=== PATIENT | male | born 1945 | race Caucasian/White ===

== ENCOUNTER 2017-07-15 08:09 | Day surgery (SDC) | payer OTHER ==
[~2017-07-15] VITALS: Ht 175.3 cm; Wt 60.9 kg
[2017-07-15] VITALS (9 sets, daily range): BP systolic 101–125; BP diastolic 55–66; PULSE 65–72; RESP 16–18; TEMP 97.8; O2SAT 90–94
[~2017-07-15 08:09] MED LIST: CEPH-460 PO; IBUP-232 PO; LORA1TAB12 PO
[2017-07-15] MEDS ORDERED: GELATIN 12 MM/7 MM FOAM ONE ×2 (08:10→09:33)
[2017-07-15] MEDS ORDERED: BUSP5TAB PO (08:25)
[2017-07-15] MEDS ORDERED: PRESCAP6 PO (08:25)
[2017-07-15] MEDS ORDERED: MEGE20TA PO (08:25)
[2017-07-15] MEDS ORDERED: MULT1TAB41 (08:25)
[2017-07-15] MEDS ORDERED: MIRT45TA PO (08:25)
[2017-07-15] MEDS ORDERED: fentaNYL CITRATE 250 MCG/5 ML AMP ONE (08:49)
[2017-07-15] MEDS ORDERED: MIDAZOLAM HCL 5 MG/5 ML VIAL ONE (08:49)
[2017-07-15] MEDS ORDERED: SODIUM CHLOR 0.9% 1000 ML IV SCH (09:00)
[2017-07-15] MEDS ORDERED: THROMBIN (TOPICAL) 5,000 UNIT VIAL ONE (09:33)
--- NOTE | 2017-07-15 11:42 | RADRPT ---
EXAM DATE/TIME: 07/15/2017 09:16 [facility] COMPARISON: No previous studies available for comparison. INDICATIONS : Liver mass. SEDATION TIME: 45 minutes BIOPSY SITE: Right flank. MEDICATION(S): 1.) 2.5 mg midazolam (Versed) IV 2.) 125 mcg fentanyl (Sublimaze) IV DEVICE(S): 1.) 18 gauge Rizvi blunt needle 2.) 20 gauge Temno core biopsy needle MEDICAL HISTORY : Carcinoma, prostate. Chronic obstructive pulmonary disease. SURGICAL HISTORY : Prostatectomy. Cholecystectomy. ENCOUNTER: Initial ACUITY: 1 day PAIN SCORE: 0/10 LOCATION: Right flank A total of three core specimen(s) were obtained and sent to the laboratory for pathologic evaluation. PROCEDURE: 1. CT guided liver biopsy. Prior to the procedure informed consent was obtained. Any appropriate prior imaging studies were rev iewed. Using automated exposure control and adjustment of the mA and/or kV according to patient size, radiat ion dose was kept as low as reasonably achievable to obtain optimal diagnostic quality images. DICOM format image data is available electronically for review and comparison. The site was prepped in a sterile fashion. Full sterile technique was used, including cap, mask, jesus manuel rile gloves and gown and a large sterile sheet. Hand hygiene and 2% chlorhexidine and/or betadine/al cohol prep was utilized per protocol for cutaneous antisepsis. The skin and subcutaneous tissues wer e infiltrated with local anesthetic solution. Under CT guidance the PET positive region in the right lobe the liver was localized. This is differe nt than the "suspicious area" seen on the CT scan from [facility]. 3 core biopsies were obtai carly of the PET positive region right lobe of the liver. Tract was embolized with Gelfoam. Follow-up CT scan reveals no hemorrhage. The patient tolerated the procedure well and there were no complications. The patient was returned to the Radiology Outpatient Unit in stable condition. CONCLUSION: Uncomplicated CT guided biopsy of PET positive region right lobe of the liver.. Vimal Mcdonald MD FACR on July 15, 2017 at 11:40 Board Certified Radiologist. This report was verified electronically.
== END 2017-07-15 14:15 | disposition home or self-care (01) ==
LOC: HRAD 08:09 → HRIP 08:12 → HRAD 14:15
PROVIDERS: ATTEND Internal Medicine
DX: R16.0 Hepatomegaly, not elsewhere classified (principal); K83.1 Obstruction of bile duct; Z85.46 Personal history of malignant neoplasm of prostate; J44.9 Chronic obstructive pulmonary disease, unspecified
CPT/HCPCS: 47000; 77012; 88307; 88333; J2250; J3010; J7030

== ENCOUNTER 2017-07-20 13:14 | Inpatient (IN) | payer OTHER, MEDICARE ==
[~2017-07-20] VITALS: Ht 175.3 cm; Wt 61.6 kg
[2017-07-20] VITALS (9 sets, daily range): BP systolic 92–149; BP diastolic 24–67; PULSE 46–133; RESP 17–24; TEMP 99.4–102.7; O2SAT 94–100
[~2017-07-20 13:14] MED LIST changes: +BUSP5TAB PO; -CEPH-460 PO; -IBUP-232 PO; -LORA1TAB12 PO; +MEGE20TA PO; +MIRT45TA PO; +MULT1TAB41; +PRESCAP6 PO
[2017-07-20] MEDS ORDERED: IOHEXOL 350 MG/ML 10 ML VIAL (for RAD DIAG) IVCONTRAST ONE (13:15)
--- NOTE | 2017-07-20 14:04 | RADRPT ---
EXAM DATE/TIME: 07/20/2017 13:45 [facility] COMPARISON: No previous studies available for comparison. INDICATIONS : Patient states fever for 2 days. MEDICAL HISTORY : Carcinoma, prostatic. Chronic obstructive pulmonary disease. SURGICAL HISTORY : Prostatectomy. Cholecystectomy. ENCOUNTER: Initial ACUITY: 2 days PAIN SCORE: 0/10 LOCATION: Bilateral chest FINDINGS: PA and lateral views of the chest demonstrate the lungs to be symmetrically aerated without evidence of mass, infiltrate or effusion. Bullous emphysematous changes. The cardiomediastinal contours are u nremarkable. Osseous structures are intact. CONCLUSION: Bullous emphysematous changes. No infiltrates. Andre Jones Jr., MD on July 20, 2017 at 14:02 Board Certified Radiologist. This report was verified electronically.
[2017-07-20 14:48] LABS: AUTOMATED NEUTROPHIL # 18.1 TH/MM3 (1.8-7.7); BASOPHIL % 0.1 % (0.0-2.0); HEMATOCRIT 38.6 % (39.0-51.0); HEMOGLOBIN 13.8 GM/DL (13.0-17.0); LYMPH % 2.7 % (9.0-44.0); LYMPHOCYTE # 0.5 TH/MM3 (1.0-4.8); MEAN CELL VOLUME 86.4 FL (80.0-100.0); MEAN CORPUSCULAR HEMOGLOBIN 30.8 PG (27.0-34.0); MEAN CORPUSCULAR HGB CONC 35.6 % (32.0-36.0); MEAN PLATELET VOLUME 8.2 FL (7.0-11.0); MONO % 4.8 % (0.0-8.0); MONOCYTE # 0.9 TH/MM3 (0-0.9); NEUT % 92.4 % (16.0-70.0); PLATELET COUNT 231 TH/MM3 (150-450); RED BLOOD COUNT 4.47 MIL/MM3 (4.50-5.90); RED CELL DISTRIBUTION WIDTH 13.6 % (11.6-17.2); WHITE BLOOD COUNT 19.6 TH/MM3 (4.0-11.0)
[2017-07-20 14:56] LABS: INTERNATIONAL NORMALIZED RATIO 1.2 RATIO; PROTHROMBIN TIME - PATIENT 11.7 SEC (9.8-11.6)
--- NOTE | 2017-07-20 14:58 | PD ---
HPI Chief Complaint: Fever Time Seen by Provider: 14:03 Travel History International Travel<30 days: No Contact w/Intl Traveler<30days: No Traveled to known affect area: No History of Present Illness HPI This is a 72-year-old male with a history of newly diagnosed pancreatic cancer with metastases to liver, presents here with complaints of fever and abdominal pain. The patient had a liver biopsy performed here at [facility] on Thursday. Son states at home he over the last 2436 hrs. was having chills. He also noted that he had a fever. There has been no reported URI symptoms. There is no been urinary symptoms. The patient denies any vomiting or diarrhea. He did take a 15 mg morphine tablet today prior to coming. There are no other complaints at the time of my examination. PFSH Past Medical History Anxiety: Yes Cancer: Yes (PROSTATE - PT STATES "FROM [facility]" pancreatic) Cardiovascular Problems: No High Cholesterol: Yes Diabetes: No Endocrine: No Gastrointestinal Disorders: No Genitourinary: No Hepatitis: No Hiatal Hernia: No Hypertension: No Immune Disorder: No Medical other: No Musculoskeletal: No Neurologic: No Psychiatric: No Reproductive: No Respiratory: Yes (COPD) Thyroid Disease: No Past Surgical History Abdominal Surgery: Yes (recent biopsy) AICD: No Cardiac Surgery: No Ear Surgery: No Endocrine Surgery: No Eye Surgery: No Genitourinary Surgery: Yes (PROSTATECTOMY) Gynecologic Surgery: No Joint Replacement: No Neurologic Surgery: Yes Oral Surgery: No Pacemaker: No Thoracic Surgery: No Other Surgery: Yes Social History Alcohol Use: No Tobacco Use: No Substance Use: No Allergies-Medications (Allergen,Severity, Reaction): Coded Allergies: No Known Allergies (Verified Allergy, Unknown, 07/15/17) Reported Meds & Prescriptions Reported Meds & Active Scripts Active Reported Preservision-Lutein (Multiple Vitamins W/ Minerals) 1 Cap 1 Cap PO DAILY Sentry Senior (Multiple Vitamins W/ Minerals) 500 Mcg-300 Mcg-250 Mcg Tab DAILY Mirtazapine 45 Mg Tab 45 Mg PO HS Megestrol (Megestrol Acetate) 20 Mg Tab 20 Mg PO BID Buspirone (Buspirone HCl) 5 Mg Tab 5 Mg PO BID Review of Systems Except as stated in HPI: all other systems reviewed are Neg General / Constitutional: Positive: Fever, Chills HENT: Positive: Lightheadedness, No: Headaches, Neck Pain Cardiovascular: No: Chest Pain or Discomfort, Palpitations, Irregular Rhythm Respiratory: No: Cough, Shortness of Breath Gastrointestinal: Positive: Nausea, Abdominal Pain, No: Vomiting Genitourinary: No: Dysuria, Decreased Urinary Output Musculoskeletal: No: Weakness, Pain Skin: No Rash, No Lesions Neurologic: Positive: Weakness, No: Dizziness Physical Exam Narrative GENERAL: Well-developed well-nourished male in mild discomfort. SKIN: Focused skin assessment warm/dry. HEAD: Atraumatic. Normocephalic. EYES: No scleral icterus. No injection or drainage. ENT: No nasal bleeding or discharge. Mucous membranes pink and moist. NECK: Trachea midline. Supple. CARDIOVASCULAR: Regular rate and rhythm. No murmur appreciated. RESPIRATORY: No accessory muscle use. Clear to auscultation. Breath sounds equal bilaterally. GASTROINTESTINAL: Abdomen soft, nondistended. There is tenderness to palpation in his epigastrium. Voluntary guarding with no rebound. MUSCULOSKELETAL: No obvious deformities. No clubbing. No cyanosis. No edema. NEUROLOGICAL: Awake and alert. No obvious cranial nerve deficits. Motor grossly within normal limits. Normal speech. Data Data Last Documented VS Vital Signs Date Time Temp Pulse Resp B/P (MAP) Pulse Ox O2 Delivery O2 Flow Rate FiO2 07/20/17 16:04 102 17 92/53 (66) 96 Room Air 07/20/17 13:30 101.7 Orders Orders Sepsis Workup Initiated (07/20/17 ) Electrocardiogram (07/20/17 13:33) Complete Blood Count With Diff (07/20/17 13:33) Comprehensive Metabolic Panel (07/20/17 13:33) Prothrombin Time / Inr (Pt) (07/20/17 13:33) Act Partial Throm Time (Ptt) (07/20/17 13:33) Lactic Acid Sepsis Protocol (07/20/17 13:33) Lipase (07/20/17 13:33) Urinalysis - C+S If Indicated (07/20/17 13:33) Influenzae A/B Antigen (07/20/17 13:33) Blood Culture (07/20/17 13:33) Chest, Pa & Lat (07/20/17 13:33) Ct Abd/Pel W Iv Contrast(Rout) (07/20/17 14:26) Iohexol 350 Inj (Omnipaque 350 Inj) (07/20/17 13:15) Sodium Chlor 0.9% 1000 Ml Inj (Ns 1000 M (07/20/17 16:00) Diet Regular Basic (07/20/17 Dinner) Admit Order (Ed Use Only) (07/20/17 17:50) Labs Laboratory Tests Test 07/20/17 14:42 07/20/17 15:58 White Blood Count 19.6 TH/MM3 Red Blood Count 4.47 MIL/MM3 Hemoglobin 13.8 GM/DL Hematocrit 38.6 % Mean Corpuscular Volume 86.4 FL Mean Corpuscular Hemoglobin 30.8 PG Mean Corpuscular Hemoglobin Concent 35.6 % Red Cell Distribution Width 13.6 % Platelet Count 231 TH/MM3 Mean Platelet Volume 8.2 FL Neutrophils (%) (Auto) 92.4 % Lymphocytes (%) (Auto) 2.7 % Monocytes (%) (Auto) 4.8 % Eosinophils (%) (Auto) 0.0 % Basophils (%) (Auto) 0.1 % Neutrophils # (Auto) 18.1 TH/MM3 Lymphocytes # (Auto) 0.5 TH/MM3 Monocytes # (Auto) 0.9 TH/MM3 Eosinophils # (Auto) 0.0 TH/MM3 Basophils # (Auto) 0.0 TH/MM3 CBC Comment DIFF FINAL Differential Comment Prothrombin Time 11.7 SEC Prothromb Time International Ratio 1.2 RATIO Activated Partial Thromboplast Time 29.2 SEC Blood Urea Nitrogen 15 MG/DL Creatinine 1.10 MG/DL Random Glucose 108 MG/DL Total Protein 7.4 GM/DL Albumin 2.7 GM/DL Calcium Level 8.9 MG/DL Alkaline Phosphatase 218 U/L Aspartate Amino Transf (AST/SGOT) 104 U/L Alanine Aminotransferase (ALT/SGPT) 106 U/L Total Bilirubin 1.2 MG/DL Sodium Level 129 MEQ/L Potassium Level 4.4 MEQ/L Chloride Level 99 MEQ/L Carbon Dioxide Level 19.8 MEQ/L Anion Gap 10 MEQ/L Estimat Glomerular Filtration Rate 65 ML/MIN Lactic Acid Level 2.9 mmol/L Lipase 86 U/L Urine Color YELLOW Urine Turbidity HAZY Urine pH 7.5 Urine Specific [place] 1.037 Urine Protein 30 mg/dL Urine Glucose (UA) NEG mg/dL Urine Ketones NEG mg/dL Urine Occult Blood NEG Urine Nitrite NEG Urine Bilirubin NEG Urine Urobilinogen LESS THAN 2.0 MG/DL Urine Leukocyte Esterase NEG Urine RBC LESS THAN 1 /hpf Urine WBC 2 /hpf Urine Squamous Epithelial Cells 1 /hpf Urine Hyaline Casts 1 /lpf Microscopic Urinalysis Comment CATH-CULT NOT IND MDM Medical Decision Making Medical Screen Exam Complete: Yes Emergency Medical Condition: Yes Differential Diagnosis Pneumonia versus UTI versus intra-abdominal abscess versus influenza Narrative Course 72-year-old male with a history of pancreatic cancer with metastasis to his liver, presents here with fever and abdominal pain. Patient's white count is 19 ,000. The patient had a biopsy of his liver on Thursday. CT scan of his abdomen pelvis shows probable infectious findings of his right lobe of his liver. Given his biopsy and his fever and elevated white blood cell count, the patient will be treated for intra-abdominal infection. He has been started on Zosyn, 4.5 g IV 1 dose. Case was [facility]. Ru[facility] He is agreeable to the admission. Diagnosis Primary Impression: Fever Additional Impressions: Leukocytosis Liver biopsy site infection History of metastatic pancreatic cancer Admitting Information Admitting Physician Requests: Admit Cm Rondon MD Jul 20, 2017 14:58
[2017-07-20 15:03] LABS: ALBUMIN 2.7 GM/DL (3.4-5.0); ALT (GPT) 106 U/L (12-78); AST (GOT) 104 U/L (15-37); BICARBONATE 19.8 MEQ/L (21.0-32.0); BLOOD UREA NITROGEN 15 MG/DL (7-18); CALCIUM 8.9 MG/DL (8.5-10.1); CHLORIDE 99 MEQ/L (98-107); GLOMERULAR FILTRATION RATE 65 ML/MIN (>89); GLUCOSE,RANDOM 108 MG/DL (74-106); SODIUM (NA) 129 MEQ/L (136-145)
[2017-07-20 15:05] LABS: ALKALINE PHOSPHATASE 218 U/L (45-117); TOTAL BILIRUBIN ADULT 1.2 MG/DL (0.2-1.0); TOTAL PROTEIN 7.4 GM/DL (6.4-8.2)
[2017-07-20 15:06] LABS: LACTIC ACID SEPSIS PROTOCOL 2.9 mmol/L (0.4-2.0)
[2017-07-20] MEDS ORDERED: SODIUM CHLOR 0.9% 1000 ML INJ 1,000 ML IV ONE (16:00)
--- NOTE | 2017-07-20 16:13 | RADRPT ---
EXAM DATE/TIME: 07/20/2017 15:30 This report includes an Addendum and supersedes previous reports for this exam. [facility] COMPARISON: CT NEEDLE BIOPSY LIVER, July 15, 2017, 9:16. INDICATIONS : Evaluate for abscess, patient has fever. IV CONTRAST: 97 cc Omnipaque 350 (iohexol) IV ORAL CONTRAST: No oral contrast ingested. RADIATION DOSE: 6.57 CTDIvol (mGy) MEDICAL HISTORY : Chronic obstructive pulmonary disease. Carcinoma, pancreas. SURGICAL HISTORY : Prostatectomy. Cholecystectomy. ENCOUNTER: Initial ACUITY: 1 day PAIN SCALE: 0/10 LOCATION: abdomen TECHNIQUE: Volumetric scanning of the abdomen and pelvis was performed. Using automated exposure control and ad justment of the mA and/or kV according to patient size, radiation dose was kept as low as reasonably achievable to obtain optimal diagnostic quality images. DICOM format image data is available electro nically for review and comparison. FINDINGS: LOWER LUNGS: Right basilar atelectasis. Left lung base is clear. Coronary artery atherosclerotic calcifications no wilner. LIVER: There is a metallic common bile duct stent. This is patent. Pneumobilia observed particularly within the left lobe of the liver. No dilatation. There is a low density mass involving the left lobe of the liver within segment 3. This measures 6.8 x 4.9 x 3.9 cm. This is new from the biopsy images perform ed July 15, 2017. Hounsfield units are 40. A vague area of decreased density seen involving the r ight tip of the liver. This area was not previously imaged. SPLEEN: Normal size without lesion. PANCREAS: There is a pancreatic head mass that measures approximately 3 cm in diameter. Pancreatic ductal dilat ation observed reaching a maximum diameter of 8 mm. KIDNEYS: Normal in size and shape. There is no mass, stone or hydronephrosis. ADRENAL GLANDS: Within normal limits. VASCULAR: 3.6 x 3.7 cm fusiform infrarenal abdominal aortic aneurysm. This extends into the right common artery which reaches a maximum diameter of 18 mm. BOWEL/MESENTERY: The stomach, small bowel, and colon demonstrate no acute abnormality. There is no free intraperitone al air or fluid. ABDOMINAL WALL: Within normal limits. RETROPERITONEUM: There is no lymphadenopathy. BLADDER: No wall thickening or mass. REPRODUCTIVE: Prostate gland is surgically absent.. INGUINAL: There is no lymphadenopathy or hernia. MUSCULOSKELETAL: Within normal limits for patient age. CONCLUSION: 1. Interval appearance of a 6.8 cm low-density lesion involving the left lobe of the liver. Scattered vague areas of decreased density within the right lobe. This is concerning for an infectious process that is yet to liquefy. 2. Approximate 3 cm pancreatic head mass with obstruction of the pancreatic duct. Stent within the co mmon bile duct is patent. 3. Pneumobilia. 4. Right basilar atelectasis. Andre Jones Jr., MD on July 20, 2017 at 16:04 Board Certified Radiologist. This report was verified electronically. ADDENDUM: Prior scan from [facility] dated 07-01-2017 is now available for direct comparison. The low density lesion in segment 3 of the left hepatic lobe was not present previously. There is stable pneumobilia likely associated with the metallic biliary stent. 2.8 cm mass lesion at the junction of head and neck of the pancreas is difficult to identify on the previous scan, likely d ue to a different phase of contrast enhancement but the degree of pancreatic ductal dilatation is sta ble. Lupillo Rivero MD on July 23, 2017 at 16:28 Board Certified Radiologist. This report was verified electronically.
[2017-07-20 17:07] LABS: BILIRUBIN, URINE NEG (NEG); BLOOD, URINE NEG (NEG); GLUCOSE,URINE NEG (NEG); HYALINE CAST, URINE 1 /lpf (RARE); KETONE, URINE NEG (NEG); NITRITE,URINE NEG (NEG); PH, URINE 7.5 (5.0-8.5); SQUAMOUS EPITHELIAL CELL URINE 1 /hpf (0-5); URINE COLOR YELLOW (YELLW/STRAW); URINE LEUKOCYTE ESTERASE NEG (NEG)
[2017-07-20] MEDS ORDERED: MAGNESIUM HYDROXIDE SUSP 30 ML CUP PO PRN (18:30)
[2017-07-20] MEDS ORDERED: SENNOSIDES 8.6 MG TAB PO PRN (18:30)
[2017-07-20] MEDS ORDERED: BISACODYL 10 MG SUPP RECTAL PRN (18:30)
[2017-07-20] MEDS ORDERED: LACTULOSE SYRUP 20 GM/30 ML CUP PO PRN (18:30)
[2017-07-20] MEDS ORDERED: ONDANSETRON HCL 4 MG/2 ML VIAL IVP PRN (18:30)
[2017-07-20] MEDS ORDERED: PIPERACIL-TAZO 4.5 GM PREMIX 100 ML IV ONE (18:30)
[2017-07-20] MEDS ORDERED: NALOXONE HCL 0.4 MG/ML AMP IV PUSH PRN (18:30)
[2017-07-20] MEDS: SODIUM CHLOR 0.9% 1000 ML INJ 1,000 ML IV SCH (20:28)
[2017-07-20] MEDS ORDERED: RESP: ALBUTEROL 2.5 MG/IPRATROPIUM 0.5 MG NEB (PRN) NEB (20:45)
[2017-07-20] MEDS: SODIUM CHLORIDE 0.9% FLUSH 10 ML FLUSH IV FLUSH SCH (21:00)
[2017-07-20] MEDS: ACETAMINOPHEN 325 MG TAB PO PRN (21:36)
[2017-07-20] MEDS ORDERED: HEPARIN SODIUM - SQ 10,000 UNITS/ML VIAL SQ SCH (22:00)
--- NOTE | 2017-07-20 22:14 | HHI.HP ---
HPI Service [facility] Primary Care Physician Del Gomez MD Admission Diagnosis fever, suspected abscess from liver biopsy, metastatic pancreatic ca Diagnoses: Travel History International Travel<30 Days: No Contact w/Intl Traveler <30 Da: No Traveled to Known Affected Are: No History of Present Illness 72-year-old male with a past medical history significant for prostate cancer and anxiety with newly diagnosed pancreatic mass with corresponding liver mass concerning for metastatic disease presents to the emergency department for evaluation of abdominal pain/fever. Patient is status post liver biopsy done on Thursday. The patient reports that his abdominal pain began yesterday morning and it is severe in nature in the epigastric region of his abdomen. He reports a fever to 101.7 earlier today. He also reports subjective fever/chills. Denies chest pain or shortness of breath. Endorses nausea. Denies emesis. No cough. No lateralizing signs/symptoms. Review of Systems Except as stated in HPI: all other systems reviewed are Neg Past Family Social History Past Medical History COPD History of prostate cancer Anxiety Newly diagnosed pancreatic mass with liver lesion concerning for metastatic disease Past Surgical History TURP 2000 Reported Medications Reported Meds & Active Scripts Active Reported Preservision-Lutein (Multiple Vitamins W/ Minerals) 1 Cap 1 Cap PO DAILY Sentry Senior (Multiple Vitamins W/ Minerals) 500 Mcg-300 Mcg-250 Mcg Tab DAILY Mirtazapine 45 Mg Tab 45 Mg PO HS Megestrol (Megestrol Acetate) 20 Mg Tab 20 Mg PO BID Buspirone (Buspirone HCl) 5 Mg Tab 5 Mg PO BID Allergies: Coded Allergies: No Known Allergies (Verified Allergy, Unknown, 07/15/17) Family History Negative for CAD/DM Social History Quit tobacco 3 years ago. Denies alcohol. Intermittent marijuana use. Denies other illicit drugs. Physical Exam Vital Signs Vital Signs Date Time Temp Pulse Resp B/P (MAP) Pulse Ox O2 Delivery O2 Flow Rate FiO2 07/20/17 21:21 102.7 104 20 111/54 (73) 95 07/20/17 20:29 112 18 149/67 (94) 99 Nasal Cannula 3.00 07/20/17 19:23 99.4 07/20/17 18:15 100 17 104/56 (72) 100 Room Air 07/20/17 16:04 102 17 92/53 (66) 96 Room Air 07/20/17 14:39 115 92 Room Air 07/20/17 13:30 101.7 133 24 105/42 (63) 94 Physical Exam GENERAL: Cachectic, male lying in bed SKIN: No rashes, ecchymoses or lesions. Cool and dry. HEAD: Atraumatic. Normocephalic. No temporal or scalp tenderness. EYES: Pupils equal round and reactive. Extraocular motions intact. No scleral icterus. No injection or drainage. ENT: Nose without bleeding, purulent drainage or septal hematoma. Throat without erythema, tonsillar hypertrophy or exudate. Uvula midline. Airway patent. NECK: Trachea midline. No JVD or lymphadenopathy. Supple, nontender, no meningeal signs. CARDIOVASCULAR: Regular rate and rhythm without murmurs, gallops, or rubs. RESPIRATORY: Clear to auscultation. Breath sounds equal bilaterally. No wheezes , rales, or rhonchi. GASTROINTESTINAL: Abdomen soft, tender to palpation in the epigastric, nondistended. MUSCULOSKELETAL: Extremities without clubbing, cyanosis, or edema. No joint tenderness, effusion, or edema noted. No calf tenderness. NEUROLOGICAL: Awake and alert. Cranial nerves II through XII intact. Motor and sensory grossly within normal limits. Normal speech. Laboratory Laboratory Tests Test 07/20/17 14:42 07/20/17 15:58 White Blood Count 19.6 Red Blood Count 4.47 Hemoglobin 13.8 Hematocrit 38.6 Mean Corpuscular Volume 86.4 Mean Corpuscular Hemoglobin 30.8 Mean Corpuscular Hemoglobin Concent 35.6 Red Cell Distribution Width 13.6 Platelet Count 231 Mean Platelet Volume 8.2 Neutrophils (%) (Auto) 92.4 Lymphocytes (%) (Auto) 2.7 Monocytes (%) (Auto) 4.8 Eosinophils (%) (Auto) 0.0 Basophils (%) (Auto) 0.1 Neutrophils # (Auto) 18.1 Lymphocytes # (Auto) 0.5 Monocytes # (Auto) 0.9 Eosinophils # (Auto) 0.0 Basophils # (Auto) 0.0 CBC Comment DIFF FINAL Differential Comment Prothrombin Time 11.7 Prothromb Time International Ratio 1.2 Activated Partial Thromboplast Time 29.2 Blood Urea Nitrogen 15 Creatinine 1.10 Random Glucose 108 Total Protein 7.4 Albumin 2.7 Calcium Level 8.9 Alkaline Phosphatase 218 Aspartate Amino Transf (AST/SGOT) 104 Alanine Aminotransferase (ALT/SGPT) 106 Total Bilirubin 1.2 Sodium Level 129 Potassium Level 4.4 Chloride Level 99 Carbon Dioxide Level 19.8 Anion Gap 10 Estimat Glomerular Filtration Rate 65 Lactic Acid Level 2.9 Lipase 86 Urine Color YELLOW Urine Turbidity HAZY Urine pH 7.5 Urine Specific [place] 1.037 Urine Protein 30 Urine Glucose (UA) NEG Urine Ketones NEG Urine Occult Blood NEG Urine Nitrite NEG Urine Bilirubin NEG Urine Urobilinogen LESS THAN 2.0 Urine Leukocyte Esterase NEG Urine RBC LESS THAN 1 Urine WBC 2 Urine Squamous Epithelial Cells 1 Urine Hyaline Casts 1 Microscopic Urinalysis Comment CATH-CULT NOT IND Date/Time Source Procedure Growth Status 07/20/17 14:30 Blood Peripheral Aerobic Blood Culture Pending Received 07/20/17 14:30 Blood Peripheral Anaerobic Blood Culture Pending Received 07/20/17 14:42 Nasal Washing Influenza Types A,B Antigen (ION) - Final NEGATIVE FOR FLU A AND B ANTIGEN.... Complete Result Diagram: 07/20/17 1442 07/20/17 1442 Caprini VTE Risk Assessment Caprini VTE Risk Assessment: Mod/High Risk (score >= 2) Caprini Risk Assessment Model Point Value = 1 Point Value = 2 Point Value = 3 Point Value = 5 Age 41-60 Minor surgery BMI > 25 kg/m2 Swollen legs Varicose veins or History of unexplained or recurrent spontaneous Oral contraceptives or hormone replacement Sepsis (< 1 month) Serious lung disease, including pneumonia (< 1 month) Abnormal pulmonary function Acute myocardial infarction Congestive heart failure (< 1 month) History of inflammatory bowel disease Medical patient at bed rest Age 61-74 Arthroscopic surgery Major open surgery (> 45 min) Laparoscopic surgery (> 45 min) Malignancy Confined to bed (> 72 hours) Immobilizing plaster cast Central venous access Age >= 75 History of VTE Family history of VTE Factor V Leiden Prothrombin [id number] Lupus anticoagulant Anticardiolipin antibodies Elevated serum homocysteine Heparin-induced thrombocytopenia Other congenital or acquired thrombophilia Stroke (< 1 month) Elective arthroplasty Hip, pelvis, or leg fracture Acute spinal cord injury (< 1 month) Prophylaxis Regimen Total Risk Factor Score Risk Level Prophylaxis Regimen 0-1 Low Early ambulation 2 Moderate Order ONE of the following: *Sequential Compression Device (SCD) *Heparin 5000 units SQ BID 3-4 Higher Order ONE of the following medications: *Heparin 5000 units SQ TID *Enoxaparin/Lovenox 40 mg SQ daily (WT < 150 kg, CrCl > 30 mL/min) *Enoxaparin/Lovenox 30 mg SQ daily (WT < 150 kg, CrCl > 10-29 mL/min) *Enoxaparin/Lovenox 30 mg SQ BID (WT < 150 kg, CrCl > 30 mL/min) AND/OR *Sequential Compression Device (SCD) 5 or more Highest Order ONE of the following medications: *Heparin 5000 units SQ TID (Preferred with Epidurals) *Enoxaparin/Lovenox 40 mg SQ daily (WT < 150 kg, CrCl > 30 mL/min) *Enoxaparin/Lovenox 30 mg SQ daily (WT < 150 kg, CrCl > 10-29 mL/min) *Enoxaparin/Lovenox 30 mg SQ BID (WT < 150 kg, CrCl > 30 mL/min) AND *Sequential Compression Device (SCD) Assessment and Plan Assessment and Plan Assessment/plan: 1. Liver abscess/sepsis Lactic acid elevated at 2.9, leukocytosis, fever, tachycardia Patient is status post liver biopsy done on Thursday CT of the abdomen/pelvis concerning for interval appearance of a 6.8 cm low density lesion involving the left lobe of the liver concerning for infectious process Zosyn Blood cultures pending Interventional radiology consulted, appreciate recommendations 2. Pancreatic mass with concern for metastatic liver disease Patient's oncologist, Dr. Gomez consulted, appreciate recommendations 3. COPD Duo nebs 4. Anxiety Ativan when necessary FEN NS at 100 cc/hr NPO Electrolytes: Monitor and replete prn Holding pharmacologic anticoagulation for possible procedure Physician Certification 2 Midnight Certification Type: Admission for Inpatient Services Order for Inpatient Services The services are ordered in accordance with Medicare regulations or non- Medicare payer requirements, as applicable. In the case of services not specified as inpatient-only, they are appropriately provided as inpatient services in accordance with the 2-midnight benchmark. Estimated LOS (days): 2 2 days is the estimated time the patient will need to remain in the hospital, assuming treatment plan goals are met and no additional complications. Post-Hospital Plan: Not yet determined Bertha Velásquez MD Jul 20, 2017 22:14
[2017-07-21] VITALS (26 sets, daily range): BP systolic 85–198; BP diastolic 43–125; PULSE 72–140; RESP 16–42; TEMP 97–99.3; O2SAT 86–100
[2017-07-21] MEDS ORDERED: SODIUM CHLOR 0.9% 1000 ML INJ 1,000 ML IV ONE ×2 (00:45→12:30)
[2017-07-21] MEDS: PIPERACIL-TAZO 4.5 GM PREMIX 100 ML IV SCH ×3 (02:42→17:30)
[2017-07-21] MEDS: SODIUM CHLOR 0.9% 1000 ML INJ 1,000 ML IV SCH ×2 (04:29→05:34)
[2017-07-21] MEDS: SODIUM CHLORIDE 0.9% FLUSH 10 ML FLUSH IV FLUSH SCH ×2 (07:24→20:57)
[2017-07-21 07:30] LABS: AUTOMATED NEUTROPHIL # 7.7 TH/MM3 (1.8-7.7); BASOPHIL % 0.3 % (0.0-2.0); EOSINOPHIL % 0.1 % (0.0-4.0); HEMOGLOBIN 11.1 GM/DL (13.0-17.0); LYMPH % 5.3 % (9.0-44.0); LYMPHOCYTE # 0.5 TH/MM3 (1.0-4.8); MEAN CELL VOLUME 87.6 FL (80.0-100.0); MEAN CORPUSCULAR HEMOGLOBIN 30.3 PG (27.0-34.0); MEAN CORPUSCULAR HGB CONC 34.6 % (32.0-36.0); MEAN PLATELET VOLUME 7.8 FL (7.0-11.0); MONO % 5.2 % (0.0-8.0); MONOCYTE # 0.5 TH/MM3 (0-0.9); NEUT % 89.1 % (16.0-70.0); PLATELET COUNT 143 TH/MM3 (150-450); RED BLOOD COUNT 3.65 MIL/MM3 (4.50-5.90); RED CELL DISTRIBUTION WIDTH 13.7 % (11.6-17.2); WHITE BLOOD COUNT 8.7 TH/MM3 (4.0-11.0)
[2017-07-21] MEDS ORDERED: LIDOCAINE HCL 1% 20 ML VIAL ONE ×2 (08:03→15:05)
[2017-07-21] MEDS ORDERED: MIDAZOLAM HCL 2 MG/2 ML VIAL ONE ×2 (08:09→15:03)
[2017-07-21 08:13] LABS: ALBUMIN 1.9 GM/DL (3.4-5.0); ALKALINE PHOSPHATASE 149 U/L (45-117); ALT (GPT) 95 U/L (12-78); AST (GOT) 90 U/L (15-37); BICARBONATE 24.3 MEQ/L (21.0-32.0); BLOOD UREA NITROGEN 18 MG/DL (7-18); CHLORIDE 105 MEQ/L (98-107); CREATININE 0.97 MG/DL (0.60-1.30); GLOMERULAR FILTRATION RATE 76 ML/MIN (>89); GLUCOSE,RANDOM 108 MG/DL (74-106); SODIUM (NA) 137 MEQ/L (136-145); TOTAL BILIRUBIN ADULT 0.7 MG/DL (0.2-1.0); TOTAL PROTEIN 5.7 GM/DL (6.4-8.2)
[2017-07-21] MEDS ORDERED: methylPREDNISolone SOD SUCC 125 MG/2 ML VIAL IV PUSH ONE (08:45)
--- NOTE | 2017-07-21 08:59 | HHI.PR ---
Subjective Remarks I received a stat call from patient's nurse in regards to patient becoming tachycardic and in respiratory failure with hypoxia. She stated patient on a nonrebreather 15 L. I told nurse to call rapid response. I immediately saw patient who stated that he abruptly became short of breath and had severe chills. Patient's son at the bedside. Stat chest x-ray and ABG ordered. I called Dr. Doe in regards to patient and immediate transfer to the [facility]. Dr. Doe asked to give Solu-Medrol 80 mg once. Objective Vitals Vital Signs Date Time Temp Pulse Resp B/P (MAP) Pulse Ox O2 Delivery O2 Flow Rate FiO2 07/21/17 08:37 140 37 198/75 (116) 86 07/21/17 08:33 138 42 190/82 (118) 100 07/21/17 08:29 99.3 131 40 163/125 (138) 100 07/21/17 08:21 100 Non-Rebreather 10.00 07/21/17 08:19 122 18 169/62 (97) 99 07/21/17 08:08 98.3 111 18 140/74 (96) 90 07/21/17 06:48 79 90/53 (65) 07/21/17 06:14 76 89/46 (60) 07/21/17 06:00 72 07/21/17 05:25 Nasal Cannula 2.00 07/21/17 05:25 97.5 74 16 88/49 (62) 98 07/21/17 05:00 74 07/21/17 04:01 94 07/21/17 03:00 78 07/21/17 02:00 80 07/21/17 01:00 84 07/21/17 00:07 94 07/21/17 00:06 98.6 93 18 89/43 (58) 95 07/21/17 00:06 Nasal Cannula 2.00 07/20/17 23:00 108 07/20/17 22:00 106 07/20/17 21:21 102.7 104 20 111/54 (73) 95 07/20/17 21:21 104 07/20/17 20:29 112 18 149/67 (94) 99 Nasal Cannula 3.00 07/20/17 19:23 99.4 07/20/17 18:15 100 17 104/56 (72) 100 Room Air 07/20/17 16:04 102 17 92/53 (66) 96 Room Air 07/20/17 14:39 115 92 Room Air 07/20/17 13:30 101.7 133 24 105/42 (63) 94 I/O 07/20/17 07/20/17 07/20/17 07/21/17 07/21/17 07/21/17 07:00 15:00 23:00 07:00 15:00 23:00 Intake Total 1300 ml Output Total 150 ml 800 ml Balance 1150 ml -800 ml Intake Oral 200 ml IV Total 1100 ml Output Urine Total 150 ml 800 ml # Voids 1 # Bowel Movements 1 Result Diagram: 07/21/1771907/21/17 07 Objective Remarks GENERAL: Very thin male in respiratory failure with increased work of breathing. SKIN: Warm and dry. HEAD: Normocephalic. EYES: No scleral icterus. No injection or drainage. NECK: Supple, trachea midline. No JVD or lymphadenopathy. CARDIOVASCULAR: Tachycardia and 140s rate and rhythm without murmurs, gallops, or rubs. RESPIRATORY: Mild scattered expiratory wheezing. No rhonchi or crackles noted. No accessory muscle use. GASTROINTESTINAL: Abdomen soft,+ TTP in epigastric area., nondistended. MUSCULOSKELETAL: No cyanosis, or edema. BACK: Nontender without obvious deformity. No CVA tenderness. Medications and IVs Current Medications Iohexol (Omnipaque 350 Inj) 97 ml STK-MED ONCE IVCONTRAST Last administered on 07/20/17 15:37; Start 07/20/17 at 13:15; Stop 07/20/17 at 15:36; Status DC Sodium Chloride 1,000 ml @ 999 mls/hr BOLUS ONCE IV Last administered on at 16:10; Start 07/20/17 at 16:00; Stop 07/20/17 at 17:00; Status DC Piperacillin Sod/ Tazobactam Sod 100 ml @ 200 mls/hr ONCE ONCE IV Last administered on 07/20/17 18:30; Start 07/20/17 at 18:30; Stop 07/20/17 at 18:59; Status DC Sodium Chloride 1,000 ml @ 100 mls/hr Q10H IV Last administered on 07/21/17at 05 :34; Start 07/20/17 at 18:29 Sodium Chloride (NS Flush) 2 ml UNSCH PRN IV FLUSH FLUSH AFTER USING IV ACCESS ; Start 07/20/17 at 18:30 Sodium Chloride (NS Flush) 2 ml BID IV FLUSH ; Start 07/20/17 at 21:00 Acetaminophen (Tylenol) 650 mg Q4H PRN PO TEMP > 100.4 Last administered on 07/20at 21:36; Start 07/20/17 at 18:30 Ondansetron HCl (Zofran Inj) 4 mg Q6H PRN IVP NAUSEA OR VOMITING Last administered on 07/20/17at 20:28; Start 07/20/17 at 18:30 Heparin Sodium (Porcine) (Heparin Inj) 5,000 units Q8HR SQ Last administered on 07/20/17at 21:36; Start 07/20/17 at 22:00; Stop 07/20/17 at 22:13; Status DC Naloxone HCl (Narcan Inj) 0.4 mg UNSCH PRN IV PUSH SEE LABEL COMMENTS; Start at 18:30 Magnesium Hydroxide (Milk Of Magnesia Liq) 30 ml Q12H PRN PO Mild constipation ; Start 07/20/17 at 18:30 Sennosides (Senokot) 17.2 mg Q12H PRN PO Moderate constipation; Start 07/20/17 at 18:30 Bisacodyl (Dulcolax Supp) 10 mg DAILY PRN RECTAL SEVERE CONSITIPATION; Start at 18:30 Lactulose (Lactulose Liq) 30 ml DAILY PRN PO SEVERE CONSITIPATION; Start at 18:30 Piperacillin Sod/ Tazobactam Sod 100 ml @ 200 mls/hr Q8H IV Last administered on 07/21/17at 02:42; Start 07/21/17 at 02:00 Albuterol/ Ipratropium (Duoneb Neb) 1 ampule Q4HR NEB PRN NEB SOB/Wheezing; Start 07/20/17 at 20:45 Lorazepam (Ativan Inj) 1 mg Q4H PRN IV PUSH Anxiety; Start 07/20/17 at 20:45 Sodium Chloride 1,000 ml @ 999 mls/hr BOLUS ONCE IV Last administered on at 00:39; Start 07/21/17 at 00:45; Stop 07/21/17 at 01:45; Status DC Lidocaine HCl (Xylocaine 1% Inj) 20 ml STK-MED ONCE .ROUTE ; Start 07/21/17 at 08 :03; Stop 07/21/17 at 08:04; Status DC Fentanyl Citrate (fentaNYL INJ) 100 mcg STK-MED ONCE .ROUTE ; Start 07/21/17 at 08:09; Stop 07/21/17 at 08:10; Status DC Midazolam HCl (Versed Inj) 2 mg STK-MED ONCE .ROUTE ; Start 07/21/17 at 08:09; Stop 07/21/17 at 08:10; Status DC Methylprednisolone Sodium Succinate (SoluMEDROL INJ) 80 mg ONCE ONCE IV PUSH ; Start 07/21/17 at 08:45; Stop 07/21/17 at 08:46; Status DC A/P Assessment and Plan This is a 72-year-old male who initially presented with abdominal pain found to have a possible liver abscess who then developed respiratory failure and severe tachycardia Respiratory failure with hypoxia, acute onset -On physical exam patient had mild wheezing. Stat chest x-ray place. ABG showed pH 7.28 with a bicarb 19 and oxygen 100% on nonrebreather 15. -I reviewed code status with patient and his son and patient asked to be full code. His son also agreed. -We will give Solu-Medrol. Patient already had nebulizer. This may be a combination from sepsis and COPD. -Spoke to Dr. Doe intensive care physician for transfer care due to possible intubation. Sepsis, severe -Decompensating. Sepsis is worsening. -initial Lactic acid elevated at 2.9 but that worsened to 4.5, leukocytosis, fever, tachycardia. Tachycardia worsen to HR 140s. -will give stat NS bolus. patient on IVs already. -on zosyn so will add vancomycin. will have pharmacy dose it. -BCs pending. Liver mass -s/p liver biopsy done on Thursday -CT of the abdomen/pelvis concerning for interval appearance of a 6.8 cm low density lesion involving the left lobe of the liver concerning for infectious process -Interventional radiology consulted, appreciate recommendations Pancreatic mass with concern for metastatic liver disease -Patient's oncologist, Dr. Gomez consulted, appreciate recommendations COPD -patient does have some exp wheezing. -will give solumedrol. -already on Duo nebs Anxiety -Ativan when necessary DVT prophylaxis -SCDs. chemoprophylaxis held due to possible procedure. More than 40 minutes of critical care time spent in the management of patient. Discussed case with rapid response team, patient's nurse, and Dr. Doe social service assistant. Discharge Planning STAT transfer to [facility] and care transfer to [facility]. I spoke to Evaporator Operator Dr. Doe. Paris Navarro MD Jul 21, 2017 08:59
[2017-07-21] MEDS ORDERED: RESP: ALBUTEROL 2.5 MG/IPRATROPIUM 0.5 MG NEB (PRN) NEB (09:15)
[2017-07-21] MEDS ORDERED: Vancomycin Consult Pharmacy 1 EA OTHER SCH (09:15)
[2017-07-21] MEDS: BUDESONIDE-FORMOTEROL 160/4.5 MCG INHALER INH SCH ×2 (09:15→21:00)
[2017-07-21] MEDS: ACETAMINOPHEN 325 MG TAB PO PRN (09:40)
[2017-07-21] MEDS ORDERED: ETOMIDATE 40 MG/20 ML VIAL ONE (09:45)
[2017-07-21] MEDS ORDERED: PROPOFOL 500 MG/50 ML INJ 50 ML ONE (09:45)
--- NOTE | 2017-07-21 09:46 | RADRPT ---
EXAM DATE/TIME: 07/21/2017 09:09 [facility] COMPARISON: No previous studies available for comparison. INDICATIONS : Short of breath. Hypoxia. MEDICAL HISTORY : Chronic obstructive pulmonary disease. Carcinoma, pancreas. SURGICAL HISTORY : Prostatectomy. Cholecystectomy. ENCOUNTER: Initial ACUITY: 1 day PAIN SCORE: 0/10 LOCATION: Bilateral chest FINDINGS: 2 portable frontal views of the chest show the lungs to be well-expanded and clear. No effusions. Hea rt normal in size. Bony structures are unremarkable. CONCLUSION: No acute disease. Andre Jones Jr., MD on July 21, 2017 at 9:44 Board Certified Radiologist. This report was verified electronically.
[2017-07-21] MEDS ORDERED: ROCURONIUM INJ 50 MG/5 ML VIAL ONE ×2 (09:54)
[2017-07-21] MEDS: FAMOTIDINE 20 MG/2 ML VIAL IV PUSH SCH ×2 (10:00→21:50)
[2017-07-21] MEDS: VANCOMYCIN INJ 1,250 MG in SODIUM CHLOR 0.9% 250 ML INJ 250 ML IV SCH ×2 (10:03→22:00)
--- NOTE | 2017-07-21 10:14 | MB ---
cc: Bonilla Jimenez MD DATE OF CONSULT: REASON FOR CONSULTATION: Critical care management. Patient is 72-year-old male with past medical history of COPD, prostate cancer, anxiety disorder, newly diagnosed pancreatic mass with liver lesion concerning for metastatic disease. He presented to [facility] ED yesterday for evaluation of abdominal pain associated with fever. He underwent CT-guided biopsy of the liver mass on 07/15, and pathology showed acute large duct biliary obstruction, negative for neoplasms. In the ED, he had CT scan of the abdomen and pelvis, which showed a 6.8 cm low density lesion involving left lobe of the liver, concerning for an infectious process. In addition, 2-3 cm pancreatic head mass with obstruction of the pancreatic duct, and stent within the common bile duct is patent. He was admitted under hospitalist service and was placed on broad-spectrum antibiotics. Interventional radiology was consulted for CT-guided drainage of the liver abscess. Halicat was called as patient was found in respiratory distress. He had an ABG on nonrebreather mask, which showed a pH of 7.28, CO2 42, PaO2 100, bicarb 19 and saturation of 94%. Chest x-ray yesterday showed bullous emphysematous changes, otherwise no infiltrates. Patient is awake, alert, remains on nonrebreather mask. He is tachycardic with heart rate in 118 and tachypneic with respirations in the 30s. His current saturation is 100%. He quit smoking 3 years ago. Patient has T-max of 101.7. He denies any nausea or vomiting; however, he reports abdominal pain. PAST MEDICAL HISTORY: Significant for COPD, prostate cancer, anxiety, newly diagnosed pancreatic mass with liver lesion concerning for metastatic disease. PAST SURGICAL HISTORY: Previous TURP, previous CT-guided biopsy of the liver mass on 07/15. ALLERGIES: NO KNOWN DRUG ALLERGIES. REPORTED MEDICATIONS: Include BuSpar, multivitamins, vancomycin, Zosyn. FAMILY HISTORY: Negative for coronary artery disease. SOCIAL HISTORY: Quit smoking 3 years ago and quit drinking alcohol in 1999. REVIEW OF SYSTEMS: As per HPI. Otherwise review of systems unremarkable. PHYSICAL EXAMINATION: A 72-year-old male lying in bed in mild to moderate respiratory distress. VITAL SIGNS: Afebrile, pulse 118, blood pressure 113/58, saturation 100%. HEENT: Atraumatic, normocephalic. Pupils equal, round, reactive to light and accommodation. Extraocular muscles intact. Conjunctivae pink. Nonicteric sclerae. Oral mucosa within normal. NECK: Supple. No JVD, adenopathy or thyromegaly. Trachea in the midline. CARDIOVASCULAR: Tachycardic. Normal S1, S2. No murmurs, rubs or gallops noted. PULMONARY: Bilateral equal air entry with scattered wheezing. ABDOMEN: Soft, tender on palpation, distended, positive bowel sounds. EXTREMITIES: No cyanosis, clubbing, edema. NEUROLOGIC: No focal sensory deficit. LABORATORY DATA: Sodium 137, potassium 3.8, chloride 105, CO2 24, BUN 18, creatinine 0.97, glucose 108, lactic acid 1.6, calcium 8.0, AST 90, ALT 95, alk phos 149, albumin 1.9, lipase 86. WBC 8.7, hemoglobin 11.1, hematocrit 32, platelet count 143. ABG showed a pH of 7.28, CO2 of 42, PaO2 100, bicarb 19, saturation 94%. RADIOGRAPHIC STUDIES: CT abdomen and pelvis showed 6.8 cm low density lesion involving left lobe of the liver and 3 cm pancreatic head mass with obstruction of the pancreatic duct. IMPRESSION: 1. Acute hypoxemic respiratory failure. 2. Chronic obstructive pulmonary disease exacerbation. 3. A 3 cm pancreatic mass with obstruction of the pancreatic duct. 4. A 6.8 cm liver mass, status post CT-guided biopsy on 07/15, negative for neoplasm. 5. Elevated liver enzymes. 6. Lactic acidemia, resolved. 7. History of prostate cancer. 8. Anxiety disorder. RECOMMENDATIONS: 1. Monitor neuro status closely and avoid any sedatives. 2. Continue with oxygen and maintain sats above 92%. 3. Bronchodilators in the form of DuoNeb q.4 plus q.2 p.r.n. for shortness of breath. 4. Place on Symbicort 160/4.5 two plus q.12 hour and start IV steroids, Solu-Medrol 60 mg IV q.8. 5. Noninvasive positive pressure ventilation p.r.n. for respiratory distress. If there is any worsening in respiratory status, will proceed with intubation and mechanical ventilation. 6. Follow up on chest x-ray. 7. Monitor heart rate and blood pressure closely, and maintain MAP greater than [address] on Cardizem 60 mg q.6 for blood pressure control. 8. Monitor renal function, I's and O's, and electrolyte replacement per protocol. 9. Keep n.p.o. for now until respiratory status improves and place on Pepcid for GI prophylaxis. Monitor LFTs. 10. IR consulted for CT-guided drainage of the possible liver abscess. 11. Continue broad-spectrum antibiotics in the form of vancomycin and Zosyn. Monitor for signs of infection, which include fever and WBC. Blood cultures from yesterday showed no growth to date. In addition, nasal washing is negative for influenza. 12. Sliding scale insulin for glycemic control, as patient will be on IV steroids. 13. Monitor CBC. Oncology was consulted for the pancreatic mass. 14. GI prophylaxis, will place on Pepcid, and DVT prophylaxis with SCDs. Will hold off on chemical anticoagulation prophylaxis as the patient will likely undergo CT-guided drainage of the liver abscess. 15. Further recommendations will be based on hospital course. MD ADAM Fry/LAMINE , 09:33 AM , 10:13 AM MICHEL
[2017-07-21] MEDS ORDERED: DILTIAZEM HCL 25 MG/5 ML VIAL ONE ×2 (10:15→10:23)
--- NOTE | 2017-07-21 10:46 | PD.PROCEDR ---
Central Line Procedure REASON FOR PROCEDURE Central venous access PROCEDURE PERFORMED Central line placement: Right IJ CVP CONSENT Informed consent for procedure was obtained. The risks and benefits of the procedure were discussed to include but limited to bleeding, clot formation, infection, and even . ANESTHESIA Local injection of 1% Lidocaine DESCRIPTION OF THE PROCEDURE The patient was placed in supine, mild Trendelenburg position. The area was exposed and cleansed with ChloraPrep, times two. Large sterile drape was used to cover the patient, with the site exposed, under sterile conditions including cap, face mask, sterile gown, and sterile gloves. On single attempt, the introducer needle was inserted with negative pressure in syringe and venous flash was obtained. The guide wire was then advanced without any restriction and the needle was removed. The dilator was used without any complications. Using Seldinger technique the [ ] catheter was advanced over the guide wire to a depth of 20 centimeters. The guide wire was removed. All ports were aspirated with dark venous blood return and flushed easily with sterile saline. All ports were capped. Antibiotic disc was placed around central line at puncture site. The central line was secured to the skin with two interrupted 2.0 silk sutures. The area was bandaged with sterile see-through central line bandage. RADIOLOGICAL DATA Ultrasound guidance was used to locate right IJ vein. CXR ordered to verify line placement COMPLICATIONS: No apparent complications ESTIMATED BLOOD LOSS: Less than 1 cc. Bonilla Jimenez MD Jul 21, 2017 10:46
[2017-07-21 11:08] LABS: BASOPHIL % 0.2 % (0.0-2.0); EOSINOPHIL % 0.1 % (0.0-4.0); HEMATOCRIT 35.1 % (39.0-51.0); LYMPH % 19.2 % (9.0-44.0); LYMPHOCYTE # 1.7 TH/MM3 (1.0-4.8); MEAN CELL VOLUME 88.9 FL (80.0-100.0); MEAN CORPUSCULAR HEMOGLOBIN 30.4 PG (27.0-34.0); MEAN CORPUSCULAR HGB CONC 34.2 % (32.0-36.0); MEAN PLATELET VOLUME 8.3 FL (7.0-11.0); MONO % 3.2 % (0.0-8.0); MONOCYTE # 0.3 TH/MM3 (0-0.9); NEUT % 77.3 % (16.0-70.0); PLATELET COUNT 152 TH/MM3 (150-450); RED BLOOD COUNT 3.95 MIL/MM3 (4.50-5.90); RED CELL DISTRIBUTION WIDTH 13.8 % (11.6-17.2); WHITE BLOOD COUNT 9.1 TH/MM3 (4.0-11.0)
[2017-07-21] MEDS: RESP: ALBUTEROL 2.5 MG/IPRATROPIUM 0.5 MG NEB (SCH) NEB ×4 (11:09→23:36)
[2017-07-21 11:19] LABS: BICARBONATE 22.9 MEQ/L (21.0-32.0); CALCIUM 8.2 MG/DL (8.5-10.1); CREATININE 1.1 MG/DL (0.60-1.30)
--- NOTE | 2017-07-21 11:37 | RADRPT ---
EXAM DATE/TIME: 07/21/2017 10:53 [facility] COMPARISON: CHEST SINGLE AP, July 21, 2017, 9:09. INDICATIONS : Post intubation and central line placement MEDICAL HISTORY : Chronic obstructive pulmonary disease. carcinoma pancreas SURGICAL HISTORY : Cholecystectomy. prostatectomy ENCOUNTER: Subsequent ACUITY: 1 day PAIN SCORE: Non-responsive. LOCATION: Bilateral chest FINDINGS: ETT at the level the clavicles. Right IJ central line in the SVC. NGT in the stomach. Mild diffuse in terstitial prominence without new focal pleural or parenchymal opacities. Cardiomediastinal contours are within normal limits. Remainder of exam is unchanged. CONCLUSION: 1. ETT in good position. NGT in good position. Right IJ central line in the SVC. 2. No pneumothorax or acute abnormality. Amos Capone MD on July 21, 2017 at 11:34 Board Certified Radiologist. This report was verified electronically.
[2017-07-21] MEDS: DILTIAZEM HCL 60 MG TAB PO SCH ×2 (12:00→17:38)
[2017-07-21] MEDS: NOREPINEPHRINE-DEXTROSE DRIP 250 ML IV PRN ×2 (13:00→19:16)
[2017-07-21] MEDS: fentaNYL DRIP 250 ML IV PRN (13:30)
[2017-07-21] MEDS ORDERED: TERBUTALINE INJ 1 MG/ML AMP SQ PRN (13:45)
--- NOTE | 2017-07-21 14:06 | MB ---
cc: Roger Franco MD DATE OF CONSULT: 07/21/2017 REQUESTING PHYSICIAN: Dr. Jimenez REASON FOR CONSULTATION: Questionable liver abscess. HISTORY OF PRESENT ILLNESS: This is a 72-year-old white male who presented to the emergency department on 07/20 with fever. 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 He also was complaining of abdominal pains on presentation. He underwent liver biopsy 4 days ago and he also was noted to be having chills at home. The patient was admitted and he developed acute respiratory failure with shortness of breath and was intubated. He is currently intubated and on a ventilator. He is hypotensive with a systolic blood pressure of 74. The temperature celina to 104 degrees today. He underwent CT scanning of the abdomen and showed the appearance of a 6.8 cm low density lesion involving the left lobe of the liver. There is also a 3 cm pancreatic head mass with obstruction of the pancreatic duct. There is a stent within the common bile duct which is patent. The patient is sedated on the ventilator. He does have coughing spells. He is currently sweating at the forehead. His white blood cell count was 19.6 yesterday and it has improved to 9.1 today. Blood cultures were taken yesterday and all 4 bottles have gram negative rods. The patient is noted to have had bacteremia at [facility] a few weeks ago. The culture at that time was noted to have grown klebsiella. Biopsy of the liver taken on 07/15 showed histopathologic features consistent with acute large duct biliary obstruction negative for neoplasia. Interventional radiology has been consulted for CT guided drainage of the liver fluid collection. PAST MEDICAL HISTORY: 1. COPD. 2. Anxiety. 3. Prostate cancer. 4. Pancreatic mass newly diagnosed. 5. Liver lesion, metastasis versus abscess. 6. History of TURP. ALLERGIES: NO KNOWN DRUG ALLERGIES. MEDICATIONS: 1. Vancomycin. 2. Piperacillin/tazobactam. 3. Pepcid. 4. DuoNeb. SOCIAL HISTORY: Unable to obtain. Medical chart review reports no tobacco, no alcohol, and no illicit drugs. FAMILY HISTORY: Unable to obtain. REVIEW OF SYSTEMS: Unobtainable to obtain. PHYSICAL EXAM: GENERAL: This is a thin male who is somewhat cachectic-appearing. He is on a ventilator and is sedated and unresponsive. VITAL SIGNS: Include a temperature of 104 degrees, BP 74/45, heart rate 95, patient is on 40% FIO2 on the ventilator. HEENT: The head is atraumatic. Extraocular movements cannot be fully assessed. Oropharynx is intubated. NECK: No adenopathy or swelling. LUNGS: Clear breath sounds which are diminished at both bases. HEART: Normal S1 and S2. No murmurs, rubs or gallops audible. ABDOMEN: Bowel sounds present, soft, flat, no tenderness appreciated. RECTAL: Not performed. EXTREMITIES: No cyanosis, clubbing or edema. SKIN: No rash. NEURO: Unable to assess. PSYCH: Unable to assess. LABS: WBC 9.1, 77% neutrophils, hemoglobin 12.0, platelets 152, creatinine 1.01, BUN 21, estimated GFR of 65, AST 90, ALT 95, alkaline phosphatase 149, total bilirubin 0.8. IMPRESSION: 1. Gram negative septic shock. The patient is hypotensive, febrile with acute respiratory failure and also positive blood cultures with gram negative bacteria. 2. Acute respiratory failure. 3. Liver fluid collection which is very likely an abscess. 4. Pancreatic mass which is likely pancreatic carcinoma. 5. Elevated liver function tests. RECOMMENDATIONS: 1. Continue vancomycin. 2. Continue piperacillin/tazobactam. 3. Add Levaquin for additional coverage against the gram negative bacteria while awaiting identity and sensitivity. 4. Monitor the blood cultures. 5. Monitor clinical status. 6. Culture of fluid aspirated from the liver if procedure is performed. Thank you for this consultation. I will monitor the patient's progress along with you and will make further recommendations on followup if necessary. Roger Franco MD FFD/DL/ , 12:52 PM , 01:15 PM
--- NOTE | 2017-07-21 15:57 | PD.RAD ---
Post CT Procedure Prog Note Pre Procedure Diagnosis: (1) Liver abscess Post Procedure Diagnosis: (1) Liver abscess Procedure Date: Jul 21, 2017 Supervising Radiologist: Amos Capone Anesthesia: Conscious Sedation Plan of Activity Patient to Unit: Critical Care Patient Condition: Good See PACS Report for procedural detail/treatment Amos Capone MD Jul 21, 2017 15:57
[2017-07-21] MEDS: methylPREDNISolone SOD SUCC 125 MG/2 ML VIAL IV PUSH SCH (17:30)
[2017-07-21] MEDS: LEVOFLOXACIN 750 MG PREMIX INJ 150 ML IV SCH (17:37)
[2017-07-21] MEDS: SODIUM CHLORIDE 0.9% 10 ML VIAL IRRIGATION SCH (20:56)
[2017-07-21] MEDS: LORazepam 2 MG/ML VIAL IV PUSH PRN (21:50)
[2017-07-22] VITALS (13 sets, daily range): BP systolic 102–132; BP diastolic 62–75; PULSE 62–76; RESP 18–20; TEMP 98.2–98.6; O2SAT 100
[2017-07-22] MEDS: methylPREDNISolone SOD SUCC 125 MG/2 ML VIAL IV PUSH SCH ×2 (01:00→09:15)
[2017-07-22] MEDS: PIPERACIL-TAZO 4.5 GM PREMIX 100 ML IV SCH ×3 (01:33→18:33)
[2017-07-22] MEDS: RESP: ALBUTEROL 2.5 MG/IPRATROPIUM 0.5 MG NEB (SCH) NEB ×6 (03:22→23:54)
[2017-07-22] MEDS: fentaNYL DRIP 250 ML IV PRN ×2 (03:32→13:59)
[2017-07-22] MEDS: SODIUM CHLOR 0.9% 1000 ML INJ 1,000 ML IV SCH ×2 (03:49→17:09)
[2017-07-22 05:42] LABS: AUTOMATED NEUTROPHIL # 17.6 TH/MM3 (1.8-7.7); EOSINOPHIL % 0.2 % (0.0-4.0); HEMATOCRIT 33.4 % (39.0-51.0); HEMOGLOBIN 11.3 GM/DL (13.0-17.0); LYMPHOCYTE # 0.6 TH/MM3 (1.0-4.8); MEAN CELL VOLUME 88.6 FL (80.0-100.0); MEAN CORPUSCULAR HGB CONC 33.9 % (32.0-36.0); MEAN PLATELET VOLUME 8.8 FL (7.0-11.0); MONO % 3.5 % (0.0-8.0); MONOCYTE # 0.7 TH/MM3 (0-0.9); NEUT % 93.3 % (16.0-70.0); PLATELET COUNT 152 TH/MM3 (150-450); RED BLOOD COUNT 3.76 MIL/MM3 (4.50-5.90); WHITE BLOOD COUNT 18.9 TH/MM3 (4.0-11.0)
[2017-07-22] MEDS: DILTIAZEM HCL 60 MG TAB PO SCH ×2 (06:00)
[2017-07-22] MEDS: LORazepam 2 MG/ML VIAL IV PUSH PRN ×4 (06:01→23:15)
[2017-07-22 06:16] LABS: BICARBONATE 19.8 MEQ/L (21.0-32.0); CALCIUM 8.1 MG/DL (8.5-10.1); CREATININE 0.79 MG/DL (0.60-1.30)
[2017-07-22] MEDS: BUDESONIDE-FORMOTEROL 160/4.5 MCG INHALER INH SCH ×2 (09:00→21:00)
--- NOTE | 2017-07-22 09:06 | MB ---
cc: Del Gomez MD DATE OF CONSULT: 07/21/2017 REASON FOR CONSULTATION: The patient with a pancreatic mass, who presented with fever, suspected abscess from liver biopsy and unconfirmed pancreatic carcinoma. HISTORY OF PRESENT ILLNESS: This is a 72-year-old male who has a history of tobacco abuse, COPD and depression, who was recently seen in the Oncology Clinic for evaluation of a pancreatic mass. He had developed jaundice and presented to his primary care physician and was found to have elevated bilirubin. He was sent to [facility], where he underwent a CT scan of the abdomen and pelvis. He was found to have poorly defined hypodense mass at the pancreatic neck, which measured 3.4 x 3.1 cm. This was concerning for pancreatic neoplasm. The mass was continuous and indistinguishable from the posterior wall of the gastric antrum. He subsequently ERCP and an stent placement was unsuccessful because of the obstruction. Subsequently, IR placed an external bili drain. He then underwent a stent at the common bile duct. His jaundice improved. He subsequently was seen by Dr. Hill and underwent endoscopic ultrasound. The biopsy, however, was nondiagnostic and there were rare atypical cells, with marked inflammation and favoring reactive atypia. There was focal mucinous epithelium. Definitive diagnosis of malignancy was not made. He then underwent a CT of the abdomen and pelvis and there was a large lesion in the liver which was 8.6 cm, this was concerning for a metastatic focus. The patient was referred to IR for biopsy of this liver lesion. This biopsy was nondiagnostic for carcinoma and showed acute large ductal biliary obstruction. Over the past few days, he developed fever and was feeling unwell. He was sent to the [place] [facility]. In the Emergency Department, he underwent CT scan of the abdomen and pelvis, which showed a 6.8 cm low density lesion involving the left lobe of the liver. This was concerning for infectious process. There was also pancreatic head mass with obstruction of the pancreatic duct, but this stent within the common bile duct appeared patent. The patient was admitted and started on broad spectrum antibiotics. Interventional Radiology was consulted for CT guided drainage of the liver aspect. The patient subsequently developed respiratory distress. He was placed on nonrebreather mask. He continued to remain tachycardic and progressively became tachypneic. The patient was then intubated and transferred to the Intensive Care Unit. He is currently on intravenous antibiotics, including Levaquin, vancomycin and Zosyn. He is also on intravenous steroids. The patient's family was present during this exam. REVIEW OF SYSTEMS: Unable to obtain due to the patient's mental status. He is currently intubated and sedated. PAST MEDICAL HISTORY: COPD, prostate cancer, anxiety, pancreatic mass, liver lesion. PAST SURGICAL HISTORY: TURP, CT guided biopsy of the liver mass on 07/15/2017. MEDICATIONS: Were reviewed in the EMR, which include methylprednisolone, norepinephrine drip, Levaquin, diltiazem, vancomycin, famotidine, Zosyn, lorazepam as needed, Tylenol as needed, Zofran as needed. ALLERGIES: NO KNOWN DRUG ALLERGIES. FAMILY HISTORY: Unable to be obtained. SOCIAL HISTORY: Unable to be obtained, but he does have a history of COPD and tobacco abuse. PHYSICAL EXAMINATION: VITAL SIGNS: Blood pressure is 113/57, pulse in the 60s, temperature is 100, O2 saturations are 40% and the patient is currently intubated. GENERAL: Acutely ill patient who is currently intubated and has respiratory failure. He was arousable. HEENT: Pupils equal, round, reactive to light. No thrush. No lesions. NECK: Supple. No JVD. PULMONARY: Chest is clear bilaterally. CARDIOVASCULAR: S1, S2, regular rate and rhythm. ABDOMEN: Soft, nontender, nondistended. Bowel sounds are decreased. EXTREMITIES: Without any edema, erythema or cyanosis. SKIN: Without any petechiae, lesions or bruises. NEUROLOGIC: No focal deficits. The patient is unable to participate in neurologic exam. LABORATORY DATA: WBC 9.1, hemoglobin is 12, MCV is 88.9, platelet count is 152. Serum chemistry, sodium 137, potassium 4.5, CO2 22.9, BUN 21, creatinine 1.1, GFR 65, lactic acid 2.6, AST 90, ALT is 95, alkaline phosphatase is 149. Total protein 5.7. Coags, PT is 11.7, INR 1.2, PTT 29.2. IMAGIN. CT of the abdomen and pelvis was reviewed. There is interval appearance of a 6.8 cm low density lesion involving the left lobe of the liver and vague densities in the right lobe. These are concerning for infectious process. There is a 3 cm pancreatic head mass, with obstruction of the pancreatic duct. Stent within the common bile duct is patent. 2. No acute disease. ASSESSMENT AND PLAN: This is a 72-year-old male with a history of tobacco abuse and chronic obstructive pulmonary disease, who was recently found to have a pancreatic mass, who is now being admitted with a pancreatic abscess and he developed respiratory distress. 1. Pancreatic mass. He has undergone multiple biopsies and thus far these have been nondiagnostic. This mass is suspicious for pancreatic carcinoma. Recent liver biopsy also did not confirm metastatic disease. The patient is currently acutely ill. I had a long discussion with the family. I explained to them that since we do not have a diagnosis, I certainly cannot treat him. I will have to reassess him after he is clinically improved and respiratory failure has resolved. He is obviously very ill at this time. 2. Acute respiratory failure due to sepsis and he is hypotensive. 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 3. Transaminitis due to sepsis. 4. Acute renal failure. Thank you for allowing me to participate in the care of this patient. I will continue to follow this patient along. MD LONNIE Esteves/AKUA , 11:38 PM , 12:26 AM MICHEL
[2017-07-22] MEDS: SODIUM CHLORIDE 0.9% 10 ML VIAL IRRIGATION SCH ×2 (09:14→21:00)
[2017-07-22] MEDS: SODIUM CHLORIDE 0.9% FLUSH 10 ML FLUSH IV FLUSH SCH ×2 (09:14→21:00)
[2017-07-22] MEDS: FAMOTIDINE 20 MG/2 ML VIAL IV PUSH SCH ×2 (09:15→22:01)
[2017-07-22] MEDS: VANCOMYCIN INJ 1,250 MG in SODIUM CHLOR 0.9% 250 ML INJ 250 ML IV SCH ×2 (09:15→22:01)
--- NOTE | 2017-07-22 10:16 | HHI.CCPN ---
Subjective Remarks/Hospital Course Patient is 72-year-old male with past medical history of COPD, prostate cancer, anxiety disorder, newly diagnosed pancreatic mass with liver lesion concerning for metastatic disease. He presented to [facility] ED yesterday for evaluation of abdominal pain associated with fever. He underwent CT- guided biopsy of the liver mass on 07/15, and pathology showed acute large duct biliary obstruction, negative for neoplasms. In the ED, he had CT scan of the abdomen and pelvis, which showed a 6.8 cm low density lesion involving left lobe of the liver, concerning for an infectious process. In addition, 2- 3 cm pancreatic head mass with obstruction of the pancreatic duct, and stent within the common bile duct is patent. He was admitted under hospitalist service and was placed on broad-spectrum antibiotics. Interventional radiology was consulted for CT-guided drainage of the liver abscess. Halicat was called as patient was found in respiratory distress. He had an ABG on nonrebreather mask, which showed a pH of 7.28, CO2 42, PaO2 100, bicarb 19 and saturation of 94%. Chest x-ray yesterday showed bullous emphysematous changes, otherwise no infiltrates. Patient is awake, alert, remains on nonrebreather mask. He is tachycardic with heart rate in 118 and tachypneic with respirations in the 30s. His current saturation is 100%. He quit smoking 3 years ago. Patient has T-max of 101.7. He denies any nausea or vomiting; however, he reports abdominal pain. 07/22 Patient was intubated yesterday for resp failure sedated with Fentanyl infusion. Started on Levophed yesterday, s/p CT guided drainage of liver abscess and accordion drain placement yesterday. Objective Vital Signs Date Time Temp Pulse Resp B/P (MAP) Pulse Ox O2 Delivery O2 Flow Rate FiO2 07/22/17 07:43 100 40 07/22/17 07:00 Mechanical Ventilator 07/22/17 03:38 64 18 132/75 (94) 07/21/17 20:00 98.0 07/21/17 08:21 10.00 Result Diagram: 07/22/17 0520 07/22/17 0520 Other Results Laboratory Tests Test 07/21/17 10:30 07/21/17 10:50 07/22/17 05:20 White Blood Count 9.1 TH/MM3 18.9 TH/MM3 Red Blood Count 3.95 MIL/MM3 3.76 MIL/MM3 Hemoglobin 12.0 GM/DL 11.3 GM/DL Hematocrit 35.1 % 33.4 % Mean Corpuscular Volume 88.9 FL 88.6 FL Mean Corpuscular Hemoglobin 30.4 PG 30.0 PG Mean Corpuscular Hemoglobin Concent 34.2 % 33.9 % Red Cell Distribution Width 13.8 % 14.0 % Platelet Count 152 TH/MM3 152 TH/MM3 Mean Platelet Volume 8.3 FL 8.8 FL Neutrophils (%) (Auto) 77.3 % 93.3 % Lymphocytes (%) (Auto) 19.2 % 3.0 % Monocytes (%) (Auto) 3.2 % 3.5 % Eosinophils (%) (Auto) 0.1 % 0.2 % Basophils (%) (Auto) 0.2 % 0.0 % Neutrophils # (Auto) 7.0 TH/MM3 17.6 TH/MM3 Lymphocytes # (Auto) 1.7 TH/MM3 0.6 TH/MM3 Monocytes # (Auto) 0.3 TH/MM3 0.7 TH/MM3 Eosinophils # (Auto) 0.0 TH/MM3 0.0 TH/MM3 Basophils # (Auto) 0.0 TH/MM3 0.0 TH/MM3 CBC Comment DIFF FINAL DIFF FINAL Differential Comment Blood Urea Nitrogen 21 MG/DL 18 MG/DL Creatinine 1.10 MG/DL 0.79 MG/DL Random Glucose 131 MG/DL 185 MG/DL Calcium Level 8.2 MG/DL 8.1 MG/DL Sodium Level 137 MEQ/L 139 MEQ/L Potassium Level 4.5 MEQ/L 3.7 MEQ/L Chloride Level 106 MEQ/L 110 MEQ/L Carbon Dioxide Level 22.9 MEQ/L 19.8 MEQ/L Anion Gap 8 MEQ/L 9 MEQ/L Estimat Glomerular Filtration Rate 65 ML/MIN 96 ML/MIN Lactic Acid Level 2.6 mmol/L Blood Gas Puncture Site RT RADIAL Blood Gas Patient Temperature 98.6 Blood Gas HCO3 21 mmol/L Blood Gas Base Excess -5.7 mmol/L Blood Gas Oxygen Saturation 98 % Arterial Blood pH 7.20 Arterial Blood Partial Pressure CO2 56 mmHg Arterial Blood Partial Pressure O2 428 mmHg Arterial Blood Oxygen Content 19.0 Vol % Arterial Blood Carboxyhemoglobin 0.5 % Arterial Blood Methemoglobin 0.9 % Blood Gas Hemoglobin 13.0 G/DL Oxygen Delivery Device VENTILATOR Blood Gas Ventilator Setting 550/14/PEEP6 Blood Gas Inspired Oxygen 100 % Imaging Last Impressions Chest X-Ray 07/21/17 0000 Signed Impressions: Service Date/Time: Friday, July 21, 2017 10:53 - CONCLUSION: 1. ETT in good position. NGT in good position. Right IJ central line in the SVC. 2. No pneumothorax or acute abnormality. Amos Capone MD Abdomen/Pelvis CT 07/20/17 1426 Signed Impressions: Service Date/Time: Thursday, July 20, 2017 15:30 - CONCLUSION: 1. Interval appearance of a 6.8 cm low-density lesion involving the left lobe of the liver. Scattered vague areas of decreased density within the right lobe. This is concerning for an infectious process that is yet to liquefy. 2. Approximate 3 cm pancreatic head mass with obstruction of the pancreatic duct. Stent within the common bile duct is patent. 3. Pneumobilia. 4. Right basilar atelectasis. Andre Jones Jr., MD Objective Remarks GENERAL: Patient is 72 yo intubated and sedated SKIN: Warm and dry. HEAD: Normocephalic. EYES: No scleral icterus. No injection or drainage. NECK: Supple, trachea midline. No JVD or lymphadenopathy. CARDIOVASCULAR: Regular rate and rhythm without murmurs, gallops, or rubs. RESPIRATORY: Breath sounds equal bilaterally. No accessory muscle use. GASTROINTESTINAL: Abdomen soft, non-tender, nondistended. MUSCULOSKELETAL: No cyanosis, or edema. Neuro: Sedated A/P Assessment and Plan 1. VDRF 2. COPD exacerbation. 3. A 3 cm pancreatic mass with obstruction of the pancreatic duct. 4. A 6.8 cm liver mass, status post CT-guided biopsy on 07/15, negative for neoplasm. 5. Elevated liver enzymes. 6. Lactic acidemia, 7 Liver abscess s/p CT guided drainage 8 Kleb bacteremia 9 Leukocytosis 10. History of prostate cancer. 11. Anxiety disorder. Plan Neuro: On Fentanyl infusion for sedation. Daily sedation vacation. Monitor neuro status Pulm: Continue with vent support and maintain sats above 92%. Bronchodilators, ICU vent bundle, check ABG SBT daily as yuli when appropriate CV: Wean off Levophed keep MAP>65mmHg Change solumederol to HC 50mg IV Q6 : Monitor renal function, I's and O's, and electrolyte replacement per protocol. On NS@75ml/hr GI: on Pepcid for GI prophylaxis. Monitor LFTs. s/p CT-guided drainage of liver abscess monitor accordion drain output ID: Continue abx(vanco, Zosyn and Levaquin) Monitor for signs of infections( fever and WBC). BC 07/20: GNR, Kleb pneumonia, check BC x 2 sets, sputum cx nasal washing is negative for influenza on 07/20 . ID is following- Dr. Franco Endo: SSI for glycemic control Heme: Monitor CBC. Oncology is following- Dr. Gomez GI prophylaxis-on Pepcid, and DVT prophylaxis with SCDs. Lines: Right IJ CVP placed 07/21 CCT 30 mins Bonilla Jimenez MD Jul 22, 2017 10:16
[2017-07-22] MEDS: HYDROCORTISONE SOD SUCCINATE 100 MG VIAL IV PUSH SCH ×2 (12:08→18:00)
[2017-07-22] MEDS: NOREPINEPHRINE-DEXTROSE DRIP 250 ML IV PRN (12:24)
[2017-07-22] MEDS: LEVOFLOXACIN 750 MG PREMIX INJ 150 ML IV SCH (12:30)
--- NOTE | 2017-07-22 13:22 | PD.ONC.PN ---
Subjective Subjective Remarks Afebrile overnight. Patient intubated, sedated. On pressor support. Objective Data Date Time Temp Pulse Resp B/P (MAP) Pulse Ox O2 Delivery O2 Flow Rate FiO2 07/22/17 12:24 68 126/73 07/22/17 12:00 40 07/22/17 12:00 98.4 63 18 126/73 (90) 100 07/22/17 11:32 100 40 07/22/17 08:00 40 07/22/17 08:00 98.2 68 19 122/74 (90) 100 07/22/17 08:00 69 07/22/17 07:43 100 40 07/22/17 07:00 100 Mechanical Ventilator 07/22/17 06:26 40 07/22/17 03:38 64 18 132/75 (94) 100 07/22/17 03:33 40 07/22/17 03:22 100 40 07/22/17 01:41 100 Mechanical Ventilator 07/22/17 00:00 76 18 100 07/21/17 23:36 100 40 07/21/17 20:39 100 40 07/21/17 20:00 98.0 76 18 126/74 (91) 100 07/21/17 19:16 67 113/57 07/21/17 16:31 100 40 07/21/17 16:18 100 100 07/21/17 16:00 97.0 72 24 85/49 (61) 100 Result Diagram: 07/22/17 0520 07/22/17 0520 Laboratory Results Laboratory Tests Test 07/22/17 05:20 07/22/17 11:36 White Blood Count 18.9 TH/MM3 Red Blood Count 3.76 MIL/MM3 Hemoglobin 11.3 GM/DL Hematocrit 33.4 % Mean Corpuscular Volume 88.6 FL Mean Corpuscular Hemoglobin 30.0 PG Mean Corpuscular Hemoglobin Concent 33.9 % Red Cell Distribution Width 14.0 % Platelet Count 152 TH/MM3 Mean Platelet Volume 8.8 FL Neutrophils (%) (Auto) 93.3 % Lymphocytes (%) (Auto) 3.0 % Monocytes (%) (Auto) 3.5 % Eosinophils (%) (Auto) 0.2 % Basophils (%) (Auto) 0.0 % Neutrophils # (Auto) 17.6 TH/MM3 Lymphocytes # (Auto) 0.6 TH/MM3 Monocytes # (Auto) 0.7 TH/MM3 Eosinophils # (Auto) 0.0 TH/MM3 Basophils # (Auto) 0.0 TH/MM3 CBC Comment DIFF FINAL Differential Comment Blood Urea Nitrogen 18 MG/DL Creatinine 0.79 MG/DL Random Glucose 185 MG/DL Calcium Level 8.1 MG/DL Sodium Level 139 MEQ/L Potassium Level 3.7 MEQ/L Chloride Level 110 MEQ/L Carbon Dioxide Level 19.8 MEQ/L Anion Gap 9 MEQ/L Estimat Glomerular Filtration Rate 96 ML/MIN Blood Gas Puncture Site RT RADIAL Blood Gas Patient Temperature 98.6 Blood Gas HCO3 18 mmol/L Blood Gas Base Excess -7.7 mmol/L Blood Gas Oxygen Saturation 98 % Arterial Blood pH 7.30 Arterial Blood Partial Pressure CO2 37 mmHg Arterial Blood Partial Pressure O2 174 mmHg Arterial Blood Oxygen Content 20.8 Vol % Arterial Blood Carboxyhemoglobin 0.6 % Arterial Blood Methemoglobin 0.6 % Blood Gas Hemoglobin 14.9 G/DL Oxygen Delivery Device VENTILATOR Blood Gas Ventilator Setting AC18/550/PEEP5 Blood Gas Inspired Oxygen 40 % Culture Results Microbiology Date/Time Source Procedure Growth Status 07/20/17 14:30 Blood Peripheral Aerobic Blood Culture - Preliminary Gram Negative Steven Resulted 07/20/17 14:30 Anaerobic Blood Culture - Preliminary Gram Negative Steven Resulted 07/20/17 14:20 Blood Peripheral Aerobic Blood Culture - Preliminary Klebsiella Pneumoniae Resulted 07/20/17 14:20 Anaerobic Blood Culture - Preliminary Gram Negative Steven Resulted 07/20/17 14:42 Nasal Washing Influenza Types A,B Antigen (ION) - Final NEGATIVE FOR FLU A AND B ANTIGEN.... Complete 07/21/17 15:50 Abscess Abdomen Gram Stain - Final Resulted 07/21/17 15:50 Wound Culture - Preliminary Gram Negative Steven Resulted Administered Medications Medications (Trade) Dose Ordered Sig/Sreedhar Route PRN Reason Start Time Stop Time Status Last Admin Dose Admin Sodium Chloride 1,000 ml @ 75 mls/hr [id number] IV 07/20/17 18:29 07/22/17 03:49 Sodium Chloride (NS Flush) 2 ml BID IV FLUSH 07/20/17 21:00 07/22/17 09:14 Acetaminophen (Tylenol) 650 mg Q4H PRN PO TEMP > 100.4 07/20/17 18:30 07/21/17 09:40 Ondansetron HCl (Zofran Inj) 4 mg Q6H PRN IVP NAUSEA OR VOMITING 07/20/17 18:30 07/20/17 20:28 Piperacillin Sod/ Tazobactam Sod 100 ml @ 200 mls/hr Q8H IV 07/21/17 02:00 07/22/17 09:15 Lorazepam (Ativan Inj) 1 mg Q4H PRN IV PUSH Anxiety 07/20/17 20:45 07/22/17 10:00 Vancomycin HCl 1250 mg/Sodium Chloride 262.5 ml @ 262.5 mls/ hr Q12H IV 07/21/17 10:00 07/22/17 09:15 Albuterol/ Ipratropium (Duoneb Neb) 1 ampule Q4HR NEB NEB 07/21/17 12:00 07/22/17 12:17 Famotidine (Pepcid Inj) 20 mg Q12H IV PUSH 07/21/17 10:00 07/22/17 09:15 Fentanyl Citrate 250 ml @ 5 mls/hr TITRATE PRN IV SEDATION 07/21/17 10:45 07/22/17 03:32 Levofloxacin/ Dextrose 150 ml @ 100 mls/hr Q24H IV 07/21/17 13:00 07/22/17 12:30 Norepinephrine Bitartrate 250 ml @ 7.5 mls/hr TITRATE PRN IV Blood pressure management 07/21/17 13:45 07/22/17 12:24 Sodium Chloride (NS Inj) 10 ml BID IRRIGATION 07/21/17 21:00 07/22/17 09:14 Hydrocortisone Sodium Succinate (SoluCORTEF INJ) 50 mg Q6HR IV PUSH 07/22/17 12:00 07/22/17 12:08 Objective Remarks GENERAL: Intubated, sedated male, lying supine in bed. SKIN: Warm and dry. HEAD: Normocephalic. EYES: No injection or drainage. NECK: Supple, trachea midline. CARDIOVASCULAR: +S1/S2 RESPIRATORY: anterior dalton with occasional rhonchi. on mechanical ventilation. GASTROINTESTINAL: Abdomen soft, non-tender, nondistended. EXTREMITIES: No cyanosis NEUROLOGICAL: awake and alert. normal speech. moving all extremities. Assessment/Plan Problem List: (1) Pancreatic mass ICD Codes: K86.9 - Disease of pancreas, unspecified Plan: -- biopsy thus far has been nondiagnostic. --mass is suspicious for pancreatic carcinoma. --will have to reassess him after he is clinically improved and respiratory failure has resolved. (2) Sepsis ICD Codes: A41.9 - Sepsis, unspecified organism Plan: --BC + GNR, Klebsiella. --on multiple antibiotics + pressor support (3) Liver abscess ICD Codes: K75.0 - Abscess of liver Assessment 72y/o male with pancreatic mass, admitted with fever and suspected liver abscess , now critically ill in [facility], intubated on pressor support. history of tobacco abuse, COPD, prostate cancer HPI (brought forward for continuity of care): recently seen in the Oncology Clinic for evaluation of a pancreatic mass. had developed jaundice and presented to his primary care physician and was found to have elevated bilirubin. sent to [facility], underwent a CT abdomen-->+ hypodense mass at the pancreatic neck, 3.4 x 3.1 cm. concerning for pancreatic neoplasm. mass was continuous and indistinguishable from the posterior wall of the gastric antrum. subsequently had ERCP and an stent placement was unsuccessful because of the obstruction. Subsequently, IR placed an external bili drain. then underwent a stent at the common bile duct. jaundice improved. subsequently was seen by Dr. Sutton and underwent endoscopic ultrasound. biopsy was nondiagnostic. then underwent a CT abdomen +large lesion in liver, 8.6 cm, concerning for a metastatic focus. referred to IR for biopsy of this liver lesion. biopsy was nondiagnostic for carcinoma and showed acute large ductal biliary obstruction. he developed fever and was admitted CT abdomen in ED showed 6.8cm lesion left lobe of liver. patient was admitted and started on broad spectrum antibiotics. Interventional Radiology was consulted for CT guided drainage of the liver aspect. The patient subsequently developed respiratory distress. He was placed on nonrebreather mask. He continued to remain tachycardic and progressively became tachypneic. The patient was then intubated and transferred to the Intensive Care Unit. Plan 1. continue antibiotics. 2. continue supportive care. 3. will plan to discuss further biopsy/workup for pancreatic mass, once acute illness has resolved. Attending Statement The exam, history, and the medical decision-making described in the above note were completed with the assistance of the mid-level provider. I reviewed and agree with the findings presented. I attest that I had a [id number] encounter with the patient on the same day, and personally performed and documented my assessment and findings in the medical record. remains acutely ill and on ventilator discussed the situation with patient's daughter over the phone she wants to have imaging from April compared with most recent imaging of the abdomen and pelvis --will ask radiology for review Jania Jefferson Jul 22, 2017 13:21 Del Gomez MD Jul 22, 2017 23:07
--- NOTE | 2017-07-22 14:06 | HHI.IDPN ---
Note Infectious Disease Note Patient is on the ventilator. Sedated. On Levophed 8 mcg. Afebrile. Status post liver abscess drainage catheter placement. Blood cultures Klebsiella. Abscess fluid culture has gram-negative steven. Presented to the emergency department on 07/20 with fever. 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 PAST MEDICAL HISTORY: 1. COPD. 2. Anxiety. 3. Prostate cancer. 4. Pancreatic mass newly diagnosed. 5. Liver lesion, metastasis versus abscess. 6. History of TURP. ALLERGIES: NO KNOWN DRUG ALLERGIES. ANTIBIOTICS: 1. Vancomycin. 2. Piperacillin/tazobactam. 3. Levaquin. Current Medications Medications (Trade) Dose Ordered Sig/Sreedhar Route PRN Reason Start Time Stop Time Status Last Admin Dose Admin Sodium Chloride 1,000 ml @ 75 mls/hr [id number] IV 07/20/17 18:29 07/22/17 03:49 Sodium Chloride (NS Flush) 2 ml UNSCH PRN IV FLUSH FLUSH AFTER USING IV ACCESS 07/20/17 18:30 Sodium Chloride (NS Flush) 2 ml BID IV FLUSH 07/20/17 21:00 07/22/17 09:14 Acetaminophen (Tylenol) 650 mg Q4H PRN PO TEMP > 100.4 07/20/17 18:30 07/21/17 09:40 Ondansetron HCl (Zofran Inj) 4 mg Q6H PRN IVP NAUSEA OR VOMITING 07/20/17 18:30 07/20/17 20:28 Naloxone HCl (Narcan Inj) 0.4 mg UNSCH PRN IV PUSH SEE LABEL COMMENTS 07/20/17 18:30 Magnesium Hydroxide (Milk Of Magnesia Liq) 30 ml Q12H PRN PO Mild constipation 07/20/17 18:30 Sennosides (Senokot) 17.2 mg Q12H PRN PO Moderate constipation 07/20/17 18:30 Bisacodyl (Dulcolax Supp) 10 mg DAILY PRN RECTAL SEVERE CONSITIPATION 07/20/17 18:30 Lactulose (Lactulose Liq) 30 ml DAILY PRN PO SEVERE CONSITIPATION 07/20/17 18:30 Piperacillin Sod/ Tazobactam Sod 100 ml @ 200 mls/hr Q8H IV 07/21/17 02:00 07/22/17 09:15 Lorazepam (Ativan Inj) 1 mg Q4H PRN IV PUSH Anxiety 07/20/17 20:45 07/22/17 10:00 Vancomycin HCl 1250 mg/Sodium Chloride 262.5 ml @ 262.5 mls/ hr Q12H IV 07/21/17 10:00 07/22/17 09:15 Pharmacy Profile Note 0 ml @ 0 mls/hr UNSCH OTHER 07/21/17 09:15 Miscellaneous Information SPECIFIC LAB TO BE DRAWN:VANCOMYCIN TROUGH DATE TO... ONCE ONCE .XX 07/23/17 09:45 07/23/17 09:46 Albuterol/ Ipratropium (Duoneb Neb) 1 ampule Q4HR NEB NEB 07/21/17 12:00 07/22/17 12:17 Albuterol/ Ipratropium (Duoneb Neb) 1 ampule Q2HR NEB PRN NEB SHORTNESS OF BREATH 07/21/17 09:15 Budesonide/ Formoterol Fumarate (Symbicort 160-4.5 Mcg Inh) 2 puff Q12HR INH 07/21/17 09:15 Famotidine (Pepcid Inj) 20 mg Q12H IV PUSH 07/21/17 10:00 07/22/17 09:15 Fentanyl Citrate 250 ml @ 5 mls/hr TITRATE PRN IV SEDATION 07/21/17 10:45 07/22/17 03:32 Levofloxacin/ Dextrose 150 ml @ 100 mls/hr Q24H IV 07/21/17 13:00 07/22/17 12:30 Norepinephrine Bitartrate 250 ml @ 7.5 mls/hr TITRATE PRN IV Blood pressure management 07/21/17 13:45 07/22/17 12:24 Terbutaline Sulfate (Brethine Inj) 1 mg UNSCH PRN SQ For Extravasation 07/21/17 13:45 Sodium Chloride (NS Inj) 10 ml BID IRRIGATION 07/21/17 21:00 07/22/17 09:14 Hydrocortisone Sodium Succinate (SoluCORTEF INJ) 50 mg Q6HR IV PUSH 07/22/17 12:00 07/22/17 12:08 SOCIAL HISTORY: Unable to obtain. Medical chart review reports no tobacco, no alcohol, and no illicit drugs. OBJECTIVE: Vital Signs Date Time Temp Pulse Resp B/P (MAP) Pulse Ox O2 Delivery O2 Flow Rate FiO2 07/22/17 12:24 68 126/73 07/22/17 12:00 40 07/22/17 12:00 98.4 63 18 126/73 (90) 100 07/22/17 11:32 100 40 07/22/17 08:00 40 07/22/17 08:00 98.2 68 19 122/74 (90) 100 07/22/17 08:00 69 07/22/17 07:43 100 40 07/22/17 07:00 100 Mechanical Ventilator 07/22/17 06:26 40 07/22/17 03:38 64 18 132/75 (94) 100 07/22/17 03:33 40 07/22/17 03:22 100 40 07/22/17 01:41 100 Mechanical Ventilator 07/22/17 00:00 76 18 100 07/21/17 23:36 100 40 07/21/17 20:39 100 40 07/21/17 20:00 98.0 76 18 126/74 (91) 100 07/21/17 19:16 67 113/57 07/21/17 16:31 100 40 07/21/17 16:18 100 100 07/21/17 16:00 97.0 72 24 85/49 (61) 100 Laboratory Tests Test 07/20/17 14:42 07/21/17 07:20 07/21/17 10:30 07/22/17 05:20 White Blood Count 19.6 TH/MM3 8.7 TH/MM3 9.1 TH/MM3 18.9 TH/MM3 Red Blood Count 4.47 MIL/MM3 3.65 MIL/MM3 3.95 MIL/MM3 3.76 MIL/MM3 Hemoglobin 13.8 GM/DL 11.1 GM/DL 12.0 GM/DL 11.3 GM/DL Hematocrit 38.6 % 32.0 % 35.1 % 33.4 % Mean Corpuscular Volume 86.4 FL 87.6 FL 88.9 FL 88.6 FL Mean Corpuscular Hemoglobin 30.8 PG 30.3 PG 30.4 PG 30.0 PG Mean Corpuscular Hemoglobin Concent 35.6 % 34.6 % 34.2 % 33.9 % Red Cell Distribution Width 13.6 % 13.7 % 13.8 % 14.0 % Platelet Count 231 TH/MM3 143 TH/MM3 152 TH/MM3 152 TH/MM3 Mean Platelet Volume 8.2 FL 7.8 FL 8.3 FL 8.8 FL Neutrophils (%) (Auto) 92.4 % 89.1 % 77.3 % 93.3 % Lymphocytes (%) (Auto) 2.7 % 5.3 % 19.2 % 3.0 % Monocytes (%) (Auto) 4.8 % 5.2 % 3.2 % 3.5 % Eosinophils (%) (Auto) 0.0 % 0.1 % 0.1 % 0.2 % Basophils (%) (Auto) 0.1 % 0.3 % 0.2 % 0.0 % Neutrophils # (Auto) 18.1 TH/MM3 7.7 TH/MM3 7.0 TH/MM3 17.6 TH/MM3 Lymphocytes # (Auto) 0.5 TH/MM3 0.5 TH/MM3 1.7 TH/MM3 0.6 TH/MM3 Monocytes # (Auto) 0.9 TH/MM3 0.5 TH/MM3 0.3 TH/MM3 0.7 TH/MM3 Eosinophils # (Auto) 0.0 TH/MM3 0.0 TH/MM3 0.0 TH/MM3 0.0 TH/MM3 Basophils # (Auto) 0.0 TH/MM3 0.0 TH/MM3 0.0 TH/MM3 0.0 TH/MM3 CBC Comment DIFF FINAL DIFF FINAL DIFF FINAL DIFF FINAL Differential Comment Laboratory Tests Test 07/20/17 14:42 07/20/17 23:21 07/21/17 07:20 07/21/17 10:30 Blood Urea Nitrogen 15 MG/DL 18 MG/DL 21 MG/DL Creatinine 1.10 MG/DL 0.97 MG/DL 1.10 MG/DL Random Glucose 108 MG/DL 108 MG/DL 131 MG/DL Total Protein 7.4 GM/DL 5.7 GM/DL Albumin 2.7 GM/DL 1.9 GM/DL Calcium Level 8.9 MG/DL 8.0 MG/DL 8.2 MG/DL Alkaline Phosphatase 218 U/L 149 U/L Aspartate Amino Transf (AST/SGOT) 104 U/L 90 U/L Alanine Aminotransferase (ALT/SGPT) 106 U/L 95 U/L Total Bilirubin 1.2 MG/DL 0.7 MG/DL Sodium Level 129 MEQ/L 137 MEQ/L 137 MEQ/L Potassium Level 4.4 MEQ/L 3.8 MEQ/L 4.5 MEQ/L Chloride Level 99 MEQ/L 105 MEQ/L 106 MEQ/L Carbon Dioxide Level 19.8 MEQ/L 24.3 MEQ/L 22.9 MEQ/L Anion Gap 10 MEQ/L 8 MEQ/L 8 MEQ/L Estimat Glomerular Filtration Rate 65 ML/MIN 76 ML/MIN 65 ML/MIN Lactic Acid Level 2.9 mmol/L 4.3 mmol/L 1.6 mmol/L 2.6 mmol/L Lipase 86 U/L Test 07/22/17 05:20 Blood Urea Nitrogen 18 MG/DL Creatinine 0.79 MG/DL Random Glucose 185 MG/DL Calcium Level 8.1 MG/DL Sodium Level 139 MEQ/L Potassium Level 3.7 MEQ/L Chloride Level 110 MEQ/L Carbon Dioxide Level 19.8 MEQ/L Anion Gap 9 MEQ/L Estimat Glomerular Filtration Rate 96 ML/MIN Microbiology Date/Time Source Procedure Growth Status 07/20/17 14:30 Blood Peripheral Aerobic Blood Culture - Preliminary Gram Negative Steven Resulted 07/20/17 14:30 Anaerobic Blood Culture - Preliminary Gram Negative Steven Resulted 07/20/17 14:20 Blood Peripheral Aerobic Blood Culture - Preliminary Klebsiella Pneumoniae Resulted 07/20/17 14:20 Anaerobic Blood Culture - Preliminary Gram Negative Steven Resulted 07/20/17 14:42 Nasal Washing Influenza Types A,B Antigen (ION) - Final NEGATIVE FOR FLU A AND B ANTIGEN.... Complete 07/21/17 15:50 Abscess Abdomen Gram Stain - Final Resulted 07/21/17 15:50 Wound Culture - Preliminary Gram Negative Steven Resulted IMAGING: Chest X-Ray 07/21/17 0000 Signed Impressions: Service Date/Time: Friday, July 21, 2017 10:53 - CONCLUSION: 1. ETT in good position. NGT in good position. Right IJ central line in the SVC. 2. No pneumothorax or acute abnormality. Amos Capone MD Abdomen/Pelvis CT 07/20/17 1426 Signed Impressions: Service Date/Time: Thursday, July 20, 2017 15:30 - CONCLUSION: 1. Interval appearance of a 6.8 cm low-density lesion involving the left lobe of the liver. Scattered vague areas of decreased density within the right lobe. This is concerning for an infectious process that is yet to liquefy. 2. Approximate 3 cm pancreatic head mass with obstruction of the pancreatic duct. Stent within the common bile duct is patent. 3. Pneumobilia. 4. Right basilar atelectasis. Andre Jones Jr., MD PHYSICAL EXAM: GENERAL: On ventilator. Sedated and unresponsive. HEENT: The head is atraumatic. Extraocular movements cannot be fully assessed. Oropharynx is intubated. NECK: No adenopathy or swelling. LUNGS: Clear breath sounds which are diminished at both bases. HEART: Normal S1 and S2. No murmurs, rubs or gallops audible. ABDOMEN: Bowel sounds present, soft, flat, no tenderness appreciated. Abdominal catheter has red fluid. EXTREMITIES: No cyanosis, clubbing or edema. SKIN: No rash. NEURO: Unable to assess. PSYCH: Unable to assess. IMPRESSION: 1. Gram negative septic shock. The patient is hypotensive, febrile with acute respiratory failure and also positive blood cultures with gram negative bacteria. Preliminary Klebsiella. Temperature improved. White blood cell count elevated. 2. Liver abscess due to gram-negative bacteria. 3. Acute respiratory failure. 4. Pancreatic mass which is likely pancreatic carcinoma. 5. Elevated liver function tests. 6. Leukocytosis secondary to infection. White blood cell count is higher. RECOMMENDATIONS: 1. Stop vancomycin vancomycin. 2. Continue piperacillin/tazobactam. 3. Continue Levaquin for additional coverage against the gram negative bacteria while awaiting identity and sensitivity. 4. Monitor the blood cultures. 5. Monitor the gram-negative bacteria in the aspirate culture. 6. Monitor white blood cell count. Clinical status. 7. Monitor clinical status. Roger Franco MD Jul 22, 2017 14:06
[2017-07-22 14:16] LABS: ALBUMIN 2.1 GM/DL (3.4-5.0); DIRECT BILIRUBIN ADULT 0.3 MG/DL (0.0-0.2)
[2017-07-22 14:17] LABS: INDIRECT BILIRUBIN 0.3 MG/DL (0.0-0.8); TOTAL BILIRUBIN ADULT 0.6 MG/DL (0.2-1.0); TOTAL PROTEIN 6.1 GM/DL (6.4-8.2)
[2017-07-23] VITALS (18 sets, daily range): BP systolic 95–121; BP diastolic 52–68; PULSE 56–86; RESP 6–27; TEMP 98.6–99.1; O2SAT 96–100
[2017-07-23] MEDS: PIPERACIL-TAZO 4.5 GM PREMIX 100 ML IV SCH ×3 (01:11→17:58)
[2017-07-23] MEDS: RESP: ALBUTEROL 2.5 MG/IPRATROPIUM 0.5 MG NEB (SCH) NEB ×5 (02:51→19:44)
[2017-07-23] MEDS: LORazepam 2 MG/ML VIAL IV PUSH PRN ×2 (02:57→20:28)
[2017-07-23 04:53] LABS: AUTOMATED NEUTROPHIL # 7.4 TH/MM3 (1.8-7.7); BASOPHIL % 0.1 % (0.0-2.0); HEMATOCRIT 29.1 % (39.0-51.0); HEMOGLOBIN 10.1 GM/DL (13.0-17.0); LYMPH % 4.4 % (9.0-44.0); LYMPHOCYTE # 0.4 TH/MM3 (1.0-4.8); MEAN CELL VOLUME 88.2 FL (80.0-100.0); MEAN CORPUSCULAR HEMOGLOBIN 30.6 PG (27.0-34.0); MEAN CORPUSCULAR HGB CONC 34.6 % (32.0-36.0); MEAN PLATELET VOLUME 9.1 FL (7.0-11.0); MONO % 4.6 % (0.0-8.0); MONOCYTE # 0.4 TH/MM3 (0-0.9); NEUT % 90.9 % (16.0-70.0); PLATELET COUNT 110 TH/MM3 (150-450); RED BLOOD COUNT 3.29 MIL/MM3 (4.50-5.90); RED CELL DISTRIBUTION WIDTH 14.3 % (11.6-17.2); WHITE BLOOD COUNT 8.2 TH/MM3 (4.0-11.0)
[2017-07-23 05:15] LABS: ALBUMIN 1.7 GM/DL (3.4-5.0); ALT (GPT) 81 U/L (12-78); AST (GOT) 41 U/L (15-37); BICARBONATE 21.9 MEQ/L (21.0-32.0); BLOOD UREA NITROGEN 21 MG/DL (7-18); CALCIUM 8.4 MG/DL (8.5-10.1); CHLORIDE 112 MEQ/L (98-107); CREATININE 0.85 MG/DL (0.60-1.30); GLOMERULAR FILTRATION RATE 88 ML/MIN (>89); GLUCOSE,RANDOM 162 MG/DL (74-106); MAGNESIUM 2.1 MG/DL (1.5-2.5); SODIUM (NA) 142 MEQ/L (136-145)
[2017-07-23 05:17] LABS: ALKALINE PHOSPHATASE 111 U/L (45-117); PHOSPHORUS 2.2 MG/DL (2.5-4.9); TOTAL BILIRUBIN ADULT 0.4 MG/DL (0.2-1.0); TOTAL PROTEIN 5.4 GM/DL (6.4-8.2)
[2017-07-23] MEDS: HYDROCORTISONE SOD SUCCINATE 100 MG VIAL IV PUSH SCH ×4 (05:37→21:35)
[2017-07-23] MEDS ORDERED: POTASSIUM PHOSPHATE IV ONE ×2 (05:45)
[2017-07-23] MEDS ORDERED: NS IV ONE ×2 (05:45)
[2017-07-23] MEDS: SODIUM CHLOR 0.9% 1000 ML INJ 1,000 ML IV SCH (06:29)
[2017-07-23] MEDS: SODIUM CHLORIDE 0.9% 10 ML VIAL IRRIGATION SCH ×2 (07:41→21:00)
[2017-07-23] MEDS: SODIUM CHLORIDE 0.9% FLUSH 10 ML FLUSH IV FLUSH SCH ×2 (07:41→21:00)
[2017-07-23] MEDS: BUDESONIDE-FORMOTEROL 160/4.5 MCG INHALER INH SCH ×2 (07:41→21:00)
--- NOTE | 2017-07-23 08:08 | HHI.CCPN ---
Subjective Remarks/Hospital Course Patient is 72-year-old male with past medical history of COPD, prostate cancer, anxiety disorder, newly diagnosed pancreatic mass with liver lesion concerning for metastatic disease. He presented to [facility] ED yesterday for evaluation of abdominal pain associated with fever. He underwent CT- guided biopsy of the liver mass on 07/15, and pathology showed acute large duct biliary obstruction, negative for neoplasms. In the ED, he had CT scan of the abdomen and pelvis, which showed a 6.8 cm low density lesion involving left lobe of the liver, concerning for an infectious process. In addition, 2- 3 cm pancreatic head mass with obstruction of the pancreatic duct, and stent within the common bile duct is patent. He was admitted under hospitalist service and was placed on broad-spectrum antibiotics. Interventional radiology was consulted for CT-guided drainage of the liver abscess. Halicat was called as patient was found in respiratory distress. He had an ABG on nonrebreather mask, which showed a pH of 7.28, CO2 42, PaO2 100, bicarb 19 and saturation of 94%. Chest x-ray yesterday showed bullous emphysematous changes, otherwise no infiltrates. Patient is awake, alert, remains on nonrebreather mask. He is tachycardic with heart rate in 118 and tachypneic with respirations in the 30s. His current saturation is 100%. He quit smoking 3 years ago. Patient has T-max of 101.7. He denies any nausea or vomiting; however, he reports abdominal pain. 07/22 Patient was intubated yesterday for resp failure sedated with Fentanyl infusion. Started on Levophed yesterday, s/p CT guided drainage of liver abscess and accordion drain placement yesterday. 07/23 Patient remains sedated and intubated. Afebrile. Off Levophed. Objective Vital Signs Date Time Temp Pulse Resp B/P (MAP) Pulse Ox O2 Delivery O2 Flow Rate FiO2 07/23/17 07:46 100 40 07/23/17 07:00 Mechanical Ventilator 07/23/17 06:00 86 07/23/17 04:00 98.6 22 95/52 (66) 07/21/17 08:21 10.00 Intake and Output 07/23/17 07/23/17 07/24/17 08:00 16:00 00:00 Intake Total 1100 ml Output Total 535 ml Balance 565 ml Result Diagram: 07/23/17 0430 07/23/17 0430 Other Results Laboratory Tests Test 07/22/17 11:36 07/23/17 04:30 Blood Gas Puncture Site RT RADIAL Blood Gas Patient Temperature 98.6 Blood Gas HCO3 18 mmol/L Blood Gas Base Excess -7.7 mmol/L Blood Gas Oxygen Saturation 98 % Arterial Blood pH 7.30 Arterial Blood Partial Pressure CO2 37 mmHg Arterial Blood Partial Pressure O2 174 mmHg Arterial Blood Oxygen Content 20.8 Vol % Arterial Blood Carboxyhemoglobin 0.6 % Arterial Blood Methemoglobin 0.6 % Blood Gas Hemoglobin 14.9 G/DL Oxygen Delivery Device VENTILATOR Blood Gas Ventilator Setting AC18/550/PEEP5 Blood Gas Inspired Oxygen 40 % White Blood Count 8.2 TH/MM3 Red Blood Count 3.29 MIL/MM3 Hemoglobin 10.1 GM/DL Hematocrit 29.1 % Mean Corpuscular Volume 88.2 FL Mean Corpuscular Hemoglobin 30.6 PG Mean Corpuscular Hemoglobin Concent 34.6 % Red Cell Distribution Width 14.3 % Platelet Count 110 TH/MM3 Mean Platelet Volume 9.1 FL Neutrophils (%) (Auto) 90.9 % Lymphocytes (%) (Auto) 4.4 % Monocytes (%) (Auto) 4.6 % Eosinophils (%) (Auto) 0.0 % Basophils (%) (Auto) 0.1 % Neutrophils # (Auto) 7.4 TH/MM3 Lymphocytes # (Auto) 0.4 TH/MM3 Monocytes # (Auto) 0.4 TH/MM3 Eosinophils # (Auto) 0.0 TH/MM3 Basophils # (Auto) 0.0 TH/MM3 CBC Comment AUTO DIFF Differential Comment AUTO DIFF CONFIRMED Platelet Estimate LOW Platelet Morphology Comment NORMAL Red Cell Morphology Comment NORMAL Blood Urea Nitrogen 21 MG/DL Creatinine 0.85 MG/DL Random Glucose 162 MG/DL Total Protein 5.4 GM/DL Albumin 1.7 GM/DL Calcium Level 8.4 MG/DL Phosphorus Level 2.2 MG/DL Magnesium Level 2.1 MG/DL Alkaline Phosphatase 111 U/L Aspartate Amino Transf (AST/SGOT) 41 U/L Alanine Aminotransferase (ALT/SGPT) 81 U/L Total Bilirubin 0.4 MG/DL Sodium Level 142 MEQ/L Potassium Level 3.5 MEQ/L Chloride Level 112 MEQ/L Carbon Dioxide Level 21.9 MEQ/L Anion Gap 8 MEQ/L Estimat Glomerular Filtration Rate 88 ML/MIN Imaging Last Impressions Chest X-Ray 07/21/17 0000 Signed Impressions: Service Date/Time: Friday, July 21, 2017 10:53 - CONCLUSION: 1. ETT in good position. NGT in good position. Right IJ central line in the SVC. 2. No pneumothorax or acute abnormality. Amos Capone MD Abdomen/Pelvis CT 07/20/17 1426 Signed Impressions: Service Date/Time: Thursday, July 20, 2017 15:30 - CONCLUSION: 1. Interval appearance of a 6.8 cm low-density lesion involving the left lobe of the liver. Scattered vague areas of decreased density within the right lobe. This is concerning for an infectious process that is yet to liquefy. 2. Approximate 3 cm pancreatic head mass with obstruction of the pancreatic duct. Stent within the common bile duct is patent. 3. Pneumobilia. 4. Right basilar atelectasis. Andre Jones Jr., MD Objective Remarks GENERAL: Patient is 72 yo intubated and sedated SKIN: Warm and dry. HEAD: Normocephalic. EYES: No scleral icterus. No injection or drainage. NECK: Supple, trachea midline. No JVD or lymphadenopathy. CARDIOVASCULAR: Regular rate and rhythm without murmurs, gallops, or rubs. RESPIRATORY: Breath sounds equal bilaterally. No accessory muscle use. GASTROINTESTINAL: Abdomen soft, non-tender, nondistended. MUSCULOSKELETAL: No cyanosis, or edema. Neuro: Sedated A/P Assessment and Plan 1. VDRF 2. COPD exacerbation. 3. A 3 cm pancreatic mass with obstruction of the pancreatic duct. 4. A 6.8 cm liver mass, status post CT-guided biopsy on 07/15, negative for neoplasm. 5. Elevated liver enzymes. 6. Lactic acidemia, 7 Liver abscess s/p CT guided drainage 8 Kleb bacteremia 9 Leukocytosis 10. History of prostate cancer. 11. Anxiety disorder. Plan Neuro: On Fentanyl infusion for sedation. Daily sedation vacation. Monitor neuro status Pulm: Continue with vent support and maintain sats above 92%. Bronchodilators, ICU vent bundle, SBT daily as yuli when appropriate CV: Off Levophed keep MAP>65mmHg Tper steroids- decrease HC 50mg IV Q12 : Monitor renal function, I's and O's, and electrolyte replacement per protocol. d/c IVF and Diurese with Lasix 40mg x1 GI: on Pepcid for GI prophylaxis. Monitor LFTs. s/p CT-guided drainage of liver abscess monitor accordion drain output( 80 ml ) ID: Continue abx ( vanco, Zosyn and Levaquin) Monitor for signs of infections( fever and WBC). BC 07/20: GNR, Kleb pneumonia, Follow up on BC from 07/22 Wound/abscess cx: GNR nasal washing is negative for influenza on 07/20 . ID is following- Dr. Franco Endo: SSI for glycemic control Heme: Monitor CBC. Oncology is following- Dr. Gomez GI prophylaxis-on Pepcid, and DVT prophylaxis with SCDs. Lines: Right IJ CVP placed 07/21 CCT 30 mins Bonilla Jimenez MD Jul 23, 2017 08:08
[2017-07-23] MEDS ORDERED: FUROSEMIDE 40 MG/4 ML VIAL IV PUSH ONE (08:30)
[2017-07-23] MEDS ORDERED: PHARMACY ORDERED LAB ONE (09:45)
[2017-07-23] MEDS: FAMOTIDINE 20 MG/2 ML VIAL IV PUSH SCH ×2 (09:49→21:36)
[2017-07-23] MEDS: VANCOMYCIN INJ 1,250 MG in SODIUM CHLOR 0.9% 250 ML INJ 250 ML IV SCH (09:49)
--- NOTE | 2017-07-23 09:50 | RADRPT ---
EXAM DATE/TIME: 07/21/2017 15:14 [facility] COMPARISON: CHEST SINGLE AP, July 21, 2017, 10:53. INDICATIONS : History pancreatic CA with biliary stent placement and suspected new abscess in the left lobe of the liver. Patient is severely septic and has been to unstable for the majority of the day for transport. He is now stable on multiple pressors following intubation. CT guided drainage of this possible hepa tic abscess has been requested. SEDATION TIME: 45 minutes MEDICATION(S): 1.) 1.5 mg midazolam (Versed) IV DEVICE(S): 1.) 10 Fr Skater Total volume of 4 cc of cloudy, red fluid was removed. Fluid was sent for laboratory ordered studies. MEDICAL HISTORY : Chronic obstructive pulmonary disease. Carcinoma, pancreas. SURGICAL HISTORY : Prostatectomy. Cholecystectomy. ENCOUNTER: Initial ACUITY: 1 day PAIN SCORE: 0/10 LOCATION: Liver PROCEDURE: 1.) Conscious sedation with continuous EKG and oximetry monitoring. PROCEDURE : 1. CT guided drainage of abscess in the left lobe of the liver 2. Conscious sedation with continuous EKG and oximetry monitoring. The risks, benefits and alternatives to the procedure were explained and verbal and written consent w as obtained. Using automated exposure control and adjustment of the mA and/or kV according to patient size, radiation dose was kept as low as reasonably achievable to obtain optimal diagnostic quality i mages. The site was prepped in sterile fashion. Full sterile technique was used, including cap, ma sk, sterile gloves and gown and a large sterile sheet. Hand hygiene and 2% chlorhexidine and/or beta dine/alcohol prep was utilized per protocol for cutaneous antisepsis. The skin and subcutaneous tiss ues were infiltrated with local anesthetic solution. DICOM format image data is available electronic ally for review and comparison. Using CT guidance the prescribed site was localized. Drainage was performed using the prescribed cat heter The patient tolerated the procedure well and there were no complications. Conscious sedation was per formed with the prescribed dosages and duration as above in the presence of an independent trained ra diology nurse to assist in the monitoring of the patient. EKG and oximetry remained stable throughou t the procedure. The patient tolerated the procedure well and there were no complications. The patient was sent to pos t anesthesia recovery in stable condition. CONCLUSION: 1. Uncomplicated CT-guided placement of percutaneous drainage catheter in a collection in the left lo be of the liver. Approximately 10 cc of serosanguineous fluid containing debris was removed immediate ly following catheter placement and submitted for cultures and Gram stain. Amos Capone MD on July 23, 2017 at 9:45 Board Certified Radiologist. This report was verified electronically.
--- NOTE | 2017-07-23 11:41 | PD.ONC.PN ---
Subjective Subjective Remarks Afebrile overnight. Patient was extubated early this AM. He is awake, but groggy. Off sedation and pressor support. Objective Data Date Time Temp Pulse Resp B/P (MAP) Pulse Ox O2 Delivery O2 Flow Rate FiO2 07/23/17 09:55 96 Nasal Cannula 3.00 07/23/17 09:55 99 Nasal Cannula 3 07/23/17 09:00 96 40 07/23/17 08:00 72 07/23/17 08:00 98.6 80 6 95/58 (70) 100 07/23/17 08:00 40 07/23/17 07:46 100 40 07/23/17 07:45 40 07/23/17 07:00 100 Mechanical Ventilator 07/23/17 06:00 86 07/23/17 04:00 98.6 72 22 95/52 (66) 100 07/23/17 04:00 40 07/23/17 04:00 72 07/23/17 02:51 100 40 07/23/17 02:00 64 07/23/17 00:00 64 07/23/17 00:00 40 07/22/17 23:54 100 40 07/22/17 22:00 64 07/22/17 21:53 100 40 07/22/17 20:00 40 07/22/17 20:00 62 07/22/17 20:00 98.6 62 19 107/62 (77) 100 07/22/17 19:00 100 Mechanical Ventilator 07/22/17 16:00 98.6 62 20 102/62 (75) 100 07/22/17 16:00 40 07/22/17 14:11 100 40 07/22/17 12:24 68 126/73 07/22/17 12:00 40 07/22/17 12:00 98.4 63 18 126/73 (90) 100 07/23/17 07/23/17 07/23/17 07:00 15:00 23:00 Intake Total 1362 ml 950 ml Output Total 535 ml Balance 827 ml 950 ml Result Diagram: 07/23/1742907/23/17 043 Laboratory Results Laboratory Tests Test 07/23/17 04:30 07/23/17 08:40 07/23/17 09:17 07/23/17 09:38 White Blood Count 8.2 TH/MM3 Red Blood Count 3.29 MIL/MM3 Hemoglobin 10.1 GM/DL Hematocrit 29.1 % Mean Corpuscular Volume 88.2 FL Mean Corpuscular Hemoglobin 30.6 PG Mean Corpuscular Hemoglobin Concent 34.6 % Red Cell Distribution Width 14.3 % Platelet Count 110 TH/MM3 Mean Platelet Volume 9.1 FL Neutrophils (%) (Auto) 90.9 % Lymphocytes (%) (Auto) 4.4 % Monocytes (%) (Auto) 4.6 % Eosinophils (%) (Auto) 0.0 % Basophils (%) (Auto) 0.1 % Neutrophils # (Auto) 7.4 TH/MM3 Lymphocytes # (Auto) 0.4 TH/MM3 Monocytes # (Auto) 0.4 TH/MM3 Eosinophils # (Auto) 0.0 TH/MM3 Basophils # (Auto) 0.0 TH/MM3 CBC Comment AUTO DIFF Differential Comment AUTO DIFF CONFIRMED Platelet Estimate LOW Platelet Morphology Comment NORMAL Red Cell Morphology Comment NORMAL Blood Urea Nitrogen 21 MG/DL Creatinine 0.85 MG/DL Random Glucose 162 MG/DL Total Protein 5.4 GM/DL Albumin 1.7 GM/DL Calcium Level 8.4 MG/DL Phosphorus Level 2.2 MG/DL Magnesium Level 2.1 MG/DL Alkaline Phosphatase 111 U/L Aspartate Amino Transf (AST/SGOT) 41 U/L Alanine Aminotransferase (ALT/SGPT) 81 U/L Total Bilirubin 0.4 MG/DL Sodium Level 142 MEQ/L Potassium Level 3.5 MEQ/L Chloride Level 112 MEQ/L Carbon Dioxide Level 21.9 MEQ/L Anion Gap 8 MEQ/L Estimat Glomerular Filtration Rate 88 ML/MIN Lactic Acid Level 1.8 mmol/L Blood Gas Puncture Site LT RADIAL Blood Gas Patient Temperature 98.6 Blood Gas HCO3 21 mmol/L Blood Gas Base Excess -3.3 mmol/L Blood Gas Oxygen Saturation 98 % Arterial Blood pH 7.40 Arterial Blood Partial Pressure CO2 34 mmHg Arterial Blood Partial Pressure O2 149 mmHg Arterial Blood Oxygen Content 14.6 Vol % Arterial Blood Carboxyhemoglobin 0.9 % Arterial Blood Methemoglobin 0.7 % Blood Gas Hemoglobin 10.4 G/DL Oxygen Delivery Device VENTILATOR Blood Gas Ventilator Setting PEEP5/PS8 Blood Gas Inspired Oxygen 40 % Vancomycin Level Trough 20.2 MCG/ML Culture Results Microbiology Date/Time Source Procedure Growth Status 07/22/17 14:30 Blood Peripheral Aerobic Blood Culture - Preliminary NO GROWTH IN 1 DAY Resulted 07/22/17 14:30 Blood Peripheral Anaerobic Blood Culture - Preliminary NO GROWTH IN 1 DAY Resulted 07/22/17 14:25 Blood Peripheral Aerobic Blood Culture - Preliminary NO GROWTH IN 1 DAY Resulted 07/22/17 14:25 Blood Peripheral Anaerobic Blood Culture - Preliminary Resulted 07/20/17 14:30 Blood Peripheral Aerobic Blood Culture - Final Klebsiella Pneumoniae Complete 07/20/17 14:30 Anaerobic Blood Culture - Final Klebsiella Pneumoniae Complete 07/20/17 14:20 Blood Peripheral Aerobic Blood Culture - Final Klebsiella Pneumoniae Complete 07/20/17 14:20 Anaerobic Blood Culture - Final Klebsiella Pneumoniae Complete 07/20/17 14:42 Nasal Washing Influenza Types A,B Antigen (ION) - Final NEGATIVE FOR FLU A AND B ANTIGEN.... Complete 07/21/17 15:50 Abscess Abdomen Gram Stain - Final Complete 07/21/17 15:50 Wound Culture - Final Klebsiella Pneumoniae Complete Administered Medications Medications (Trade) Dose Ordered Sig/Sreedhar Route PRN Reason Start Time Stop Time Status Last Admin Dose Admin Sodium Chloride (NS Flush) 2 ml BID IV FLUSH 07/20/17 21:00 07/23/17 07:41 Acetaminophen (Tylenol) 650 mg Q4H PRN PO TEMP > 100.4 07/20/17 18:30 07/21/17 09:40 Ondansetron HCl (Zofran Inj) 4 mg Q6H PRN IVP NAUSEA OR VOMITING 07/20/17 18:30 07/20/17 20:28 Magnesium Hydroxide (Milk Of Magnesia Liq) 30 ml Q12H PRN PO Mild constipation 07/20/17 18:30 07/23/17 02:57 Lactulose (Lactulose Liq) 30 ml DAILY PRN PO SEVERE CONSITIPATION 07/20/17 18:30 07/23/17 02:57 Piperacillin Sod/ Tazobactam Sod 100 ml @ 200 mls/hr Q8H IV 07/21/17 02:00 07/23/17 09:49 Lorazepam (Ativan Inj) 1 mg Q4H PRN IV PUSH Anxiety 07/20/17 20:45 07/23/17 02:57 Albuterol/ Ipratropium (Duoneb Neb) 1 ampule Q4HR NEB NEB 07/21/17 12:00 07/23/17 11:32 Famotidine (Pepcid Inj) 20 mg Q12H IV PUSH 07/21/17 10:00 07/23/17 09:49 Levofloxacin/ Dextrose 150 ml @ 100 mls/hr Q24H IV 07/21/17 13:00 07/22/17 12:30 Sodium Chloride (NS Inj) 10 ml BID IRRIGATION 07/21/17 21:00 07/23/17 07:41 Potassium Phosphate 30 mmol/ Sodium Chloride 260 ml @ 42 mls/hr ONCE ONCE IV 07/23/17 05:45 07/23/17 11:56 07/23/17 06:53 Hydrocortisone Sodium Succinate (SoluCORTEF INJ) 50 mg Q12HR IV PUSH 07/23/17 09:00 07/23/17 08:48 Objective Remarks GENERAL: Elderly male, lying at 45 degrees supine in hospital bed, appears mildly lethargic. SKIN: Warm and dry. HEAD: Normocephalic. EYES: No injection or drainage. NECK: Supple, trachea midline. CARDIOVASCULAR: anterior dalton clear. on 3L O2 via NC RESPIRATORY: Breath sounds equal bilaterally. No accessory muscle use. GASTROINTESTINAL: Abdomen soft, non-tender, nondistended. EXTREMITIES: No cyanosis NEUROLOGICAL: awake, but lethargic. Assessment/Plan Problem List: (1) Pancreatic mass ICD Codes: K86.9 - Disease of pancreas, unspecified Plan: -- biopsy thus far has been nondiagnostic. --mass is suspicious for pancreatic carcinoma. --will have to reassess him after he is clinically improved and respiratory failure has resolved. (2) Sepsis ICD Codes: A41.9 - Sepsis, unspecified organism Plan: --BC + GNR, Klebsiella. --on multiple antibiotics (3) Liver abscess ICD Codes: K75.0 - Abscess of liver Assessment 72y/o male with pancreatic mass, admitted with fever and suspected liver abscess , now critically ill in [facility], intubated on pressor support. history of tobacco abuse, COPD, prostate cancer HPI (brought forward for continuity of care): recently seen in the Oncology Clinic for evaluation of a pancreatic mass. had developed jaundice and presented to his primary care physician and was found to have elevated bilirubin. sent to [facility], underwent a CT abdomen-->+ hypodense mass at the pancreatic neck, 3.4 x 3.1 cm. concerning for pancreatic neoplasm. mass was continuous and indistinguishable from the posterior wall of the gastric antrum. subsequently had ERCP and an stent placement was unsuccessful because of the obstruction. Subsequently, IR placed an external bili drain. then underwent a stent at the common bile duct. jaundice improved. subsequently was seen by Dr. Sutton and underwent endoscopic ultrasound. biopsy was nondiagnostic. then underwent a CT abdomen +large lesion in liver, 8.6 cm, concerning for a metastatic focus. referred to IR for biopsy of this liver lesion. biopsy was nondiagnostic for carcinoma and showed acute large ductal biliary obstruction. he developed fever and was admitted CT abdomen in ED showed 6.8cm lesion left lobe of liver. patient was admitted and started on broad spectrum antibiotics. Interventional Radiology was consulted for CT guided drainage of the liver aspect. The patient subsequently developed respiratory distress. He was placed on nonrebreather mask. He continued to remain tachycardic and progressively became tachypneic. The patient was then intubated and transferred to the Intensive Care Unit. He was subsequently extubated on . Plan 1. I Have obtained the CD from [facility] and will ask our radiologists to review the patient's 04/2017 scan with current abdominal CT 2. continue antibiotics, supportive care Jania Jefferson Jul 23, 2017 11:41
[2017-07-23] MEDS: LEVOFLOXACIN 750 MG PREMIX INJ 150 ML IV SCH (13:27)
--- NOTE | 2017-07-23 16:07 | HHI.IDPN ---
Note Infectious Disease Note Patient was extubated this morning. He is awake but appears somewhat lethargic. No longer on Levophed. Accordion drain in the hepatic collection is reportedly not working. Afebrile. Status post liver abscess drainage catheter placement. Blood cultures Klebsiella. Abscess fluid culture has Klebsiella. Presented to the emergency department on 07/20 with fever. 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 PAST MEDICAL HISTORY: 1. COPD. 2. Anxiety. 3. Prostate cancer. 4. Pancreatic mass newly diagnosed. 5. Liver lesion, metastasis versus abscess. 6. History of TURP. ALLERGIES: NO KNOWN DRUG ALLERGIES. ANTIBIOTICS: 1. Vancomycin. 2. Piperacillin/tazobactam. 3. Levaquin. Current Medications Medications (Trade) Dose Ordered Sig/Sreedhar Route PRN Reason Start Time Stop Time Status Last Admin Dose Admin Sodium Chloride (NS Flush) 2 ml UNSCH PRN IV FLUSH FLUSH AFTER USING IV ACCESS 07/20/17 18:30 Sodium Chloride (NS Flush) 2 ml BID IV FLUSH 07/20/17 21:00 07/23/17 07:41 Acetaminophen (Tylenol) 650 mg Q4H PRN PO TEMP > 100.4 07/20/17 18:30 07/21/17 09:40 Ondansetron HCl (Zofran Inj) 4 mg Q6H PRN IVP NAUSEA OR VOMITING 07/20/17 18:30 07/20/17 20:28 Naloxone HCl (Narcan Inj) 0.4 mg UNSCH PRN IV PUSH SEE LABEL COMMENTS 07/20/17 18:30 Magnesium Hydroxide (Milk Of Magnesia Liq) 30 ml Q12H PRN PO Mild constipation 07/20/17 18:30 07/23/17 02:57 Sennosides (Senokot) 17.2 mg Q12H PRN PO Moderate constipation 07/20/17 18:30 Bisacodyl (Dulcolax Supp) 10 mg DAILY PRN RECTAL SEVERE CONSITIPATION 07/20/17 18:30 Lactulose (Lactulose Liq) 30 ml DAILY PRN PO SEVERE CONSITIPATION 07/20/17 18:30 07/23/17 02:57 Piperacillin Sod/ Tazobactam Sod 100 ml @ 200 mls/hr Q8H IV 07/21/17 02:00 07/23/17 09:49 Lorazepam (Ativan Inj) 1 mg Q4H PRN IV PUSH Anxiety 07/20/17 20:45 07/23/17 02:57 Pharmacy Profile Note 0 ml @ 0 mls/hr UNSCH OTHER 07/21/17 09:15 Albuterol/ Ipratropium (Duoneb Neb) 1 ampule Q4HR NEB NEB 07/21/17 12:00 07/23/17 11:32 Albuterol/ Ipratropium (Duoneb Neb) 1 ampule Q2HR NEB PRN NEB SHORTNESS OF BREATH 07/21/17 09:15 Budesonide/ Formoterol Fumarate (Symbicort 160-4.5 Mcg Inh) 2 puff Q12HR INH 07/21/17 09:15 Famotidine (Pepcid Inj) 20 mg Q12H IV PUSH 07/21/17 10:00 07/23/17 09:49 Levofloxacin/ Dextrose 150 ml @ 100 mls/hr Q24H IV 07/21/17 13:00 07/23/17 13:27 Terbutaline Sulfate (Brethine Inj) 1 mg UNSCH PRN SQ For Extravasation 07/21/17 13:45 Sodium Chloride (NS Inj) 10 ml BID IRRIGATION 07/21/17 21:00 07/23/17 07:41 Hydrocortisone Sodium Succinate (SoluCORTEF INJ) 50 mg Q12HR IV PUSH 07/23/17 09:00 07/23/17 08:48 Vancomycin HCl 1000 mg/Sodium Chloride 250 ml @ 250 mls/hr Q12H IV 07/23/17 22:00 Miscellaneous Information SPECIFIC LAB TO BE DRAWN:VANCO TROUGH DATE TO... ONCE ONCE .XX 07/25/17 09:45 07/25/17 09:46 SOCIAL HISTORY: Unable to obtain. Medical chart review reports no tobacco, no alcohol, and no illicit drugs. OBJECTIVE: Vital Signs Date Time Temp Pulse Resp B/P (MAP) Pulse Ox O2 Delivery O2 Flow Rate FiO2 07/23/17 14:00 68 07/23/17 12:00 62 07/23/17 12:00 98.6 66 20 107/56 (73) 99 07/23/17 11:10 100 70 07/23/17 10:00 58 07/23/17 09:55 96 Nasal Cannula 3.00 07/23/17 09:55 99 Nasal Cannula 3 07/23/17 09:00 96 40 07/23/17 08:00 72 07/23/17 08:00 98.6 80 6 95/58 (70) 100 07/23/17 08:00 40 07/23/17 07:46 100 40 07/23/17 07:45 40 07/23/17 07:00 100 Mechanical Ventilator 07/23/17 06:00 86 07/23/17 04:00 98.6 72 22 95/52 (66) 100 07/23/17 04:00 40 07/23/17 04:00 72 07/23/17 02:51 100 40 07/23/17 02:00 64 07/23/17 00:00 64 07/23/17 00:00 40 07/22/17 23:54 100 40 07/22/17 22:00 64 07/22/17 21:53 100 40 07/22/17 20:00 40 07/22/17 20:00 62 07/22/17 20:00 98.6 62 19 107/62 (77) 100 07/22/17 19:00 100 Mechanical Ventilator Laboratory Tests Test 07/22/17 05:20 07/23/17 04:30 White Blood Count 18.9 TH/MM3 8.2 TH/MM3 Red Blood Count 3.76 MIL/MM3 3.29 MIL/MM3 Hemoglobin 11.3 GM/DL 10.1 GM/DL Hematocrit 33.4 % 29.1 % Mean Corpuscular Volume 88.6 FL 88.2 FL Mean Corpuscular Hemoglobin 30.0 PG 30.6 PG Mean Corpuscular Hemoglobin Concent 33.9 % 34.6 % Red Cell Distribution Width 14.0 % 14.3 % Platelet Count 152 TH/MM3 110 TH/MM3 Mean Platelet Volume 8.8 FL 9.1 FL Neutrophils (%) (Auto) 93.3 % 90.9 % Lymphocytes (%) (Auto) 3.0 % 4.4 % Monocytes (%) (Auto) 3.5 % 4.6 % Eosinophils (%) (Auto) 0.2 % 0.0 % Basophils (%) (Auto) 0.0 % 0.1 % Neutrophils # (Auto) 17.6 TH/MM3 7.4 TH/MM3 Lymphocytes # (Auto) 0.6 TH/MM3 0.4 TH/MM3 Monocytes # (Auto) 0.7 TH/MM3 0.4 TH/MM3 Eosinophils # (Auto) 0.0 TH/MM3 0.0 TH/MM3 Basophils # (Auto) 0.0 TH/MM3 0.0 TH/MM3 CBC Comment DIFF FINAL AUTO DIFF Differential Comment AUTO DIFF CONFIRMED Platelet Estimate LOW Platelet Morphology Comment NORMAL Red Cell Morphology Comment NORMAL Laboratory Tests Test 07/22/17 05:20 07/23/17 04:30 07/23/17 08:40 Blood Urea Nitrogen 18 MG/DL 21 MG/DL Creatinine 0.79 MG/DL 0.85 MG/DL Random Glucose 185 MG/DL 162 MG/DL Calcium Level 8.1 MG/DL 8.4 MG/DL Sodium Level 139 MEQ/L 142 MEQ/L Potassium Level 3.7 MEQ/L 3.5 MEQ/L Chloride Level 110 MEQ/L 112 MEQ/L Carbon Dioxide Level 19.8 MEQ/L 21.9 MEQ/L Anion Gap 9 MEQ/L 8 MEQ/L Estimat Glomerular Filtration Rate 96 ML/MIN 88 ML/MIN Total Bilirubin 0.6 MG/DL 0.4 MG/DL Direct Bilirubin 0.3 MG/DL Indirect Bilirubin 0.3 MG/DL Aspartate Amino Transf (AST/SGOT) 93 U/L 41 U/L Alanine Aminotransferase (ALT/SGPT) 119 U/L 81 U/L Alkaline Phosphatase 154 U/L 111 U/L Total Protein 6.1 GM/DL 5.4 GM/DL Albumin 2.1 GM/DL 1.7 GM/DL Phosphorus Level 2.2 MG/DL Magnesium Level 2.1 MG/DL Lactic Acid Level 1.8 mmol/L Microbiology Date/Time Source Procedure Growth Status 07/22/17 14:30 Blood Peripheral Aerobic Blood Culture - Preliminary NO GROWTH IN 1 DAY Resulted 07/22/17 14:30 Blood Peripheral Anaerobic Blood Culture - Preliminary NO GROWTH IN 1 DAY Resulted 07/22/17 14:25 Blood Peripheral Aerobic Blood Culture - Preliminary NO GROWTH IN 1 DAY Resulted 07/22/17 14:25 Blood Peripheral Anaerobic Blood Culture - Preliminary Resulted 07/21/17 15:50 Abscess Abdomen Gram Stain - Final Complete 07/21/17 15:50 Wound Culture - Final Klebsiella Pneumoniae Complete Microbiology Date/Time Source Procedure Growth Status 07/20/17 14:30 Blood Peripheral Aerobic Blood Culture - Preliminary Gram Negative Steven Resulted 07/20/17 14:30 Anaerobic Blood Culture - Preliminary Gram Negative Steven Resulted 07/20/17 14:20 Blood Peripheral Aerobic Blood Culture - Preliminary Klebsiella Pneumoniae Resulted 07/20/17 14:20 Anaerobic Blood Culture - Preliminary Gram Negative Steven Resulted 07/20/17 14:42 Nasal Washing Influenza Types A,B Antigen (ION) - Final NEGATIVE FOR FLU A AND B ANTIGEN.... Complete 07/21/17 15:50 Abscess Abdomen Gram Stain - Final Resulted 07/21/17 15:50 Wound Culture - Preliminary Gram Negative Steven Resulted IMAGING: Chest X-Ray 07/21/17 0000 Signed Impressions: Service Date/Time: Friday, July 21, 2017 10:53 - CONCLUSION: 1. ETT in good position. NGT in good position. Right IJ central line in the SVC. 2. No pneumothorax or acute abnormality. Amos Capone MD Abdomen/Pelvis CT 07/20/17 1426 Signed Impressions: Service Date/Time: Thursday, July 20, 2017 15:30 - CONCLUSION: 1. Interval appearance of a 6.8 cm low-density lesion involving the left lobe of the liver. Scattered vague areas of decreased density within the right lobe. This is concerning for an infectious process that is yet to liquefy. 2. Approximate 3 cm pancreatic head mass with obstruction of the pancreatic duct. Stent within the common bile duct is patent. 3. Pneumobilia. 4. Right basilar atelectasis. Andre Jones Jr., MD PHYSICAL EXAM: GENERAL: Patient is awake although somewhat lethargic. No acute distress. HEENT: The head is atraumatic. Extraocular movements cannot be fully assessed. Oral mucosa is dry. NECK: No adenopathy or swelling. LUNGS: Clear breath sounds. HEART: Normal S1 and S2. No murmurs, rubs or gallops audible. ABDOMEN: Bowel sounds present, soft, no tenderness appreciated. Abdominal catheter has red fluid. EXTREMITIES: No cyanosis, clubbing or edema. SKIN: No rash. NEURO: No gross focal finding. PSYCH: Cooperative. IMPRESSION: 1. Septic shock due to Klebsiella.. The patient is hypotensive, febrile with acute respiratory failure and also positive blood cultures. Clinically appears improved. 2. Liver abscess due to Klebsiella. 3. Acute respiratory failure. 4. Pancreatic mass which is likely pancreatic carcinoma. 5. Elevated liver function tests. Liver function test improved. 6. Leukocytosis secondary to infection. White blood cell count improved. Overall improvement. RECOMMENDATIONS: 1. Stop Levaquin. 2. Continue piperacillin/tazobactam. 3. Monitor clinical status. Roger Franco MD Jul 23, 2017 16:07
[2017-07-23] MEDS: VANCOMYCIN 1,000 MG/NS 250 ML IV SCH ×2 (21:36)
[2017-07-24] VITALS (14 sets, daily range): BP systolic 111–132; BP diastolic 57–64; PULSE 47–78; RESP 21–27; TEMP 97.6–98.6; O2SAT 93–100
[2017-07-24] MEDS: PIPERACIL-TAZO 4.5 GM PREMIX 100 ML IV SCH ×3 (01:46→17:38)
[2017-07-24] MEDS: RESP: ALBUTEROL 2.5 MG/IPRATROPIUM 0.5 MG NEB (SCH) NEB ×7 (04:00→23:53)
[2017-07-24 05:44] LABS: AUTOMATED NEUTROPHIL # 9.5 TH/MM3 (1.8-7.7); BASOPHIL % 0.2 % (0.0-2.0); HEMATOCRIT 30.1 % (39.0-51.0); HEMOGLOBIN 10.5 GM/DL (13.0-17.0); LYMPHOCYTE # 0.6 TH/MM3 (1.0-4.8); MEAN CELL VOLUME 86.4 FL (80.0-100.0); MEAN CORPUSCULAR HEMOGLOBIN 30.3 PG (27.0-34.0); MEAN PLATELET VOLUME 8.9 FL (7.0-11.0); MONO % 4.7 % (0.0-8.0); MONOCYTE # 0.5 TH/MM3 (0-0.9); NEUT % 89.1 % (16.0-70.0); PLATELET COUNT 104 TH/MM3 (150-450); RED BLOOD COUNT 3.48 MIL/MM3 (4.50-5.90); RED CELL DISTRIBUTION WIDTH 13.6 % (11.6-17.2); WHITE BLOOD COUNT 10.7 TH/MM3 (4.0-11.0)
[2017-07-24 06:24] LABS: ALBUMIN 1.9 GM/DL (3.4-5.0); ALKALINE PHOSPHATASE 110 U/L (45-117); ALT (GPT) 64 U/L (12-78); AST (GOT) 29 U/L (15-37); BICARBONATE 26.4 MEQ/L (21.0-32.0); BLOOD UREA NITROGEN 23 MG/DL (7-18); CALCIUM 8.1 MG/DL (8.5-10.1); CHLORIDE 108 MEQ/L (98-107); CREATININE 0.77 MG/DL (0.60-1.30); GLOMERULAR FILTRATION RATE 99 ML/MIN (>89); GLUCOSE,RANDOM 115 MG/DL (74-106); SODIUM (NA) 143 MEQ/L (136-145); TOTAL BILIRUBIN ADULT 0.5 MG/DL (0.2-1.0); TOTAL PROTEIN 5.3 GM/DL (6.4-8.2)
[2017-07-24] MEDS ORDERED: ICU - POTASSIUM CHLORIDE/AQUEOUS SOLN 40 MEQ/100 ML IVPB IV PRN (07:30)
[2017-07-24] MEDS ORDERED: ICU - MAGNESIUM SULFATE 4 GM/NS 100 ML IV PRN ×2 (07:30)
[2017-07-24] MEDS ORDERED: ICU - MAGNESIUM SULFATE 2 GM/NS 100 ML IV PRN ×2 (07:30)
[2017-07-24] MEDS ORDERED: ICU - CALL ORDERING PHYSICIAN PRN (07:30)
[2017-07-24] MEDS ORDERED: ICU - D/C ICU ELECTROLYTE ORDERS PRN (07:30)
[2017-07-24] MEDS ORDERED: ICU - SODIUM PHOSPHATE 30 MMOL/NS 250 ML IV PRN ×2 (07:30)
[2017-07-24] MEDS ORDERED: ICU - POTASSIUM PHOSPHATE MONOBASIC 500 MG TAB PO PRN (07:30)
[2017-07-24] MEDS ORDERED: ICU - MAGNESIUM OXIDE 400 MG TAB PO PRN (07:30)
[2017-07-24] MEDS ORDERED: ICU - POTASSIUM PHOSPHATE 30 MMOL/NS 250 ML IV PRN ×2 (07:30)
[2017-07-24] MEDS: ICU - POTASSIUM CHLORIDE/AQUEOUS SOLN 20 MEQ/100 ML IVPB IV PRN ×4 (07:52→23:17)
[2017-07-24] MEDS: HYDROCORTISONE SOD SUCCINATE 100 MG VIAL IV PUSH SCH ×2 (08:31→21:17)
[2017-07-24] MEDS: BUDESONIDE-FORMOTEROL 160/4.5 MCG INHALER INH SCH ×2 (08:31→21:19)
[2017-07-24] MEDS: SODIUM CHLORIDE 0.9% FLUSH 10 ML FLUSH IV FLUSH SCH ×2 (08:31→21:18)
[2017-07-24] MEDS: SODIUM CHLORIDE 0.9% 10 ML VIAL IRRIGATION SCH ×2 (08:32→21:00)
[2017-07-24] MEDS: VANCOMYCIN 1,000 MG/NS 250 ML IV SCH ×2 (10:11)
[2017-07-24] MEDS: FAMOTIDINE 20 MG/2 ML VIAL IV PUSH SCH ×2 (10:11→21:18)
--- NOTE | 2017-07-24 10:21 | HHI.CCPN ---
Subjective Remarks/Hospital Course Patient is 72-year-old male with past medical history of COPD, prostate cancer, anxiety disorder, newly diagnosed pancreatic mass with liver lesion concerning for metastatic disease. He presented to [facility] ED yesterday for evaluation of abdominal pain associated with fever. He underwent CT- guided biopsy of the liver mass on 07/15, and pathology showed acute large duct biliary obstruction, negative for neoplasms. In the ED, he had CT scan of the abdomen and pelvis, which showed a 6.8 cm low density lesion involving left lobe of the liver, concerning for an infectious process. In addition, 2- 3 cm pancreatic head mass with obstruction of the pancreatic duct, and stent within the common bile duct is patent. He was admitted under hospitalist service and was placed on broad-spectrum antibiotics. Interventional radiology was consulted for CT-guided drainage of the liver abscess. Halicat was called as patient was found in respiratory distress. He had an ABG on nonrebreather mask, which showed a pH of 7.28, CO2 42, PaO2 100, bicarb 19 and saturation of 94%. Chest x-ray yesterday showed bullous emphysematous changes, otherwise no infiltrates. Patient is awake, alert, remains on nonrebreather mask. He is tachycardic with heart rate in 118 and tachypneic with respirations in the 30s. His current saturation is 100%. He quit smoking 3 years ago. Patient has T-max of 101.7. He denies any nausea or vomiting; however, he reports abdominal pain. 07/22 Patient was intubated yesterday for resp failure sedated with Fentanyl infusion. Started on Levophed yesterday, s/p CT guided drainage of liver abscess and accordion drain placement yesterday. 07/23 Patient remains sedated and intubated. Afebrile. Off Levophed. 07/24 Patient was extubated yesterday on 2L oxygen. Afebrile. Objective Vital Signs Date Time Temp Pulse Resp B/P (MAP) Pulse Ox O2 Delivery O2 Flow Rate FiO2 07/24/17 08:50 93 Nasal Cannula 2.00 07/24/17 06:00 47 07/24/17 04:00 98.6 23 131/64 (86) 07/23/17 11:10 70 Intake and Output 07/24/17 07/24/17 07/25/17 08:00 16:00 00:00 Intake Total 340 ml Output Total 1000 ml Balance -660 ml Result Diagram: 07/24/17 0530 07/24/17 0545 Other Results Laboratory Tests Test 07/24/17 05:30 07/24/17 05:45 White Blood Count 10.7 TH/MM3 Red Blood Count 3.48 MIL/MM3 Hemoglobin 10.5 GM/DL Hematocrit 30.1 % Mean Corpuscular Volume 86.4 FL Mean Corpuscular Hemoglobin 30.3 PG Mean Corpuscular Hemoglobin Concent 35.0 % Red Cell Distribution Width 13.6 % Platelet Count 104 TH/MM3 Mean Platelet Volume 8.9 FL Neutrophils (%) (Auto) 89.1 % Lymphocytes (%) (Auto) 6.0 % Monocytes (%) (Auto) 4.7 % Eosinophils (%) (Auto) 0.0 % Basophils (%) (Auto) 0.2 % Neutrophils # (Auto) 9.5 TH/MM3 Lymphocytes # (Auto) 0.6 TH/MM3 Monocytes # (Auto) 0.5 TH/MM3 Eosinophils # (Auto) 0.0 TH/MM3 Basophils # (Auto) 0.0 TH/MM3 CBC Comment DIFF FINAL Differential Comment Blood Urea Nitrogen 23 MG/DL Creatinine 0.77 MG/DL Random Glucose 115 MG/DL Total Protein 5.3 GM/DL Albumin 1.9 GM/DL Calcium Level 8.1 MG/DL Alkaline Phosphatase 110 U/L Aspartate Amino Transf (AST/SGOT) 29 U/L Alanine Aminotransferase (ALT/SGPT) 64 U/L Total Bilirubin 0.5 MG/DL Sodium Level 143 MEQ/L Potassium Level 2.6 MEQ/L Chloride Level 108 MEQ/L Carbon Dioxide Level 26.4 MEQ/L Anion Gap 9 MEQ/L Estimat Glomerular Filtration Rate 99 ML/MIN Imaging Last Impressions Abscess Drainage CT 07/21/17 0806 Signed Impressions: Service Date/Time: Friday, July 21, 2017 15:14 - CONCLUSION: 1. Uncomplicated CT-guided placement of percutaneous drainage catheter in a collection in the left lobe of the liver. Approximately 10 cc of serosanguineous fluid containing debris was removed immediately following catheter placement and submitted for cultures and Gram stain. Amos Capone MD Chest X-Ray 07/21/17 0000 Signed Impressions: Service Date/Time: Friday, July 21, 2017 10:53 - CONCLUSION: 1. ETT in good position. NGT in good position. Right IJ central line in the SVC. 2. No pneumothorax or acute abnormality. Amos Capone MD Abdomen/Pelvis CT 07/20/17 1426 Signed Impressions: Service Date/Time: Thursday, July 20, 2017 15:30 - CONCLUSION: 1. Interval appearance of a 6.8 cm low-density lesion involving the left lobe of the liver. Scattered vague areas of decreased density within the right lobe. This is concerning for an infectious process that is yet to liquefy. 2. Approximate 3 cm pancreatic head mass with obstruction of the pancreatic duct. Stent within the common bile duct is patent. 3. Pneumobilia. 4. Right basilar atelectasis. Andre Jones Jr., MD ADDENDUM: Prior scan from [facility] dated 07-01-2017 is now available for direct comparison. The low density lesion in segment 3 of the left hepatic lobe was not present previously. There is stable pneumobilia likely associated with the metallic biliary stent. 2.8 cm mass lesion at the junction of head and neck of the pancreas is difficult to identify on the previous scan, likely due to a different phase of contrast enhancement but the degree of pancreatic ductal dilatation is stable. Lupillo Rivero MD Objective Remarks GENERAL: Patient is 72 yo lying in bed in NAD SKIN: Warm and dry. HEAD: Normocephalic. EYES: No scleral icterus. No injection or drainage. NECK: Supple, trachea midline. No JVD or lymphadenopathy. CARDIOVASCULAR: Regular rate and rhythm without murmurs, gallops, or rubs. RESPIRATORY: Breath sounds equal bilaterally. No accessory muscle use. GASTROINTESTINAL: Abdomen soft, non-tender, nondistended. MUSCULOSKELETAL: No cyanosis, or edema. Neuro:Awake and alert A/P Assessment and Plan 1. Resp Insuff- extubated 07/23 2. COPD exacerbation. 3. A 3 cm pancreatic mass with obstruction of the pancreatic duct. 4. A 6.8 cm liver mass, status post CT-guided biopsy on 07/15, negative for neoplasm. 5. Elevated liver enzymes. 6. Lactic acidemia, 7 Liver abscess s/p CT guided drainage 8 Kleb bacteremia 9 Leukocytosis 10. History of prostate cancer. 11. Anxiety disorder. Plan Neuro: Awake and alert. Monitor neuro status Pulm: Continue with oxygen and maintain sats above 92%. Bronchodilators, INIPPV PRN for resp distress CV: Monitor HR and BP keep MAP>65mmHg Taper steroids- on HC 50mg IV Q12 : Monitor renal function, I's and O's, and electrolyte replacement per protocol. Will need K replacement today GI: on Pepcid for GI prophylaxis. Monitor LFTs. s/p CT-guided drainage of liver abscess monitor accordion drain output Speech eval, diet per speech ID: Continue abx ( vanco, Zosyn) Monitor for signs of infections(fever and WBC) . BC 07/20: GNR, Kleb pneumonia, Follow up on BC from 07/22- NGTD Wound/abscess cx: Kleb pneumonia nasal washing is negative for influenza on 07/20 . ID is following- Dr. Franco Endo: SSI for glycemic control Heme: Monitor CBC. Oncology is following- Dr. Gomez GI prophylaxis-on Pepcid, and DVT prophylaxis with SCDs. Lines: Right IJ CVP placed 07/21 Level 2 Bonilla Jimenez MD Jul 24, 2017 10:21
[2017-07-24 12:31] LABS: PHOSPHORUS 1.3 MG/DL (2.5-4.9)
--- NOTE | 2017-07-24 12:49 | PD.ONC.PN ---
Subjective Subjective Remarks Afebrile overnight. Patient resting in bed in nad. No family members at bedside. states he feels fine today. remains extubated, tolerating nasal cannula. Objective Data Date Time Temp Pulse Resp B/P (MAP) Pulse Ox O2 Delivery O2 Flow Rate FiO2 07/24/17 08:50 93 Nasal Cannula 2.00 07/24/17 06:00 47 07/24/17 04:00 98.6 50 23 131/64 (86) 100 07/24/17 04:00 50 07/24/17 02:00 54 07/24/17 00:00 54 07/24/17 00:00 98.6 54 27 111/61 (78) 100 07/23/17 22:00 56 07/23/17 20:00 58 07/23/17 20:00 99.1 58 27 121/58 (79) 100 07/23/17 19:44 100 Nasal Cannula 2.00 07/23/17 19:00 97 Nasal Cannula 3.00 07/23/17 18:00 58 07/23/17 16:00 99.0 60 18 112/68 (83) 98 07/23/17 16:00 60 07/23/17 14:00 68 07/24/17 07/24/17 07/24/17 06:59 14:59 22:59 Intake Total 240 ml 100 ml Output Total 1000 ml Balance -760 ml 100 ml Result Diagram: 07/24/17 0530 07/24/17 0545 Laboratory Results Laboratory Tests Test 07/24/17 05:30 07/24/17 05:45 07/24/17 11:59 White Blood Count 10.7 TH/MM3 Red Blood Count 3.48 MIL/MM3 Hemoglobin 10.5 GM/DL Hematocrit 30.1 % Mean Corpuscular Volume 86.4 FL Mean Corpuscular Hemoglobin 30.3 PG Mean Corpuscular Hemoglobin Concent 35.0 % Red Cell Distribution Width 13.6 % Platelet Count 104 TH/MM3 Mean Platelet Volume 8.9 FL Neutrophils (%) (Auto) 89.1 % Lymphocytes (%) (Auto) 6.0 % Monocytes (%) (Auto) 4.7 % Eosinophils (%) (Auto) 0.0 % Basophils (%) (Auto) 0.2 % Neutrophils # (Auto) 9.5 TH/MM3 Lymphocytes # (Auto) 0.6 TH/MM3 Monocytes # (Auto) 0.5 TH/MM3 Eosinophils # (Auto) 0.0 TH/MM3 Basophils # (Auto) 0.0 TH/MM3 CBC Comment DIFF FINAL Differential Comment Blood Urea Nitrogen 23 MG/DL Creatinine 0.77 MG/DL Random Glucose 115 MG/DL Total Protein 5.3 GM/DL Albumin 1.9 GM/DL Calcium Level 8.1 MG/DL Alkaline Phosphatase 110 U/L Aspartate Amino Transf (AST/SGOT) 29 U/L Alanine Aminotransferase (ALT/SGPT) 64 U/L Total Bilirubin 0.5 MG/DL Sodium Level 143 MEQ/L Potassium Level 2.6 MEQ/L Chloride Level 108 MEQ/L Carbon Dioxide Level 26.4 MEQ/L Anion Gap 9 MEQ/L Estimat Glomerular Filtration Rate 99 ML/MIN Phosphorus Level 1.3 MG/DL Magnesium Level 2.0 MG/DL Culture Results Microbiology Date/Time Source Procedure Growth Status 07/22/17 14:30 Blood Peripheral Aerobic Blood Culture - Preliminary NO GROWTH IN 2 DAYS Resulted 07/22/17 14:30 Blood Peripheral Anaerobic Blood Culture - Preliminary NO GROWTH IN 2 DAYS Resulted 07/22/17 14:25 Blood Peripheral Aerobic Blood Culture - Preliminary NO GROWTH IN 2 DAYS Resulted 07/22/17 14:25 Blood Peripheral Anaerobic Blood Culture - Preliminary Resulted 07/21/17 15:50 Abscess Abdomen Gram Stain - Final Complete 07/21/17 15:50 Wound Culture - Final Klebsiella Pneumoniae Complete Administered Medications Medications (Trade) Dose Ordered Sig/Sreedhar Route PRN Reason Start Time Stop Time Status Last Admin Dose Admin Sodium Chloride (NS Flush) 2 ml BID IV FLUSH 07/20/17 21:00 07/24/17 08:31 Acetaminophen (Tylenol) 650 mg Q4H PRN PO TEMP > 100.4 07/20/17 18:30 07/21/17 09:40 Ondansetron HCl (Zofran Inj) 4 mg Q6H PRN IVP NAUSEA OR VOMITING 07/20/17 18:30 07/20/17 20:28 Magnesium Hydroxide (Milk Of Magnesia Liq) 30 ml Q12H PRN PO Mild constipation 07/20/17 18:30 07/23/17 02:57 Lactulose (Lactulose Liq) 30 ml DAILY PRN PO SEVERE CONSITIPATION 07/20/17 18:30 07/23/17 02:57 Piperacillin Sod/ Tazobactam Sod 100 ml @ 200 mls/hr Q8H IV 07/21/17 02:00 07/24/17 10:11 Lorazepam (Ativan Inj) 1 mg Q4H PRN IV PUSH Anxiety 07/20/17 20:45 07/23/17 20:28 Albuterol/ Ipratropium (Duoneb Neb) 1 ampule Q4HR NEB NEB 07/21/17 12:00 07/24/17 08:50 Budesonide/ Formoterol Fumarate (Symbicort 160-4.5 Mcg Inh) 2 puff Q12HR INH 07/21/17 09:15 07/24/17 08:31 Famotidine (Pepcid Inj) 20 mg Q12H IV PUSH 07/21/17 10:00 07/24/17 10:11 Levofloxacin/ Dextrose 150 ml @ 100 mls/hr Q24H IV 07/21/17 13:00 07/23/17 13:27 Sodium Chloride (NS Inj) 10 ml BID IRRIGATION 07/21/17 21:00 07/24/17 08:32 Hydrocortisone Sodium Succinate (SoluCORTEF INJ) 50 mg Q12HR IV PUSH 07/23/17 09:00 07/24/17 08:31 Vancomycin HCl 1000 mg/Sodium Chloride 250 ml @ 250 mls/hr Q12H IV 07/23/17 22:00 07/24/17 10:11 Potassium Chloride 100 ml @ 50 mls/hr UNSCH PRN IV ELECTROLYTE REPLACEMENT 07/24/17 07:30 07/24/17 10:09 Objective Remarks GENERAL: Elderly male, upright in bed in nad. on O2 via NC SKIN: Warm and dry. HEAD: Normocephalic. EYES: No injection or drainage. NECK: Supple, trachea midline. CARDIOVASCULAR: +S1/S2 RESPIRATORY: anterior dalton with scattered rhonchi. GASTROINTESTINAL: Abdomen soft, non-tender, nondistended. EXTREMITIES: No cyanosis NEUROLOGICAL: awake, alert. normal speech. Assessment/Plan Problem List: (1) Pancreatic mass ICD Codes: K86.9 - Disease of pancreas, unspecified Plan: -- biopsy thus far has been nondiagnostic. --mass is suspicious for pancreatic carcinoma. (2) Sepsis ICD Codes: A41.9 - Sepsis, unspecified organism Plan: --BC + GNR, Klebsiella. --on multiple antibiotics (3) Liver abscess ICD Codes: K75.0 - Abscess of liver Assessment 72y/o male with pancreatic mass, admitted with fever and suspected liver abscess , now critically ill in [facility], intubated on pressor support. history of tobacco abuse, COPD, prostate cancer HPI (brought forward for continuity of care): recently seen in the Oncology Clinic for evaluation of a pancreatic mass. had developed jaundice and presented to his primary care physician and was found to have elevated bilirubin. sent to [facility], underwent a CT abdomen-->+ hypodense mass at the pancreatic neck, 3.4 x 3.1 cm. concerning for pancreatic neoplasm. mass was continuous and indistinguishable from the posterior wall of the gastric antrum. subsequently had ERCP and an stent placement was unsuccessful because of the obstruction. Subsequently, IR placed an external bili drain. then underwent a stent at the common bile duct. jaundice improved. subsequently was seen by Dr. Sutton and underwent endoscopic ultrasound. biopsy was nondiagnostic. then underwent a CT abdomen +large lesion in liver, 8.6 cm, concerning for a metastatic focus. referred to IR for biopsy of this liver lesion. biopsy was nondiagnostic for carcinoma and showed acute large ductal biliary obstruction. he developed fever and was admitted CT abdomen in ED showed 6.8cm lesion left lobe of liver. patient was admitted and started on broad spectrum antibiotics. Interventional Radiology was consulted for CT guided drainage of the liver aspect. The patient subsequently developed respiratory distress. He was placed on nonrebreather mask. He continued to remain tachycardic and progressively became tachypneic. The patient was then intubated and transferred to the Intensive Care Unit. He was subsequently extubated on . Plan 1. continue antibiotics, supportive care. 2. monitor CBC, bilirubin. Attending Statement The exam, history, and the medical decision-making described in the above note were completed with the assistance of the mid-level provider. I reviewed and agree with the findings presented. I attest that I had a [id number] encounter with the patient on the same day, and personally performed and documented my assessment and findings in the medical record. having ICU delirium in restraints pancreatic mass biopsies non-diagnostic thus far discussed with patient's daughter over the phone will ask GI to see patient tomorrow (family requesting Dr. Aragon who did the EUS/biospy before) RN present during rounds Jania Jefferson Jul 24, 2017 12:49 Del Gomez MD Jul 24, 2017 21:14
[2017-07-24] MEDS: LEVOFLOXACIN 750 MG PREMIX INJ 150 ML IV SCH (13:03)
[2017-07-24] MEDS: LORazepam 2 MG/ML VIAL IV PUSH PRN ×2 (14:20→21:27)
--- NOTE | 2017-07-24 17:33 | HHI.IDPN ---
Note Infectious Disease Note Patient is confused. Pulled out his central line almost completely out. RN Remove the line because it was a most completely out He is currently in soft restraints. Upset about being in restraints and wants to restraints removed. Accordion drain in hepatic collection removed because it was not functioning. Afebrile. Discussed with RN. Discussed with patient's daughter Mounika. Blood cultures Klebsiella. Abscess fluid culture has Klebsiella. Presented to the emergency department on 07/20 with fever. 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 PAST MEDICAL HISTORY: 1. COPD. 2. Anxiety. 3. Prostate cancer. 4. Pancreatic mass newly diagnosed. 5. Liver lesion, metastasis versus abscess. 6. History of TURP. ALLERGIES: NO KNOWN DRUG ALLERGIES. ANTIBIOTICS: 1. Piperacillin/tazobactam. 2. Levaquin. 3. vancomycin. Current Medications Medications (Trade) Dose Ordered Sig/Sreedhar Route PRN Reason Start Time Stop Time Status Last Admin Dose Admin Sodium Chloride (NS Flush) 2 ml UNSCH PRN IV FLUSH FLUSH AFTER USING IV ACCESS 07/20/17 18:30 Sodium Chloride (NS Flush) 2 ml BID IV FLUSH 07/20/17 21:00 07/24/17 08:31 Acetaminophen (Tylenol) 650 mg Q4H PRN PO TEMP > 100.4 07/20/17 18:30 07/21/17 09:40 Ondansetron HCl (Zofran Inj) 4 mg Q6H PRN IVP NAUSEA OR VOMITING 07/20/17 18:30 07/20/17 20:28 Naloxone HCl (Narcan Inj) 0.4 mg UNSCH PRN IV PUSH SEE LABEL COMMENTS 07/20/17 18:30 Magnesium Hydroxide (Milk Of Magnesia Liq) 30 ml Q12H PRN PO Mild constipation 07/20/17 18:30 07/23/17 02:57 Sennosides (Senokot) 17.2 mg Q12H PRN PO Moderate constipation 07/20/17 18:30 Bisacodyl (Dulcolax Supp) 10 mg DAILY PRN RECTAL SEVERE CONSITIPATION 07/20/17 18:30 Lactulose (Lactulose Liq) 30 ml DAILY PRN PO SEVERE CONSITIPATION 07/20/17 18:30 07/23/17 02:57 Piperacillin Sod/ Tazobactam Sod 100 ml @ 200 mls/hr Q8H IV 07/21/17 02:00 07/24/17 10:11 Lorazepam (Ativan Inj) 1 mg Q4H PRN IV PUSH Anxiety 07/20/17 20:45 07/24/17 14:20 Pharmacy Profile Note 0 ml @ 0 mls/hr UNSCH OTHER 07/21/17 09:15 Albuterol/ Ipratropium (Duoneb Neb) 1 ampule Q4HR NEB NEB 07/21/17 12:00 07/24/17 13:36 Albuterol/ Ipratropium (Duoneb Neb) 1 ampule Q2HR NEB PRN NEB SHORTNESS OF BREATH 07/21/17 09:15 Budesonide/ Formoterol Fumarate (Symbicort 160-4.5 Mcg Inh) 2 puff Q12HR INH 07/21/17 09:15 07/24/17 08:31 Famotidine (Pepcid Inj) 20 mg Q12H IV PUSH 07/21/17 10:00 07/24/17 10:11 Levofloxacin/ Dextrose 150 ml @ 100 mls/hr Q24H IV 07/21/17 13:00 07/24/17 13:03 Terbutaline Sulfate (Brethine Inj) 1 mg UNSCH PRN SQ For Extravasation 07/21/17 13:45 Sodium Chloride (NS Inj) 10 ml BID IRRIGATION 07/21/17 21:00 07/24/17 08:32 Hydrocortisone Sodium Succinate (SoluCORTEF INJ) 50 mg Q12HR IV PUSH 07/23/17 09:00 07/24/17 08:31 Vancomycin HCl 1000 mg/Sodium Chloride 250 ml @ 250 mls/hr Q12H IV 07/23/17 22:00 07/24/17 10:11 Miscellaneous Information SPECIFIC LAB TO BE DRAWN:VANCO TROUGH DATE TO... ONCE ONCE .XX 07/25/17 09:45 07/25/17 09:46 Miscellaneous Information D/C ICU ELECTROLYTE ORDERS... UNSCH PRN .XX SEE DOSE INSTRUCTIONS 07/24/17 07:30 Miscellaneous Information ICU - CALL ORDERING PHYSIC... UNSCH PRN .XX SEE DOSE INSTRUCTIONS 07/24/17 07:30 Potassium Chloride 100 ml @ 25 mls/hr UNSCH PRN IV ELECTROLYTE REPLACEMENT 07/24/17 07:30 Potassium Bicarb/ Potassium Chloride (K-Lyte Cl Eff) 50 meq UNSCH PRN PO ELECTROLYTE REPLACEMENT 07/24/17 07:30 Potassium Chloride 100 ml @ 50 mls/hr UNSCH PRN IV ELECTROLYTE REPLACEMENT 07/24/17 07:30 07/24/17 17:21 Magnesium Sulfate 4 gm/Sodium Chloride 108 ml @ 54 mls/hr UNSCH PRN IV ELECTROLYTE REPLACEMENT 07/24/17 07:30 Magnesium Sulfate 2 gm/Sodium Chloride 104 ml @ 52 mls/hr UNSCH PRN IV ELECTROLYTE REPLACEMENT 07/24/17 07:30 Magnesium Oxide (Mag-Ox) 800 mg UNSCH PRN PO ELECTROLYTE REPLACEMENT 07/24/17 07:30 Sodium Phosphate 30 mmol/Sodium Chloride 260 ml @ 43.333 mls/ hr UNSCH PRN IV ELECTROLYTE REPLACEMENT 07/24/17 07:30 Potassium Phosphate (K-Phos) 2,000 mg UNSCH PRN PO ELECTROLYTE REPLACEMENT 07/24/17 07:30 Potassium Phosphate 30 mmol/ Sodium Chloride 260 ml @ 43.333 mls/ hr UNSCH PRN IV ELECTROLYTE REPLACEMENT 07/24/17 07:30 SOCIAL HISTORY: Unable to obtain. Medical chart review reports no tobacco, no alcohol, and no illicit drugs. OBJECTIVE: Vital Signs Date Time Temp Pulse Resp B/P (MAP) Pulse Ox O2 Delivery O2 Flow Rate FiO2 07/24/17 08:50 93 Nasal Cannula 2.00 07/24/17 06:00 47 07/24/17 04:00 98.6 50 23 131/64 (86) 100 07/24/17 04:00 50 07/24/17 02:00 54 07/24/17 00:00 54 07/24/17 00:00 98.6 54 27 111/61 (78) 100 07/23/17 22:00 56 07/23/17 20:00 58 07/23/17 20:00 99.1 58 27 121/58 (79) 100 07/23/17 19:44 100 Nasal Cannula 2.00 07/23/17 19:00 97 Nasal Cannula 3.00 07/23/17 18:00 58 Laboratory Tests Test 07/23/17 04:30 07/24/17 05:30 White Blood Count 8.2 TH/MM3 10.7 TH/MM3 Red Blood Count 3.29 MIL/MM3 3.48 MIL/MM3 Hemoglobin 10.1 GM/DL 10.5 GM/DL Hematocrit 29.1 % 30.1 % Mean Corpuscular Volume 88.2 FL 86.4 FL Mean Corpuscular Hemoglobin 30.6 PG 30.3 PG Mean Corpuscular Hemoglobin Concent 34.6 % 35.0 % Red Cell Distribution Width 14.3 % 13.6 % Platelet Count 110 TH/MM3 104 TH/MM3 Mean Platelet Volume 9.1 FL 8.9 FL Neutrophils (%) (Auto) 90.9 % 89.1 % Lymphocytes (%) (Auto) 4.4 % 6.0 % Monocytes (%) (Auto) 4.6 % 4.7 % Eosinophils (%) (Auto) 0.0 % 0.0 % Basophils (%) (Auto) 0.1 % 0.2 % Neutrophils # (Auto) 7.4 TH/MM3 9.5 TH/MM3 Lymphocytes # (Auto) 0.4 TH/MM3 0.6 TH/MM3 Monocytes # (Auto) 0.4 TH/MM3 0.5 TH/MM3 Eosinophils # (Auto) 0.0 TH/MM3 0.0 TH/MM3 Basophils # (Auto) 0.0 TH/MM3 0.0 TH/MM3 CBC Comment AUTO DIFF DIFF FINAL Differential Comment AUTO DIFF CONFIRMED Platelet Estimate LOW Platelet Morphology Comment NORMAL Red Cell Morphology Comment NORMAL Laboratory Tests Test 07/23/17 04:30 07/23/17 08:40 07/24/17 05:45 07/24/17 11:59 Blood Urea Nitrogen 21 MG/DL 23 MG/DL Creatinine 0.85 MG/DL 0.77 MG/DL Random Glucose 162 MG/DL 115 MG/DL Total Protein 5.4 GM/DL 5.3 GM/DL Albumin 1.7 GM/DL 1.9 GM/DL Calcium Level 8.4 MG/DL 8.1 MG/DL Phosphorus Level 2.2 MG/DL 1.3 MG/DL Magnesium Level 2.1 MG/DL 2.0 MG/DL Alkaline Phosphatase 111 U/L 110 U/L Aspartate Amino Transf (AST/SGOT) 41 U/L 29 U/L Alanine Aminotransferase (ALT/SGPT) 81 U/L 64 U/L Total Bilirubin 0.4 MG/DL 0.5 MG/DL Sodium Level 142 MEQ/L 143 MEQ/L Potassium Level 3.5 MEQ/L 2.6 MEQ/L Chloride Level 112 MEQ/L 108 MEQ/L Carbon Dioxide Level 21.9 MEQ/L 26.4 MEQ/L Anion Gap 8 MEQ/L 9 MEQ/L Estimat Glomerular Filtration Rate 88 ML/MIN 99 ML/MIN Lactic Acid Level 1.8 mmol/L Microbiology Date/Time Source Procedure Growth Status 07/22/17 14:30 Blood Peripheral Aerobic Blood Culture - Preliminary NO GROWTH IN 2 DAYS Resulted 07/22/17 14:30 Blood Peripheral Anaerobic Blood Culture - Preliminary NO GROWTH IN 2 DAYS Resulted 07/22/17 14:25 Blood Peripheral Aerobic Blood Culture - Preliminary NO GROWTH IN 2 DAYS Resulted 07/22/17 14:25 Blood Peripheral Anaerobic Blood Culture - Preliminary Resulted Microbiology Date/Time Source Procedure Growth Status 07/22/17 14:30 Blood Peripheral Aerobic Blood Culture - Preliminary NO GROWTH IN 1 DAY Resulted 07/22/17 14:30 Blood Peripheral Anaerobic Blood Culture - Preliminary NO GROWTH IN 1 DAY Resulted 07/22/17 14:25 Blood Peripheral Aerobic Blood Culture - Preliminary NO GROWTH IN 1 DAY Resulted 07/22/17 14:25 Blood Peripheral Anaerobic Blood Culture - Preliminary Resulted 07/21/17 15:50 Abscess Abdomen Gram Stain - Final Complete 07/21/17 15:50 Wound Culture - Final Klebsiella Pneumoniae Complete Microbiology Date/Time Source Procedure Growth Status 07/20/17 14:30 Blood Peripheral Aerobic Blood Culture - Preliminary Gram Negative Steven Resulted 07/20/17 14:30 Anaerobic Blood Culture - Preliminary Gram Negative Steven Resulted 07/20/17 14:20 Blood Peripheral Aerobic Blood Culture - Preliminary Klebsiella Pneumoniae Resulted 07/20/17 14:20 Anaerobic Blood Culture - Preliminary Gram Negative Steven Resulted 07/20/17 14:42 Nasal Washing Influenza Types A,B Antigen (ION) - Final NEGATIVE FOR FLU A AND B ANTIGEN.... Complete 07/21/17 15:50 Abscess Abdomen Gram Stain - Final Resulted 07/21/17 15:50 Wound Culture - Preliminary Gram Negative Steven Resulted IMAGING: Chest X-Ray 07/21/17 0000 Signed Impressions: Service Date/Time: Friday, July 21, 2017 10:53 - CONCLUSION: 1. ETT in good position. NGT in good position. Right IJ central line in the SVC. 2. No pneumothorax or acute abnormality. Amos Capone MD Abdomen/Pelvis CT 07/20/17 1426 Signed Impressions: Service Date/Time: Thursday, July 20, 2017 15:30 - CONCLUSION: 1. Interval appearance of a 6.8 cm low-density lesion involving the left lobe of the liver. Scattered vague areas of decreased density within the right lobe. This is concerning for an infectious process that is yet to liquefy. 2. Approximate 3 cm pancreatic head mass with obstruction of the pancreatic duct. Stent within the common bile duct is patent. 3. Pneumobilia. 4. Right basilar atelectasis. Andre Jones Jr., MD PHYSICAL EXAM: GENERAL: Patient is awake but confused. No acute distress. HEENT: The head is atraumatic. Extraocular movements cannot be fully assessed. Oral mucosa is dry. NECK: No adenopathy or swelling. LUNGS: Clear decreased breath sounds. HEART: Normal S1 and S2. No murmurs, rubs or gallops audible. ABDOMEN: Bowel sounds present, soft, no tenderness appreciated. EXTREMITIES: No cyanosis, clubbing or edema. SKIN: No rash. NEURO: No gross focal finding. PSYCH: Agitated. IMPRESSION: 1. Septic shock due to Klebsiella. The patient is hypotensive, febrile with acute respiratory failure and also positive blood cultures. Clinically appears improved. 2. Liver abscess due to Klebsiella. 3. Acute respiratory failure. Extubated. 4. Pancreatic mass. 5. Elevated liver function tests. Liver function test improved. 6. Leukocytosis secondary to infection. White blood cell count improved. Overall improvement. RECOMMENDATIONS: 1. Continue piperacillin/tazobactam. 2. Monitor clinical status. 3. Follow-up of the pancreatic abscess by radiology to determine if A new catheter needs to be inserted. Also monitor status of the pancreatic mass. I forgot to discontinue the Levaquin yesterday. It could also be affecting the mental status. Roger Franco MD Jul 24, 2017 17:33
[2017-07-24] MEDS: SODIUM CHLORIDE 0.9% FLUSH 10 ML FLUSH IV FLUSH PRN (21:27)
[2017-07-24 22:33] LABS: INTERNATIONAL NORMALIZED RATIO 1.3 RATIO; PROTHROMBIN TIME - PATIENT 12.7 SEC (9.8-11.6)
[2017-07-24] MEDS: POTASSIUM CHLORIDE 25 MEQ EFFERVESCENT TAB PO PRN (23:17)
[2017-07-25] VITALS (10 sets, daily range): BP systolic 104–130; BP diastolic 52–79; PULSE 56–77; RESP 17–28; TEMP 97.1–98.3; O2SAT 94–100
[2017-07-25] MEDS: LORazepam 2 MG/ML VIAL IV PUSH PRN (00:22)
[2017-07-25] MEDS: PIPERACIL-TAZO 4.5 GM PREMIX 100 ML IV SCH ×3 (00:22→17:42)
[2017-07-25] MEDS: RESP: ALBUTEROL 2.5 MG/IPRATROPIUM 0.5 MG NEB (SCH) NEB ×6 (03:25→23:20)
[2017-07-25 04:49] LABS: BASOPHIL % 0.2 % (0.0-2.0); EOSINOPHIL % 0.1 % (0.0-4.0); HEMATOCRIT 31.6 % (39.0-51.0); HEMOGLOBIN 11.1 GM/DL (13.0-17.0); LYMPH % 6.7 % (9.0-44.0); LYMPHOCYTE # 0.7 TH/MM3 (1.0-4.8); MEAN CELL VOLUME 86.1 FL (80.0-100.0); MEAN CORPUSCULAR HEMOGLOBIN 30.1 PG (27.0-34.0); MEAN PLATELET VOLUME 8.8 FL (7.0-11.0); MONO % 6.4 % (0.0-8.0); MONOCYTE # 0.7 TH/MM3 (0-0.9); NEUT % 86.6 % (16.0-70.0); PLATELET COUNT 120 TH/MM3 (150-450); RED BLOOD COUNT 3.67 MIL/MM3 (4.50-5.90); RED CELL DISTRIBUTION WIDTH 13.9 % (11.6-17.2); WHITE BLOOD COUNT 10.4 TH/MM3 (4.0-11.0)
[2017-07-25 05:09] LABS: BICARBONATE 26.3 MEQ/L (21.0-32.0); CALCIUM 7.9 MG/DL (8.5-10.1); CREATININE 0.72 MG/DL (0.60-1.30); MAGNESIUM 1.9 MG/DL (1.5-2.5); PHOSPHORUS 1.5 MG/DL (2.5-4.9)
--- NOTE | 2017-07-25 06:27 | HHI.CCPN ---
Subjective Remarks/Hospital Course Patient is 72-year-old male with past medical history of COPD, prostate cancer, anxiety disorder, newly diagnosed pancreatic mass with liver lesion concerning for metastatic disease. He presented to [facility] ED yesterday for evaluation of abdominal pain associated with fever. He underwent CT- guided biopsy of the liver mass on 07/15, and pathology showed acute large duct biliary obstruction, negative for neoplasms. In the ED, he had CT scan of the abdomen and pelvis, which showed a 6.8 cm low density lesion involving left lobe of the liver, concerning for an infectious process. In addition, 2- 3 cm pancreatic head mass with obstruction of the pancreatic duct, and stent within the common bile duct is patent. He was admitted under hospitalist service and was placed on broad-spectrum antibiotics. Interventional radiology was consulted for CT-guided drainage of the liver abscess. Halicat was called as patient was found in respiratory distress. He had an ABG on nonrebreather mask, which showed a pH of 7.28, CO2 42, PaO2 100, bicarb 19 and saturation of 94%. Chest x-ray yesterday showed bullous emphysematous changes, otherwise no infiltrates. Patient is awake, alert, remains on nonrebreather mask. He is tachycardic with heart rate in 118 and tachypneic with respirations in the 30s. His current saturation is 100%. He quit smoking 3 years ago. Patient has T-max of 101.7. He denies any nausea or vomiting; however, he reports abdominal pain. 07/22 Patient was intubated yesterday for resp failure sedated with Fentanyl infusion. Started on Levophed yesterday, s/p CT guided drainage of liver abscess and accordion drain placement yesterday. 07/23 Patient remains sedated and intubated. Afebrile. Off Levophed. 07/24 Patient was extubated yesterday on 2L oxygen. Afebrile. SUBJECTIVE: 07/25: Resting comfortably in bed in no acute distress. Agitated overnight currently in soft restraints. Pulled out according drain last night. Afebrile. Bradycardic. 2 bowel movements overnight. Objective Vital Signs Date Time Temp Pulse Resp B/P (MAP) Pulse Ox O2 Delivery O2 Flow Rate FiO2 07/25/17 02:00 64 07/25/17 00:00 98.0 24 124/64 (84) 97 3/9/18 20:21 21 07/24/17 20:15 Nasal Cannula 2.00 Result Diagram: 07/25/17 0432 07/25/17 0432 Other Results Microbiology Date/Time Source Procedure Growth Status 07/22/17 14:30 Blood Peripheral Aerobic Blood Culture - Preliminary NO GROWTH IN 2 DAYS Resulted 07/22/17 14:30 Blood Peripheral Anaerobic Blood Culture - Preliminary NO GROWTH IN 2 DAYS Resulted 07/20/17 14:42 Nasal Washing Influenza Types A,B Antigen (ION) - Final NEGATIVE FOR FLU A AND B ANTIGEN.... Complete 07/21/17 15:50 Abscess Abdomen Gram Stain - Final Complete 07/21/17 15:50 Wound Culture - Final Klebsiella Pneumoniae Complete Imaging Last Impressions Abscess Drainage CT 07/21/17 0806 Signed Impressions: Service Date/Time: Friday, July 21, 2017 15:14 - CONCLUSION: 1. Uncomplicated CT-guided placement of percutaneous drainage catheter in a collection in the left lobe of the liver. Approximately 10 cc of serosanguineous fluid containing debris was removed immediately following catheter placement and submitted for cultures and Gram stain. Amos Capone MD Chest X-Ray 07/21/17 0000 Signed Impressions: Service Date/Time: Friday, July 21, 2017 10:53 - CONCLUSION: 1. ETT in good position. NGT in good position. Right IJ central line in the SVC. 2. No pneumothorax or acute abnormality. Amos Caopne MD Abdomen/Pelvis CT 07/20/17 1426 Signed Impressions: Service Date/Time: Thursday, July 20, 2017 15:30 - CONCLUSION: 1. Interval appearance of a 6.8 cm low-density lesion involving the left lobe of the liver. Scattered vague areas of decreased density within the right lobe. This is concerning for an infectious process that is yet to liquefy. 2. Approximate 3 cm pancreatic head mass with obstruction of the pancreatic duct. Stent within the common bile duct is patent. 3. Pneumobilia. 4. Right basilar atelectasis. Andre Jones Jr., MD ADDENDUM: Prior scan from [facility] dated 07-01-2017 is now available for direct comparison. The low density lesion in segment 3 of the left hepatic lobe was not present previously. There is stable pneumobilia likely associated with the metallic biliary stent. 2.8 cm mass lesion at the junction of head and neck of the pancreas is difficult to identify on the previous scan, likely due to a different phase of contrast enhancement but the degree of pancreatic ductal dilatation is stable. Lupillo Rivero MD Objective Remarks GENERAL: Patient is 72 yo lying in bed in NAD SKIN: Warm and dry. HEAD: Normocephalic. EYES: No scleral icterus. No injection or drainage. NECK: Supple, trachea midline. No JVD or lymphadenopathy. CARDIOVASCULAR: Bradycardic, RR. S1, S2 no S4.. RESPIRATORY:Few crackles patient bases bilaterally. No wheezing. GASTROINTESTINAL: Abdomen soft, non-tender, nondistended. Site of accordion drain right upper quadrant clean dry and intact without hematoma. MUSCULOSKELETAL: No significant peripheral edema. Neuro:Awake and alert. Cranial nerves II through XII grossly intact. Urinary Catheter: No Assessment to: Continue Vascular Central Line Catheter: No Assessment to: Continue A/P Assessment and Plan Neuro/Psych: Anxiety disorder NOS Awake and alert. Acetaminophen 650 mg p.o. every 6 hours as needed fever Continue mirtazapine 45 mg at night Continue buspirone 5 mg p.o. twice daily CT brain today. Discontinue lorazepam from our Pulm: Tobaccoism COPD exacerbation Continue with oxygen and maintain sats above 92%. Incentive spirometry while awake Budesonide/formoterol 160/4.5 2 puffs twice daily Albuterol/ipratropium aerosols every 4 hours with albuterol aerosols every 2 hours as needed dyspnea Tobacco cessation encouraged with self-education cessation booklet provided Extubated 07/23 CV: Monitor HR and BP keep MAP>65mmHg Taper steroids- on HC 50mg IV Q12 Renal/FEN/: Monitor renal function, I's and O's, and electrolyte replacement per protocol. Will need Phos replacement today with 30 mmol K-Phos and 1 g magnesium sulfate GI: 3 cm pancreatic mass with obstruction of the pancreatic duct. 6.8 cm liver mass, status post CT-guided biopsy on 07/15, negative for neoplasm. Elevated transaminases Hypoalbuminemia Pantoprazole for GI prophylaxis. Monitor LFTs. s/p CT-guided drainage of liver abscess Speech eval, diet heart healthy diet CT abdomen/pelvis today. ID: Klebsiella bacteremia Continue abx (piperacillin/tazobactam) Monitor for signs of infections(fever and WBC). BC 07/20: GNR, Kleb pneumonia, Follow up on BC from 07/22- NGTD Wound/abscess 07/21 cx: Kleb pneumonia nasal washing is negative for influenza on 07/20 . ID is following- Dr. Franco Endo: SSI only if indicated for glycemic control Currently on hydrocortisone 50 mg every 12 hours. Wean Heme: Normocytic anemia Thrombocytopenia Elevated CA 19/9 History of prostate cancer Monitor CBC. Oncology is following- Dr. Gomez Pancreatic mass nondiagnostic GI prophylaxis-on pantoprazole, and DVT prophylaxis with SCDs. Lines: Right IJ CVP placed 07/21 Level 2 follow-up. Patient stable from critical care medicine standpoint. Assign care to hospitalist in a.m. 07/26. Okay to transfer from ICU Eloy Aguilar MD Jul 25, 2017 06:27
[2017-07-25] MEDS ORDERED: MAGNESIUM SULFATE 1 GM PREMIX 100 ML IV ONE (06:30)
[2017-07-25] MEDS ORDERED: RESP: ALBUTEROL 2.5 MG/3 ML NEB (PRN) NEB (06:45)
[2017-07-25] MEDS ORDERED: POTASSIUM PHOSPHATE INJ 30 MMOL in SODIUM CHLOR 0.9% 250 ML INJ 250 ML IV ONE (06:45)
--- NOTE | 2017-07-25 08:08 | HHI.PR ---
Subjective Remarks In bed he appears chronically ill./ Not eating well, has no appetite. Had some Ensure in the morning. Feels very weak. Was up in the chair yesterday. No cough. Denies cp, sob, n/v/d/c. Objective Vitals Vital Signs Date Time Temp Pulse Resp B/P (MAP) Pulse Ox O2 Delivery O2 Flow Rate FiO2 07/25/17 06:00 56 07/25/17 04:00 72 07/25/17 04:00 98.3 72 22 119/64 (82) 97 07/25/17 02:00 64 07/25/17 00:00 98.0 65 24 124/64 (84) 97 07/25/17 00:00 65 07/24/17 22:00 66 07/24/17 20:21 97 21 07/24/17 20:15 100 Nasal Cannula 2.00 07/24/17 20:10 90 Room Air 07/24/17 20:00 62 07/24/17 20:00 98.4 56 24 115/60 (78) 98 07/24/17 20:00 98 Room Air 07/24/17 18:00 72 07/24/17 16:00 98.4 78 27 111/57 (75) 99 07/24/17 16:00 78 07/24/17 14:00 62 07/24/17 12:00 58 07/24/17 12:00 98.1 74 21 130/60 (83) 95 07/24/17 10:00 68 07/24/17 08:50 93 Nasal Cannula 2.00 I/O 07/24/17 07/24/17 07/24/17 07/25/17 07/25/17 07/25/17 06:59 14:59 22:59 06:59 14:59 22:59 Intake Total 240 ml 800 ml 250 ml 250 ml Output Total 1000 ml 900 ml 2150 ml Balance -760 ml 800 ml -650 ml -1900 ml Intake Oral 240 ml 250 ml 250 ml IV Total 800 ml Output Urine Total 1000 ml 900 ml 2150 ml Drainage Total 0 ml # Bowel Movements 1 2 3 Result Diagram: 07/25/17 0432 07/25/17 0432 Imaging Last Impressions Abscess Drainage CT 07/21/17 0806 Signed Impressions: Service Date/Time: Friday, July 21, 2017 15:14 - CONCLUSION: 1. Uncomplicated CT-guided placement of percutaneous drainage catheter in a collection in the left lobe of the liver. Approximately 10 cc of serosanguineous fluid containing debris was removed immediately following catheter placement and submitted for cultures and Gram stain. Amos Capone MD Chest X-Ray 07/21/17 0000 Signed Impressions: Service Date/Time: Friday, July 21, 2017 10:53 - CONCLUSION: 1. ETT in good position. NGT in good position. Right IJ central line in the SVC. 2. No pneumothorax or acute abnormality. Amos Capone MD Abdomen/Pelvis CT 07/20/17 1426 Signed Impressions: Service Date/Time: Thursday, July 20, 2017 15:30 - CONCLUSION: 1. Interval appearance of a 6.8 cm low-density lesion involving the left lobe of the liver. Scattered vague areas of decreased density within the right lobe. This is concerning for an infectious process that is yet to liquefy. 2. Approximate 3 cm pancreatic head mass with obstruction of the pancreatic duct. Stent within the common bile duct is patent. 3. Pneumobilia. 4. Right basilar atelectasis. Andre Jones Jr., MD ADDENDUM: Prior scan from [facility] dated 07-01-2017 is now available for direct comparison. The low density lesion in segment 3 of the left hepatic lobe was not present previously. There is stable pneumobilia likely associated with the metallic biliary stent. 2.8 cm mass lesion at the junction of head and neck of the pancreas is difficult to identify on the previous scan, likely due to a different phase of contrast enhancement but the degree of pancreatic ductal dilatation is stable. Lupillo Rivero MD Objective Remarks GENERAL: Patient is 72 yo lying in bed in NAD SKIN: Warm and dry. HEAD: Normocephalic. EYES: No scleral icterus. No injection or drainage. NECK: Supple, trachea midline. No JVD or lymphadenopathy. CARDIOVASCULAR: Bradycardic, RR. S1, S2 no S4.. RESPIRATORY:Few crackles patient bases bilaterally. No wheezing. GASTROINTESTINAL: Abdomen soft, non-tender, nondistended. Site of accordion drain right upper quadrant clean dry and intact without hematoma. MUSCULOSKELETAL: No significant peripheral edema. Neuro:Awake and alert. Cranial nerves II through XII grossly intact. A/P Assessment and Plan Neuro/Psych: Anxiety disorder NOS Awake and alert. Acetaminophen 650 mg p.o. every 6 hours as needed fever Continue mirtazapine 45 mg at night Continue buspirone 5 mg p[address]o. twice daily CT brain today. Discontinue lorazepam from our Pulm: Tobaccoism COPD exacerbation Continue with oxygen and maintain sats above 92%. Incentive spirometry while awake Budesonide/formoterol 160/4.5 2 puffs twice daily Albuterol/ipratropium aerosols every 4 hours with albuterol aerosols every 2 hours as needed dyspnea Tobacco cessation encouraged with self-education cessation booklet provided Extubated 07/23 CV: Monitor HR and BP keep MAP>65mmHg Taper steroids- Renal/FEN/: Monitor renal function, I's and O's, and electrolyte replacement per protocol. Will need Phos replacement today with 30 mmol K-Phos and 1 g magnesium sulfate GI: 3 cm pancreatic mass with obstruction of the pancreatic duct. 6.8 cm liver mass, status post CT-guided biopsy on 07/15, negative for neoplasm. Elevated transaminases Hypoalbuminemia. Moderate to severe prot nayeli malnutrition 2/2 decrease PO intake low appetite. add ensure. MVT, megace Pantoprazole for GI prophylaxis. Monitor LFTs. s/p CT-guided drainage of liver abscess Speech eval, diet heart healthy diet CT abdomen/pelvis today. ID: Klebsiella bacteremia Continue abx (piperacillin/tazobactam) Monitor for signs of infections(fever and WBC). BC 07/20: GNR, Kleb pneumonia, Follow up on BC from 07/22- NGTD Wound/abscess 07/21 cx: Kleb pneumonia nasal washing is negative for influenza on 07/20 . ID is following- Dr. Franco Endo: SSI only if indicated for glycemic control Currently on hydrocortisone 50 mg every 12 hours. Wean Heme: Normocytic anemia Thrombocytopenia Elevated CA 19/9 History of prostate cancer Monitor CBC. Oncology is following- Dr. Gomez Pancreatic mass nondiagnostic GI prophylaxis-on pantoprazole, and DVT prophylaxis with SCDs. Lines: Right IJ CVP placed 07/21 Discussed with the patient, nurse, ST Consult palliative care for goals of care Georgina Silvestre MD Jul 25, 2017 08:08
[2017-07-25] MEDS: SODIUM CHLORIDE 0.9% 10 ML VIAL IRRIGATION SCH ×2 (09:00→21:00)
[2017-07-25] MEDS: MULTIVITAMIN-OPHTHALMIC 1 TAB PO SCH (09:00)
[2017-07-25] MEDS: MEGESTROL ACETATE 40 MG TAB PO SCH ×2 (09:00→22:11)
[2017-07-25] MEDS: HYDROCORTISONE SOD SUCCINATE 100 MG VIAL IV PUSH SCH ×2 (09:10→22:12)
[2017-07-25] MEDS: PANTOPRAZOLE SOD 40 MG DELAYED RELEASE TAB PO SCH (09:10)
[2017-07-25] MEDS: busPIRone HCL 5 MG TAB PO SCH ×2 (09:10→22:11)
[2017-07-25] MEDS: BUDESONIDE-FORMOTEROL 160/4.5 MCG INHALER INH SCH ×2 (09:11→22:20)
[2017-07-25] MEDS: SODIUM CHLORIDE 0.9% FLUSH 10 ML FLUSH IV FLUSH SCH ×2 (09:11→21:00)
[2017-07-25] MEDS ORDERED: PHARMACY ORDERED LAB ONE (09:45)
[2017-07-25] MEDS ORDERED: DIATRIZOATE MEGLUM/DIATRIZOATE SOD 9 ML CUP PO ONE (10:00)
[2017-07-25] MEDS: MULTIVITAMIN TAB PO SCH (11:30)
--- NOTE | 2017-07-25 11:35 | PD.ONC.PN ---
Subjective Subjective Remarks Afebrile Pt denies abdominal pain Pt's daughter at bedside states she does not want any interventions until at least Thursday after pt has had time to recover. Objective Data Date Time Temp Pulse Resp B/P (MAP) Pulse Ox O2 Delivery O2 Flow Rate FiO2 07/25/17 08:31 100 Nasal Cannula 2.00 07/25/17 08:00 97.1 64 26 130/79 (96) 100 07/25/17 07:00 100 Nasal Cannula 2.00 07/25/17 06:00 56 07/25/17 04:00 72 07/25/17 04:00 98.3 72 22 119/64 (82) 97 07/25/17 02:00 64 07/25/17 00:00 98.0 65 24 124/64 (84) 97 07/25/17 00:00 65 07/24/17 22:00 66 07/24/17 20:21 97 21 07/24/17 20:15 100 Nasal Cannula 2.00 07/24/17 20:10 90 Room Air 07/24/17 20:00 62 07/24/17 20:00 98.4 56 24 115/60 (78) 98 07/24/17 20:00 98 Room Air 07/24/17 18:00 72 07/24/17 16:00 98.4 78 27 111/57 (75) 99 07/24/17 16:00 78 07/24/17 14:00 62 07/24/17 12:00 58 07/24/17 12:00 98.1 74 21 130/60 (83) 95 07/25/17 07/25/17 07/25/17 07:00 15:00 23:00 Intake Total 250 ml Output Total 2150 ml Balance -1900 ml Result Diagram: 07/25/17 0432 07/25/17 0432 Laboratory Results Laboratory Tests Test 07/24/17 11:59 07/24/17 21:43 07/25/17 04:32 Phosphorus Level 1.3 MG/DL 1.5 MG/DL Magnesium Level 2.0 MG/DL 1.9 MG/DL Prothrombin Time 12.7 SEC Prothromb Time International Ratio 1.3 RATIO Activated Partial Thromboplast Time 23.4 SEC Fibrinogen 383 mg/dL Potassium Level 2.7 MEQ/L 3.5 MEQ/L CA 19-9 Antigen 209.6 U/ML White Blood Count 10.4 TH/MM3 Red Blood Count 3.67 MIL/MM3 Hemoglobin 11.1 GM/DL Hematocrit 31.6 % Mean Corpuscular Volume 86.1 FL Mean Corpuscular Hemoglobin 30.1 PG Mean Corpuscular Hemoglobin Concent 35.0 % Red Cell Distribution Width 13.9 % Platelet Count 120 TH/MM3 Mean Platelet Volume 8.8 FL Neutrophils (%) (Auto) 86.6 % Lymphocytes (%) (Auto) 6.7 % Monocytes (%) (Auto) 6.4 % Eosinophils (%) (Auto) 0.1 % Basophils (%) (Auto) 0.2 % Neutrophils # (Auto) 9.0 TH/MM3 Lymphocytes # (Auto) 0.7 TH/MM3 Monocytes # (Auto) 0.7 TH/MM3 Eosinophils # (Auto) 0.0 TH/MM3 Basophils # (Auto) 0.0 TH/MM3 CBC Comment DIFF FINAL Differential Comment Blood Urea Nitrogen 16 MG/DL Creatinine 0.72 MG/DL Random Glucose 108 MG/DL Calcium Level 7.9 MG/DL Sodium Level 142 MEQ/L Chloride Level 108 MEQ/L Carbon Dioxide Level 26.3 MEQ/L Anion Gap 8 MEQ/L Estimat Glomerular Filtration Rate 107 ML/MIN Culture Results Microbiology Date/Time Source Procedure Growth Status 07/22/17 14:30 Blood Peripheral Aerobic Blood Culture - Preliminary NO GROWTH IN 3 DAYS Resulted 07/22/17 14:30 Blood Peripheral Anaerobic Blood Culture - Preliminary NO GROWTH IN 3 DAYS Resulted 07/22/17 14:25 Blood Peripheral Aerobic Blood Culture - Preliminary NO GROWTH IN 3 DAYS Resulted 07/22/17 14:25 Blood Peripheral Anaerobic Blood Culture - Preliminary Resulted Administered Medications Medications (Trade) Dose Ordered Sig/Sreedhar Route PRN Reason Start Time Stop Time Status Last Admin Dose Admin Sodium Chloride (NS Flush) 2 ml UNSCH PRN IV FLUSH FLUSH AFTER USING IV ACCESS 07/20/17 18:30 07/24/17 21:27 Sodium Chloride (NS Flush) 2 ml BID IV FLUSH 07/20/17 21:00 07/25/17 09:11 Ondansetron HCl (Zofran Inj) 4 mg Q6H PRN IVP NAUSEA OR VOMITING 07/20/17 18:30 07/20/17 20:28 Magnesium Hydroxide (Milk Of Magnesia Liq) 30 ml Q12H PRN PO Mild constipation 07/20/17 18:30 07/23/17 02:57 Lactulose (Lactulose Liq) 30 ml DAILY PRN PO SEVERE CONSITIPATION 07/20/17 18:30 07/23/17 02:57 Piperacillin Sod/ Tazobactam Sod 100 ml @ 200 mls/hr Q8H IV 07/21/17 02:00 07/25/17 09:10 Budesonide/ Formoterol Fumarate (Symbicort 160-4.5 Mcg Inh) 2 puff Q12HR INH 07/21/17 09:15 07/25/17 09:11 Sodium Chloride (NS Inj) 10 ml BID IRRIGATION 07/21/17 21:00 07/24/17 08:32 Hydrocortisone Sodium Succinate (SoluCORTEF INJ) 50 mg Q12HR IV PUSH 07/23/17 09:00 07/25/17 09:10 Potassium Bicarb/ Potassium Chloride (K-Lyte Cl Eff) 50 meq UNSCH PRN PO ELECTROLYTE REPLACEMENT 07/24/17 07:30 07/24/17 23:17 Potassium Chloride 100 ml @ 50 mls/hr UNSCH PRN IV ELECTROLYTE REPLACEMENT 07/24/17 07:30 07/24/17 23:17 Potassium Phosphate 30 mmol/ Sodium Chloride 260 ml @ 43.333 mls/ hr UNSCH PRN IV ELECTROLYTE REPLACEMENT 07/24/17 07:30 07/25/17 06:50 Albuterol/ Ipratropium (Duoneb Neb) 1 ampule Q4HR NEB NEB 07/25/17 08:00 07/25/17 08:28 Pantoprazole Sodium (Protonix) 40 mg DAILY PO 07/25/17 09:00 07/25/17 09:10 Buspirone HCl (Buspar) 5 mg BID PO 07/25/17 09:00 07/25/17 09:10 Objective Remarks GENERAL: Weak appearing older male resting in bed in no obvious distress. SKIN: Warm and dry. HEAD: Normocephalic. EYES: No injection or drainage. NECK: Supple, trachea midline. CARDIOVASCULAR: Regular rate and rhythm without murmurs. RESPIRATORY: Clear anteriorly. Breathing unlabored. GASTROINTESTINAL: Abdomen soft, non-tender, nondistended. EXTREMITIES: No cyanosis, or edema. SCD's to BLE. MUSCULOSKELETAL: Adequate muscle tone. NEUROLOGICAL: No obvious focal deficit. Awake, alert, and oriented x3. Assessment/Plan Problem List: (1) Pancreatic mass ICD Codes: K86.9 - Disease of pancreas, unspecified Plan: -- biopsy thus far has been nondiagnostic. --mass is suspicious for pancreatic carcinoma. (2) Sepsis ICD Codes: A41.9 - Sepsis, unspecified organism Plan: --BC + GNR, Klebsiella. (3) Liver abscess ICD Codes: K75.0 - Abscess of liver Assessment 72y/o male with pancreatic mass, admitted with fever and suspected liver abscess , now critically ill in [facility], intubated on pressor support. history of tobacco abuse, COPD, prostate cancer HPI (brought forward for continuity of care): recently seen in the Oncology Clinic for evaluation of a pancreatic mass. had developed jaundice and presented to his primary care physician and was found to have elevated bilirubin. sent to [facility], underwent a CT abdomen-->+ hypodense mass at the pancreatic neck, 3.4 x 3.1 cm. concerning for pancreatic neoplasm. mass was continuous and indistinguishable from the posterior wall of the gastric antrum. subsequently had ERCP and an stent placement was unsuccessful because of the obstruction. Subsequently, IR placed an external bili drain. then underwent a stent at the common bile duct. jaundice improved. subsequently was seen by Dr. Sutton and underwent endoscopic ultrasound. biopsy was nondiagnostic. then underwent a CT abdomen +large lesion in liver, 8.6 cm, concerning for a metastatic focus. referred to IR for biopsy of this liver lesion. biopsy was nondiagnostic for carcinoma and showed acute large ductal biliary obstruction. he developed fever and was admitted CT abdomen in ED showed 6.8cm lesion left lobe of liver. patient was admitted and started on broad spectrum antibiotics. Interventional Radiology was consulted for CT guided drainage of the liver aspect. The patient subsequently developed respiratory distress. He was placed on nonrebreather mask. He continued to remain tachycardic and progressively became tachypneic. The patient was then intubated and transferred to the Intensive Care Unit. He was subsequently extubated on . Plan 1. Discussed with pt's daughter- she does not want any further interventions until at least Thursday. Hold off on GI consult for EUS for now. 2. Await results of CT Abdomen Pelvis to reevaluate pancreatic mass as well as CT Head for the confusion 3. Supportive care. Attending Statement The exam, history, and the medical decision-making described in the above note were completed with the assistance of the mid-level provider. I reviewed and agree with the findings presented. I attest that I had a [id number] encounter with the patient on the same day, and personally performed and documented my assessment and findings in the medical record. Pt is extubated. Slow to repond to questions. Pancreatic mass bx = Non DXtic. On antibiotics for sepsis. EUS and CT A/P next week. D/W Noemi Sellers Jul 25, 2017 11:35 Castillo Huitron MD Jul 26, 2017 00:27
--- NOTE | 2017-07-25 16:47 | HHI.IDPN ---
Note Infectious Disease Note ID COVERAGE Presented to the emergency department on 07/20 with fever. 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 Notes reviewed Temps ok percutaneous drain to fluid collection in liver came out Waiting for repeat CT A/P Cultures reviewed PAST HISTORY: 1. COPD. 2. Anxiety. 3. Prostate cancer. 4. Pancreatic mass newly diagnosed. 5. Liver lesion, metastasis versus abscess. 6. History of TURP. ALLERGIES: NO KNOWN DRUG ALLERGIES. Current Medications Medications (Trade) Dose Ordered Sig/Sreedhar Route Start Time Stop Time Status Last Admin (NS Flush) 2 ml UNSCH PRN IV FLUSH 07/20/17 18:30 07/24/17 21:27 (NS Flush) 2 ml BID IV FLUSH 07/20/17 21:00 07/25/17 09:11 (Zofran Inj) 4 mg Q6H PRN IVP 07/20/17 18:30 07/20/17 20:28 (Narcan Inj) 0.4 mg UNSCH PRN IV PUSH 07/20/17 18:30 (Milk Of Magnesia Liq) 30 ml Q12H PRN PO 07/20/17 18:30 07/23/17 02:57 (Senokot) 17.2 mg Q12H PRN PO 07/20/17 18:30 (Dulcolax Supp) 10 mg DAILY PRN RECTAL 07/20/17 18:30 (Lactulose Liq) 30 ml DAILY PRN PO 07/20/17 18:30 07/23/17 02:57 Piperacillin Sod/ Tazobactam Sod 100 ml @ 200 mls/hr Q8H IV 07/21/17 02:00 07/25/17 09:10 (Symbicort 160-4.5 Mcg Inh) 2 puff Q12HR INH 07/21/17 09:15 07/25/17 09:11 (NS Inj) 10 ml BID IRRIGATION 07/21/17 21:00 07/24/17 08:32 (SoluCORTEF INJ) 50 mg Q12HR IV PUSH 07/23/17 09:00 07/25/17 09:10 Miscellaneous Information D/C ICU ELECTROLYTE ORDERS... UNSCH PRN .XX 07/24/17 07:30 Miscellaneous Information ICU - CALL ORDERING PHYSIC... UNSCH PRN .XX 07/24/17 07:30 Potassium Chloride 100 ml @ 25 mls/hr UNSCH PRN IV 07/24/17 07:30 (K-Lyte Cl Eff) 50 meq UNSCH PRN PO 07/24/17 07:30 07/24/17 23:17 Potassium Chloride 100 ml @ 50 mls/hr UNSCH PRN IV 07/24/17 07:30 07/24/17 23:17 Magnesium Sulfate 4 gm/Sodium Chloride 108 ml @ 54 mls/hr UNSCH PRN IV 07/24/17 07:30 Magnesium Sulfate 2 gm/Sodium Chloride 104 ml @ 52 mls/hr UNSCH PRN IV 07/24/17 07:30 (Mag-Ox) 800 mg UNSCH PRN PO 07/24/17 07:30 Sodium Phosphate 30 mmol/Sodium Chloride 260 ml @ 43.333 mls/ hr UNSCH PRN IV 07/24/17 07:30 (K-Phos) 2,000 mg UNSCH PRN PO 07/24/17 07:30 Potassium Phosphate 30 mmol/ Sodium Chloride 260 ml @ 43.333 mls/ hr UNSCH PRN IV 07/24/17 07:30 07/25/17 06:50 (Duoneb Neb) 1 ampule Q4HR NEB NEB 07/25/17 08:00 07/25/17 16:18 (Albuterol Neb) 2.5 mg Q2HR NEB PRN NEB 07/25/17 06:45 (Protonix) 40 mg DAILY PO 07/25/17 09:00 07/25/17 09:10 (Buspar) 5 mg BID PO 07/25/17 09:00 07/25/17 09:10 (Megace) 20 mg BID PO 07/25/17 09:00 (Remeron) 45 mg HS PO 07/25/17 21:00 (Ocuvite) 1 tab DAILY PO 07/25/17 09:00 (Tylenol) 650 mg Q6H PRN PO 07/25/17 07:00 (Theragran) 1 tab DAILY PO 07/25/17 10:45 07/25/17 11:30 OBJECTIVE: Vital Signs Date Time Temp Pulse Resp B/P (MAP) Pulse Ox O2 Delivery O2 Flow Rate FiO2 07/25/17 16:00 97.6 59 26 125/64 (84) 94 07/25/17 14:56 98 Nasal Cannula 2.00 07/25/17 12:00 97.7 72 28 119/56 (77) 98 07/25/17 08:31 100 Nasal Cannula 2.00 07/25/17 08:00 97.1 64 26 130/79 (96) 100 07/25/17 07:00 100 Nasal Cannula 2.00 07/25/17 06:00 56 07/25/17 04:00 72 07/25/17 04:00 98.3 72 22 119/64 (82) 97 07/25/17 02:00 64 07/25/17 00:00 98.0 65 24 124/64 (84) 97 07/25/17 00:00 65 07/24/17 22:00 66 07/24/17 20:21 97 21 07/24/17 20:15 100 Nasal Cannula 2.00 07/24/17 20:10 90 Room Air 07/24/17 20:00 62 07/24/17 20:00 98.4 56 24 115/60 (78) 98 07/24/17 20:00 98 Room Air 07/24/17 18:00 72 Vital Signs Date Time Temp Pulse Resp B/P (MAP) Pulse Ox O2 Delivery O2 Flow Rate FiO2 07/24/17 08:50 93 Nasal Cannula 2.00 07/24/17 06:00 47 07/24/17 04:00 98.6 50 23 131/64 (86) 100 07/24/17 04:00 50 07/24/17 02:00 54 07/24/17 00:00 54 07/24/17 00:00 98.6 54 27 111/61 (78) 100 07/23/17 22:00 56 07/23/17 20:00 58 07/23/17 20:00 99.1 58 27 121/58 (79) 100 07/23/17 19:44 100 Nasal Cannula 2.00 07/23/17 19:00 97 Nasal Cannula 3.00 07/23/17 18:00 58 Laboratory Tests Test 07/24/17 05:30 07/25/17 04:32 White Blood Count 10.7 TH/MM3 10.4 TH/MM3 Red Blood Count 3.48 MIL/MM3 3.67 MIL/MM3 Hemoglobin 10.5 GM/DL 11.1 GM/DL Hematocrit 30.1 % 31.6 % Mean Corpuscular Volume 86.4 FL 86.1 FL Mean Corpuscular Hemoglobin 30.3 PG 30.1 PG Mean Corpuscular Hemoglobin Concent 35.0 % 35.0 % Red Cell Distribution Width 13.6 % 13.9 % Platelet Count 104 TH/MM3 120 TH/MM3 Mean Platelet Volume 8.9 FL 8.8 FL Neutrophils (%) (Auto) 89.1 % 86.6 % Lymphocytes (%) (Auto) 6.0 % 6.7 % Monocytes (%) (Auto) 4.7 % 6.4 % Eosinophils (%) (Auto) 0.0 % 0.1 % Basophils (%) (Auto) 0.2 % 0.2 % Neutrophils # (Auto) 9.5 TH/MM3 9.0 TH/MM3 Lymphocytes # (Auto) 0.6 TH/MM3 0.7 TH/MM3 Monocytes # (Auto) 0.5 TH/MM3 0.7 TH/MM3 Eosinophils # (Auto) 0.0 TH/MM3 0.0 TH/MM3 Basophils # (Auto) 0.0 TH/MM3 0.0 TH/MM3 CBC Comment DIFF FINAL DIFF FINAL Differential Comment Laboratory Tests Test 07/24/17 05:45 07/24/17 11:59 07/24/17 21:43 07/25/17 04:32 Blood Urea Nitrogen 23 MG/DL 16 MG/DL Creatinine 0.77 MG/DL 0.72 MG/DL Random Glucose 115 MG/DL 108 MG/DL Total Protein 5.3 GM/DL Albumin 1.9 GM/DL Calcium Level 8.1 MG/DL 7.9 MG/DL Alkaline Phosphatase 110 U/L Aspartate Amino Transf (AST/SGOT) 29 U/L Alanine Aminotransferase (ALT/SGPT) 64 U/L Total Bilirubin 0.5 MG/DL Sodium Level 143 MEQ/L 142 MEQ/L Potassium Level 2.6 MEQ/L 2.7 MEQ/L 3.5 MEQ/L Chloride Level 108 MEQ/L 108 MEQ/L Carbon Dioxide Level 26.4 MEQ/L 26.3 MEQ/L Anion Gap 9 MEQ/L 8 MEQ/L Estimat Glomerular Filtration Rate 99 ML/MIN 107 ML/MIN Phosphorus Level 1.3 MG/DL 1.5 MG/DL Magnesium Level 2.0 MG/DL 1.9 MG/DL CA 19-9 Antigen 209.6 U/ML Microbiology Date/Time Source Procedure Growth Status 07/22/17 14:30 Blood Peripheral Aerobic Blood Culture - Preliminary NO GROWTH IN 2 DAYS Resulted 07/22/17 14:30 Blood Peripheral Anaerobic Blood Culture - Preliminary NO GROWTH IN 2 DAYS Resulted 07/22/17 14:25 Blood Peripheral Aerobic Blood Culture - Preliminary NO GROWTH IN 2 DAYS Resulted 07/22/17 14:25 Blood Peripheral Anaerobic Blood Culture - Preliminary Resulted Microbiology Date/Time Source Procedure Growth Status 07/22/17 14:30 Blood Peripheral Aerobic Blood Culture - Preliminary NO GROWTH IN 1 DAY Resulted 07/22/17 14:30 Blood Peripheral Anaerobic Blood Culture - Preliminary NO GROWTH IN 1 DAY Resulted 07/22/17 14:25 Blood Peripheral Aerobic Blood Culture - Preliminary NO GROWTH IN 1 DAY Resulted 07/22/17 14:25 Blood Peripheral Anaerobic Blood Culture - Preliminary Resulted 07/21/17 15:50 Abscess Abdomen Gram Stain - Final Complete 07/21/17 15:50 Wound Culture - Final Klebsiella Pneumoniae Complete IMAGING: Chest X-Ray 07/21/17 0000 Signed Impressions: Service Date/Time: Friday, July 21, 2017 10:53 - CONCLUSION: 1. ETT in good position. NGT in good position. Right IJ central line in the SVC. 2. No pneumothorax or acute abnormality. Amos Capone MD Abdomen/Pelvis CT 07/20/17 1426 Signed Impressions: Service Date/Time: Thursday, July 20, 2017 15:30 - CONCLUSION: 1. Interval appearance of a 6.8 cm low-density lesion involving the left lobe of the liver. Scattered vague areas of decreased density within the right lobe. This is concerning for an infectious process that is yet to liquefy. 2. Approximate 3 cm pancreatic head mass with obstruction of the pancreatic duct. Stent within the common bile duct is patent. 3. Pneumobilia. 4. Right basilar atelectasis. Andre Jones Jr., MD PHYSICAL EXAM: GENERAL: Patient is awake and alert. No acute distress. HEENT: The head is atraumatic. Extraocular movements cannot be fully assessed. Oral mucosa is dry. NECK: No adenopathy or swelling. LUNGS: Clear decreased breath sounds. HEART: Normal S1 and S2. No murmurs, rubs or gallops audible. ABDOMEN: Bowel sounds present, soft, tender in epigastric area. EXTREMITIES: No cyanosis, clubbing or edema. SKIN: No rash. NEURO: No gross focal finding. PSYCH: Gets agitated easily IMPRESSION: 1. Septic shock due to Klebsiella. The patient is hypotensive, febrile with acute respiratory failure and also positive blood cultures. Clinically appears improved. 2. Liver abscess due to Klebsiella. 3. Acute respiratory failure. Extubated. 4. Pancreatic mass. 5. Elevated liver function tests. Liver function test improved. 6. Leukocytosis secondary to infection. White blood cell count improved. Overall improvement. RECOMMENDATIONS: Continue piperacillin/tazobactam. Await repeat CT A/P Monitor progress Explained plan to patient and his daughter Lena Sanchez MD Jul 25, 2017 16:47
[2017-07-25] MEDS: MIRTAZAPINE 15 MG TAB PO SCH (22:11)
[2017-07-26] VITALS (9 sets, daily range): BP systolic 93–160; BP diastolic 50–67; PULSE 62–81; RESP 16–22; TEMP 97.3–98.4; O2SAT 95–100
[2017-07-26] MEDS ORDERED: IOHEXOL 350 MG/ML 10 ML VIAL (for RAD DIAG) IVCONTRAST ONE (01:45)
[2017-07-26] MEDS: PIPERACIL-TAZO 4.5 GM PREMIX 100 ML IV SCH ×4 (01:56→21:50)
--- NOTE | 2017-07-26 03:09 | RADRPT ---
EXAM DATE/TIME: 07/26/2017 01:41 [place] COMPARISON: CT ASSISTED ABSCESS DRAIN, July 21, 2017, 15:14. CT NEEDLE BIOPSY LIVER, July 15, 2017, 9:16. INDICATIONS : Abdominal pain; possible liver abscess. IV CONTRAST: 97 cc Omnipaque 350 (iohexol) IV ORAL CONTRAST: Prescribed oral contrast ingested. RADIATION DOSE: 5.00 CTDIvol (mGy) MEDICAL HISTORY : Carcinoma, pancreas. SURGICAL HISTORY : Prostatectomy. ENCOUNTER: Subsequent ACUITY: 1 week PAIN SCALE: 7/10 LOCATION: abdomen TECHNIQUE: Volumetric scanning of the abdomen and pelvis was performed. Using automated exposure control and ad justment of the mA and/or kV according to patient size, radiation dose was kept as low as reasonably achievable to obtain optimal diagnostic quality images. DICOM format image data is available electro nically for review and comparison. FINDINGS: Heterogeneous but mostly low attenuation abnormality seen laterally of the left hepatic lobe measure slightly larger in the interim, currently 3.9 x 6.1 x 7.0 cm, previously 3.9 x 4.9 x 6.8 cm. This is essentially new since June. The heterogeneous and probable solid low density lesion inferiorly of the right hepatic lobe measures approximately 3.6 cm in size. There is an approximately 1.8 cm thick collection of fluid between the posterior dome of the liver and the right hemidiaphragm which is new . Biliary stent with intrahepatic biliary air again noted. Vague masslike area in the pancreatic head a gain seen and with upstream ductal dilatation as well as pancreatic body and tail atrophy. Spleen, adrenal glands and kidneys are without evidence of an acute abnormality. No obstruction or ac denise inflammatory changes are seen of the gastrointestinal tract. There is a 3.7 cm infrarenal abdomin al aortic aneurysm again noted. CONCLUSION: 1. Abnormal low density area laterally of the left hepatic lobe continues to evolve, slightly larger over the past several days and new since June, presumably a fluid collection and potentially an a bscess. A catheter was placed recently but it is no longer present. 2. A fluid collection is developing along the posterior liver dome and is of concern for a possible s ubdiaphragmatic abscess, roughly 2.6 x 5.0 x 1.8 cm. 3. Vague low density lesion inferiorly of the right hepatic lobe not significantly changed. 4. Small bilateral pleural effusions have developed. There is also increasing dependent consolidation of the right lung base. 5. Pancreatic head mass with biliary stent again noted. 6. 3.7 cm infrarenal abdominal aortic aneurysm unchanged. Scott Paredes MD on July 26, 2017 at 1:57 Board Certified Radiologist. This report was verified electronically.
[2017-07-26] MEDS: RESP: ALBUTEROL 2.5 MG/IPRATROPIUM 0.5 MG NEB (SCH) NEB ×6 (03:46→23:56)
[2017-07-26 05:12] LABS: BASOPHIL % 0.1 % (0.0-2.0); HEMATOCRIT 34.8 % (39.0-51.0); HEMOGLOBIN 12.1 GM/DL (13.0-17.0); LYMPH % 5.6 % (9.0-44.0); LYMPHOCYTE # 0.6 TH/MM3 (1.0-4.8); MEAN CELL VOLUME 85.2 FL (80.0-100.0); MEAN CORPUSCULAR HEMOGLOBIN 29.8 PG (27.0-34.0); MEAN CORPUSCULAR HGB CONC 34.9 % (32.0-36.0); MEAN PLATELET VOLUME 8.8 FL (7.0-11.0); MONO % 4.9 % (0.0-8.0); MONOCYTE # 0.5 TH/MM3 (0-0.9); NEUT % 89.4 % (16.0-70.0); PLATELET COUNT 174 TH/MM3 (150-450); RED BLOOD COUNT 4.08 MIL/MM3 (4.50-5.90); RED CELL DISTRIBUTION WIDTH 13.6 % (11.6-17.2); WHITE BLOOD COUNT 10.1 TH/MM3 (4.0-11.0)
[2017-07-26 05:37] LABS: INTERNATIONAL NORMALIZED RATIO 1.2 RATIO; PROTHROMBIN TIME - PATIENT 11.8 SEC (9.8-11.6)
[2017-07-26 05:40] LABS: ALBUMIN 2.2 GM/DL (3.4-5.0); BICARBONATE 28.4 MEQ/L (21.0-32.0); CALCIUM 7.9 MG/DL (8.5-10.1); CREATININE 0.65 MG/DL (0.60-1.30); DIRECT BILIRUBIN ADULT 0.3 MG/DL (0.0-0.2); INDIRECT BILIRUBIN 0.6 MG/DL (0.0-0.8); MAGNESIUM 2.3 MG/DL (1.5-2.5); PHOSPHORUS 3.8 MG/DL (2.5-4.9); TOTAL BILIRUBIN ADULT 0.9 MG/DL (0.2-1.0); TOTAL PROTEIN 5.6 GM/DL (6.4-8.2)
[2017-07-26] MEDS: SODIUM CHLORIDE 0.9% 10 ML VIAL IRRIGATION SCH ×2 (09:00→21:00)
[2017-07-26] MEDS: SODIUM CHLORIDE 0.9% FLUSH 10 ML FLUSH IV FLUSH SCH ×2 (10:04→21:50)
[2017-07-26] MEDS: BUDESONIDE-FORMOTEROL 160/4.5 MCG INHALER INH SCH ×2 (10:04→21:51)
[2017-07-26] MEDS: busPIRone HCL 5 MG TAB PO SCH ×2 (10:05→21:50)
[2017-07-26] MEDS: MULTIVITAMIN TAB PO SCH (10:05)
[2017-07-26] MEDS: PANTOPRAZOLE SOD 40 MG DELAYED RELEASE TAB PO SCH (10:05)
[2017-07-26] MEDS: HYDROCORTISONE SOD SUCCINATE 100 MG VIAL IV PUSH SCH ×2 (10:05→21:50)
[2017-07-26] MEDS: MEGESTROL ACETATE 40 MG TAB PO SCH ×2 (10:06→21:50)
[2017-07-26] MEDS: MULTIVITAMIN-OPHTHALMIC 1 TAB PO SCH (10:06)
--- NOTE | 2017-07-26 14:23 | HHI.PR ---
Subjective Remarks Patient laying in bed looks tired, son at the bedside I discussed with them and explain the situation, The plan is for a liver abscess drainage , and awaiting Dr. Vargas oncologist for further recommendation regarding pancreatic mass Objective Vitals Vital Signs Date Time Temp Pulse Resp B/P (MAP) Pulse Ox O2 Delivery O2 Flow Rate FiO2 07/26/17 12:00 97.4 75 20 103/57 (72) 98 07/26/17 09:08 98 21 07/26/17 08:00 98.4 62 20 155/67 (96) 98 07/26/17 07:00 69 07/26/17 04:00 97.6 75 17 160/67 (98) 97 07/26/17 00:00 97.3 68 16 141/65 (90) 97 07/25/17 20:00 97.4 77 17 104/52 (69) 100 07/25/17 19:39 96 Nasal Cannula 2.00 07/25/17 16:00 97.6 59 26 125/64 (84) 94 07/25/17 14:56 98 Nasal Cannula 2.00 I/O 07/25/17 07/25/17 07/25/17 07/26/17 07/26/17 07/26/17 07:00 15:00 23:00 07:00 15:00 23:00 Intake Total 250 ml 500 ml 240 ml 1369 ml 100 ml Output Total 2150 ml 1000 ml 950 ml 1200 ml Balance -1900 ml -500 ml -710 ml 169 ml 100 ml Intake Oral 250 ml 500 ml 240 ml 540 ml IV Total 829 ml 100 ml Output Urine Total 2150 ml 1000 ml 950 ml 1200 ml # Voids 2 # Bowel Movements 3 1 0 Result Diagram: 07/26/17 0453 07/26/17 0453 Objective Remarks GENERAL: This is a frail 72 years old male CARDIOVASCULAR: Regular rate and rhythm without murmurs, gallops, or rubs. RESPIRATORY: Fair air entry. No wheezes, rales, or rhonchi. GASTROINTESTINAL: Abdomen soft, non-tender, nondistended. Normal active bowel sounds MUSCULOSKELETAL: Extremities without clubbing, cyanosis, or edema. NEURO: Alert & Oriented x4 to person, place, time, situation. Moves all ext x4 A/P Assessment and Plan 07/26 :K potassium is at 3 will replace, awaiting oncology recommendation, monitor fever and WBC A/P: Anxiety disorder NOS Acetaminophen 650 mg p.o. every 6 hours as needed fever Continue mirtazapine 45 mg at night Continue buspirone 5 mg p.o. twice daily Tobaccoism COPD exacerbation Continue with oxygen and maintain sats above 92%. Incentive spirometry while awake Budesonide/formoterol 160/4.5 2 puffs twice daily Albuterol/ipratropium aerosols every 4 hours with albuterol aerosols every 2 hours as needed dyspnea Extubated 07/23 Pancreatic mass 3 cm with obstruction of the pancreatic duct. Liver mass/abscess 6.8 cm, status post CT-guided biopsy on 07/15, negative for neoplasm. Elevated transaminases Hypoalbuminemia. Moderate to severe prot nayeli malnutrition 2/2 decrease PO intake low appetite. add ensure. MVT, megace Pantoprazole for GI prophylaxis. Monitor LFTs. s/p CT-guided drainage of liver abscess Speech eval, diet heart healthy diet CT abdomen/pelvis today. Klebsiella bacteremia Continue abx (piperacillin/tazobactam) Monitor for signs of infections(fever and WBC). BC 07/20: GNR, Kleb pneumonia, Follow up on BC from 07/22- NGTD Wound/abscess 07/21 cx: Kleb pneumonia nasal washing is negative for influenza on 07/20 . ID is following- Dr. Franco Endo: SSI only if indicated for glycemic control Currently on hydrocortisone 50 mg every 12 hours. Wean Normocytic anemia Thrombocytopenia Elevated CA 19/9 History of prostate cancer Monitor CBC. Oncology is following- Dr. Gomez Pancreatic mass nondiagnostic GI prophylaxis-on pantoprazole, and DVT prophylaxis with SCDs. Lauryn Uribe MD Jul 26, 2017 14:23
--- NOTE | 2017-07-26 15:37 | PD.ONC.PN ---
Subjective Subjective Remarks Afebrile Patient much more lucid today Denies any pain Objective Data Date Time Temp Pulse Resp B/P (MAP) Pulse Ox O2 Delivery O2 Flow Rate FiO2 07/26/17 12:00 97.4 75 20 103/57 (72) 98 07/26/17 10:00 97 Room Air 07/26/17 09:08 98 21 07/26/17 08:00 98.4 62 20 155/67 (96) 98 07/26/17 07:00 69 07/26/17 04:00 97.6 75 17 160/67 (98) 97 07/26/17 00:00 97.3 68 16 141/65 (90) 97 07/25/17 20:00 97.4 77 17 104/52 (69) 100 07/25/17 19:39 96 Nasal Cannula 2.00 07/25/17 16:00 97.6 59 26 125/64 (84) 94 07/26/17 07/26/17 07/26/17 06:59 14:59 22:59 Intake Total 1369 ml 100 ml Output Total 1200 ml Balance 169 ml 100 ml Result Diagram: 07/26/17 0453 07/26/17 0453 Laboratory Results Laboratory Tests Test 07/26/17 04:53 White Blood Count 10.1 TH/MM3 Red Blood Count 4.08 MIL/MM3 Hemoglobin 12.1 GM/DL Hematocrit 34.8 % Mean Corpuscular Volume 85.2 FL Mean Corpuscular Hemoglobin 29.8 PG Mean Corpuscular Hemoglobin Concent 34.9 % Red Cell Distribution Width 13.6 % Platelet Count 174 TH/MM3 Mean Platelet Volume 8.8 FL Neutrophils (%) (Auto) 89.4 % Lymphocytes (%) (Auto) 5.6 % Monocytes (%) (Auto) 4.9 % Eosinophils (%) (Auto) 0.0 % Basophils (%) (Auto) 0.1 % Neutrophils # (Auto) 9.0 TH/MM3 Lymphocytes # (Auto) 0.6 TH/MM3 Monocytes # (Auto) 0.5 TH/MM3 Eosinophils # (Auto) 0.0 TH/MM3 Basophils # (Auto) 0.0 TH/MM3 CBC Comment DIFF FINAL Differential Comment Prothrombin Time 11.8 SEC Prothromb Time International Ratio 1.2 RATIO Activated Partial Thromboplast Time 22.2 SEC Fibrinogen 392 mg/dL Blood Urea Nitrogen 13 MG/DL Creatinine 0.65 MG/DL Random Glucose 157 MG/DL Total Protein 5.6 GM/DL Albumin 2.2 GM/DL Calcium Level 7.9 MG/DL Phosphorus Level 3.8 MG/DL Magnesium Level 2.3 MG/DL Alkaline Phosphatase 104 U/L Aspartate Amino Transf (AST/SGOT) 25 U/L Alanine Aminotransferase (ALT/SGPT) 57 U/L Total Bilirubin 0.9 MG/DL Direct Bilirubin 0.3 MG/DL Sodium Level 140 MEQ/L Potassium Level 3.0 MEQ/L Chloride Level 104 MEQ/L Carbon Dioxide Level 28.4 MEQ/L Anion Gap 8 MEQ/L Estimat Glomerular Filtration Rate 120 ML/MIN Indirect Bilirubin 0.6 MG/DL Ammonia 26 MCMOL/L Amylase Level 37 U/L Lipase 115 U/L Administered Medications Medications (Trade) Dose Ordered Sig/Sreedhar Route PRN Reason Start Time Stop Time Status Last Admin Dose Admin Sodium Chloride (NS Flush) 2 ml UNSCH PRN IV FLUSH FLUSH AFTER USING IV ACCESS 07/20/17 18:30 07/24/17 21:27 Sodium Chloride (NS Flush) 2 ml BID IV FLUSH 07/20/17 21:00 07/26/17 10:04 Ondansetron HCl (Zofran Inj) 4 mg Q6H PRN IVP NAUSEA OR VOMITING 07/20/17 18:30 07/20/17 20:28 Magnesium Hydroxide (Milk Of Magnesia Liq) 30 ml Q12H PRN PO Mild constipation 07/20/17 18:30 07/23/17 02:57 Lactulose (Lactulose Liq) 30 ml DAILY PRN PO SEVERE CONSITIPATION 07/20/17 18:30 07/23/17 02:57 Piperacillin Sod/ Tazobactam Sod 100 ml @ 200 mls/hr Q8H IV 07/21/17 02:00 07/26/17 10:06 Budesonide/ Formoterol Fumarate (Symbicort 160-4.5 Mcg Inh) 2 puff Q12HR INH 07/21/17 09:15 07/26/17 10:04 Sodium Chloride (NS Inj) 10 ml BID IRRIGATION 07/21/17 21:00 07/24/17 08:32 Hydrocortisone Sodium Succinate (SoluCORTEF INJ) 50 mg Q12HR IV PUSH 07/23/17 09:00 07/26/17 10:05 Potassium Bicarb/ Potassium Chloride (K-Lyte Cl Eff) 50 meq UNSCH PRN PO ELECTROLYTE REPLACEMENT 07/24/17 07:30 07/24/17 23:17 Potassium Chloride 100 ml @ 50 mls/hr UNSCH PRN IV ELECTROLYTE REPLACEMENT 07/24/17 07:30 07/24/17 23:17 Potassium Phosphate 30 mmol/ Sodium Chloride 260 ml @ 43.333 mls/ hr UNSCH PRN IV ELECTROLYTE REPLACEMENT 07/24/17 07:30 07/25/17 06:50 Albuterol/ Ipratropium (Duoneb Neb) 1 ampule Q4HR NEB NEB 07/25/17 08:00 07/26/17 15:15 Pantoprazole Sodium (Protonix) 40 mg DAILY PO 07/25/17 09:00 07/26/17 10:05 Buspirone HCl (Buspar) 5 mg BID PO 07/25/17 09:00 07/26/17 10:05 Megestrol Acetate (Megace) 20 mg BID PO 07/25/17 09:00 07/26/17 10:06 Mirtazapine (Remeron) 45 mg HS PO 07/25/17 21:00 07/25/17 22:11 Vit C/Vit E/Zinc/ Copper/Lutein (Ocuvite) 1 tab DAILY PO 07/25/17 09:00 07/26/17 10:06 Multivitamins (Theragran) 1 tab DAILY PO 07/25/17 10:45 07/26/17 10:05 Objective Remarks GENERAL: Weak appearing older male resting in bed in no obvious distress. SKIN: Warm and dry. HEAD: Normocephalic. EYES: No injection or drainage. NECK: Supple, trachea midline. CARDIOVASCULAR: Regular rate and rhythm without murmurs. RESPIRATORY: Clear anteriorly. Breathing unlabored. GASTROINTESTINAL: Abdomen soft, non-tender, nondistended. EXTREMITIES: No cyanosis, or edema. SCD's to BLE. MUSCULOSKELETAL: Adequate muscle tone. NEUROLOGICAL: Awake and alert. More lucid than yesterday. Assessment/Plan Problem List: (1) Pancreatic mass ICD Codes: K86.9 - Disease of pancreas, unspecified Plan: 07/26/17: Discussed with patient and his daughter tomorrow to see if they are willing to have the endoscopic ultrasound done for a possible pancreatic biopsy. Supportive care -- biopsy thus far has been nondiagnostic. --mass is suspicious for pancreatic carcinoma. (2) Sepsis ICD Codes: A41.9 - Sepsis, unspecified organism Plan: --Blood cultures from 07/22/17 show no growth 4 days --BC + GNR, Klebsiella. (3) Liver abscess ICD Codes: K75.0 - Abscess of liver Plan: -- Repeat CT abdomen pelvis on 07/26/17 shows a developing fluid collection along the posterior liver dome suspicious for possible sub- diaphragmatic abscess. Assessment 72y/o male with pancreatic mass, admitted with fever and suspected liver abscess , now critically ill in [facility], intubated on pressor support. history of tobacco abuse, COPD, prostate cancer HPI (brought forward for continuity of care): recently seen in the Oncology Clinic for evaluation of a pancreatic mass. had developed jaundice and presented to his primary care physician and was found to have elevated bilirubin. sent to [facility], underwent a CT abdomen-->+ hypodense mass at the pancreatic neck, 3.4 x 3.1 cm. concerning for pancreatic neoplasm. mass was continuous and indistinguishable from the posterior wall of the gastric antrum. subsequently had ERCP and an stent placement was unsuccessful because of the obstruction. Subsequently, IR placed an external bili drain. then underwent a stent at the common bile duct. jaundice improved. subsequently was seen by Dr. Sutton and underwent endoscopic ultrasound. biopsy was nondiagnostic. then underwent a CT abdomen +large lesion in liver, 8.6 cm, concerning for a metastatic focus. referred to IR for biopsy of this liver lesion. biopsy was nondiagnostic for carcinoma and showed acute large ductal biliary obstruction. he developed fever and was admitted CT abdomen in ED showed 6.8cm lesion left lobe of liver. patient was admitted and started on broad spectrum antibiotics. Interventional Radiology was consulted for CT guided drainage of the liver aspect. The patient subsequently developed respiratory distress. He was placed on nonrebreather mask. He continued to remain tachycardic and progressively became tachypneic. The patient was then intubated and transferred to the Intensive Care Unit. He was subsequently extubated on . Attending Statement The exam, history, and the medical decision-making described in the above note were completed with the assistance of the mid-level provider. I reviewed and agree with the findings presented. I attest that I had a [id number] encounter with the patient on the same day, and personally performed and documented my assessment and findings in the medical record. More awake and alert compare to yesterday. Daughter at bedside. CT A/P yesterday = subdiaphragmatic abscess. D/W pt and daughter. I recommend Consult IR to drain abscess and consider repeat EUS for pancreatic mass.They will d/w Dr Gomez tomorrow. continue antibiotics per ID. Noemi Muir Jul 26, 2017 15:36 Castillo Huitron MD Jul 26, 2017 23:08
--- NOTE | 2017-07-26 15:56 | HHI.IDPN ---
Note Infectious Disease Note ID COVERAGE Presented to the emergency department on 07/20 with fever. 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 Notes reviewed Temps ok Patient's mental status per daughter better Repeat CT showed same liver fluid collection, bigger; also with new subdiaphragmatic fluid Cultures reviewed PAST HISTORY: 1. COPD. 2. Anxiety. 3. Prostate cancer. 4. Pancreatic mass newly diagnosed. 5. Liver lesion, metastasis versus abscess. 6. History of TURP. ALLERGIES: NO KNOWN DRUG ALLERGIES. Current Medications Medications (Trade) Dose Ordered Sig/Sreedhar Route Start Time Stop Time Status Last Admin (NS Flush) 2 ml UNSCH PRN IV FLUSH 07/20/17 18:30 07/24/17 21:27 (NS Flush) 2 ml BID IV FLUSH 07/20/17 21:00 07/26/17 10:04 (Zofran Inj) 4 mg Q6H PRN IVP 07/20/17 18:30 07/20/17 20:28 (Narcan Inj) 0.4 mg UNSCH PRN IV PUSH 07/20/17 18:30 (Milk Of Magnesia Liq) 30 ml Q12H PRN PO 07/20/17 18:30 07/23/17 02:57 (Senokot) 17.2 mg Q12H PRN PO 07/20/17 18:30 (Dulcolax Supp) 10 mg DAILY PRN RECTAL 07/20/17 18:30 (Lactulose Liq) 30 ml DAILY PRN PO 07/20/17 18:30 07/23/17 02:57 Piperacillin Sod/ Tazobactam Sod 100 ml @ 200 mls/hr Q8H IV 07/21/17 02:00 07/26/17 10:06 (Symbicort 160-4.5 Mcg Inh) 2 puff Q12HR INH 07/21/17 09:15 07/26/17 10:04 (NS Inj) 10 ml BID IRRIGATION 07/21/17 21:00 07/24/17 08:32 (SoluCORTEF INJ) 50 mg Q12HR IV PUSH 07/23/17 09:00 07/26/17 10:05 Miscellaneous Information D/C ICU ELECTROLYTE ORDERS... UNSCH PRN .XX 07/24/17 07:30 Miscellaneous Information ICU - CALL ORDERING PHYSIC... UNSCH PRN .XX 07/24/17 07:30 Potassium Chloride 100 ml @ 25 mls/hr UNSCH PRN IV 07/24/17 07:30 (K-Lyte Cl Eff) 50 meq UNSCH PRN PO 07/24/17 07:30 07/24/17 23:17 Potassium Chloride 100 ml @ 50 mls/hr UNSCH PRN IV 07/24/17 07:30 07/24/17 23:17 Magnesium Sulfate 4 gm/Sodium Chloride 108 ml @ 54 mls/hr UNSCH PRN IV 07/24/17 07:30 Magnesium Sulfate 2 gm/Sodium Chloride 104 ml @ 52 mls/hr UNSCH PRN IV 07/24/17 07:30 (Mag-Ox) 800 mg UNSCH PRN PO 07/24/17 07:30 Sodium Phosphate 30 mmol/Sodium Chloride 260 ml @ 43.333 mls/ hr UNSCH PRN IV 07/24/17 07:30 (K-Phos) 2,000 mg UNSCH PRN PO 07/24/17 07:30 Potassium Phosphate 30 mmol/ Sodium Chloride 260 ml @ 43.333 mls/ hr UNSCH PRN IV 07/24/17 07:30 07/25/17 06:50 (Duoneb Neb) 1 ampule Q4HR NEB NEB 07/25/17 08:00 07/26/17 15:15 (Albuterol Neb) 2.5 mg Q2HR NEB PRN NEB 07/25/17 06:45 (Protonix) 40 mg DAILY PO 07/25/17 09:00 07/26/17 10:05 (Buspar) 5 mg BID PO 07/25/17 09:00 07/26/17 10:05 (Megace) 20 mg BID PO 07/25/17 09:00 07/26/17 10:06 (Remeron) 45 mg HS PO 07/25/17 21:00 07/25/17 22:11 (Ocuvite) 1 tab DAILY PO 07/25/17 09:00 07/26/17 10:06 (Tylenol) 650 mg Q6H PRN PO 07/25/17 07:00 (Theragran) 1 tab DAILY PO 07/25/17 10:45 07/26/17 10:05 OBJECTIVE: Vital Signs Date Time Temp Pulse Resp B/P (MAP) Pulse Ox O2 Delivery O2 Flow Rate FiO2 07/26/17 12:00 97.4 75 20 103/57 (72) 98 07/26/17 10:00 97 Room Air 07/26/17 09:08 98 21 07/26/17 08:00 98.4 62 20 155/67 (96) 98 07/26/17 07:00 69 07/26/17 04:00 97.6 75 17 160/67 (98) 97 07/26/17 00:00 97.3 68 16 141/65 (90) 97 07/25/17 20:00 97.4 77 17 104/52 (69) 100 07/25/17 19:39 96 Nasal Cannula 2.00 07/25/17 16:00 97.6 59 26 125/64 (84) 94 Vital Signs Date Time Temp Pulse Resp B/P (MAP) Pulse Ox O2 Delivery O2 Flow Rate FiO2 07/25/17 16:00 97.6 59 26 125/64 (84) 94 07/25/17 14:56 98 Nasal Cannula 2.00 07/25/17 12:00 97.7 72 28 119/56 (77) 98 07/25/17 08:31 100 Nasal Cannula 2.00 07/25/17 08:00 97.1 64 26 130/79 (96) 100 07/25/17 07:00 100 Nasal Cannula 2.00 07/25/17 06:00 56 07/25/17 04:00 72 07/25/17 04:00 98.3 72 22 119/64 (82) 97 07/25/17 02:00 64 07/25/17 00:00 98.0 65 24 124/64 (84) 97 07/25/17 00:00 65 07/24/17 22:00 66 07/24/17 20:21 97 21 07/24/17 20:15 100 Nasal Cannula 2.00 07/24/17 20:10 90 Room Air 07/24/17 20:00 62 07/24/17 20:00 98.4 56 24 115/60 (78) 98 07/24/17 20:00 98 Room Air 07/24/17 18:00 72 Laboratory Tests Test 07/25/17 04:32 07/26/17 04:53 White Blood Count 10.4 TH/MM3 10.1 TH/MM3 Red Blood Count 3.67 MIL/MM3 4.08 MIL/MM3 Hemoglobin 11.1 GM/DL 12.1 GM/DL Hematocrit 31.6 % 34.8 % Mean Corpuscular Volume 86.1 FL 85.2 FL Mean Corpuscular Hemoglobin 30.1 PG 29.8 PG Mean Corpuscular Hemoglobin Concent 35.0 % 34.9 % Red Cell Distribution Width 13.9 % 13.6 % Platelet Count 120 TH/MM3 174 TH/MM3 Mean Platelet Volume 8.8 FL 8.8 FL Neutrophils (%) (Auto) 86.6 % 89.4 % Lymphocytes (%) (Auto) 6.7 % 5.6 % Monocytes (%) (Auto) 6.4 % 4.9 % Eosinophils (%) (Auto) 0.1 % 0.0 % Basophils (%) (Auto) 0.2 % 0.1 % Neutrophils # (Auto) 9.0 TH/MM3 9.0 TH/MM3 Lymphocytes # (Auto) 0.7 TH/MM3 0.6 TH/MM3 Monocytes # (Auto) 0.7 TH/MM3 0.5 TH/MM3 Eosinophils # (Auto) 0.0 TH/MM3 0.0 TH/MM3 Basophils # (Auto) 0.0 TH/MM3 0.0 TH/MM3 CBC Comment DIFF FINAL DIFF FINAL Differential Comment Laboratory Tests Test 07/24/17 21:43 07/25/17 04:32 07/26/17 04:53 Potassium Level 2.7 MEQ/L 3.5 MEQ/L 3.0 MEQ/L CA 19-9 Antigen 209.6 U/ML Blood Urea Nitrogen 16 MG/DL 13 MG/DL Creatinine 0.72 MG/DL 0.65 MG/DL Random Glucose 108 MG/DL 157 MG/DL Calcium Level 7.9 MG/DL 7.9 MG/DL Phosphorus Level 1.5 MG/DL 3.8 MG/DL Magnesium Level 1.9 MG/DL 2.3 MG/DL Sodium Level 142 MEQ/L 140 MEQ/L Chloride Level 108 MEQ/L 104 MEQ/L Carbon Dioxide Level 26.3 MEQ/L 28.4 MEQ/L Anion Gap 8 MEQ/L 8 MEQ/L Estimat Glomerular Filtration Rate 107 ML/MIN 120 ML/MIN Total Protein 5.6 GM/DL Albumin 2.2 GM/DL Alkaline Phosphatase 104 U/L Aspartate Amino Transf (AST/SGOT) 25 U/L Alanine Aminotransferase (ALT/SGPT) 57 U/L Total Bilirubin 0.9 MG/DL Direct Bilirubin 0.3 MG/DL Indirect Bilirubin 0.6 MG/DL Ammonia 26 MCMOL/L Amylase Level 37 U/L Lipase 115 U/L IMAGING: Abdomen/Pelvis CT 07/25/17 0000 Signed Impressions: Service Date/Time: Wednesday, July 26, 2017 01:41 - CONCLUSION: 1. Abnormal low density area laterally of the left hepatic lobe continues to evolve, slightly larger over the past several days and new since June, presumably a fluid collection and potentially an abscess. A catheter was placed recently but it is no longer present. 2. A fluid collection is developing along the posterior liver dome and is of concern for a possible subdiaphragmatic abscess, roughly 2.6 x 5.0 x 1.8 cm. 3. Vague low density lesion inferiorly of the right hepatic lobe not significantly changed. 4. Small bilateral pleural effusions have developed. There is also increasing dependent consolidation of the right lung base. 5. Pancreatic head mass with biliary stent again noted. 6. 3.7 cm infrarenal abdominal aortic aneurysm unchanged. Scott Paredes MD Chest X-Ray 07/21/17 0000 Signed Impressions: Service Date/Time: Friday, July 21, 2017 10:53 - CONCLUSION: 1. ETT in good position. NGT in good position. Right IJ central line in the SVC. 2. No pneumothorax or acute abnormality. Amos Capone MD Abdomen/Pelvis CT 07/20/17 1426 Signed Impressions: Service Date/Time: Thursday, July 20, 2017 15:30 - CONCLUSION: 1. Interval appearance of a 6.8 cm low-density lesion involving the left lobe of the liver. Scattered vague areas of decreased density within the right lobe. This is concerning for an infectious process that is yet to liquefy. 2. Approximate 3 cm pancreatic head mass with obstruction of the pancreatic duct. Stent within the common bile duct is patent. 3. Pneumobilia. 4. Right basilar atelectasis. Andre Jones Jr., MD PHYSICAL EXAM: GENERAL: Patient is awake and alert. No acute distress. HEENT: The head is atraumatic. Extraocular movements cannot be fully assessed. Oral mucosa is dry. NECK: No adenopathy or swelling. LUNGS: Clear decreased breath sounds. HEART: Normal S1 and S2. No murmurs, rubs or gallops audible. ABDOMEN: Bowel sounds present, soft, tender in epigastric area. EXTREMITIES: No cyanosis, clubbing or edema. SKIN: No rash. NEURO: No gross focal finding. PSYCH: Gets agitated easily IMPRESSION: 1. Septic shock due to Klebsiella. The patient is hypotensive, febrile with acute respiratory failure and also positive blood cultures. Clinically appears improved. 2. Liver abscess due to Klebsiella. 3. Acute respiratory failure. Extubated. 4. Pancreatic mass. 5. Elevated liver function tests. Liver function test improved. 6. Leukocytosis secondary to infection. White blood cell count improved. Overall improvement. RECOMMENDATIONS: Continue piperacillin/tazobactam. Will need placement new drain ?Sample new fluid collection Monitor progress Explained plan to patient and his daughter at length and answered all their question Dr Franco back tomorrow to resume ID care eLna Sanchez MD Jul 26, 2017 15:56
[2017-07-26] MEDS: MIRTAZAPINE 15 MG TAB PO SCH (21:50)
[2017-07-27] VITALS (11 sets, daily range): BP systolic 105–114; BP diastolic 53–61; PULSE 60–72; RESP 14–24; TEMP 97.5–98.4; O2SAT 94–100
[2017-07-27] MEDS: RESP: ALBUTEROL 2.5 MG/IPRATROPIUM 0.5 MG NEB (SCH) NEB ×6 (03:45→20:13)
[2017-07-27] MEDS: PIPERACIL-TAZO 4.5 GM PREMIX 100 ML IV SCH ×4 (03:59→21:28)
[2017-07-27 05:59] LABS: AUTOMATED NEUTROPHIL # 9.6 TH/MM3 (1.8-7.7); BASOPHIL % 0.3 % (0.0-2.0); EOSINOPHIL % 0.1 % (0.0-4.0); HEMATOCRIT 34.8 % (39.0-51.0); LYMPH % 5.9 % (9.0-44.0); LYMPHOCYTE # 0.6 TH/MM3 (1.0-4.8); MEAN CELL VOLUME 86.4 FL (80.0-100.0); MEAN CORPUSCULAR HEMOGLOBIN 29.8 PG (27.0-34.0); MEAN CORPUSCULAR HGB CONC 34.5 % (32.0-36.0); MEAN PLATELET VOLUME 8.5 FL (7.0-11.0); MONO % 4.8 % (0.0-8.0); MONOCYTE # 0.5 TH/MM3 (0-0.9); NEUT % 88.9 % (16.0-70.0); PLATELET COUNT 184 TH/MM3 (150-450); RED BLOOD COUNT 4.03 MIL/MM3 (4.50-5.90); RED CELL DISTRIBUTION WIDTH 13.9 % (11.6-17.2); WHITE BLOOD COUNT 10.8 TH/MM3 (4.0-11.0)
[2017-07-27 06:09] LABS: BICARBONATE 26.5 MEQ/L (21.0-32.0); CALCIUM 8.1 MG/DL (8.5-10.1); CREATININE 0.82 MG/DL (0.60-1.30)
[2017-07-27] MEDS: SODIUM CHLORIDE 0.9% 10 ML VIAL IRRIGATION SCH ×2 (09:00→21:00)
[2017-07-27] MEDS: busPIRone HCL 5 MG TAB PO SCH ×2 (09:10→21:26)
[2017-07-27] MEDS: MULTIVITAMIN-OPHTHALMIC 1 TAB PO SCH (09:10)
[2017-07-27] MEDS: MULTIVITAMIN TAB PO SCH (09:11)
[2017-07-27] MEDS: PANTOPRAZOLE SOD 40 MG DELAYED RELEASE TAB PO SCH (09:11)
[2017-07-27] MEDS: MEGESTROL ACETATE 40 MG TAB PO SCH ×2 (09:11→21:25)
[2017-07-27] MEDS: HYDROCORTISONE SOD SUCCINATE 100 MG VIAL IV PUSH SCH ×2 (09:11→21:26)
[2017-07-27] MEDS: BUDESONIDE-FORMOTEROL 160/4.5 MCG INHALER INH SCH ×2 (09:12→21:27)
[2017-07-27] MEDS: SODIUM CHLORIDE 0.9% FLUSH 10 ML FLUSH IV FLUSH SCH ×2 (09:12→21:26)
--- NOTE | 2017-07-27 13:30 | HHI.IDPN ---
Note Infectious Disease Note Patient sitting up in a chair eating. He has no complaints. He is pleasant. His mental status has improved. He is awake and alert. His and son is at bedside. Discussed with RN. Notes bloating of his abdomen. Had a small bowel movement today. No diarrhea. Blood cultures Klebsiella. Abscess fluid culture has Klebsiella. Presented to the emergency department on 07/20 with fever. 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 PAST MEDICAL HISTORY: 1. COPD. 2. Anxiety. 3. Prostate cancer. 4. Pancreatic mass newly diagnosed. 5. Liver lesion, metastasis versus abscess. 6. History of TURP. ALLERGIES: NO KNOWN DRUG ALLERGIES. ANTIBIOTICS: 1. Piperacillin/tazobactam. Current Medications Medications (Trade) Dose Ordered Sig/Sreedhar Route PRN Reason Start Time Stop Time Status Last Admin Dose Admin Sodium Chloride (NS Flush) 2 ml UNSCH PRN IV FLUSH FLUSH AFTER USING IV ACCESS 07/20/17 18:30 07/24/17 21:27 Sodium Chloride (NS Flush) 2 ml BID IV FLUSH 07/20/17 21:00 07/27/17 09:12 Ondansetron HCl (Zofran Inj) 4 mg Q6H PRN IVP NAUSEA OR VOMITING 07/20/17 18:30 07/20/17 20:28 Naloxone HCl (Narcan Inj) 0.4 mg UNSCH PRN IV PUSH SEE LABEL COMMENTS 07/20/17 18:30 Magnesium Hydroxide (Milk Of Magnesia Liq) 30 ml Q12H PRN PO Mild constipation 07/20/17 18:30 07/23/17 02:57 Sennosides (Senokot) 17.2 mg Q12H PRN PO Moderate constipation 07/20/17 18:30 Bisacodyl (Dulcolax Supp) 10 mg DAILY PRN RECTAL SEVERE CONSITIPATION 07/20/17 18:30 Lactulose (Lactulose Liq) 30 ml DAILY PRN PO SEVERE CONSITIPATION 07/20/17 18:30 07/23/17 02:57 Budesonide/ Formoterol Fumarate (Symbicort 160-4.5 Mcg Inh) 2 puff Q12HR INH 07/21/17 09:15 07/27/17 09:12 Sodium Chloride (NS Inj) 10 ml BID IRRIGATION 07/21/17 21:00 07/26/17 21:00 Hydrocortisone Sodium Succinate (SoluCORTEF INJ) 50 mg Q12HR IV PUSH 07/23/17 09:00 07/27/17 09:11 Miscellaneous Information D/C ICU ELECTROLYTE ORDERS... UNSCH PRN .XX SEE DOSE INSTRUCTIONS 07/24/17 07:30 Miscellaneous Information ICU - CALL ORDERING PHYSIC... UNSCH PRN .XX SEE DOSE INSTRUCTIONS 07/24/17 07:30 Potassium Chloride 100 ml @ 25 mls/hr UNSCH PRN IV ELECTROLYTE REPLACEMENT 07/24/17 07:30 Potassium Bicarb/ Potassium Chloride (K-Lyte Cl Eff) 50 meq UNSCH PRN PO ELECTROLYTE REPLACEMENT 07/24/17 07:30 07/24/17 23:17 Potassium Chloride 100 ml @ 50 mls/hr UNSCH PRN IV ELECTROLYTE REPLACEMENT 07/24/17 07:30 07/24/17 23:17 Magnesium Sulfate 4 gm/Sodium Chloride 108 ml @ 54 mls/hr UNSCH PRN IV ELECTROLYTE REPLACEMENT 07/24/17 07:30 Magnesium Sulfate 2 gm/Sodium Chloride 104 ml @ 52 mls/hr UNSCH PRN IV ELECTROLYTE REPLACEMENT 07/24/17 07:30 Magnesium Oxide (Mag-Ox) 800 mg UNSCH PRN PO ELECTROLYTE REPLACEMENT 07/24/17 07:30 Sodium Phosphate 30 mmol/Sodium Chloride 260 ml @ 43.333 mls/ hr UNSCH PRN IV ELECTROLYTE REPLACEMENT 07/24/17 07:30 Potassium Phosphate (K-Phos) 2,000 mg UNSCH PRN PO ELECTROLYTE REPLACEMENT 07/24/17 07:30 Potassium Phosphate 30 mmol/ Sodium Chloride 260 ml @ 43.333 mls/ hr UNSCH PRN IV ELECTROLYTE REPLACEMENT 07/24/17 07:30 07/25/17 06:50 Albuterol/ Ipratropium (Duoneb Neb) 1 ampule Q4HR NEB NEB 07/25/17 08:00 07/26/17 21:04 Albuterol Sulfate (Albuterol Neb) 2.5 mg Q2HR NEB PRN NEB dyspnea 07/25/17 06:45 Pantoprazole Sodium (Protonix) 40 mg DAILY PO 07/25/17 09:00 07/27/17 09:11 Buspirone HCl (Buspar) 5 mg BID PO 07/25/17 09:00 07/27/17 09:10 Megestrol Acetate (Megace) 20 mg BID PO 07/25/17 09:00 07/27/17 09:11 Mirtazapine (Remeron) 45 mg HS PO 07/25/17 21:00 07/26/17 21:50 Vit C/Vit E/Zinc/ Copper/Lutein (Ocuvite) 1 tab DAILY PO 07/25/17 09:00 07/27/17 09:10 Acetaminophen (Tylenol) 650 mg Q6H PRN PO TEMP > 100.4 07/25/17 07:00 Multivitamins (Theragran) 1 tab DAILY PO 07/25/17 10:45 07/27/17 09:11 Piperacillin Sod/ Tazobactam Sod 100 ml @ 200 mls/hr Q6H IV 07/26/17 16:00 07/27/17 10:37 SOCIAL HISTORY: Unable to obtain. Medical chart review reports no tobacco, no alcohol, and no illicit drugs. OBJECTIVE: Vital Signs Date Time Temp Pulse Resp B/P (MAP) Pulse Ox O2 Delivery O2 Flow Rate FiO2 07/27/17 12:00 98.0 65 24 108/57 (74) 96 07/27/17 09:30 100 21 07/27/17 09:15 100 Room Air 07/27/17 08:00 98.3 71 14 105/55 (72) 95 07/27/17 07:44 60 07/27/17 04:00 98.4 71 18 113/58 (76) 97 07/27/17 00:00 98.0 72 20 114/61 (78) 94 07/26/17 21:06 98 07/26/17 20:00 Room Air 07/26/17 20:00 97.5 72 19 107/52 (70) 100 07/26/17 20:00 81 07/26/17 16:00 97.4 77 22 93/50 (64) 95 Laboratory Tests Test 07/26/17 04:53 07/27/17 04:58 White Blood Count 10.1 TH/MM3 10.8 TH/MM3 Red Blood Count 4.08 MIL/MM3 4.03 MIL/MM3 Hemoglobin 12.1 GM/DL 12.0 GM/DL Hematocrit 34.8 % 34.8 % Mean Corpuscular Volume 85.2 FL 86.4 FL Mean Corpuscular Hemoglobin 29.8 PG 29.8 PG Mean Corpuscular Hemoglobin Concent 34.9 % 34.5 % Red Cell Distribution Width 13.6 % 13.9 % Platelet Count 174 TH/MM3 184 TH/MM3 Mean Platelet Volume 8.8 FL 8.5 FL Neutrophils (%) (Auto) 89.4 % 88.9 % Lymphocytes (%) (Auto) 5.6 % 5.9 % Monocytes (%) (Auto) 4.9 % 4.8 % Eosinophils (%) (Auto) 0.0 % 0.1 % Basophils (%) (Auto) 0.1 % 0.3 % Neutrophils # (Auto) 9.0 TH/MM3 9.6 TH/MM3 Lymphocytes # (Auto) 0.6 TH/MM3 0.6 TH/MM3 Monocytes # (Auto) 0.5 TH/MM3 0.5 TH/MM3 Eosinophils # (Auto) 0.0 TH/MM3 0.0 TH/MM3 Basophils # (Auto) 0.0 TH/MM3 0.0 TH/MM3 CBC Comment DIFF FINAL DIFF FINAL Differential Comment Laboratory Tests Test 07/26/17 04:53 07/27/17 05:03 Blood Urea Nitrogen 13 MG/DL 18 MG/DL Creatinine 0.65 MG/DL 0.82 MG/DL Random Glucose 157 MG/DL 165 MG/DL Total Protein 5.6 GM/DL Albumin 2.2 GM/DL Calcium Level 7.9 MG/DL 8.1 MG/DL Phosphorus Level 3.8 MG/DL Magnesium Level 2.3 MG/DL Alkaline Phosphatase 104 U/L Aspartate Amino Transf (AST/SGOT) 25 U/L Alanine Aminotransferase (ALT/SGPT) 57 U/L Total Bilirubin 0.9 MG/DL Direct Bilirubin 0.3 MG/DL Sodium Level 140 MEQ/L 140 MEQ/L Potassium Level 3.0 MEQ/L 3.1 MEQ/L Chloride Level 104 MEQ/L 105 MEQ/L Carbon Dioxide Level 28.4 MEQ/L 26.5 MEQ/L Anion Gap 8 MEQ/L 9 MEQ/L Estimat Glomerular Filtration Rate 120 ML/MIN 92 ML/MIN Indirect Bilirubin 0.6 MG/DL Ammonia 26 MCMOL/L Amylase Level 37 U/L Lipase 115 U/L Microbiology Date/Time Source Procedure Growth Status 07/22/17 14:30 Blood Peripheral Aerobic Blood Culture - Preliminary NO GROWTH IN 1 DAY Resulted 07/22/17 14:30 Blood Peripheral Anaerobic Blood Culture - Preliminary NO GROWTH IN 1 DAY Resulted 07/22/17 14:25 Blood Peripheral Aerobic Blood Culture - Preliminary NO GROWTH IN 1 DAY Resulted 07/22/17 14:25 Blood Peripheral Anaerobic Blood Culture - Preliminary Resulted 07/21/17 15:50 Abscess Abdomen Gram Stain - Final Complete 07/21/17 15:50 Wound Culture - Final Klebsiella Pneumoniae Complete IMAGING: Chest X-Ray 07/21/17 0000 Signed Impressions: Service Date/Time: Friday, July 21, 2017 10:53 - CONCLUSION: 1. ETT in good position. NGT in good position. Right IJ central line in the SVC. 2. No pneumothorax or acute abnormality. Amos Capone MD Abdomen/Pelvis CT 07/20/17 1426 Signed Impressions: Service Date/Time: Thursday, July 20, 2017 15:30 - CONCLUSION: 1. Interval appearance of a 6.8 cm low-density lesion involving the left lobe of the liver. Scattered vague areas of decreased density within the right lobe. This is concerning for an infectious process that is yet to liquefy. 2. Approximate 3 cm pancreatic head mass with obstruction of the pancreatic duct. Stent within the common bile duct is patent. 3. Pneumobilia. 4. Right basilar atelectasis. Andre Jones Jr., MD PHYSICAL EXAM: GENERAL: Alert and awake. No acute distress. HEENT: The head is atraumatic. Extraocular movements cannot be fully assessed. Pupils reactive to light. No icterus. Oral mucosa is moist. NECK: No adenopathy or swelling. LUNGS: Clear decreased breath sounds. HEART: Normal S1 and S2. No murmurs, rubs or gallops audible. ABDOMEN: Bowel sounds present, soft, nontender. EXTREMITIES: No cyanosis, clubbing or edema. SKIN: No rash. NEURO: No gross focal finding. PSYCH: Calm and cooperative. IMPRESSION: 1. Septic shock due to Klebsiella. The patient was hypotensive, febrile with acute respiratory failure and also positive blood cultures. 2. Liver abscess due to Klebsiella. Drainage catheter was inserted into the abscess cavity. This accidentally was almost pulled out by patient and therefore had to be removed. 3. Acute respiratory failure. Extubated. 4. Pancreatic mass. 5. Elevated liver function tests. Liver function test improved. 6. Leukocytosis secondary to infection. White blood cell count improved. RECOMMENDATIONS: 1. Continue piperacillin/tazobactam. 2. Monitor clinical status. 3. Reevaluate hepatic fluid collection. 4. Monitor the temperature. I have spoken to radiology and will order a CT scan of the abdomen and pelvis To determine placement of new drainage catheter if it is felt necessary. Roger Franco MD Jul 27, 2017 13:30
--- NOTE | 2017-07-27 14:31 | PD.ONC.PN ---
Subjective Subjective Remarks Afebrile overnight. Patient resting in room with son and daughter in law at bedside. Anxious about abscess in abdomen and receiving another drain. Son at bedside with multiple questions, daughter on speaker phone with multiple questions. Objective Data Date Time Temp Pulse Resp B/P (MAP) Pulse Ox O2 Delivery O2 Flow Rate FiO2 07/27/17 12:00 98.0 65 24 108/57 (74) 96 07/27/17 09:30 100 21 07/27/17 09:15 100 Room Air 07/27/17 08:00 98.3 71 14 105/55 (72) 95 07/27/17 07:44 60 07/27/17 04:00 98.4 71 18 113/58 (76) 97 07/27/17 00:00 98.0 72 20 114/61 (78) 94 07/26/17 21:06 98 07/26/17 20:00 Room Air 07/26/17 20:00 97.5 72 19 107/52 (70) 100 07/26/17 20:00 81 07/26/17 16:00 97.4 77 22 93/50 (64) 95 07/27/17 07/27/17 07/27/17 07:00 15:00 23:00 Intake Total 960 ml 100 ml Output Total 1000 ml Balance -40 ml 100 ml Result Diagram: 07/27/17 0458 07/27/17 0503 Laboratory Results Laboratory Tests Test 07/27/17 04:58 07/27/17 05:03 White Blood Count 10.8 TH/MM3 Red Blood Count 4.03 MIL/MM3 Hemoglobin 12.0 GM/DL Hematocrit 34.8 % Mean Corpuscular Volume 86.4 FL Mean Corpuscular Hemoglobin 29.8 PG Mean Corpuscular Hemoglobin Concent 34.5 % Red Cell Distribution Width 13.9 % Platelet Count 184 TH/MM3 Mean Platelet Volume 8.5 FL Neutrophils (%) (Auto) 88.9 % Lymphocytes (%) (Auto) 5.9 % Monocytes (%) (Auto) 4.8 % Eosinophils (%) (Auto) 0.1 % Basophils (%) (Auto) 0.3 % Neutrophils # (Auto) 9.6 TH/MM3 Lymphocytes # (Auto) 0.6 TH/MM3 Monocytes # (Auto) 0.5 TH/MM3 Eosinophils # (Auto) 0.0 TH/MM3 Basophils # (Auto) 0.0 TH/MM3 CBC Comment DIFF FINAL Differential Comment Blood Urea Nitrogen 18 MG/DL Creatinine 0.82 MG/DL Random Glucose 165 MG/DL Calcium Level 8.1 MG/DL Sodium Level 140 MEQ/L Potassium Level 3.1 MEQ/L Chloride Level 105 MEQ/L Carbon Dioxide Level 26.5 MEQ/L Anion Gap 9 MEQ/L Estimat Glomerular Filtration Rate 92 ML/MIN Administered Medications Medications (Trade) Dose Ordered Sig/Sreedhar Route PRN Reason Start Time Stop Time Status Last Admin Dose Admin Sodium Chloride (NS Flush) 2 ml UNSCH PRN IV FLUSH FLUSH AFTER USING IV ACCESS 07/20/17 18:30 07/24/17 21:27 Sodium Chloride (NS Flush) 2 ml BID IV FLUSH 07/20/17 21:00 07/27/17 09:12 Ondansetron HCl (Zofran Inj) 4 mg Q6H PRN IVP NAUSEA OR VOMITING 07/20/17 18:30 07/20/17 20:28 Magnesium Hydroxide (Milk Of Magnesia Liq) 30 ml Q12H PRN PO Mild constipation 07/20/17 18:30 07/23/17 02:57 Lactulose (Lactulose Liq) 30 ml DAILY PRN PO SEVERE CONSITIPATION 07/20/17 18:30 07/23/17 02:57 Budesonide/ Formoterol Fumarate (Symbicort 160-4.5 Mcg Inh) 2 puff Q12HR INH 07/21/17 09:15 07/27/17 09:12 Sodium Chloride (NS Inj) 10 ml BID IRRIGATION 07/21/17 21:00 07/26/17 21:00 Hydrocortisone Sodium Succinate (SoluCORTEF INJ) 50 mg Q12HR IV PUSH 07/23/17 09:00 07/27/17 09:11 Potassium Bicarb/ Potassium Chloride (K-Lyte Cl Eff) 50 meq UNSCH PRN PO ELECTROLYTE REPLACEMENT 07/24/17 07:30 07/24/17 23:17 Potassium Chloride 100 ml @ 50 mls/hr UNSCH PRN IV ELECTROLYTE REPLACEMENT 07/24/17 07:30 07/24/17 23:17 Potassium Phosphate 30 mmol/ Sodium Chloride 260 ml @ 43.333 mls/ hr UNSCH PRN IV ELECTROLYTE REPLACEMENT 07/24/17 07:30 07/25/17 06:50 Albuterol/ Ipratropium (Duoneb Neb) 1 ampule Q4HR NEB NEB 07/25/17 08:00 07/26/17 21:04 Pantoprazole Sodium (Protonix) 40 mg DAILY PO 07/25/17 09:00 07/27/17 09:11 Buspirone HCl (Buspar) 5 mg BID PO 07/25/17 09:00 07/27/17 09:10 Megestrol Acetate (Megace) 20 mg BID PO 07/25/17 09:00 07/27/17 09:11 Mirtazapine (Remeron) 45 mg HS PO 07/25/17 21:00 07/26/17 21:50 Vit C/Vit E/Zinc/ Copper/Lutein (Ocuvite) 1 tab DAILY PO 07/25/17 09:00 07/27/17 09:10 Multivitamins (Theragran) 1 tab DAILY PO 07/25/17 10:45 07/27/17 09:11 Piperacillin Sod/ Tazobactam Sod 100 ml @ 200 mls/hr Q6H IV 07/26/17 16:00 07/27/17 10:37 Objective Remarks GENERAL: Elderly male, upright in bed in nad. SKIN: Warm and dry. HEAD: Normocephalic. EYES: No injection or drainage. NECK: Supple, trachea midline. CARDIOVASCULAR: +S1/S2 RESPIRATORY: diminished at bases, anterior dalton clear. GASTROINTESTINAL: Abdomen soft, non-tender, nondistended. EXTREMITIES: No cyanosis NEUROLOGICAL: awake, alert. normal speech. moving extremities. Assessment/Plan Problem List: (1) Pancreatic mass ICD Codes: K86.9 - Disease of pancreas, unspecified Plan: 07/27/17: discussed again waiting for infection to improve before repeat EUS. discussed also option of watchful waiting with serial CT scans. -- biopsy thus far has been nondiagnostic. --mass is suspicious for pancreatic carcinoma. (2) Sepsis ICD Codes: A41.9 - Sepsis, unspecified organism Plan: --on Zosyn --Blood cultures from 07/22/17 show no growth 4 days --BC + GNR, Klebsiella. (3) Liver abscess ICD Codes: K75.0 - Abscess of liver Plan: --may need repeat drain placement in IR -- Repeat CT abdomen pelvis on 07/26/17 shows a developing fluid collection along the posterior liver dome suspicious for possible sub-diaphragmatic abscess. Assessment 72y/o male with pancreatic mass, admitted with fever and suspected liver abscess , now critically ill in [facility], intubated on pressor support. history of tobacco abuse, COPD, prostate cancer HPI (brought forward for continuity of care): recently seen in the Oncology Clinic for evaluation of a pancreatic mass. had developed jaundice and presented to his primary care physician and was found to have elevated bilirubin. sent to [facility], underwent a CT abdomen-->+ hypodense mass at the pancreatic neck, 3.4 x 3.1 cm. concerning for pancreatic neoplasm. mass was continuous and indistinguishable from the posterior wall of the gastric antrum. subsequently had ERCP and an stent placement was unsuccessful because of the obstruction. Subsequently, IR placed an external bili drain. then underwent a stent at the common bile duct. jaundice improved. subsequently was seen by Dr. Sutton and underwent endoscopic ultrasound. biopsy was nondiagnostic. then underwent a CT abdomen +large lesion in liver, 8.6 cm, concerning for a metastatic focus. referred to IR for biopsy of this liver lesion. biopsy was nondiagnostic for carcinoma and showed acute large ductal biliary obstruction. he developed fever and was admitted CT abdomen in ED showed 6.8cm lesion left lobe of liver. patient was admitted and started on broad spectrum antibiotics. Interventional Radiology was consulted for CT guided drainage of the liver aspect. The patient subsequently developed respiratory distress. He was placed on nonrebreather mask. He continued to remain tachycardic and progressively became tachypneic. The patient was then intubated and transferred to the Intensive Care Unit. He was subsequently extubated on . Plan 1. continue antibiotics 2. await repeat drain placement in IR 3. continue supportive care. Attending Statement The exam, history, and the medical decision-making described in the above note were completed with the assistance of the mid-level provider. I reviewed and agree with the findings presented. I attest that I had a [id number] encounter with the patient on the same day, and personally performed and documented my assessment and findings in the medical record. Klebsiella infection and sepsis on antibiotics ID following subdiaphragmatic abscess per CT scans consideration of drain placement family present during rounds answered questions regarding abscess and pancreatic mass underlying infection has to resolve before attempting any biopsy pancreatic mass is highly suspicious of malignancy consider consulting GI for EUS once infection resolves Jania Jefferson Jul 27, 2017 14:31 Del Gomez MD Jul 27, 2017 22:14
--- NOTE | 2017-07-27 14:57 | HHI.PR ---
Subjective Remarks Patient laying in bed Son and [id number] at the bedside with multiple questions Patient concerned about another drainage of his liver abscess Also he is concerned about future planning Objective Vitals Vital Signs Date Time Temp Pulse Resp B/P (MAP) Pulse Ox O2 Delivery O2 Flow Rate FiO2 07/27/17 12:00 98.0 65 24 108/57 (74) 96 07/27/17 09:30 100 21 07/27/17 09:15 100 Room Air 07/27/17 08:00 98.3 71 14 105/55 (72) 95 07/27/17 07:44 60 07/27/17 04:00 98.4 71 18 113/58 (76) 97 07/27/17 00:00 98.0 72 20 114/61 (78) 94 07/26/17 21:06 98 07/26/17 20:00 Room Air 07/26/17 20:00 97.5 72 19 107/52 (70) 100 07/26/17 20:00 81 07/26/17 16:00 97.4 77 22 93/50 (64) 95 I/O 07/26/17 07/26/17 07/26/17 07/27/17 07/27/17 07/27/17 07:00 15:00 23:00 07:00 15:00 23:00 Intake Total 1369 ml 100 ml 1360 ml 960 ml 100 ml Output Total 1200 ml 650 ml 1000 ml Balance 169 ml 100 ml 710 ml -40 ml 100 ml Intake Oral 540 ml 1260 ml 860 ml IV Total 829 ml 100 ml 100 ml 100 ml 100 ml Output Urine Total 1200 ml 650 ml 1000 ml # Bowel Movements 0 2 0 Result Diagram: 07/27/17 0458 07/27/17 0503 Objective Remarks GENERAL: This is a frail 72 years old male CARDIOVASCULAR: Regular rate and rhythm without murmurs, gallops, or rubs. RESPIRATORY: Fair air entry. No wheezes, rales, or rhonchi. GASTROINTESTINAL: Abdomen soft, non-tender, nondistended. Normal active bowel sounds MUSCULOSKELETAL: Extremities without clubbing, cyanosis, or edema. NEURO: Alert & Oriented x4 to person, place, time, situation. Moves all ext x4 A/P Assessment and Plan 07/26 :K potassium is at 3 will replace, awaiting oncology recommendation, monitor fever and WBC 07/27: Discussed with the patient and his son, ID following for possible need of drainer for the liver abscess inserted by IR, discussed with oncology and GI A/P: Anxiety disorder NOS Acetaminophen 650 mg p.o. every 6 hours as needed fever Continue mirtazapine 45 mg at night Continue buspirone 5 mg p.o. twice daily Tobaccoism COPD exacerbation Continue with oxygen and maintain sats above 92%. Incentive spirometry while awake Budesonide/formoterol 160/4.5 2 puffs twice daily Albuterol/ipratropium aerosols every 4 hours with albuterol aerosols every 2 hours as needed dyspnea Extubated 07/23 Pancreatic mass 3 cm with obstruction of the pancreatic duct. Liver mass/abscess 6.8 cm, status post CT-guided biopsy on 07/15, negative for neoplasm. Elevated transaminases Hypoalbuminemia. Moderate to severe prot nayeli malnutrition 2/2 decrease PO intake low appetite. add ensure. MVT, megace Pantoprazole for GI prophylaxis. Monitor LFTs. s/p CT-guided drainage of liver abscess Speech eval, diet heart healthy diet CT abdomen/pelvis today. Klebsiella bacteremia Continue abx (piperacillin/tazobactam) Monitor for signs of infections(fever and WBC). BC 07/20: GNR, Kleb pneumonia, Follow up on BC from 07/22- NGTD Wound/abscess 07/21 cx: Kleb pneumonia nasal washing is negative for influenza on 07/20 . ID is following- Dr. Franco Endo: SSI only if indicated for glycemic control Currently on hydrocortisone 50 mg every 12 hours. Wean Normocytic anemia Thrombocytopenia Elevated CA 19/9 History of prostate cancer Monitor CBC. Oncology is following- Dr. Gomez Pancreatic mass nondiagnostic GI prophylaxis-on pantoprazole, and DVT prophylaxis with SCDs. Lauryn Uribe MD Jul 27, 2017 14:57
[2017-07-27] MEDS: MIRTAZAPINE 15 MG TAB PO SCH (21:25)
[2017-07-28] VITALS (9 sets, daily range): BP systolic 99–124; BP diastolic 52–60; PULSE 53–76; RESP 12–24; TEMP 97.5–99.6; O2SAT 96–100
[2017-07-28] MEDS: PIPERACIL-TAZO 4.5 GM PREMIX 100 ML IV SCH ×4 (02:57→20:55)
[2017-07-28] MEDS: RESP: ALBUTEROL 2.5 MG/IPRATROPIUM 0.5 MG NEB (SCH) NEB ×7 (04:00→23:25)
[2017-07-28] MEDS: MULTIVITAMIN-OPHTHALMIC 1 TAB PO SCH (08:37)
[2017-07-28] MEDS: MEGESTROL ACETATE 40 MG TAB PO SCH ×2 (08:37→20:52)
[2017-07-28] MEDS: MULTIVITAMIN TAB PO SCH (08:37)
[2017-07-28] MEDS: busPIRone HCL 5 MG TAB PO SCH ×2 (08:37→20:57)
[2017-07-28] MEDS: PANTOPRAZOLE SOD 40 MG DELAYED RELEASE TAB PO SCH (08:37)
[2017-07-28] MEDS: HYDROCORTISONE SOD SUCCINATE 100 MG VIAL IV PUSH SCH ×2 (08:37→20:49)
[2017-07-28] MEDS: SODIUM CHLORIDE 0.9% FLUSH 10 ML FLUSH IV FLUSH SCH ×2 (08:37→20:54)
[2017-07-28] MEDS: SODIUM CHLORIDE 0.9% 10 ML VIAL IRRIGATION SCH ×2 (08:37→20:52)
[2017-07-28] MEDS: BUDESONIDE-FORMOTEROL 160/4.5 MCG INHALER INH SCH ×2 (08:38→20:53)
--- NOTE | 2017-07-28 12:39 | HHI.PR ---
Subjective Remarks Patient sitting on the chair, son at the bedside Awake alert feeling tired Denied pain or fever or chills Plan for liver abscess drainage today by IR Objective Vitals Vital Signs Date Time Temp Pulse Resp B/P (MAP) Pulse Ox O2 Delivery O2 Flow Rate FiO2 07/28/17 12:00 97.5 56 20 99/52 (68) 99 07/28/17 08:00 98.6 62 24 120/60 (80) 96 07/28/17 08:00 96 Room Air 07/28/17 07:06 63 07/28/17 03:39 Room Air 07/28/17 03:39 99.6 66 12 118/56 (76) 99 07/28/17 00:03 Room Air 07/28/17 00:03 98.8 68 14 112/54 (73) 96 07/27/17 20:36 Room Air 07/27/17 20:26 97.5 66 15 106/53 (70) 97 07/27/17 20:14 98 21 07/27/17 20:00 71 07/27/17 16:00 97.5 62 22 110/57 (74) 96 07/27/17 15:38 66 I/O 07/27/17 07/27/17 07/27/17 07/28/17 07/28/17 07/28/17 07:00 15:00 23:00 07:00 15:00 23:00 Intake Total 960 ml 100 ml 1200 ml Output Total 1000 ml 1250 ml Balance -40 ml 100 ml -50 ml Intake Oral 860 ml 1200 ml IV Total 100 ml 100 ml Output Urine Total 1000 ml 1250 ml # Voids 1 # Bowel Movements 0 2 1 Result Diagram: 07/27/17 0458 07/27/17 0503 Objective Remarks GENERAL: This is a frail 72 years old male CARDIOVASCULAR: Regular rate and rhythm without murmurs, gallops, or rubs. RESPIRATORY: Fair air entry. No wheezes, rales, or rhonchi. GASTROINTESTINAL: Abdomen soft, non-tender, nondistended. Normal active bowel sounds MUSCULOSKELETAL: Extremities without clubbing, cyanosis, or edema. NEURO: Alert & Oriented x4 to person, place, time, situation. Moves all ext x4 A/P Assessment and Plan 07/26 :K potassium is at 3 will replace, awaiting oncology recommendation, monitor fever and WBC 07/27: Discussed with the patient and his son, ID following for possible need of drainer for the liver abscess inserted by IR, discussed with oncology and GI 07/28: Discussion with the patient and his son, order for liver abscess drainage by IR has been placed, monitor CBC BMP in a.m., monitor temperature A/P: Anxiety disorder NOS Acetaminophen 650 mg p.o. every 6 hours as needed fever Continue mirtazapine 45 mg at night Continue buspirone 5 mg p.o. twice daily Tobaccoism COPD exacerbation Continue with oxygen and maintain sats above 92%. Incentive spirometry while awake Budesonide/formoterol 160/4.5 2 puffs twice daily Albuterol/ipratropium aerosols every 4 hours with albuterol aerosols every 2 hours as needed dyspnea Extubated 07/23 Pancreatic mass 3 cm with obstruction of the pancreatic duct. Liver mass/abscess 6.8 cm, status post CT-guided biopsy on 07/15, negative for neoplasm. Elevated transaminases Hypoalbuminemia. Moderate to severe prot nayeli malnutrition 2/2 decrease PO intake low appetite. add ensure. MVT, megace Pantoprazole for GI prophylaxis. Monitor LFTs. s/p CT-guided drainage of liver abscess Speech eval, diet heart healthy diet CT abdomen/pelvis today. Klebsiella bacteremia Continue abx (piperacillin/tazobactam) Monitor for signs of infections(fever and WBC). BC 07/20: GNR, Kleb pneumonia, Follow up on BC from 07/22- NGTD Wound/abscess 07/21 cx: Kleb pneumonia nasal washing is negative for influenza on 07/20 . ID is following- Dr. Franco Endo: SSI only if indicated for glycemic control Currently on hydrocortisone 50 mg every 12 hours. Wean Normocytic anemia Thrombocytopenia Elevated CA 19/9 History of prostate cancer Monitor CBC. Oncology is following- Dr. Gomez Pancreatic mass nondiagnostic GI prophylaxis-on pantoprazole, and DVT prophylaxis with SCDs. Lauryn Uribe MD Jul 28, 2017 12:39
--- NOTE | 2017-07-28 12:43 | HHI.IDPN ---
Note Infectious Disease Note Patient in no distress. Has no complaints. Awake and alert. No fever. Discussed with RN. Denies abdominal pain. No diarrhea. Presented to the emergency department on 07/20 with fever. 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 PAST MEDICAL HISTORY: 1. COPD. 2. Anxiety. 3. Prostate cancer. 4. Pancreatic mass newly diagnosed. 5. Liver lesion, metastasis versus abscess. 6. History of TURP. ALLERGIES: NO KNOWN DRUG ALLERGIES. ANTIBIOTICS: 1. Piperacillin/tazobactam. Current Medications Medications (Trade) Dose Ordered Sig/Sreedhar Route PRN Reason Start Time Stop Time Status Last Admin Dose Admin Sodium Chloride (NS Flush) 2 ml UNSCH PRN IV FLUSH FLUSH AFTER USING IV ACCESS 07/20/17 18:30 07/24/17 21:27 Sodium Chloride (NS Flush) 2 ml BID IV FLUSH 07/20/17 21:00 07/28/17 08:37 Ondansetron HCl (Zofran Inj) 4 mg Q6H PRN IVP NAUSEA OR VOMITING 07/20/17 18:30 07/20/17 20:28 Naloxone HCl (Narcan Inj) 0.4 mg UNSCH PRN IV PUSH SEE LABEL COMMENTS 07/20/17 18:30 Magnesium Hydroxide (Milk Of Magnesia Liq) 30 ml Q12H PRN PO Mild constipation 07/20/17 18:30 07/23/17 02:57 Sennosides (Senokot) 17.2 mg Q12H PRN PO Moderate constipation 07/20/17 18:30 Bisacodyl (Dulcolax Supp) 10 mg DAILY PRN RECTAL SEVERE CONSITIPATION 07/20/17 18:30 Lactulose (Lactulose Liq) 30 ml DAILY PRN PO SEVERE CONSITIPATION 07/20/17 18:30 07/23/17 02:57 Budesonide/ Formoterol Fumarate (Symbicort 160-4.5 Mcg Inh) 2 puff Q12HR INH 07/21/17 09:15 07/28/17 08:38 Sodium Chloride (NS Inj) 10 ml BID IRRIGATION 07/21/17 21:00 07/26/17 21:00 Hydrocortisone Sodium Succinate (SoluCORTEF INJ) 50 mg Q12HR IV PUSH 07/23/17 09:00 07/28/17 08:37 Miscellaneous Information D/C ICU ELECTROLYTE ORDERS... UNSCH PRN .XX SEE DOSE INSTRUCTIONS 07/24/17 07:30 Miscellaneous Information ICU - CALL ORDERING PHYSIC... UNSCH PRN .XX SEE DOSE INSTRUCTIONS 07/24/17 07:30 Potassium Chloride 100 ml @ 25 mls/hr UNSCH PRN IV ELECTROLYTE REPLACEMENT 07/24/17 07:30 Potassium Bicarb/ Potassium Chloride (K-Lyte Cl Eff) 50 meq UNSCH PRN PO ELECTROLYTE REPLACEMENT 07/24/17 07:30 07/24/17 23:17 Potassium Chloride 100 ml @ 50 mls/hr UNSCH PRN IV ELECTROLYTE REPLACEMENT 07/24/17 07:30 07/24/17 23:17 Magnesium Sulfate 4 gm/Sodium Chloride 108 ml @ 54 mls/hr UNSCH PRN IV ELECTROLYTE REPLACEMENT 07/24/17 07:30 Magnesium Sulfate 2 gm/Sodium Chloride 104 ml @ 52 mls/hr UNSCH PRN IV ELECTROLYTE REPLACEMENT 07/24/17 07:30 Magnesium Oxide (Mag-Ox) 800 mg UNSCH PRN PO ELECTROLYTE REPLACEMENT 07/24/17 07:30 Sodium Phosphate 30 mmol/Sodium Chloride 260 ml @ 43.333 mls/ hr UNSCH PRN IV ELECTROLYTE REPLACEMENT 07/24/17 07:30 Potassium Phosphate (K-Phos) 2,000 mg UNSCH PRN PO ELECTROLYTE REPLACEMENT 07/24/17 07:30 Potassium Phosphate 30 mmol/ Sodium Chloride 260 ml @ 43.333 mls/ hr UNSCH PRN IV ELECTROLYTE REPLACEMENT 07/24/17 07:30 07/25/17 06:50 Albuterol/ Ipratropium (Duoneb Neb) 1 ampule Q4HR NEB NEB 07/25/17 08:00 07/27/17 20:13 Albuterol Sulfate (Albuterol Neb) 2.5 mg Q2HR NEB PRN NEB dyspnea 07/25/17 06:45 Pantoprazole Sodium (Protonix) 40 mg DAILY PO 07/25/17 09:00 07/28/17 08:37 Buspirone HCl (Buspar) 5 mg BID PO 07/25/17 09:00 07/28/17 08:37 Megestrol Acetate (Megace) 20 mg BID PO 07/25/17 09:00 07/28/17 08:37 Mirtazapine (Remeron) 45 mg HS PO 07/25/17 21:00 07/27/17 21:25 Vit C/Vit E/Zinc/ Copper/Lutein (Ocuvite) 1 tab DAILY PO 07/25/17 09:00 07/28/17 08:37 Acetaminophen (Tylenol) 650 mg Q6H PRN PO TEMP > 100.4 07/25/17 07:00 Multivitamins (Theragran) 1 tab DAILY PO 07/25/17 10:45 07/28/17 08:37 Piperacillin Sod/ Tazobactam Sod 100 ml @ 200 mls/hr Q6H IV 07/26/17 16:00 07/28/17 09:53 SOCIAL HISTORY: Unable to obtain. Medical chart review reports no tobacco, no alcohol, and no illicit drugs. OBJECTIVE: Vital Signs Date Time Temp Pulse Resp B/P (MAP) Pulse Ox O2 Delivery O2 Flow Rate FiO2 07/28/17 12:00 97.5 56 20 99/52 (68) 99 07/28/17 08:00 98.6 62 24 120/60 (80) 96 07/28/17 08:00 96 Room Air 07/28/17 07:06 63 07/28/17 03:39 Room Air 07/28/17 03:39 99.6 66 12 118/56 (76) 99 07/28/17 00:03 Room Air 07/28/17 00:03 98.8 68 14 112/54 (73) 96 07/27/17 20:36 Room Air 07/27/17 20:26 97.5 66 15 106/53 (70) 97 07/27/17 20:14 98 21 07/27/17 20:00 71 07/27/17 16:00 97.5 62 22 110/57 (74) 96 07/27/17 15:38 66 Laboratory Tests Test 07/27/17 04:58 White Blood Count 10.8 TH/MM3 Red Blood Count 4.03 MIL/MM3 Hemoglobin 12.0 GM/DL Hematocrit 34.8 % Mean Corpuscular Volume 86.4 FL Mean Corpuscular Hemoglobin 29.8 PG Mean Corpuscular Hemoglobin Concent 34.5 % Red Cell Distribution Width 13.9 % Platelet Count 184 TH/MM3 Mean Platelet Volume 8.5 FL Neutrophils (%) (Auto) 88.9 % Lymphocytes (%) (Auto) 5.9 % Monocytes (%) (Auto) 4.8 % Eosinophils (%) (Auto) 0.1 % Basophils (%) (Auto) 0.3 % Neutrophils # (Auto) 9.6 TH/MM3 Lymphocytes # (Auto) 0.6 TH/MM3 Monocytes # (Auto) 0.5 TH/MM3 Eosinophils # (Auto) 0.0 TH/MM3 Basophils # (Auto) 0.0 TH/MM3 CBC Comment DIFF FINAL Differential Comment Laboratory Tests Test 07/27/17 05:03 Blood Urea Nitrogen 18 MG/DL Creatinine 0.82 MG/DL Random Glucose 165 MG/DL Calcium Level 8.1 MG/DL Sodium Level 140 MEQ/L Potassium Level 3.1 MEQ/L Chloride Level 105 MEQ/L Carbon Dioxide Level 26.5 MEQ/L Anion Gap 9 MEQ/L Estimat Glomerular Filtration Rate 92 ML/MIN IMAGING: Chest X-Ray 07/21/17 0000 Signed Impressions: Service Date/Time: Friday, July 21, 2017 10:53 - CONCLUSION: 1. ETT in good position. NGT in good position. Right IJ central line in the SVC. 2. No pneumothorax or acute abnormality. Amos Capone MD Abdomen/Pelvis CT 07/20/17 1426 Signed Impressions: Service Date/Time: Thursday, July 20, 2017 15:30 - CONCLUSION: 1. Interval appearance of a 6.8 cm low-density lesion involving the left lobe of the liver. Scattered vague areas of decreased density within the right lobe. This is concerning for an infectious process that is yet to liquefy. 2. Approximate 3 cm pancreatic head mass with obstruction of the pancreatic duct. Stent within the common bile duct is patent. 3. Pneumobilia. 4. Right basilar atelectasis. Andre Jones Jr., MD PHYSICAL EXAM: GENERAL: Alert and awake. No acute distress. HEENT: The head is atraumatic. Extraocular movements cannot be fully assessed. Pupils reactive to light. No icterus. Oral mucosa is moist. NECK: No adenopathy or swelling. LUNGS: Clear breath sounds. HEART: Normal S1 and S2. No murmurs, rubs or gallops audible. ABDOMEN: Bowel sounds present, soft, nontender. EXTREMITIES: No cyanosis, clubbing or edema. SKIN: No rash. NEURO: No gross focal finding. PSYCH: Calm and cooperative. IMPRESSION: 1. Septic shock due to Klebsiella. Resolved. The patient was hypotensive, febrile with acute respiratory failure and also positive blood cultures. 2. Liver abscess due to Klebsiella. May still have residual fluid. Patient to be evaluated by radiology and possibly have a new catheter inserted. Previous drainage catheter was inserted into the abscess cavity. This accidentally was almost pulled out by patient and therefore had to be removed. 3. Acute respiratory failure. Extubated. 4. Pancreatic mass. 5. Elevated liver function tests. Liver function test improved. 6. Leukocytosis secondary to infection. White blood cell count improved. RECOMMENDATIONS: 1. Continue piperacillin/tazobactam. 2. Monitor clinical status. 3. Reevaluate hepatic fluid collection. Radiology to assess today. 4. Monitor the temperature. Roger Franco MD Jul 28, 2017 12:43
[2017-07-28 16:28] LABS: BICARBONATE 25.7 MEQ/L (21.0-32.0); CALCIUM 7.9 MG/DL (8.5-10.1); CREATININE 0.69 MG/DL (0.60-1.30); MAGNESIUM 2.1 MG/DL (1.5-2.5); PHOSPHORUS 1.9 MG/DL (2.5-4.9)
[2017-07-28] MEDS ORDERED: POTASSIUM CHLORIDE 20 MEQ CONTROLLED RELEASE TAB PO ONE ×2 (18:15→22:00)
[2017-07-28] MEDS: MIRTAZAPINE 15 MG TAB PO SCH (20:51)
[2017-07-29] VITALS (12 sets, daily range): BP systolic 109–153; BP diastolic 56–72; PULSE 58–76; RESP 16–20; TEMP 97.5–98.2; O2SAT 91–98
[2017-07-29] MEDS: RESP: ALBUTEROL 2.5 MG/IPRATROPIUM 0.5 MG NEB (SCH) NEB (03:29)
[2017-07-29] MEDS: PIPERACIL-TAZO 4.5 GM PREMIX 100 ML IV SCH ×4 (04:55→21:12)
[2017-07-29] MEDS: SODIUM CHLORIDE 0.9% FLUSH 10 ML FLUSH IV FLUSH PRN (04:56)
[2017-07-29] MEDS: MEGESTROL ACETATE 40 MG TAB PO SCH ×2 (08:34→21:07)
[2017-07-29] MEDS: HYDROCORTISONE SOD SUCCINATE 100 MG VIAL IV PUSH SCH ×2 (08:34→21:05)
[2017-07-29] MEDS: SODIUM CHLORIDE 0.9% 10 ML VIAL IRRIGATION SCH ×3 (09:00→22:00)
[2017-07-29] MEDS: BUDESONIDE-FORMOTEROL 160/4.5 MCG INHALER INH SCH ×2 (09:00→21:17)
--- NOTE | 2017-07-29 11:55 | HHI.PR ---
Subjective Remarks Sitting on the chair comfortably Still awaiting l CT-guided liver abscess drainage No fever overnight Objective Vitals Vital Signs Date Time Temp Pulse Resp B/P (MAP) Pulse Ox O2 Delivery O2 Flow Rate FiO2 07/29/17 08:05 97 21 07/29/17 08:00 98.1 62 20 153/67 (95) 97 07/29/17 04:00 98.0 65 17 122/60 (80) 96 07/29/17 00:01 98.2 68 18 129/56 (80) 95 07/28/17 23:00 76 07/28/17 20:17 96 21 07/28/17 20:00 98.9 65 19 105/55 (72) 96 07/28/17 20:00 71 07/28/17 19:00 96 Room Air 07/28/17 16:00 98.1 53 20 124/59 (80) 100 07/28/17 16:00 100 Room Air 07/28/17 12:00 97.5 56 20 99/52 (68) 99 I/O 07/28/17 07/28/17 07/28/17 07/29/17 07/29/17 07/29/17 06:59 14:59 22:59 06:59 14:59 22:59 Intake Total 340 ml 260 ml Output Total 1850 ml 550 ml Balance -1510 ml -290 ml Intake Oral 240 ml 260 ml IV Total 100 ml Output Urine Total 1850 ml 550 ml # Voids 1 # Bowel Movements 1 1 1 Result Diagram: 07/27/17 0458 07/28/17 1527 Objective Remarks GENERAL: This is a frail 72 years old male CARDIOVASCULAR: Regular rate and rhythm without murmurs, gallops, or rubs. RESPIRATORY: Fair air entry. No wheezes, rales, or rhonchi. GASTROINTESTINAL: Abdomen soft, non-tender, nondistended. Normal active bowel sounds MUSCULOSKELETAL: Extremities without clubbing, cyanosis, or edema. NEURO: Alert & Oriented x4 to person, place, time, situation. Moves all ext x4 A/P Assessment and Plan 07/26 :K potassium is at 3 will replace, awaiting oncology recommendation, monitor fever and WBC 07/27: Discussed with the patient and his son, ID following for possible need of drainer for the liver abscess inserted by IR, discussed with oncology and GI 07/28: Discussion with the patient and his son, order for liver abscess drainage by IR has been placed, monitor CBC BMP in a.m., monitor temperature 07/29: Awaiting CT-guided liver abscess drainage, monitor CBC and temperature, ID and oncology following for further recommendation A/P: Tobaccoism COPD exacerbation Continue with oxygen and maintain sats above 92%. Incentive spirometry while awake Budesonide/formoterol 160/4.5 2 puffs twice daily Albuterol/ipratropium aerosols every 4 hours with albuterol aerosols every 2 hours as needed dyspnea Extubated 07/23 Pancreatic mass 3 cm with obstruction of the pancreatic duct. Liver mass/abscess 6.8 cm, status post CT-guided biopsy on 07/15, negative for neoplasm. Elevated transaminases Hypoalbuminemia. Moderate to severe prot nayeli malnutrition 2/2 decrease PO intake low appetite. add ensure. MVT, megace Pantoprazole for GI prophylaxis. Monitor LFTs. s/p CT-guided drainage of liver abscess Speech eval, diet heart healthy diet CT abdomen/pelvis done Klebsiella bacteremia Continue abx (piperacillin/tazobactam) Monitor for signs of infections(fever and WBC). BC 07/20: GNR, Kleb pneumonia, Follow up on BC from 07/22- NGTD Wound/abscess 07/21 cx: Kleb pneumonia nasal washing is negative for influenza on 07/20 . ID is following- Dr. Franco Endo: SSI only if indicated for glycemic control Currently on hydrocortisone 50 mg every 12 hours. Wean Normocytic anemia Thrombocytopenia Elevated CA 19/9 History of prostate cancer Monitor CBC. Oncology is following- Dr. Gomez Pancreatic mass nondiagnostic GI prophylaxis-on pantoprazole, and DVT prophylaxis with SCDs. Lauryn Uribe MD Jul 29, 2017 11:55
[2017-07-29] MEDS ORDERED: MIDAZOLAM HCL 2 MG/2 ML VIAL ONE (13:57)
[2017-07-29] MEDS: MULTIVITAMIN-OPHTHALMIC 1 TAB PO SCH (17:34)
[2017-07-29] MEDS: MULTIVITAMIN TAB PO SCH (17:34)
[2017-07-29] MEDS: busPIRone HCL 5 MG TAB PO SCH ×2 (17:35→21:00)
[2017-07-29] MEDS: PANTOPRAZOLE SOD 40 MG DELAYED RELEASE TAB PO SCH (17:35)
[2017-07-29] MEDS: SODIUM CHLORIDE 0.9% FLUSH 10 ML FLUSH IV FLUSH SCH ×2 (17:36→21:12)
[2017-07-29] MEDS: MIRTAZAPINE 15 MG TAB PO SCH (21:08)
[2017-07-29] MEDS: ACETAMINOPHEN 325 MG TAB PO PRN (21:11)
[2017-07-30] VITALS (10 sets, daily range): BP systolic 108–123; BP diastolic 53–62; PULSE 67–81; RESP 18–22; TEMP 98.1–98.9; O2SAT 95–100
[2017-07-30] MEDS: PIPERACIL-TAZO 4.5 GM PREMIX 100 ML IV SCH ×4 (04:00→21:55)
[2017-07-30] MEDS: SODIUM CHLORIDE 0.9% 10 ML VIAL IRRIGATION SCH ×5 (05:13→21:50)
--- NOTE | 2017-07-30 08:54 | RADRPT ---
EXAM DATE/TIME: 07/29/2017 13:59 [facility] COMPARISON: CT ASSISTED ABSCESS DRAIN, July 21, 2017, 15:14. INDICATIONS : Liver abscess SEDATION TIME: 30 minutes MEDICATION(S): 1.) 2 mg midazolam (Versed) IV 2.) 100 mcg fentanyl (Sublimaze) IV DEVICE(S): 1.) 10 Fr Francis FLUID: Total volume of 5 cc of bloody pus was removed. MEDICAL HISTORY : Carcinoma, pancreas. Chronic obstructive pulmonary disease. SURGICAL HISTORY : None. ENCOUNTER: Initial ACUITY: 1 day PAIN SCORE: 0/10 LOCATION: upper quadrant PROCEDURE: PROCEDURE : 1. CT guided drainage of the left lobe of the liver abscess collection. 2. Conscious sedation with continuous EKG and oximetry monitoring. The risks, benefits and alternatives to the procedure were explained and verbal and written consent w as obtained. Using automated exposure control and adjustment of the mA and/or kV according to patient size, radiation dose was kept as low as reasonably achievable to obtain optimal diagnostic quality i mages. The site was prepped in sterile fashion. Full sterile technique was used, including cap, ma sk, sterile gloves and gown and a large sterile sheet. Hand hygiene and 2% chlorhexidine and/or beta dine/alcohol prep was utilized per protocol for cutaneous antisepsis. The skin and subcutaneous tiss ues were infiltrated with local anesthetic solution. DICOM format image data is available electronic ally for review and comparison. Using CT guidance the prescribed site was localized. Drainage was performed using the prescribed cat heter The patient tolerated the procedure well and there were no complications. Conscious sedation was per formed with the prescribed dosages and duration as above in the presence of an independent trained ra diology nurse to assist in the monitoring of the patient. EKG and oximetry remained stable throughou t the procedure. The patient tolerated the procedure well and there were no complications. The patient was sent to pos t anesthesia recovery in stable condition. CONCLUSION: Uncomplicated CT guided drainage with placement of 10 Latvian locking pigtail drain. Sunil Miller MD on July 30, 2017 at 8:49 Board Certified Radiologist. This report was verified electronically.
[2017-07-30] MEDS: SODIUM CHLORIDE 0.9% FLUSH 10 ML FLUSH IV FLUSH SCH ×2 (09:00→21:49)
[2017-07-30] MEDS: ACETAMINOPHEN 325 MG TAB PO PRN (10:16)
[2017-07-30] MEDS: MULTIVITAMIN-OPHTHALMIC 1 TAB PO SCH (10:18)
[2017-07-30] MEDS: MULTIVITAMIN TAB PO SCH (10:18)
[2017-07-30] MEDS: busPIRone HCL 5 MG TAB PO SCH ×2 (10:18→21:47)
[2017-07-30] MEDS: MEGESTROL ACETATE 40 MG TAB PO SCH ×2 (10:18→21:47)
[2017-07-30] MEDS: HYDROCORTISONE SOD SUCCINATE 100 MG VIAL IV PUSH SCH ×2 (10:19→21:48)
[2017-07-30] MEDS: PANTOPRAZOLE SOD 40 MG DELAYED RELEASE TAB PO SCH (10:20)
[2017-07-30] MEDS: BUDESONIDE-FORMOTEROL 160/4.5 MCG INHALER INH SCH ×2 (10:21→21:00)
--- NOTE | 2017-07-30 13:08 | PD.ONC.PN ---
Subjective Subjective Remarks Afebrile overnight. Patient resting in room in nad. complaining of pain at site of biliary drain. otherwise without complaint. family members at bedside with multiple questions. Objective Data Date Time Temp Pulse Resp B/P (MAP) Pulse Ox O2 Delivery O2 Flow Rate FiO2 07/30/17 11:31 98.7 67 20 108/53 (71) 97 07/30/17 10:00 69 07/30/17 08:28 98.7 69 20 123/62 (82) 97 07/30/17 04:00 98.8 69 18 111/59 (76) 95 07/30/17 00:00 98.9 79 20 116/55 (75) 97 07/29/17 23:00 73 07/29/17 20:45 97.5 76 20 109/57 (74) 98 07/29/17 19:35 97 21 07/29/17 19:00 97 Room Air 07/29/17 18:23 96 Room Air 07/29/17 16:47 97.7 63 20 119/62 (81) 97 07/29/17 16:00 67 16 126/72 (90) 97 07/29/17 15:30 67 16 132/70 (90) 94 07/29/17 15:15 97.6 65 16 139/70 (93) 91 07/30/17 07/30/17 07/30/17 07:00 15:00 23:00 Intake Total 160 ml 100 ml Output Total 1100 ml Balance -940 ml 100 ml Result Diagram: 07/27/17 0458 07/28/17 1527 Culture Results Microbiology Date/Time Source Procedure Growth Status 07/29/17 14:35 Abscess Other Gram Stain - Final Resulted 07/29/17 14:35 Abscess Other Wound Culture Pending Resulted Administered Medications Medications (Trade) Dose Ordered Sig/Sreedhar Route PRN Reason Start Time Stop Time Status Last Admin Dose Admin Sodium Chloride (NS Flush) 2 ml UNSCH PRN IV FLUSH FLUSH AFTER USING IV ACCESS 07/20/17 18:30 07/29/17 04:56 Sodium Chloride (NS Flush) 2 ml BID IV FLUSH 07/20/17 21:00 07/29/17 21:12 Ondansetron HCl (Zofran Inj) 4 mg Q6H PRN IVP NAUSEA OR VOMITING 07/20/17 18:30 07/20/17 20:28 Magnesium Hydroxide (Milk Of Magnesia Liq) 30 ml Q12H PRN PO Mild constipation 07/20/17 18:30 07/23/17 02:57 Lactulose (Lactulose Liq) 30 ml DAILY PRN PO SEVERE CONSITIPATION 07/20/17 18:30 07/23/17 02:57 Budesonide/ Formoterol Fumarate (Symbicort 160-4.5 Mcg Inh) 2 puff Q12HR INH 07/21/17 09:15 07/30/17 10:21 Sodium Chloride (NS Inj) 10 ml BID IRRIGATION 07/21/17 21:00 07/30/17 09:00 Hydrocortisone Sodium Succinate (SoluCORTEF INJ) 50 mg Q12HR IV PUSH 07/23/17 09:00 07/30/17 10:19 Potassium Bicarb/ Potassium Chloride (K-Lyte Cl Eff) 50 meq UNSCH PRN PO ELECTROLYTE REPLACEMENT 07/24/17 07:30 07/24/17 23:17 Potassium Chloride 100 ml @ 50 mls/hr UNSCH PRN IV ELECTROLYTE REPLACEMENT 07/24/17 07:30 07/24/17 23:17 Potassium Phosphate 30 mmol/ Sodium Chloride 260 ml @ 43.333 mls/ hr UNSCH PRN IV ELECTROLYTE REPLACEMENT 07/24/17 07:30 07/25/17 06:50 Pantoprazole Sodium (Protonix) 40 mg DAILY PO 07/25/17 09:00 07/30/17 10:20 Buspirone HCl (Buspar) 5 mg BID PO 07/25/17 09:00 07/30/17 10:18 Megestrol Acetate (Megace) 20 mg BID PO 07/25/17 09:00 07/30/17 10:18 Mirtazapine (Remeron) 45 mg HS PO 07/25/17 21:00 07/29/17 21:08 Vit C/Vit E/Zinc/ Copper/Lutein (Ocuvite) 1 tab DAILY PO 07/25/17 09:00 07/30/17 10:18 Acetaminophen (Tylenol) 650 mg Q6H PRN PO TEMP > 100.4 07/25/17 07:00 07/30/17 10:16 Multivitamins (Theragran) 1 tab DAILY PO 07/25/17 10:45 07/30/17 10:18 Piperacillin Sod/ Tazobactam Sod 100 ml @ 200 mls/hr Q6H IV 07/26/17 16:00 07/30/17 10:20 Sodium Chloride (NS Inj) 10 ml Q8HR IRRIGATION 07/29/17 22:00 07/30/17 05:13 Objective Remarks GENERAL: Elderly male, sitting up in chair next to bed in [facility]. SKIN: Warm and dry. HEAD: Normocephalic. EYES: No injection or drainage. NECK: Supple, trachea midline. CARDIOVASCULAR: +S1/S2 RESPIRATORY: anterior dalton clear. GASTROINTESTINAL: Abdomen soft, non-tender, nondistended. accordion drain in place, RUQ, draining red SS fluid. EXTREMITIES: No cyanosis NEUROLOGICAL: awake, alert. moving extremities. normal speech. Assessment/Plan Problem List: (1) Pancreatic mass ICD Codes: K86.9 - Disease of pancreas, unspecified Plan: --will need repeat biopsy via EUS -- biopsy thus far has been nondiagnostic. --mass is suspicious for pancreatic carcinoma. (2) Sepsis ICD Codes: A41.9 - Sepsis, unspecified organism Plan: --on Zosyn --Blood cultures from 07/22/17 show no growth --BC, 3 + GNR, Klebsiella. (3) Liver abscess ICD Codes: K75.0 - Abscess of liver Plan: --s/p drain placement in IR on 07/29. -- Repeat CT abdomen pelvis on 07/26/17 shows a developing fluid collection along the posterior liver dome suspicious for possible sub-diaphragmatic abscess. Assessment 72y/o male with pancreatic mass, admitted with fever and suspected liver abscess , now critically ill in [facility], intubated on pressor support. history of tobacco abuse, COPD, prostate cancer HPI (brought forward for continuity of care): recently seen in the Oncology Clinic for evaluation of a pancreatic mass. had developed jaundice and presented to his primary care physician and was found to have elevated bilirubin. sent to [facility], underwent a CT abdomen-->+ hypodense mass at the pancreatic neck, 3.4 x 3.1 cm. concerning for pancreatic neoplasm. mass was continuous and indistinguishable from the posterior wall of the gastric antrum. subsequently had ERCP and an stent placement was unsuccessful because of the obstruction. Subsequently, IR placed an external bili drain. then underwent a stent at the common bile duct. jaundice improved. subsequently was seen by Dr. Sutton and underwent endoscopic ultrasound. biopsy was nondiagnostic. then underwent a CT abdomen +large lesion in liver, 8.6 cm, concerning for a metastatic focus. referred to IR for biopsy of this liver lesion. biopsy was nondiagnostic for carcinoma and showed acute large ductal biliary obstruction. he developed fever and was admitted CT abdomen in ED showed 6.8cm lesion left lobe of liver. patient was admitted and started on broad spectrum antibiotics. Interventional Radiology was consulted for CT guided drainage of the liver aspect. The patient subsequently developed respiratory distress. He was placed on nonrebreather mask. He continued to remain tachycardic and progressively became tachypneic. The patient was then intubated and transferred to the Intensive Care Unit. He was subsequently extubated on . Plan 1. will consult Dr. Sutton with GI as the patient is known to him and will need EUS for repeat biopsy 2. continue antibiotics per ID 3. Medical oncology will follow peripherally from this point as we cannot make further recommendations without a biopsy/pathology. please call if needed. Jania Jefferson Jul 30, 2017 13:08
--- NOTE | 2017-07-30 14:57 | PD.CONS ---
HPI History of Present Illness This is a 72 year old male with hx prostate ca, pancreatic mass, liver mass who originally presented for abd pain, fever, nausea. He was found to have a liver abscess and is now s/p drainage of abscess and placement drain. His abd pain is improved somewhat and he is eating. GI has been consulted by oncology for pancreatic mass. he is know to Dr Sutton. He was evaluated by our service in May of this year at [facility] and had EUS that found pancreatic head mass, possible mucinous neoplasm. CT 07/26/17 shows liver abscess, low denisty lesion right liver lobe, pancreatic head mass with biliary stent. Currently his abd pain is somewhat improved and he is tolerating his diet. (Debbie Huynh) PFSH Past Medical History COPD History of prostate cancer Anxiety Newly diagnosed pancreatic mass with liver lesion concerning for metastatic disease Past Surgical History TURP 2000 (Debbie Huynh) Coded Allergies: No Known Allergies (Verified Allergy, Unknown, 07/15/17) Family History Negative for CAD/DM Social History Quit tobacco 3 years ago. Denies alcohol. Intermittent marijuana use. Denies other illicit drugs. (Debbie Hyunh) GI Exam Vitals I&O Vital Signs Date Time Temp Pulse Resp B/P (MAP) Pulse Ox O2 Delivery O2 Flow Rate FiO2 07/30/17 13:00 67 07/30/17 11:31 98.7 67 20 108/53 (71) 97 07/30/17 10:00 69 07/30/17 08:28 98.7 69 20 123/62 (82) 97 07/30/17 04:00 98.8 69 18 111/59 (76) 95 07/30/17 00:00 98.9 79 20 116/55 (75) 97 07/29/17 23:00 73 07/29/17 20:45 97.5 76 20 109/57 (74) 98 07/29/17 19:35 97 21 07/29/17 19:00 97 Room Air 07/29/17 18:23 96 Room Air 07/29/17 16:47 97.7 63 20 119/62 (81) 97 07/29/17 16:00 67 16 126/72 (90) 97 07/29/17 15:30 67 16 132/70 (90) 94 07/29/17 15:15 97.6 65 16 139/70 (93) 91 I/O 07/29/17 07/29/17 07/29/17 07/30/17 07/30/17 07/30/17 07:00 15:00 23:00 07:00 15:00 23:00 Intake Total 260 ml 160 ml 100 ml Output Total 550 ml 850 ml 1100 ml Balance -290 ml -850 ml -940 ml 100 ml Intake Oral 260 ml 160 ml IV Total 100 ml Output Urine Total 550 ml 850 ml 1050 ml Drainage Total 50 ml # Bowel Movements 1 3 1 Imaging Last Impressions Abscess Drainage CT 07/29/17 1236 Signed Impressions: Service Date/Time: Saturday, July 29, 2017 13:59 - CONCLUSION: Uncomplicated CT guided drainage with placement of 10 Kenyan locking pigtail drain. Sunil Miller MD Abdomen/Pelvis CT 07/25/17 0000 Signed Impressions: Service Date/Time: Wednesday, July 26, 2017 01:41 - CONCLUSION: 1. Abnormal low density area laterally of the left hepatic lobe continues to evolve, slightly larger over the past several days and new since June, presumably a fluid collection and potentially an abscess. A catheter was placed recently but it is no longer present. 2. A fluid collection is developing along the posterior liver dome and is of concern for a possible subdiaphragmatic abscess, roughly 2.6 x 5.0 x 1.8 cm. 3. Vague low density lesion inferiorly of the right hepatic lobe not significantly changed. 4. Small bilateral pleural effusions have developed. There is also increasing dependent consolidation of the right lung base. 5. Pancreatic head mass with biliary stent again noted. 6. 3.7 cm infrarenal abdominal aortic aneurysm unchanged. Scott Paredes MD Chest X-Ray 07/21/17 0000 Signed Impressions: Service Date/Time: Friday, July 21, 2017 10:53 - CONCLUSION: 1. ETT in good position. NGT in good position. Right IJ central line in the SVC. 2. No pneumothorax or acute abnormality. Amos Capone MD Laboratory Date/Time Source Procedure Growth Status 07/22/17 14:30 Blood Peripheral Aerobic Blood Culture - Final NO GROWTH IN 5 DAYS Complete 07/22/17 14:30 Blood Peripheral Anaerobic Blood Culture - Final NO GROWTH IN 5 DAYS Complete 07/20/17 14:42 Nasal Washing Influenza Types A,B Antigen (ION) - Final NEGATIVE FOR FLU A AND B ANTIGEN.... Complete 07/29/17 14:35 Abscess Other Gram Stain - Final Resulted 07/29/17 14:35 Abscess Other Wound Culture Pending Resulted Physical Examination HEENT: PERRL; normocephalic; atraumatic; no jaundice. CHEST: CTA CARDIAC: RRR ABDOMEN: Soft, mildly distended, mild RUQ TTP; no hepatosplenomegaly; bowel sounds are present in all four quadrants. RUQ drain with scant sanguineous drainage EXTREMITIES: No clubbing, cyanosis, or edema. SKIN: Normal; no rash; no jaundice. 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 (Debbie Huynh) Assessment and Plan Plan ASSESSMENT - pancreatic mass - EUS 05/2017 FNA path poss mucinous neoplasm. GI consulted for poss EUS. CA 19-[address] 07/20/17 suggestive infectious porcess liver, 3 cm pancreatic mass with obstruction pancreatic duct, CBD stent CT 07/26/17 showed evolving liver fluid collection, subdiaphragmati cabscess, pancreatic head mass with biliary stent - liver abscess -s/p drainage and drain placement by IR 07/29/17. WBC WNL. PLAN - EUS tentatively early next week, Dr Sutton will review records and decide - continue abx - supportive care - DEVONTE pt seen by myself and Dr Fregoso and this note is on his behalf (Debbie Huynh) Physician Comments As above, for possible EUS, will discuss it with Dr Julien. Thank you for the consult. (Nora Fregoso MD) Debbie Huynh Jul 30, 2017 14:57 Nora Fregoso MD Jul 30, 2017 15:54
--- NOTE | 2017-07-30 16:26 | HHI.IDPN ---
Note Infectious Disease Note Patient in no distress. Line states that he had some loose stools earlier. New drain was placed into the hepatic fluid collection. No fever. Denies chills. Awake and alert. Notes that he had some mild abdominal tenderness when examined earlier today. Presented to the emergency department on 07/20 with fever. 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 PAST MEDICAL HISTORY: 1. COPD. 2. Anxiety. 3. Prostate cancer. 4. Pancreatic mass newly diagnosed. 5. Liver lesion, metastasis versus abscess. 6. History of TURP. ALLERGIES: NO KNOWN DRUG ALLERGIES. ANTIBIOTICS: Piperacillin/tazobactam. Current Medications Medications (Trade) Dose Ordered Sig/Sreedhar Route PRN Reason Start Time Stop Time Status Last Admin Dose Admin Sodium Chloride (NS Flush) 2 ml UNSCH PRN IV FLUSH FLUSH AFTER USING IV ACCESS 07/20/17 18:30 07/29/17 04:56 Sodium Chloride (NS Flush) 2 ml BID IV FLUSH 07/20/17 21:00 07/29/17 21:12 Ondansetron HCl (Zofran Inj) 4 mg Q6H PRN IVP NAUSEA OR VOMITING 07/20/17 18:30 07/20/17 20:28 Naloxone HCl (Narcan Inj) 0.4 mg UNSCH PRN IV PUSH SEE LABEL COMMENTS 07/20/17 18:30 Magnesium Hydroxide (Milk Of Magnesia Liq) 30 ml Q12H PRN PO Mild constipation 07/20/17 18:30 07/23/17 02:57 Sennosides (Senokot) 17.2 mg Q12H PRN PO Moderate constipation 07/20/17 18:30 Bisacodyl (Dulcolax Supp) 10 mg DAILY PRN RECTAL SEVERE CONSITIPATION 07/20/17 18:30 Lactulose (Lactulose Liq) 30 ml DAILY PRN PO SEVERE CONSITIPATION 07/20/17 18:30 07/23/17 02:57 Budesonide/ Formoterol Fumarate (Symbicort 160-4.5 Mcg Inh) 2 puff Q12HR INH 07/21/17 09:15 07/30/17 10:21 Sodium Chloride (NS Inj) 10 ml BID IRRIGATION 07/21/17 21:00 07/30/17 09:00 Hydrocortisone Sodium Succinate (SoluCORTEF INJ) 50 mg Q12HR IV PUSH 07/23/17 09:00 07/30/17 10:19 Miscellaneous Information D/C ICU ELECTROLYTE ORDERS... UNSCH PRN .XX SEE DOSE INSTRUCTIONS 07/24/17 07:30 Miscellaneous Information ICU - CALL ORDERING PHYSIC... UNSCH PRN .XX SEE DOSE INSTRUCTIONS 07/24/17 07:30 Potassium Chloride 100 ml @ 25 mls/hr UNSCH PRN IV ELECTROLYTE REPLACEMENT 07/24/17 07:30 Potassium Bicarb/ Potassium Chloride (K-Lyte Cl Eff) 50 meq UNSCH PRN PO ELECTROLYTE REPLACEMENT 07/24/17 07:30 07/24/17 23:17 Potassium Chloride 100 ml @ 50 mls/hr UNSCH PRN IV ELECTROLYTE REPLACEMENT 07/24/17 07:30 07/24/17 23:17 Magnesium Sulfate 4 gm/Sodium Chloride 108 ml @ 54 mls/hr UNSCH PRN IV ELECTROLYTE REPLACEMENT 07/24/17 07:30 Magnesium Sulfate 2 gm/Sodium Chloride 104 ml @ 52 mls/hr UNSCH PRN IV ELECTROLYTE REPLACEMENT 07/24/17 07:30 Magnesium Oxide (Mag-Ox) 800 mg UNSCH PRN PO ELECTROLYTE REPLACEMENT 07/24/17 07:30 Sodium Phosphate 30 mmol/Sodium Chloride 260 ml @ 43.333 mls/ hr UNSCH PRN IV ELECTROLYTE REPLACEMENT 07/24/17 07:30 Potassium Phosphate (K-Phos) 2,000 mg UNSCH PRN PO ELECTROLYTE REPLACEMENT 07/24/17 07:30 Potassium Phosphate 30 mmol/ Sodium Chloride 260 ml @ 43.333 mls/ hr UNSCH PRN IV ELECTROLYTE REPLACEMENT 07/24/17 07:30 07/25/17 06:50 Albuterol Sulfate (Albuterol Neb) 2.5 mg Q2HR NEB PRN NEB dyspnea 07/25/17 06:45 Pantoprazole Sodium (Protonix) 40 mg DAILY PO 07/25/17 09:00 07/30/17 10:20 Buspirone HCl (Buspar) 5 mg BID PO 07/25/17 09:00 07/30/17 10:18 Megestrol Acetate (Megace) 20 mg BID PO 07/25/17 09:00 07/30/17 10:18 Mirtazapine (Remeron) 45 mg HS PO 07/25/17 21:00 07/29/17 21:08 Vit C/Vit E/Zinc/ Copper/Lutein (Ocuvite) 1 tab DAILY PO 07/25/17 09:00 07/30/17 10:18 Acetaminophen (Tylenol) 650 mg Q6H PRN PO TEMP > 100.4 07/25/17 07:00 07/30/17 10:16 Multivitamins (Theragran) 1 tab DAILY PO 07/25/17 10:45 07/30/17 10:18 Piperacillin Sod/ Tazobactam Sod 100 ml @ 200 mls/hr Q6H IV 07/26/17 16:00 07/30/17 15:45 Sodium Chloride (NS Inj) 10 ml Q8HR IRRIGATION 07/29/17 22:00 07/30/17 14:00 SOCIAL HISTORY: Unable to obtain. Medical chart review reports no tobacco, no alcohol, and no illicit drugs. OBJECTIVE: Vital Signs Date Time Temp Pulse Resp B/P (MAP) Pulse Ox O2 Delivery O2 Flow Rate FiO2 07/30/17 16:05 98.1 68 20 117/58 (77) 100 07/30/17 13:00 67 07/30/17 11:31 98.7 67 20 108/53 (71) 97 07/30/17 10:00 69 07/30/17 08:28 98.7 69 20 123/62 (82) 97 07/30/17 04:00 98.8 69 18 111/59 (76) 95 07/30/17 00:00 98.9 79 20 116/55 (75) 97 07/29/17 23:00 73 07/29/17 20:45 97.5 76 20 109/57 (74) 98 07/29/17 19:35 97 21 07/29/17 19:00 97 Room Air 07/29/17 18:23 96 Room Air 07/29/17 16:47 97.7 63 20 119/62 (81) 97 Microbiology Date/Time Source Procedure Growth Status 07/29/17 14:35 Abscess Other Gram Stain - Final Resulted 07/29/17 14:35 Wound Culture - Preliminary Gram Negative Steven Resulted IMAGING: Abscess Drainage CT 07/29/17 1236 Signed Impressions: Service Date/Time: Saturday, July 29, 2017 13:59 - CONCLUSION: Uncomplicated CT guided drainage with placement of 10 Greek locking pigtail drain. Sunil Miller MD Chest X-Ray 07/21/17 0000 Signed Impressions: Service Date/Time: Friday, July 21, 2017 10:53 - CONCLUSION: 1. ETT in good position. NGT in good position. Right IJ central line in the SVC. 2. No pneumothorax or acute abnormality. Amos Capone MD Abdomen/Pelvis CT 07/20/17 1426 Signed Impressions: Service Date/Time: Thursday, July 20, 2017 15:30 - CONCLUSION: 1. Interval appearance of a 6.8 cm low-density lesion involving the left lobe of the liver. Scattered vague areas of decreased density within the right lobe. This is concerning for an infectious process that is yet to liquefy. 2. Approximate 3 cm pancreatic head mass with obstruction of the pancreatic duct. Stent within the common bile duct is patent. 3. Pneumobilia. 4. Right basilar atelectasis. Andre Jones Jr., MD PHYSICAL EXAM: GENERAL: Alert and awake. No acute distress. HEENT: The head is atraumatic. Extraocular movements cannot be fully assessed. Pupils reactive to light. No icterus. Oral mucosa is moist. NECK: No adenopathy or swelling. LUNGS: Clear breath sounds. HEART: Normal S1 and S2. No murmurs, rubs or gallops audible. ABDOMEN: Bowel sounds present, soft, very mild tenderness at the left periumbilical area. Drainage catheter in place in the right abdomen. This has light red/rust colored drainage. EXTREMITIES: No cyanosis, clubbing or edema. SKIN: No rash. NEURO: No gross focal finding. PSYCH: Calm and cooperative. IMPRESSION: 1. Septic shock due to Klebsiella. Resolved. The patient was hypotensive, febrile with acute respiratory failure and also positive blood cultures. 2. Liver abscess due to Klebsiella. New drainage catheter placed 07/29. Repeat culture has gram-negative steven from drainage. 3. Acute respiratory failure. Extubated. 4. Pancreatic mass. 5. Elevated liver function tests. Liver function test improved. 6. Leukocytosis secondary to infection. Resolved. RECOMMENDATIONS: 1. Continue piperacillin/tazobactam. 2. Add Levaquin PO. 3. Lactinex. 4. Monitor clinical status. 5. Monitor drainage from the hepatic fluid catheter. 6. Monitor sensitivity of the new culture from 07/29. Patient previously was noted to have Klebsiella bacteremia in At [facility]. Request was made for the medical records from that admission. The patient's questions as well as his daughter's questions were answered. Roger Franco MD Jul 30, 2017 16:26
--- NOTE | 2017-07-30 16:47 | HHI.PR ---
Subjective Remarks Resting in bed, his brother at the bedside he had a liver abscess drainer inserted, doing well post Procedure He also me if he should have the pancreatic biopsy now I explained that this will help a diagnostic process Afebrile no event overnight Objective Vitals Vital Signs Date Time Temp Pulse Resp B/P (MAP) Pulse Ox O2 Delivery O2 Flow Rate FiO2 07/30/17 16:05 98.1 68 20 117/58 (77) 100 07/30/17 13:00 67 07/30/17 11:31 98.7 67 20 108/53 (71) 97 07/30/17 10:00 69 07/30/17 08:28 98.7 69 20 123/62 (82) 97 07/30/17 04:00 98.8 69 18 111/59 (76) 95 07/30/17 00:00 98.9 79 20 116/55 (75) 97 07/29/17 23:00 73 07/29/17 20:45 97.5 76 20 109/57 (74) 98 07/29/17 19:35 97 21 07/29/17 19:00 97 Room Air 07/29/17 18:23 96 Room Air 07/29/17 16:47 97.7 63 20 119/62 (81) 97 I/O 07/29/17 07/29/17 07/29/17 07/30/17 07/30/17 07/30/17 07:00 15:00 23:00 07:00 15:00 23:00 Intake Total 260 ml 160 ml 100 ml 720 ml Output Total 550 ml 850 ml 1100 ml 30 ml Balance -290 ml -850 ml -940 ml 70 ml 720 ml Intake Oral 260 ml 160 ml 720 ml IV Total 100 ml Output Urine Total 550 ml 850 ml 1050 ml Drainage Total 50 ml 30 ml # Voids 4 # Bowel Movements 1 3 1 1 Result Diagram: 07/27/17 0458 07/28/17 1527 Objective Remarks GENERAL: This is a frail 72 years old male CARDIOVASCULAR: Regular rate and rhythm without murmurs, gallops, or rubs. RESPIRATORY: Fair air entry. No wheezes, rales, or rhonchi. GASTROINTESTINAL: Abdomen soft, non-tender, nondistended. Normal active bowel sounds, liver abscess drain in place MUSCULOSKELETAL: Extremities without clubbing, cyanosis, or edema. NEURO: Alert & Oriented x4 to person, place, time, situation. Moves all ext x4 A/P Assessment and Plan 07/26 :K potassium is at 3 will replace, awaiting oncology recommendation, monitor fever and WBC 07/27: Discussed with the patient and his son, ID following for possible need of drainer for the liver abscess inserted by IR, discussed with oncology and GI 07/28: Discussion with the patient and his son, order for liver abscess drainage by IR has been placed, monitor CBC BMP in a.m., monitor temperature 07/29: Awaiting CT-guided liver abscess drainage, monitor CBC and temperature, ID and oncology following for further recommendation 07/30: Status post liver abscess drain are inserted, appreciate oncology help, GI consulted plan for EUS and pancreatic biopsy next week A/P: Tobaccoism COPD exacerbation Continue with oxygen and maintain sats above 92%. Incentive spirometry while awake Budesonide/formoterol 160/4.5 2 puffs twice daily Albuterol/ipratropium aerosols every 4 hours with albuterol aerosols every 2 hours as needed dyspnea Extubated 07/23 Pancreatic mass 3 cm with obstruction of the pancreatic duct. Liver mass/abscess 6.8 cm, status post CT-guided biopsy on 07/15, negative for neoplasm. Elevated transaminases Hypoalbuminemia. Moderate to severe prot nayeli malnutrition 2/2 decrease PO intake low appetite. add ensure. MVT, megace Pantoprazole for GI prophylaxis. Monitor LFTs. s/p CT-guided drainage of liver abscess Speech eval, diet heart healthy diet CT abdomen/pelvis done Klebsiella bacteremia Continue abx (piperacillin/tazobactam) Monitor for signs of infections(fever and WBC). BC 07/20: GNR, Kleb pneumonia, Follow up on BC from 07/22- NGTD Wound/abscess 07/21 cx: Kleb pneumonia nasal washing is negative for influenza on 07/20 . ID is following- Dr. Franco Endo: SSI only if indicated for glycemic control Currently on hydrocortisone 50 mg every 12 hours. Wean Normocytic anemia Thrombocytopenia Elevated CA 19/9 History of prostate cancer Monitor CBC. Oncology is following- Dr. Gomez Pancreatic mass nondiagnostic GI prophylaxis-on pantoprazole, and DVT prophylaxis with SCDs. Lauryn Uribe MD Jul 30, 2017 16:47
[2017-07-30] MEDS: LEVOFLOXACIN 750 MG TAB PO SCH (17:45)
[2017-07-30] MEDS: LACTOBACILLUS ACIDOPHILUS TAB PO SCH (21:47)
[2017-07-30] MEDS: MIRTAZAPINE 15 MG TAB PO SCH (21:47)
[2017-07-31] VITALS (9 sets, daily range): BP systolic 108–133; BP diastolic 54–66; PULSE 22–85; RESP 14–29; TEMP 98.4–99.7; O2SAT 95–100
[2017-07-31] MEDS: PIPERACIL-TAZO 4.5 GM PREMIX 100 ML IV SCH ×4 (03:20→21:31)
[2017-07-31] MEDS: SODIUM CHLORIDE 0.9% 10 ML VIAL IRRIGATION SCH ×5 (05:01→21:34)
[2017-07-31 05:27] LABS: AUTOMATED NEUTROPHIL # 13.3 TH/MM3 (1.8-7.7); BASOPHIL % 0.1 % (0.0-2.0); EOSINOPHIL % 0.2 % (0.0-4.0); HEMATOCRIT 30.9 % (39.0-51.0); HEMOGLOBIN 10.5 GM/DL (13.0-17.0); LYMPH % 6.1 % (9.0-44.0); LYMPHOCYTE # 0.9 TH/MM3 (1.0-4.8); MEAN CELL VOLUME 86.7 FL (80.0-100.0); MEAN CORPUSCULAR HEMOGLOBIN 29.4 PG (27.0-34.0); MEAN CORPUSCULAR HGB CONC 33.9 % (32.0-36.0); MEAN PLATELET VOLUME 7.9 FL (7.0-11.0); MONOCYTE # 0.7 TH/MM3 (0-0.9); NEUT % 88.6 % (16.0-70.0); PLATELET COUNT 247 TH/MM3 (150-450); RED BLOOD COUNT 3.56 MIL/MM3 (4.50-5.90); RED CELL DISTRIBUTION WIDTH 14.5 % (11.6-17.2)
[2017-07-31 05:58] LABS: BICARBONATE 23.6 MEQ/L (21.0-32.0); CALCIUM 7.6 MG/DL (8.5-10.1); CREATININE 0.77 MG/DL (0.60-1.30)
[2017-07-31] MEDS: ICU - POTASSIUM CHLORIDE/AQUEOUS SOLN 20 MEQ/100 ML IVPB IV PRN (06:21)
[2017-07-31] MEDS: HYDROCORTISONE SOD SUCCINATE 100 MG VIAL IV PUSH SCH ×2 (08:56→21:31)
[2017-07-31] MEDS: MULTIVITAMIN TAB PO SCH (08:59)
[2017-07-31] MEDS: MULTIVITAMIN-OPHTHALMIC 1 TAB PO SCH (08:59)
[2017-07-31] MEDS: LEVOFLOXACIN 750 MG TAB PO SCH (08:59)
[2017-07-31] MEDS: LACTOBACILLUS ACIDOPHILUS TAB PO SCH ×2 (09:00→21:31)
[2017-07-31] MEDS: MEGESTROL ACETATE 40 MG TAB PO SCH ×2 (09:00→21:34)
[2017-07-31] MEDS: busPIRone HCL 5 MG TAB PO SCH ×2 (09:00→21:31)
[2017-07-31] MEDS: PANTOPRAZOLE SOD 40 MG DELAYED RELEASE TAB PO SCH (09:00)
[2017-07-31] MEDS: BUDESONIDE-FORMOTEROL 160/4.5 MCG INHALER INH SCH ×2 (09:00→21:00)
[2017-07-31] MEDS: SODIUM CHLORIDE 0.9% FLUSH 10 ML FLUSH IV FLUSH SCH ×2 (09:01→21:29)
[2017-07-31] MEDS: POTASSIUM CHLORIDE 25 MEQ EFFERVESCENT TAB PO PRN (09:04)
--- NOTE | 2017-07-31 13:26 | HHI.PR ---
Subjective Remarks resting in bed no acute issues going for EUS WITH POSSIBLE BX next week Objective Vitals Vital Signs Date Time Temp Pulse Resp B/P (MAP) Pulse Ox O2 Delivery O2 Flow Rate FiO2 07/31/17 12:00 98.5 77 22 108/55 (72) 100 07/31/17 09:23 79 07/31/17 08:00 99.0 68 14 133/63 (86) 96 07/31/17 04:00 98.7 70 29 131/66 (87) 96 07/31/17 04:00 71 07/31/17 00:12 68 07/31/17 00:00 98.5 69 24 123/63 (83) 95 07/30/17 20:00 98.5 81 22 114/60 (78) 99 07/30/17 20:00 77 07/30/17 19:33 99 21 07/30/17 16:05 98.1 68 20 117/58 (77) 100 07/30/17 16:00 68 I/O 07/30/17 07/30/17 07/30/17 07/31/17 07/31/17 07/31/17 06:59 14:59 22:59 06:59 14:59 22:59 Intake Total 160 ml 100 ml 1360 ml 240 ml 35 ml Output Total 1050 ml 80 ml 880 ml Balance -890 ml 20 ml 1360 ml -640 ml 35 ml Intake Oral 160 ml 1360 ml 240 ml IV Total 100 ml 35 ml Output Urine Total 1050 ml 880 ml Drainage Total 80 ml # Voids 4 # Bowel Movements 1 1 Result Diagram: 07/31/17 0511 07/31/17 05 Objective Remarks GENERAL: This is a frail 72 years old male CARDIOVASCULAR: Regular rate and rhythm without murmurs, gallops, or rubs. RESPIRATORY: Fair air entry. No wheezes, rales, or rhonchi. GASTROINTESTINAL: Abdomen soft, non-tender, nondistended. Normal active bowel sounds, liver abscess drain in place MUSCULOSKELETAL: Extremities without clubbing, cyanosis, or edema. NEURO: Alert & Oriented x4 to person, place, time, situation. Moves all ext x4 A/P Assessment and Plan A/P: Pancreatic mass 3 cm with obstruction of the pancreatic duct. Liver mass/abscess 6.8 cm, status post CT-guided biopsy on 07/15, negative for neoplasm. Elevated transaminases Hypoalbuminemia. Moderate to severe prot nayeli malnutrition 2/2 decrease PO intake low appetite. add ensure. MVT, megace Pantoprazole for GI prophylaxis. Monitor LFTs. s/p CT-guided drainage of liver abscess Speech eval, diet heart healthy diet CT abdomen/pelvis done Status post liver abscess drain are inserted, appreciate oncology help, GI consulted plan for EUS and pancreatic biopsy next week Klebsiella bacteremia Continue abx (piperacillin/tazobactam) Monitor for signs of infections(fever and WBC). BC 07/20: GNR, Kleb pneumonia, Follow up on BC from 07/22- NGTD Wound/abscess 07/21 cx: Kleb pneumonia nasal washing is negative for influenza on 07/20 . ID is following- Dr. Franco Tobaccoism COPD exacerbation Continue with oxygen and maintain sats above 92%. Incentive spirometry while awake Budesonide/formoterol 160/4.5 2 puffs twice daily Albuterol/ipratropium aerosols every 4 hours with albuterol aerosols every 2 hours as needed dyspnea Extubated 07/23 Normocytic anemia Thrombocytopenia Elevated CA 19/9 History of prostate cancer Monitor CBC. Oncology is following- Dr. Gomez Pancreatic mass nondiagnostic GI prophylaxis-on pantoprazole, and DVT prophylaxis with SCDs. Lauryn Uribe MD Jul 31, 2017 13:26
--- NOTE | 2017-07-31 14:31 | HHI.GIFU ---
Subjective Remarks Pt OOB to chair. family at bedside. Pt c/o abd pain today. (Debbie Huynh) Objective Vitals I&O Vital Signs Date Time Temp Pulse Resp B/P (MAP) Pulse Ox O2 Delivery O2 Flow Rate FiO2 07/31/17 12:00 98.5 77 22 108/55 (72) 100 07/31/17 12:00 69 07/31/17 09:23 79 07/31/17 08:00 99.0 68 14 133/63 (86) 96 07/31/17 04:00 98.7 70 29 131/66 (87) 96 07/31/17 04:00 71 07/31/17 00:12 68 07/31/17 00:00 98.5 69 24 123/63 (83) 95 07/30/17 20:00 98.5 81 22 114/60 (78) 99 07/30/17 20:00 77 07/30/17 19:33 99 21 07/30/17 16:05 98.1 68 20 117/58 (77) 100 07/30/17 16:00 68 I/O 07/30/17 07/30/17 07/30/17 07/31/17 07/31/17 07/31/17 07:00 15:00 23:00 07:00 15:00 23:00 Intake Total 160 ml 100 ml 1360 ml 240 ml 35 ml Output Total 1100 ml 30 ml 880 ml Balance -940 ml 70 ml 1360 ml -640 ml 35 ml Intake Oral 160 ml 1360 ml 240 ml IV Total 100 ml 35 ml Output Urine Total 1050 ml 880 ml Drainage Total 50 ml 30 ml # Voids 4 # Bowel Movements 1 1 Laboratory Laboratory Tests Test 07/31/17 05:11 White Blood Count 15.0 Red Blood Count 3.56 Hemoglobin 10.5 Hematocrit 30.9 Mean Corpuscular Volume 86.7 Mean Corpuscular Hemoglobin 29.4 Mean Corpuscular Hemoglobin Concent 33.9 Red Cell Distribution Width 14.5 Platelet Count 247 Mean Platelet Volume 7.9 Neutrophils (%) (Auto) 88.6 Lymphocytes (%) (Auto) 6.1 Monocytes (%) (Auto) 5.0 Eosinophils (%) (Auto) 0.2 Basophils (%) (Auto) 0.1 Neutrophils # (Auto) 13.3 Lymphocytes # (Auto) 0.9 Monocytes # (Auto) 0.7 Eosinophils # (Auto) 0.0 Basophils # (Auto) 0.0 CBC Comment DIFF FINAL Differential Comment Blood Urea Nitrogen 13 Creatinine 0.77 Random Glucose 196 Calcium Level 7.6 Sodium Level 144 Potassium Level 3.2 Chloride Level 112 Carbon Dioxide Level 23.6 Anion Gap 8 Estimat Glomerular Filtration Rate 99 Date/Time Source Procedure Growth Status 07/22/17 14:30 Blood Peripheral Aerobic Blood Culture - Final NO GROWTH IN 5 DAYS Complete 07/22/17 14:30 Blood Peripheral Anaerobic Blood Culture - Final NO GROWTH IN 5 DAYS Complete 07/20/17 14:42 Nasal Washing Influenza Types A,B Antigen (ION) - Final NEGATIVE FOR FLU A AND B ANTIGEN.... Complete 07/29/17 14:35 Abscess Other Gram Stain - Final Complete 07/29/17 14:35 Wound Culture - Final [place] [employer] Complete Imaging Last Impressions Abscess Drainage CT 07/29/17 1236 Signed Impressions: Service Date/Time: Saturday, July 29, 2017 13:59 - CONCLUSION: Uncomplicated CT guided drainage with placement of 10 Kinyarwanda locking pigtail drain. Sunil Miller MD Abdomen/Pelvis CT 07/25/17 0000 Signed Impressions: Service Date/Time: Wednesday, July 26, 2017 01:41 - CONCLUSION: 1. Abnormal low density area laterally of the left hepatic lobe continues to evolve, slightly larger over the past several days and new since June, presumably a fluid collection and potentially an abscess. A catheter was placed recently but it is no longer present. 2. A fluid collection is developing along the posterior liver dome and is of concern for a possible subdiaphragmatic abscess, roughly 2.6 x 5.0 x 1.8 cm. 3. Vague low density lesion inferiorly of the right hepatic lobe not significantly changed. 4. Small bilateral pleural effusions have developed. There is also increasing dependent consolidation of the right lung base. 5. Pancreatic head mass with biliary stent again noted. 6. 3.7 cm infrarenal abdominal aortic aneurysm unchanged. Scott Paredes MD Chest X-Ray 07/21/17 0000 Signed Impressions: Service Date/Time: Friday, July 21, 2017 10:53 - CONCLUSION: 1. ETT in good position. NGT in good position. Right IJ central line in the SVC. 2. No pneumothorax or acute abnormality. Amos Capone MD Physical Exam HEENT: PERRL; normocephalic; atraumatic; no jaundice. CHEST: CTA CARDIAC: RRR ABDOMEN: Soft, mildly distended, diffuse TTP > LUQ; bowel sounds are present in all four quadrants. scant serosanguineous drainage in RUQ drain EXTREMITIES: No clubbing, cyanosis, or edema. SKIN: Normal; no rash; no jaundice. ARTIST AGENT: alert (Debbie Huynh) Assessment and Plan Plan ASSESSMENT - pancreatic mass - EUS 05/2017 FNA path poss mucinous neoplasm. GI consulted for poss EUS. CA 19-[address] 07/20/17 suggestive infectious porcess liver, 3 cm pancreatic mass with obstruction pancreatic duct, CBD stent CT 07/26/17 showed evolving liver fluid collection, subdiaphragmati cabscess, pancreatic head mass with biliary stent - liver abscess -s/p drainage and drain placement by IR 07/29/17. WBC WNL. 07/31/17 WBC up today. ID following. c/o abd pain. temp 99 PLAN - EUS tentatively early next week, Dr Sutton will review records and decide - continue abx per ID - supportive care - DEVONTE pt seen by myself and Dr Fregoso and this note is on his behalf (Debbie Huynh) Physician Comments Agree with above. EUS next week. (Nora Fregoso MD) Debbie Huynh Jul 31, 2017 14:31 Nora Fregoso MD Jul 31, 2017 14:55
[2017-07-31] MEDS: ACETAMINOPHEN 325 MG TAB PO PRN (14:56)
[2017-07-31] MEDS: MIRTAZAPINE 15 MG TAB PO SCH (21:31)
[2017-08-01] VITALS (7 sets, daily range): BP systolic 99–122; BP diastolic 57–59; PULSE 69–89; RESP 25–30; TEMP 97.7–98.8; O2SAT 98–99
[2017-08-01] MEDS: PIPERACIL-TAZO 4.5 GM PREMIX 100 ML IV SCH ×4 (03:59→20:52)
[2017-08-01] MEDS: ACETAMINOPHEN 325 MG TAB PO PRN (03:59)
[2017-08-01] MEDS: SODIUM CHLORIDE 0.9% 10 ML VIAL IRRIGATION SCH ×5 (06:00→20:54)
[2017-08-01] MEDS: BUDESONIDE-FORMOTEROL 160/4.5 MCG INHALER INH SCH ×2 (08:42→20:53)
[2017-08-01] MEDS: PANTOPRAZOLE SOD 40 MG DELAYED RELEASE TAB PO SCH (08:43)
[2017-08-01] MEDS: busPIRone HCL 5 MG TAB PO SCH ×2 (08:43→20:53)
[2017-08-01] MEDS: MULTIVITAMIN TAB PO SCH (08:43)
[2017-08-01] MEDS: MEGESTROL ACETATE 40 MG TAB PO SCH ×2 (08:43→20:53)
[2017-08-01] MEDS: SODIUM CHLORIDE 0.9% FLUSH 10 ML FLUSH IV FLUSH SCH ×2 (08:43→20:53)
[2017-08-01] MEDS: LACTOBACILLUS ACIDOPHILUS TAB PO SCH ×2 (08:43→20:53)
[2017-08-01] MEDS: LEVOFLOXACIN 750 MG TAB PO SCH (08:43)
[2017-08-01] MEDS: HYDROCORTISONE SOD SUCCINATE 100 MG VIAL IV PUSH SCH (08:43)
[2017-08-01] MEDS: MULTIVITAMIN-OPHTHALMIC 1 TAB PO SCH (08:43)
--- NOTE | 2017-08-01 12:27 | HHI.GIFU ---
Subjective Remarks Up in chair, visitors are present Awake and eyes any nausea or vomiting Left upper quadrant pain on light palpation Afebrile today, 99.7 on 07/31/17. (Malissa Aguilera) Objective Vitals I&O Vital Signs Date Time Temp Pulse Resp B/P (MAP) Pulse Ox O2 Delivery O2 Flow Rate FiO2 08/01/17 09:43 89 08/01/17 08:00 98.8 84 25 118/59 (78) 98 07/31/17 20:00 98.4 75 22 110/56 (74) 98 07/31/17 16:00 85 07/31/17 15:39 99.7 78 18 111/54 (73) 98 I/O 07/31/17 07/31/17 07/31/17 08/01/17 08/01/17 08/01/17 07:00 15:00 23:00 07:00 15:00 23:00 Intake Total 240 ml 35 ml 115 ml 240 ml Output Total 880 ml 35 ml 600 ml Balance -640 ml 35 ml 80 ml -360 ml Intake Oral 240 ml 240 ml IV Total 35 ml 115 ml Output Urine Total 880 ml 600 ml Drainage Total 35 ml # Voids 2 Laboratory Laboratory Tests Test 07/31/17 19:09 Potassium Level 4.1 Date/Time Source Procedure Growth Status 07/22/17 14:30 Blood Peripheral Aerobic Blood Culture - Final NO GROWTH IN 5 DAYS Complete 07/22/17 14:30 Blood Peripheral Anaerobic Blood Culture - Final NO GROWTH IN 5 DAYS Complete 07/20/17 14:42 Nasal Washing Influenza Types A,B Antigen (ION) - Final NEGATIVE FOR FLU A AND B ANTIGEN.... Complete 07/29/17 14:35 Abscess Other Gram Stain - Final Complete 07/29/17 14:35 Wound Culture - Final Pantoea Agglomerans Complete Imaging Last Impressions Abscess Drainage CT 07/29/17 1236 Signed Impressions: Service Date/Time: Saturday, July 29, 2017 13:59 - CONCLUSION: Uncomplicated CT guided drainage with placement of 10 Comoran locking pigtail drain. Sunil Miller MD Abdomen/Pelvis CT 07/25/17 0000 Signed Impressions: Service Date/Time: Wednesday, July 26, 2017 01:41 - CONCLUSION: 1. Abnormal low density area laterally of the left hepatic lobe continues to evolve, slightly larger over the past several days and new since June, presumably a fluid collection and potentially an abscess. A catheter was placed recently but it is no longer present. 2. A fluid collection is developing along the posterior liver dome and is of concern for a possible subdiaphragmatic abscess, roughly 2.6 x 5.0 x 1.8 cm. 3. Vague low density lesion inferiorly of the right hepatic lobe not significantly changed. 4. Small bilateral pleural effusions have developed. There is also increasing dependent consolidation of the right lung base. 5. Pancreatic head mass with biliary stent again noted. 6. 3.7 cm infrarenal abdominal aortic aneurysm unchanged. Scott Paredes MD Chest X-Ray 07/21/17 0000 Signed Impressions: Service Date/Time: Friday, July 21, 2017 10:53 - CONCLUSION: 1. ETT in good position. NGT in good position. Right IJ central line in the SVC. 2. No pneumothorax or acute abnormality. Amos Capone MD Physical Exam HEENT: PERRL; normocephalic; atraumatic; no jaundice. CHEST: CTA no audible rhonchi or wheezing CARDIAC: RRR ABDOMEN: Soft, mildly distended, diffuse TTP > LUQ; bowel sounds are present in all four quadrants. scant serosanguineous drainage in RUQ drain EXTREMITIES: No clubbing, cyanosis, or edema. SKIN: Normal; no rash; no jaundice. 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 GI consulted for poss EUS. CA 19-[address] 07/20/17 suggestive infectious porcess liver, 3 cm pancreatic mass with obstruction pancreatic duct, CBD stent CT 07/26/17 showed evolving liver fluid collection, subdiaphragmati cabscess, pancreatic head mass with biliary stent - liver abscess -s/p drainage and drain placement by IR 07/29/17. WBC WNL. 07/31/17 WBC up today. ID following. c/o abd pain. temp 99 08/01/17, afebrile today, or alert answering simple questions. Mid abdominal drainage system clean dry and intact. Left upper quadrant pain with light palpation continues. No nausea vomiting, PLAN - Diet regular as tolerated - EUS and biopsy tentatively early next week, Dr Sutton - Lactobacillus - PPI - Bowel regimen stool softeners and laxatives as needed -Zofran - continue abx per ID - supportive care pt seen by myself and Dr Fregoso and this note is on his behalf (Malissa Aguilera) Physician Comments For possible biopsy via EUS in few days. Stable otherwise and plan as above. (Nora Fregoso MD) Malissa Aguilera Aug 01, 2017 12:27 Nora Fregoso MD Aug 01, 2017 22:43
--- NOTE | 2017-08-01 15:41 | HHI.PR ---
Subjective Remarks F/U bacteremia and abscess. Doing ok some discomfort over cath drain site dw RN and ID Objective Vitals Vital Signs Date Time Temp Pulse Resp B/P (MAP) Pulse Ox O2 Delivery O2 Flow Rate FiO2 08/01/17 12:47 69 08/01/17 12:00 97.8 80 30 99/58 (72) 99 08/01/17 09:43 89 08/01/17 08:00 98.8 84 25 118/59 (78) 98 07/31/17 20:00 98.4 75 22 110/56 (74) 98 07/31/17 16:00 85 I/O 07/31/17 07/31/17 07/31/17 08/01/17 08/01/17 08/01/17 07:00 15:00 23:00 07:00 15:00 23:00 Intake Total 240 ml 35 ml 115 ml 240 ml 100 ml Output Total 880 ml 35 ml 600 ml 20 ml Balance -640 ml 35 ml 80 ml -360 ml 80 ml Intake Oral 240 ml 240 ml IV Total 35 ml 115 ml 100 ml Output Urine Total 880 ml 600 ml Drainage Total 35 ml 20 ml # Voids 2 Result Diagram: 07/31/17 0511 07/31/17 1909 Imaging Last Impressions Abscess Drainage CT 07/29/17 1236 Signed Impressions: Service Date/Time: Saturday, July 29, 2017 13:59 - CONCLUSION: Uncomplicated CT guided drainage with placement of 10 Azerbaijani locking pigtail drain. Sunil Miller MD Abdomen/Pelvis CT 07/25/17 0000 Signed Impressions: Service Date/Time: Wednesday, July 26, 2017 01:41 - CONCLUSION: 1. Abnormal low density area laterally of the left hepatic lobe continues to evolve, slightly larger over the past several days and new since June, presumably a fluid collection and potentially an abscess. A catheter was placed recently but it is no longer present. 2. A fluid collection is developing along the posterior liver dome and is of concern for a possible subdiaphragmatic abscess, roughly 2.6 x 5.0 x 1.8 cm. 3. Vague low density lesion inferiorly of the right hepatic lobe not significantly changed. 4. Small bilateral pleural effusions have developed. There is also increasing dependent consolidation of the right lung base. 5. Pancreatic head mass with biliary stent again noted. 6. 3.7 cm infrarenal abdominal aortic aneurysm unchanged. Scott Paredes MD Chest X-Ray 07/21/17 0000 Signed Impressions: Service Date/Time: Friday, July 21, 2017 10:53 - CONCLUSION: 1. ETT in good position. NGT in good position. Right IJ central line in the SVC. 2. No pneumothorax or acute abnormality. Amos Capone MD Objective Remarks GENERAL: This is a frail 72 years old male CARDIOVASCULAR: Regular rate and rhythm without murmurs, gallops, or rubs. RESPIRATORY: Fair air entry. No wheezes, rales, or rhonchi. GASTROINTESTINAL: Abdomen soft, non-tender, nondistended. Normal active bowel sounds, liver abscess drain in place MUSCULOSKELETAL: Extremities without clubbing, cyanosis, or edema. NEURO: Alert & Oriented x4 to person, place, time, situation. Moves all ext x4 Procedures C/L, abscess drainage A/P Problem List: (1) Liver abscess ICD Code: K75.0 - Abscess of liver (2) Pancreatic mass ICD Code: K86.9 - Disease of pancreas, unspecified Assessment and Plan Pancreatic mass 3 cm with obstruction of the pancreatic duct. Liver mass/abscess 6.8 cm, status post CT-guided biopsy on 07/15, negative for neoplasm. Elevated transaminases. Improved Hypoalbuminemia. Moderate to severe prot nayeli malnutrition 2/2 decrease PO intake low appetite. Ct ensure, MVI and megace Pantoprazole for GI prophylaxis. Monitor LFTs. s/p CT-guided drainage of liver abscess x 2. Last cx with Alfredito dw ID, significance not clear will repeat cx GI consulted plan for EUS and pancreatic biopsy next week Klebsiella bacteremia Continue abx (piperacillin/tazobactam) Monitor for signs of infections(fever and WBC). BC 07/20: GNR, Kleb pneumonia, Follow up on BC from 07/22- NGTD Wound/abscess 07/21 cx: Kleb pneumonia 07/29 Pantoea pansensitive rpt cx ordered nasal washing is negative for influenza on 07/20 . ID is following- Dr. Franco Tobaccoism COPD exacerbation. Resolved Continue with oxygen and maintain sats above 92%. Incentive spirometry while awake Budesonide/formoterol 160/4.5 2 puffs twice daily Albuterol/ipratropium aerosols every 4 hours with albuterol aerosols every 2 hours as needed dyspnea Extubated 07/23 Wean steroids switch to po Normocytic anemia Thrombocytopenia Elevated CA 19/9 History of prostate cancer Monitor CBC. Oncology is following- Dr. Gomez Pancreatic mass nondiagnostic GI prophylaxis-on pantoprazole, and DVT prophylaxis with SCDs. Discharge Planning [facility] PT when ready for dc Austin Little MD Aug 01, 2017 15:41
--- NOTE | 2017-08-01 16:18 | HHI.IDPN ---
Note Infectious Disease Note Patient in no distress. States that he feels okay. Stools are soft and not diarrheal. New drain was placed into the hepatic fluid collection on 07/29. New culture has Pantoea agglomerans. No fever. Denies chills. Awake and alert. Denies abdominal pain. Patient is due to undergo evaluation of the pancreatic mass with procedure in a couple of days. Presented to the emergency department on 07/20 with fever. 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 PAST MEDICAL HISTORY: 1. COPD. 2. Anxiety. 3. Prostate cancer. 4. Pancreatic mass newly diagnosed. 5. Liver lesion, metastasis versus abscess. 6. History of TURP. ALLERGIES: NO KNOWN DRUG ALLERGIES. ANTIBIOTICS: Piperacillin/tazobactam. Levaquin. Current Medications Medications (Trade) Dose Ordered Sig/Sreedhar Route PRN Reason Start Time Stop Time Status Last Admin Dose Admin Sodium Chloride (NS Flush) 2 ml UNSCH PRN IV FLUSH FLUSH AFTER USING IV ACCESS 07/20/17 18:30 07/29/17 04:56 Sodium Chloride (NS Flush) 2 ml BID IV FLUSH 07/20/17 21:00 08/01/17 08:43 Ondansetron HCl (Zofran Inj) 4 mg Q6H PRN IVP NAUSEA OR VOMITING 07/20/17 18:30 07/20/17 20:28 Naloxone HCl (Narcan Inj) 0.4 mg UNSCH PRN IV PUSH SEE LABEL COMMENTS 07/20/17 18:30 Magnesium Hydroxide (Milk Of Magnesia Liq) 30 ml Q12H PRN PO Mild constipation 07/20/17 18:30 07/23/17 02:57 Sennosides (Senokot) 17.2 mg Q12H PRN PO Moderate constipation 07/20/17 18:30 Bisacodyl (Dulcolax Supp) 10 mg DAILY PRN RECTAL SEVERE CONSITIPATION 07/20/17 18:30 Lactulose (Lactulose Liq) 30 ml DAILY PRN PO SEVERE CONSITIPATION 07/20/17 18:30 07/23/17 02:57 Budesonide/ Formoterol Fumarate (Symbicort 160-4.5 Mcg Inh) 2 puff Q12HR INH 07/21/17 09:15 08/01/17 08:42 Sodium Chloride (NS Inj) 10 ml BID IRRIGATION 07/21/17 21:00 08/01/17 09:13 Miscellaneous Information D/C ICU ELECTROLYTE ORDERS... UNSCH PRN .XX SEE DOSE INSTRUCTIONS 07/24/17 07:30 Miscellaneous Information ICU - CALL ORDERING PHYSIC... UNSCH PRN .XX SEE DOSE INSTRUCTIONS 07/24/17 07:30 Potassium Chloride 100 ml @ 25 mls/hr UNSCH PRN IV ELECTROLYTE REPLACEMENT 07/24/17 07:30 Potassium Bicarb/ Potassium Chloride (K-Lyte Cl Eff) 50 meq UNSCH PRN PO ELECTROLYTE REPLACEMENT 07/24/17 07:30 07/31/17 09:04 Potassium Chloride 100 ml @ 50 mls/hr UNSCH PRN IV ELECTROLYTE REPLACEMENT 07/24/17 07:30 07/31/17 06:21 Magnesium Sulfate 4 gm/Sodium Chloride 108 ml @ 54 mls/hr UNSCH PRN IV ELECTROLYTE REPLACEMENT 07/24/17 07:30 Magnesium Sulfate 2 gm/Sodium Chloride 104 ml @ 52 mls/hr UNSCH PRN IV ELECTROLYTE REPLACEMENT 07/24/17 07:30 Magnesium Oxide (Mag-Ox) 800 mg UNSCH PRN PO ELECTROLYTE REPLACEMENT 07/24/17 07:30 Sodium Phosphate 30 mmol/Sodium Chloride 260 ml @ 43.333 mls/ hr UNSCH PRN IV ELECTROLYTE REPLACEMENT 07/24/17 07:30 Potassium Phosphate (K-Phos) 2,000 mg UNSCH PRN PO ELECTROLYTE REPLACEMENT 07/24/17 07:30 Potassium Phosphate 30 mmol/ Sodium Chloride 260 ml @ 43.333 mls/ hr UNSCH PRN IV ELECTROLYTE REPLACEMENT 07/24/17 07:30 07/25/17 06:50 Albuterol Sulfate (Albuterol Neb) 2.5 mg Q2HR NEB PRN NEB dyspnea 07/25/17 06:45 Pantoprazole Sodium (Protonix) 40 mg DAILY PO 07/25/17 09:00 08/01/17 08:43 Buspirone HCl (Buspar) 5 mg BID PO 07/25/17 09:00 08/01/17 08:43 Megestrol Acetate (Megace) 20 mg BID PO 07/25/17 09:00 08/01/17 08:43 Mirtazapine (Remeron) 45 mg HS PO 07/25/17 21:00 07/31/17 21:31 Vit C/Vit E/Zinc/ Copper/Lutein (Ocuvite) 1 tab DAILY PO 07/25/17 09:00 08/01/17 08:43 Acetaminophen (Tylenol) 650 mg Q6H PRN PO TEMP > 100.4 07/25/17 07:00 08/01/17 03:59 Multivitamins (Theragran) 1 tab DAILY PO 07/25/17 10:45 08/01/17 08:43 Piperacillin Sod/ Tazobactam Sod 100 ml @ 200 mls/hr Q6H IV 07/26/17 16:00 08/01/17 16:09 Sodium Chloride (NS Inj) 10 ml Q8HR IRRIGATION 07/29/17 22:00 07/31/17 21:34 Levofloxacin (Levaquin) 750 mg DAILY PO 07/30/17 17:00 08/01/17 08:43 Lactobacillus Acidophilus (Lactinex) 1 tab Q12HR PO 07/30/17 21:00 08/01/17 08:43 Prednisone (Deltasone) 10 mg BID PO 08/01/17 21:00 SOCIAL HISTORY: Unable to obtain. Medical chart review reports no tobacco, no alcohol, and no illicit drugs. OBJECTIVE: Vital Signs Date Time Temp Pulse Resp B/P (MAP) Pulse Ox O2 Delivery O2 Flow Rate FiO2 08/01/17 12:47 69 08/01/17 12:00 97.8 80 30 99/58 (72) 99 08/01/17 09:43 89 08/01/17 08:00 98.8 84 25 118/59 (78) 98 07/31/17 20:00 98.4 75 22 110/56 (74) 98 Laboratory Tests Test 07/31/17 05:11 White Blood Count 15.0 TH/MM3 Red Blood Count 3.56 MIL/MM3 Hemoglobin 10.5 GM/DL Hematocrit 30.9 % Mean Corpuscular Volume 86.7 FL Mean Corpuscular Hemoglobin 29.4 PG Mean Corpuscular Hemoglobin Concent 33.9 % Red Cell Distribution Width 14.5 % Platelet Count 247 TH/MM3 Mean Platelet Volume 7.9 FL Neutrophils (%) (Auto) 88.6 % Lymphocytes (%) (Auto) 6.1 % Monocytes (%) (Auto) 5.0 % Eosinophils (%) (Auto) 0.2 % Basophils (%) (Auto) 0.1 % Neutrophils # (Auto) 13.3 TH/MM3 Lymphocytes # (Auto) 0.9 TH/MM3 Monocytes # (Auto) 0.7 TH/MM3 Eosinophils # (Auto) 0.0 TH/MM3 Basophils # (Auto) 0.0 TH/MM3 CBC Comment DIFF FINAL Differential Comment Laboratory Tests Test 07/31/17 05:11 07/31/17 19:09 Blood Urea Nitrogen 13 MG/DL Creatinine 0.77 MG/DL Random Glucose 196 MG/DL Calcium Level 7.6 MG/DL Sodium Level 144 MEQ/L Potassium Level 3.2 MEQ/L 4.1 MEQ/L Chloride Level 112 MEQ/L Carbon Dioxide Level 23.6 MEQ/L Anion Gap 8 MEQ/L Estimat Glomerular Filtration Rate 99 ML/MIN Microbiology Date/Time Source Procedure Growth Status 08/01/17 13:45 Wound Abdomen Gram Stain Pending Received 08/01/17 13:45 Wound Abdomen Wound Culture Pending Received IMAGING: Abscess Drainage CT 07/29/17 1236 Signed Impressions: Service Date/Time: Saturday, July 29, 2017 13:59 - CONCLUSION: Uncomplicated CT guided drainage with placement of 10 Romansh locking pigtail drain. Sunil Miller MD Chest X-Ray 07/21/17 0000 Signed Impressions: Service Date/Time: Friday, July 21, 2017 10:53 - CONCLUSION: 1. ETT in good position. NGT in good position. Right IJ central line in the SVC. 2. No pneumothorax or acute abnormality. Amos Capone MD Abdomen/Pelvis CT 07/20/17 1426 Signed Impressions: Service Date/Time: Thursday, July 20, 2017 15:30 - CONCLUSION: 1. Interval appearance of a 6.8 cm low-density lesion involving the left lobe of the liver. Scattered vague areas of decreased density within the right lobe. This is concerning for an infectious process that is yet to liquefy. 2. Approximate 3 cm pancreatic head mass with obstruction of the pancreatic duct. Stent within the common bile duct is patent. 3. Pneumobilia. 4. Right basilar atelectasis. Andre Jones Jr., MD PHYSICAL EXAM: GENERAL: Alert and awake. No acute distress. HEENT: The head is atraumatic. Extraocular movements cannot be fully assessed. Pupils reactive to light. No icterus. Oral mucosa is moist. NECK: No adenopathy or swelling. LUNGS: Clear. HEART: Normal S1 and S2. No murmurs, rubs or gallops audible. ABDOMEN: Bowel sounds present, soft, very mild tenderness at the left periumbilical area. Drainage catheter in place in the right abdomen. This has light red/rust colored drainage. The drainage has decreased. EXTREMITIES: No cyanosis, clubbing or edema. SKIN: No rash. NEURO: No gross focal finding. PSYCH: Calm and cooperative. IMPRESSION: 1. Septic shock due to Klebsiella. Resolved. The patient was hypotensive, febrile with acute respiratory failure and also positive blood cultures. 2. Liver abscess due to Klebsiella. New drainage catheter placed 07/29. Repeat culture has gram-negative ramirez from drainage. 3. Acute respiratory failure. Extubated. 4. Pancreatic mass. 5. Elevated liver function tests. Liver function test improved. 6. Leukocytosis secondary to infection. Resolved. Appears clinically stable. RECOMMENDATIONS: 1. Continue piperacillin/tazobactam. 2. Continue Levaquin PO. 3. Continue Lactinex. 4. Send another sample of fluid from the hepatic catheter for culture. Last culture had Pantoea agglomerans. I am not sure whether this is significant Since the prior culture was Klebsiella. However it is sensitive to the current antibiotics. 5. Monitor drainage from the hepatic fluid catheter. 6. Continue to monitor clinical status. Roger Franco MD Aug 01, 2017 16:18
[2017-08-01] MEDS: MIRTAZAPINE 15 MG TAB PO SCH (20:53)
[2017-08-01] MEDS: predniSONE 10 MG TAB PO SCH (20:53)
[2017-08-02] VITALS (7 sets, daily range): BP systolic 96–122; BP diastolic 51–63; PULSE 67–89; RESP 18–25; TEMP 97.6–98.6; O2SAT 97–98
[2017-08-02] MEDS: PIPERACIL-TAZO 4.5 GM PREMIX 100 ML IV SCH ×4 (05:40→21:44)
[2017-08-02] MEDS: SODIUM CHLORIDE 0.9% FLUSH 10 ML FLUSH IV FLUSH PRN (05:40)
[2017-08-02] MEDS: SODIUM CHLORIDE 0.9% 10 ML VIAL IRRIGATION SCH ×5 (05:40→21:44)
[2017-08-02] MEDS: MULTIVITAMIN-OPHTHALMIC 1 TAB PO SCH (08:32)
[2017-08-02] MEDS: MULTIVITAMIN TAB PO SCH (08:32)
[2017-08-02] MEDS: LACTOBACILLUS ACIDOPHILUS TAB PO SCH ×2 (08:32→21:41)
[2017-08-02] MEDS: PANTOPRAZOLE SOD 40 MG DELAYED RELEASE TAB PO SCH (08:33)
[2017-08-02] MEDS: predniSONE 10 MG TAB PO SCH ×2 (08:33→21:41)
[2017-08-02] MEDS: LEVOFLOXACIN 750 MG TAB PO SCH (08:33)
[2017-08-02] MEDS: SODIUM CHLORIDE 0.9% FLUSH 10 ML FLUSH IV FLUSH SCH ×2 (08:33→21:44)
[2017-08-02] MEDS: busPIRone HCL 5 MG TAB PO SCH ×2 (08:33→21:42)
[2017-08-02] MEDS: MEGESTROL ACETATE 40 MG TAB PO SCH ×2 (08:33→21:41)
[2017-08-02] MEDS: BUDESONIDE-FORMOTEROL 160/4.5 MCG INHALER INH SCH ×2 (08:34→21:44)
--- NOTE | 2017-08-02 12:44 | HHI.GIFU ---
Subjective Remarks Pt resting in bed, listening to Laura Sotomayor. Says he's feeling good today. Minimal pain, mainly around drain site. (Debbie Huynh) Objective Vitals I&O Vital Signs Date Time Temp Pulse Resp B/P (MAP) Pulse Ox O2 Delivery O2 Flow Rate FiO2 08/02/17 08:00 97.8 78 20 99/59 (72) 98 08/02/17 04:00 97.6 78 21 122/63 (82) 97 08/02/17 00:00 98.1 71 18 111/54 (73) 97 08/01/17 23:00 88 08/01/17 16:46 77 08/01/17 16:00 97.7 77 25 122/57 (78) 99 08/01/17 12:47 69 I/O 08/01/17 08/01/17 08/01/17 08/02/17 08/02/17 08/02/17 07:00 15:00 23:00 07:00 15:00 23:00 Intake Total 240 ml 100 ml 1200 ml Output Total 600 ml 20 ml Balance -360 ml 80 ml 1200 ml Intake Oral 240 ml 1200 ml IV Total 100 ml Output Urine Total 600 ml Drainage Total 20 ml # Voids 2 # Bowel Movements 2 Laboratory Date/Time Source Procedure Growth Status 07/22/17 14:30 Blood Peripheral Aerobic Blood Culture - Final NO GROWTH IN 5 DAYS Complete 07/22/17 14:30 Blood Peripheral Anaerobic Blood Culture - Final NO GROWTH IN 5 DAYS Complete 07/20/17 14:42 Nasal Washing Influenza Types A,B Antigen (ION) - Final NEGATIVE FOR FLU A AND B ANTIGEN.... Complete 08/01/17 13:45 Wound Abdomen Gram Stain - Final Resulted 08/01/17 13:45 Wound Abdomen Wound Culture - Preliminary NO GROWTH IN 24 HOURS. Resulted Imaging Last Impressions Abscess Drainage CT 07/29/17 1236 Signed Impressions: Service Date/Time: Saturday, July 29, 2017 13:59 - CONCLUSION: Uncomplicated CT guided drainage with placement of 10 Iranian locking pigtail drain. Sunil Miller MD Abdomen/Pelvis CT 07/25/17 0000 Signed Impressions: Service Date/Time: Wednesday, July 26, 2017 01:41 - CONCLUSION: 1. Abnormal low density area laterally of the left hepatic lobe continues to evolve, slightly larger over the past several days and new since June, presumably a fluid collection and potentially an abscess. A catheter was placed recently but it is no longer present. 2. A fluid collection is developing along the posterior liver dome and is of concern for a possible subdiaphragmatic abscess, roughly 2.6 x 5.0 x 1.8 cm. 3. Vague low density lesion inferiorly of the right hepatic lobe not significantly changed. 4. Small bilateral pleural effusions have developed. There is also increasing dependent consolidation of the right lung base. 5. Pancreatic head mass with biliary stent again noted. 6. 3.7 cm infrarenal abdominal aortic aneurysm unchanged. Scott Paredes MD Chest X-Ray 07/21/17 0000 Signed Impressions: Service Date/Time: Friday, July 21, 2017 10:53 - CONCLUSION: 1. ETT in good position. NGT in good position. Right IJ central line in the SVC. 2. No pneumothorax or acute abnormality. Amos Capone MD Physical Exam HEENT: PERRL; normocephalic; atraumatic; no jaundice. CHEST: CTA no audible rhonchi or wheezing CARDIAC: RRR ABDOMEN: Soft, mildly distended, TTP mid abd around drain; bowel sounds are present in all four quadrants. drain w/ scant serous drainage EXTREMITIES: No clubbing, cyanosis, or edema. SKIN: Normal; no rash; no jaundice. INFORMATICA DEVELOPER: awake and alert (Debbie Huynh FINISHER CARD TENDER) Assessment and Plan Plan ASSESSMENT - pancreatic mass - EUS 05/2017 FNA path poss mucinous neoplasm. GI consulted for poss EUS. CA 19-[address] 07/20/17 suggestive infectious porcess liver, 3 cm pancreatic mass with obstruction pancreatic duct, CBD stent CT 07/26/17 showed evolving liver fluid collection, subdiaphragmati cabscess, pancreatic head mass with biliary stent - liver abscess -s/p drainage and drain placement by IR 07/29/17. WBC WNL. 07/31/17 WBC up today. ID following. c/o abd pain. temp 99 08/01/17, afebrile today, or alert answering simple questions. Mid abdominal drainage system clean dry and intact. Left upper quadrant pain with light palpation continues. No nausea vomiting, 3/18/18 doing well today. some drain site pain. PLAN - Diet regular as tolerated - EUS and biopsy tentatively early next week, Dr Sutton to evaluate - PPI - continue abx per ID - supportive care pt seen by myself and Dr Fregoso and this note is on his behalf (Debbie Huynh) Physician Comments As above, will follow up with you (Nora Fregoso MD) Debbie Huynh Aug 02, 2017 12:44 Nora Fregoso MD Aug 02, 2017 13:20
--- NOTE | 2017-08-02 15:18 | HHI.PR ---
Subjective Remarks Follow-up pancreatic mass. Denies abdominal pain awaiting EGD with EUS by GI. Discussed with nursing Objective Vitals Vital Signs Date Time Temp Pulse Resp B/P (MAP) Pulse Ox O2 Delivery O2 Flow Rate FiO2 08/02/17 12:00 98.3 73 20 96/51 (66) 97 08/02/17 08:00 97.8 78 20 99/59 (72) 98 08/02/17 04:00 97.6 78 21 122/63 (82) 97 08/02/17 00:00 98.1 71 18 111/54 (73) 97 08/01/17 23:00 88 08/01/17 16:46 77 08/01/17 16:00 97.7 77 25 122/57 (78) 99 I/O 08/01/17 08/01/17 08/01/17 08/02/17 08/02/17 08/02/17 07:00 15:00 23:00 07:00 15:00 23:00 Intake Total 240 ml 100 ml 1200 ml Output Total 600 ml 20 ml Balance -360 ml 80 ml 1200 ml Intake Oral 240 ml 1200 ml IV Total 100 ml Output Urine Total 600 ml Drainage Total 20 ml # Voids 2 # Bowel Movements 2 Result Diagram: 07/31/17 0511 07/31/17 1909 Imaging Last Impressions Abscess Drainage CT 07/29/17 1236 Signed Impressions: Service Date/Time: Saturday, July 29, 2017 13:59 - CONCLUSION: Uncomplicated CT guided drainage with placement of 10 Qatari locking pigtail drain. Sunil Miller MD Abdomen/Pelvis CT 07/25/17 0000 Signed Impressions: Service Date/Time: Wednesday, July 26, 2017 01:41 - CONCLUSION: 1. Abnormal low density area laterally of the left hepatic lobe continues to evolve, slightly larger over the past several days and new since June, presumably a fluid collection and potentially an abscess. A catheter was placed recently but it is no longer present. 2. A fluid collection is developing along the posterior liver dome and is of concern for a possible subdiaphragmatic abscess, roughly 2.6 x 5.0 x 1.8 cm. 3. Vague low density lesion inferiorly of the right hepatic lobe not significantly changed. 4. Small bilateral pleural effusions have developed. There is also increasing dependent consolidation of the right lung base. 5. Pancreatic head mass with biliary stent again noted. 6. 3.7 cm infrarenal abdominal aortic aneurysm unchanged. Scott Paredes MD Chest X-Ray 07/21/17 0000 Signed Impressions: Service Date/Time: Friday, July 21, 2017 10:53 - CONCLUSION: 1. ETT in good position. NGT in good position. Right IJ central line in the SVC. 2. No pneumothorax or acute abnormality. Amos Capone MD Objective Remarks GENERAL: This is a frail 72 years old male CARDIOVASCULAR: Regular rate and rhythm without murmurs, gallops, or rubs. RESPIRATORY: Fair air entry. No wheezes, rales, or rhonchi. GASTROINTESTINAL: Abdomen soft, non-tender, nondistended. Normal active bowel sounds, liver abscess drain in place MUSCULOSKELETAL: Extremities without clubbing, cyanosis, or edema. NEURO: Alert & Oriented x4 to person, place, time, situation. Moves all ext x4 Procedures C/L, abscess drainage A/P Problem List: (1) Liver abscess ICD Code: K75.0 - Abscess of liver (2) Pancreatic mass ICD Code: K86.9 - Disease of pancreas, unspecified Assessment and Plan Pancreatic mass 3 cm with obstruction of the pancreatic duct. Liver mass/abscess 6.8 cm, status post CT-guided biopsy on 07/15, negative for neoplasm. Elevated transaminases. Improved Hypoalbuminemia. Moderate to severe prot nayeli malnutrition 2/2 decrease PO intake low appetite. Ct ensure, MVI and megace Pantoprazole for GI prophylaxis. Monitor LFTs. s/p CT-guided drainage of liver abscess x 2. Last cx with Alfredito dw ID, significance not clear will repeat cx GI consulted plan for EUS and pancreatic biopsy this week Klebsiella bacteremia Continue abx (piperacillin/tazobactam) Monitor for signs of infections(fever and WBC). BC 07/20: GNR, Kleb pneumonia, Follow up on BC from 07/22- NGTD Wound/abscess 07/21 cx: Kleb pneumonia 07/29 [facility] pansensitive rpt cx ordered nasal washing is negative for influenza on 07/20 . ID is following- Dr. Franco Tobaccoism COPD exacerbation. Resolved Continue with oxygen and maintain sats above 92%. Incentive spirometry while awake Budesonide/formoterol 160/4.5 2 puffs twice daily Albuterol/ipratropium aerosols every 4 hours with albuterol aerosols every 2 hours as needed dyspnea Extubated 07/23 Wean steroids switch to po Normocytic anemia Thrombocytopenia Elevated CA 19/9 History of prostate cancer Leukocytosis likely from steroid Monitor CBC. Oncology is following- Dr. Gomez Pancreatic mass nondiagnostic GI prophylaxis-on pantoprazole, and DVT prophylaxis with SCDs. Discharge Planning [facility] PT when ready for dc Anabel,Austin Mohamud MD Aug 02, 2017 15:18
[2017-08-02] MEDS: MIRTAZAPINE 15 MG TAB PO SCH (21:41)
[2017-08-03] VITALS (7 sets, daily range): BP systolic 99–113; BP diastolic 54–69; PULSE 68–86; RESP 20–31; TEMP 97.8–98.5; O2SAT 95–99
[2017-08-03] MEDS: PIPERACIL-TAZO 4.5 GM PREMIX 100 ML IV SCH ×4 (04:00→20:54)
[2017-08-03 05:55] LABS: HEMATOCRIT 33.7 % (39.0-51.0); HEMOGLOBIN 11.3 GM/DL (13.0-17.0); MEAN CELL VOLUME 87.9 FL (80.0-100.0); MEAN CORPUSCULAR HEMOGLOBIN 29.4 PG (27.0-34.0); MEAN CORPUSCULAR HGB CONC 33.5 % (32.0-36.0); MEAN PLATELET VOLUME 7.7 FL (7.0-11.0); PLATELET COUNT 305 TH/MM3 (150-450); RED BLOOD COUNT 3.84 MIL/MM3 (4.50-5.90); RED CELL DISTRIBUTION WIDTH 14.8 % (11.6-17.2); WHITE BLOOD COUNT 13.8 TH/MM3 (4.0-11.0)
[2017-08-03] MEDS: SODIUM CHLORIDE 0.9% 10 ML VIAL IRRIGATION SCH ×5 (06:00→20:55)
[2017-08-03 06:25] LABS: ALBUMIN 2.1 GM/DL (3.4-5.0); DIRECT BILIRUBIN ADULT 0.2 MG/DL (0.0-0.2)
[2017-08-03 06:26] LABS: INDIRECT BILIRUBIN 0.1 MG/DL (0.0-0.8); TOTAL BILIRUBIN ADULT 0.3 MG/DL (0.2-1.0)
--- NOTE | 2017-08-03 08:52 | HHI.GIFU ---
Subjective Remarks Pt resting in in bed reading. Denies abd pain. Says his liver drain is clogged b/c there is no drainage adn it won't flush. (Debbie Huynh) Objective Vitals I&O Vital Signs Date Time Temp Pulse Resp B/P (MAP) Pulse Ox O2 Delivery O2 Flow Rate FiO2 08/03/17 08:00 97.8 68 24 108/62 (77) 98 08/03/17 03:48 98.0 76 31 113/57 (75) 97 08/03/17 00:00 98.3 80 24 106/55 (72) 97 08/02/17 23:00 74 08/02/17 20:00 98.6 74 25 113/59 (77) 98 08/02/17 16:00 98.1 89 20 108/57 (74) 97 08/02/17 12:00 98.3 73 20 96/51 (66) 97 I/O 08/02/17 08/02/17 08/02/17 08/03/17 08/03/17 08/03/17 07:00 15:00 23:00 07:00 15:00 23:00 Intake Total 580 ml Balance 580 ml Intake Oral 480 ml IV Total 100 ml # Voids 3 # Bowel Movements 2 Laboratory Laboratory Tests Test 08/03/17 05:06 White Blood Count 13.8 Red Blood Count 3.84 Hemoglobin 11.3 Hematocrit 33.7 Mean Corpuscular Volume 87.9 Mean Corpuscular Hemoglobin 29.4 Mean Corpuscular Hemoglobin Concent 33.5 Red Cell Distribution Width 14.8 Platelet Count 305 Mean Platelet Volume 7.7 Total Bilirubin 0.3 Direct Bilirubin 0.2 Indirect Bilirubin 0.1 Aspartate Amino Transf (AST/SGOT) 36 Alanine Aminotransferase (ALT/SGPT) 70 Alkaline Phosphatase 92 Total Protein 6.0 Albumin 2.1 Date/Time Source Procedure Growth Status 07/22/17 14:30 Blood Peripheral Aerobic Blood Culture - Final NO GROWTH IN 5 DAYS Complete 07/22/17 14:30 Blood Peripheral Anaerobic Blood Culture - Final NO GROWTH IN 5 DAYS Complete 07/20/17 14:42 Nasal Washing Influenza Types A,B Antigen (ION) - Final NEGATIVE FOR FLU A AND B ANTIGEN.... Complete 08/01/17 13:45 Wound Abdomen Gram Stain - Final Resulted 08/01/17 13:45 Wound Abdomen Wound Culture - Preliminary NO GROWTH IN 24 HOURS. Resulted Imaging Last Impressions Abscess Drainage CT 07/29/17 1236 Signed Impressions: Service Date/Time: Saturday, July 29, 2017 13:59 - CONCLUSION: Uncomplicated CT guided drainage with placement of 10 Kuwaiti locking pigtail drain. Sunil Miller MD Abdomen/Pelvis CT 07/25/17 0000 Signed Impressions: Service Date/Time: Wednesday, July 26, 2017 01:41 - CONCLUSION: 1. Abnormal low density area laterally of the left hepatic lobe continues to evolve, slightly larger over the past several days and new since June, presumably a fluid collection and potentially an abscess. A catheter was placed recently but it is no longer present. 2. A fluid collection is developing along the posterior liver dome and is of concern for a possible subdiaphragmatic abscess, roughly 2.6 x 5.0 x 1.8 cm. 3. Vague low density lesion inferiorly of the right hepatic lobe not significantly changed. 4. Small bilateral pleural effusions have developed. There is also increasing dependent consolidation of the right lung base. 5. Pancreatic head mass with biliary stent again noted. 6. 3.7 cm infrarenal abdominal aortic aneurysm unchanged. Scott Paredes MD Chest X-Ray 07/21/17 0000 Signed Impressions: Service Date/Time: Friday, July 21, 2017 10:53 - CONCLUSION: 1. ETT in good position. NGT in good position. Right IJ central line in the SVC. 2. No pneumothorax or acute abnormality. Amos Capone MD Physical Exam HEENT: PERRL; normocephalic; atraumatic; no jaundice. CHEST: CTA no audible rhonchi or wheezing CARDIAC: RRR ABDOMEN: Soft, mildly distended, TTP mid abd around drain; bowel sounds are present in all four quadrants. drain w/ scant serous drainage EXTREMITIES: No clubbing, cyanosis, or edema. SKIN: Normal; no rash; no jaundice. [employer]: awake and alert (Debbie Huynh) Assessment and Plan Plan ASSESSMENT - pancreatic mass - EUS 05/2017 FNA path poss mucinous neoplasm. GI consulted for poss EUS. CA 19-[address] 07/20/17 suggestive infectious porcess liver, 3 cm pancreatic mass with obstruction pancreatic duct, CBD stent CT 07/26/17 showed evolving liver fluid collection, subdiaphragmati cabscess, pancreatic head mass with biliary stent - liver abscess -s/p drainage and drain placement by IR 07/29/17. WBC WNL. 07/31/17 WBC up today. ID following. c/o abd pain. temp 99 08/01/17, afebrile today, or alert answering simple questions. Mid abdominal drainage system clean dry and intact. Left upper quadrant pain with light palpation continues. No nausea vomiting, 08/02/17 doing well today. some drain site pain. 08/03/17 doing well today except he says his drain is clogged, wont drain or flush. LFTs WNL. WBC elevated but less than yesterday PLAN - Diet regular as tolerated - EUS and biopsy tomorrow [address] Sutton - obtain consent - NPO after midnight - PPI - continue abx per ID - supportive care pt seen by myself and Dr Hart and myself and this note is on her behalf (Debbie Huynh) Physician Comments seen, examined agree with above eus in am if abscess not decreased in size on eus or drainage reduced consider repeat ct abd/pelvis ir reevaluated drainage tube today, drainage still decreased (Lisa Hart MD) Dbebie Huynh Aug 03, 2017 08:52 Lisa Hart MD Aug 03, 2017 18:38
[2017-08-03] MEDS: MULTIVITAMIN-OPHTHALMIC 1 TAB PO SCH (10:12)
[2017-08-03] MEDS: PANTOPRAZOLE SOD 40 MG DELAYED RELEASE TAB PO SCH (10:12)
[2017-08-03] MEDS: MULTIVITAMIN TAB PO SCH (10:12)
[2017-08-03] MEDS: predniSONE 10 MG TAB PO SCH (10:12)
[2017-08-03] MEDS: LEVOFLOXACIN 750 MG TAB PO SCH (10:12)
[2017-08-03] MEDS: MEGESTROL ACETATE 40 MG TAB PO SCH ×2 (10:12→20:53)
[2017-08-03] MEDS: busPIRone HCL 5 MG TAB PO SCH ×2 (10:12→20:53)
[2017-08-03] MEDS: LACTOBACILLUS ACIDOPHILUS TAB PO SCH ×2 (10:12→20:53)
--- NOTE | 2017-08-03 10:12 | HHI.PR ---
Subjective Remarks Follow-up liver abscess. Patient with minimal drainage less than 20 cc awaiting IR evaluation of drainage catheter discussed with nursing Objective Vitals Vital Signs Date Time Temp Pulse Resp B/P (MAP) Pulse Ox O2 Delivery O2 Flow Rate FiO2 08/03/17 08:00 97.8 68 24 108/62 (77) 98 08/03/17 03:48 98.0 76 31 113/57 (75) 97 08/03/17 00:00 98.3 80 24 106/55 (72) 97 08/02/17 23:00 74 08/02/17 20:00 98.6 74 25 113/59 (77) 98 08/02/17 16:00 98.1 89 20 108/57 (74) 97 08/02/17 12:00 98.3 73 20 96/51 (66) 97 I/O 08/02/17 08/02/17 08/02/17 08/03/17 08/03/17 08/03/17 07:00 15:00 23:00 07:00 15:00 23:00 Intake Total 580 ml Balance 580 ml Intake Oral 480 ml IV Total 100 ml # Voids 3 # Bowel Movements 2 Result Diagram: 08/03/17 0506 07/31/17 1909 Imaging Last Impressions Abscess Drainage CT 07/29/17 1236 Signed Impressions: Service Date/Time: Saturday, July 29, 2017 13:59 - CONCLUSION: Uncomplicated CT guided drainage with placement of 10 Macedonian locking pigtail drain. Sunil Miller MD Abdomen/Pelvis CT 07/25/17 0000 Signed Impressions: Service Date/Time: Wednesday, July 26, 2017 01:41 - CONCLUSION: 1. Abnormal low density area laterally of the left hepatic lobe continues to evolve, slightly larger over the past several days and new since June, presumably a fluid collection and potentially an abscess. A catheter was placed recently but it is no longer present. 2. A fluid collection is developing along the posterior liver dome and is of concern for a possible subdiaphragmatic abscess, roughly 2.6 x 5.0 x 1.8 cm. 3. Vague low density lesion inferiorly of the right hepatic lobe not significantly changed. 4. Small bilateral pleural effusions have developed. There is also increasing dependent consolidation of the right lung base. 5. Pancreatic head mass with biliary stent again noted. 6. 3.7 cm infrarenal abdominal aortic aneurysm unchanged. Scott Paredes MD Chest X-Ray 07/21/17 0000 Signed Impressions: Service Date/Time: Friday, July 21, 2017 10:53 - CONCLUSION: 1. ETT in good position. NGT in good position. Right IJ central line in the SVC. 2. No pneumothorax or acute abnormality. Amos Capone MD Objective Remarks GENERAL: This is a frail 72 years old male CARDIOVASCULAR: Regular rate and rhythm without murmurs, gallops, or rubs. RESPIRATORY: Fair air entry. No wheezes, rales, or rhonchi. GASTROINTESTINAL: Abdomen soft, non-tender, nondistended. Normal active bowel sounds, liver abscess drain in place MUSCULOSKELETAL: Extremities without clubbing, cyanosis, or edema. NEURO: Alert & Oriented x4 to person, place, time, situation. Moves all ext x4 Procedures C/L, abscess drainage A/P Problem List: (1) Liver abscess ICD Code: K75.0 - Abscess of liver (2) Pancreatic mass ICD Code: K86.9 - Disease of pancreas, unspecified Assessment and Plan Pancreatic mass 3 cm with obstruction of the pancreatic duct. Liver mass/abscess 6.8 cm, status post CT-guided biopsy on 07/15, negative for neoplasm. Elevated transaminases. Improved Hypoalbuminemia. Moderate to severe prot nayeli malnutrition 2/2 decrease PO intake low appetite. Ct ensure, MVI and megace Pantoprazole for GI prophylaxis. Monitor LFTs. s/p CT-guided drainage of liver abscess x 2. Last cx with [facility] dw ID, significance not clear. Repeat culture negative today. IR to evaluate drainage catheter. Consider repeating CT scan to evaluate abscess GI consulted plan for EUS and pancreatic biopsy tomorrow Klebsiella bacteremia Continue abx (piperacillin/tazobactam) Monitor for signs of infections(fever and WBC). BC 07/20: GNR, Kleb pneumonia, Follow up on BC from 07/22- NGTD Wound/abscess 07/21 cx: Kleb pneumonia 07/29 [facility] pansensitive rpt cx ordered nasal washing is negative for influenza on 07/20 . ID is following- Dr. Franco Tobaccoism COPD exacerbation. Resolved Continue with oxygen and maintain sats above 92%. Incentive spirometry while awake Budesonide/formoterol 160/4.5 2 puffs twice daily Albuterol/ipratropium aerosols every 4 hours with albuterol aerosols every 2 hours as needed dyspnea Extubated 07/23 Continue to wean steroids decrease prednisone to 10 mg daily starting tomorrow for 2 more days then 5 mg daily for 2 more days and then discontinue Normocytic anemia Thrombocytopenia Elevated CA 19/9 History of prostate cancer Leukocytosis likely from steroid Monitor CBC. Oncology is following- Dr. Gomez Pancreatic mass nondiagnostic GI prophylaxis-on pantoprazole, and DVT prophylaxis with SCDs. Consider pharmacological prophylaxis after EUS Discharge Planning [facility] PT when ready for dc Austin Little MD Aug 03, 2017 10:11
[2017-08-03] MEDS: SODIUM CHLORIDE 0.9% FLUSH 10 ML FLUSH IV FLUSH SCH ×2 (10:13→20:54)
[2017-08-03] MEDS: BUDESONIDE-FORMOTEROL 160/4.5 MCG INHALER INH SCH ×2 (10:13→20:55)
[2017-08-03] MEDS: MIRTAZAPINE 15 MG TAB PO SCH (20:53)
[2017-08-04] VITALS (8 sets, daily range): BP systolic 98–121; BP diastolic 48–64; PULSE 73–89; RESP 18–23; TEMP 97.8–99.2; O2SAT 94–99
[2017-08-04] MEDS ORDERED: METOPROLOL TARTRATE 25 MG TAB PO PRN (02:30)
[2017-08-04] MEDS ORDERED: LACTATED RINGER'S 1000 ML IV PRN (02:30)
[2017-08-04] MEDS ORDERED: POVIDONE IODINE 5% (ANTISEPSIS KIT) 4 APPLICATIONS EACH NARE PRN (02:30)
[2017-08-04] MEDS ORDERED: CHLORHEXIDINE GLUCONATE 2 % 1 PACK (2 CLOTHS) TOPICAL PRN (02:30)
[2017-08-04] MEDS ORDERED: SODIUM CHLORID 0.9% 500 ML IV PRN (02:30)
[2017-08-04] MEDS ORDERED: INSULIN HUMAN REGULAR 1,000 UNITS/10 ML VIAL SQ PRN (02:30)
[2017-08-04] MEDS: PIPERACIL-TAZO 4.5 GM PREMIX 100 ML IV SCH ×4 (04:15→21:33)
[2017-08-04] MEDS: SODIUM CHLORIDE 0.9% 10 ML VIAL IRRIGATION SCH ×5 (04:44→21:30)
--- NOTE | 2017-08-04 10:29 | HHI.PR ---
Subjective Remarks Follow-up pancreatic mass. Awaiting EUS today. No new complaints. Minimal drainage from the liver. Discussed with nursing Objective Vitals Vital Signs Date Time Temp Pulse Resp B/P (MAP) Pulse Ox O2 Delivery O2 Flow Rate FiO2 08/04/17 08:00 98.7 73 18 121/64 (83) 99 08/04/17 04:00 99.2 76 23 115/57 (76) 98 08/04/17 00:40 99.2 76 23 115/57 (76) 98 08/04/17 00:00 98.0 80 22 117/48 (71) 99 08/03/17 20:00 98.5 81 20 109/54 (72) 97 08/03/17 19:35 21 08/03/17 16:00 97.9 81 20 113/69 (84) 99 08/03/17 12:00 98.2 85 20 99/58 (72) 95 08/03/17 12:00 86 I/O 08/03/17 08/03/17 08/03/17 08/04/17 08/04/17 08/04/17 07:00 15:00 23:00 07:00 15:00 23:00 Intake Total 100 ml 818 ml Output Total 10 ml Balance 100 ml 818 ml -10 ml Intake Oral 720 ml IV Total 100 ml 98 ml Drainage Total 10 ml # Voids 3 2 # Bowel Movements 1 1 Result Diagram: 08/03/17 0506 07/31/17 1909 Imaging Last Impressions Abscess Drainage CT 07/29/17 1236 Signed Impressions: Service Date/Time: Saturday, July 29, 2017 13:59 - CONCLUSION: Uncomplicated CT guided drainage with placement of 10 Spanish locking pigtail drain. Sunil Miller MD Abdomen/Pelvis CT 07/25/17 0000 Signed Impressions: Service Date/Time: Wednesday, July 26, 2017 01:41 - CONCLUSION: 1. Abnormal low density area laterally of the left hepatic lobe continues to evolve, slightly larger over the past several days and new since June, presumably a fluid collection and potentially an abscess. A catheter was placed recently but it is no longer present. 2. A fluid collection is developing along the posterior liver dome and is of concern for a possible subdiaphragmatic abscess, roughly 2.6 x 5.0 x 1.8 cm. 3. Vague low density lesion inferiorly of the right hepatic lobe not significantly changed. 4. Small bilateral pleural effusions have developed. There is also increasing dependent consolidation of the right lung base. 5. Pancreatic head mass with biliary stent again noted. 6. 3.7 cm infrarenal abdominal aortic aneurysm unchanged. Scott Paredes MD Chest X-Ray 07/21/17 0000 Signed Impressions: Service Date/Time: Friday, July 21, 2017 10:53 - CONCLUSION: 1. ETT in good position. NGT in good position. Right IJ central line in the SVC. 2. No pneumothorax or acute abnormality. Amos Capone MD Objective Remarks GENERAL: This is a frail 72 years old male CARDIOVASCULAR: Regular rate and rhythm without murmurs, gallops, or rubs. RESPIRATORY: Fair air entry. No wheezes, rales, or rhonchi. GASTROINTESTINAL: Abdomen soft, non-tender, nondistended. Normal active bowel sounds, liver abscess drain in place MUSCULOSKELETAL: Extremities without clubbing, cyanosis, or edema. NEURO: Alert & Oriented x4 to person, place, time, situation. Moves all ext x4 Procedures C/L, abscess drainage A/P Problem List: (1) Liver abscess ICD Code: K75.0 - Abscess of liver (2) Pancreatic mass ICD Code: K86.9 - Disease of pancreas, unspecified Assessment and Plan Pancreatic mass 3 cm with obstruction of the pancreatic duct. Liver mass/abscess 6.8 cm, status post CT-guided biopsy on 07/15, negative for neoplasm. Elevated transaminases. Improved Hypoalbuminemia. Moderate to severe prot nayeli malnutrition 2/2 decrease PO intake low appetite. Ct ensure, MVI and megace Pantoprazole for GI prophylaxis. Monitor LFTs. s/p CT-guided drainage of liver abscess x 2. Last cx with Alfredito dw ID, significance not clear. Repeat culture NGTD. IR to evaluate drainage catheter , no blockage. Consider repeating CT scan to evaluate abscess pending EUS GI for EUS and pancreatic mass biopsy today Klebsiella bacteremia Continue abx (piperacillin/tazobactam) Monitor for signs of infections(fever and WBC). BC 07/20: GNR, Kleb pneumonia, Follow up on BC from 07/22- NGTD Wound/abscess 07/21 cx: Kleb pneumonia 07/29 [facility] pansensitive rpt cx ordered nasal washing is negative for influenza on 07/20 . ID is following- Dr. Franco Tobaccoism COPD exacerbation. Resolved Continue with oxygen and maintain sats above 92%. Incentive spirometry while awake Budesonide/formoterol 160/4.5 2 puffs twice daily Albuterol/ipratropium aerosols every 4 hours with albuterol aerosols every 2 hours as needed dyspnea Extubated 07/23 Continue to wean steroids decrease prednisone to 10 mg daily starting today for 2 more days then 5 mg daily for 2 more days and then discontinue Normocytic anemia Thrombocytopenia Elevated CA 19/9 History of prostate cancer Leukocytosis likely from steroid Monitor CBC. Oncology is following- Dr. Gomez Pancreatic mass nondiagnostic GI prophylaxis-on pantoprazole, and DVT prophylaxis with SCDs. Consider pharmacological prophylaxis after EUS Discharge Planning [facility] PT when ready for dc Austin Little MD Aug 04, 2017 10:29
[2017-08-04] MEDS: BUDESONIDE-FORMOTEROL 160/4.5 MCG INHALER INH SCH ×2 (10:34→21:00)
[2017-08-04] MEDS: busPIRone HCL 5 MG TAB PO SCH ×2 (10:35→21:28)
[2017-08-04] MEDS: PANTOPRAZOLE SOD 40 MG DELAYED RELEASE TAB PO SCH (10:35)
[2017-08-04] MEDS: LEVOFLOXACIN 750 MG TAB PO SCH (10:35)
[2017-08-04] MEDS: MULTIVITAMIN-OPHTHALMIC 1 TAB PO SCH (10:35)
[2017-08-04] MEDS: MULTIVITAMIN TAB PO SCH (10:35)
[2017-08-04] MEDS: LACTOBACILLUS ACIDOPHILUS TAB PO SCH ×2 (10:36→21:28)
[2017-08-04] MEDS: MEGESTROL ACETATE 40 MG TAB PO SCH ×2 (10:36→21:28)
[2017-08-04] MEDS: SODIUM CHLORIDE 0.9% FLUSH 10 ML FLUSH IV FLUSH SCH ×2 (10:36→21:29)
[2017-08-04] MEDS ORDERED: PHENYLEPH/NS 1000 MCG/10 ML SYR IV ONE (12:00)
[2017-08-04] MEDS ORDERED: LIDOCAINE HCL 1% PF 5 ML SYRINGE OTHER ONE (12:00)
[2017-08-04] MEDS ORDERED: PROPOFOL 200 MG/20 ML AMP ONE (12:48)
--- NOTE | 2017-08-04 13:38 | PD.PROCEDR ---
GI Procedure PROCEDURE PERFORMED EUS with FNA INDICATION FOR PROCEDURE Pancreatic head mass PROCEDURE: The procedure, risks and benefits were discussed with Ms. Chaudhary and informed consent was obtained. Anesthesia sedated her with Diprivan. She was placed in the left lateral decubitus position. Endoscopic ultrasound: The Pentax videoscope was introduced through the oropharynx and advanced to the second portion of the duodenum. 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
--- NOTE | 2017-08-04 14:38 | EKG ---
Date Performed: 08/04/2017 Time Performed: 11:53:31 PTAGE: 72 years EKG: Sinus rhythm NORMAL ECG NO PREVIOUS TRACING DOCTOR: Apolinar Hedrick Interpretating Date/Time 08/04/2017 14:38:04
[2017-08-04] MEDS: MIRTAZAPINE 15 MG TAB PO SCH (21:29)
[2017-08-04] MEDS: ACETAMINOPHEN 325 MG TAB PO PRN (21:29)
[2017-08-04] MEDS ORDERED: IOHEXOL 350 MG/ML 10 ML VIAL (for RAD DIAG) IVCONTRAST ONE (22:27)
--- NOTE | 2017-08-04 23:11 | RADRPT ---
EXAM DATE/TIME: 08/04/2017 22:07 [facility] COMPARISON: CT ABDOMEN & PELVIS W CONTRAST, July 26, 2017, 1:41. INDICATIONS : F/U liver abscess. IV CONTRAST: 100 cc Omnipaque 350 (iohexol) IV ORAL CONTRAST: Prescribed oral contrast ingested. RADIATION DOSE: 12.18 CTDIvol (mGy) MEDICAL HISTORY : Carcinoma, pancreas. Carcinoma, prostate. Chronic obstructive pulmonary disease. SURGICAL HISTORY : Prostatectomy. ENCOUNTER: Subsequent ACUITY: 2 weeks PAIN SCALE: 4/10 LOCATION: abdomen TECHNIQUE: Volumetric scanning of the abdomen was performed. Using automated exposure control and adjustment of the mA and/or kV according to patient size, radiation dose was kept as low as reasonably achievable to obtain optimal diagnostic quality images. DICOM format image data is available electronically for review and comparison. FINDINGS: Compare July 26. Previous pleural effusions have decreased in size. Right basilar airspace disease h as improved. There is a catheter within a complex fluid collection in the medial segment left lobe liver. There do es appear to be a component of the presumed abscess that is medial to drainage catheter measuring abo ut 3.4 x 2.2 cm and may not be drained by the current catheter. There is extensive pneumobilia as seen previously. Biliary stent is present. Pancreatic duct is marke dly dilated to 1.4 cm. There is an ill-defined mass at the head of the pancreas. There is a 3.5 cm infrarenal abdominal aortic aneurysm. No free fluid. No bowel obstruction. No adeno navin. CONCLUSION: 1. Interval resolution of previous pleural effusions from July 26. 2. Placement of a drainage catheter into the right side of a multiloculated abscess in the left lobe of the liver. Loculated air and fluid to the left of the catheter measuring 3.4 x 2.2 cm may not be c urrently drained. 3. Extensive pneumobilia with biliary stent present. Ill-defined mass in the pancreatic head with mar ked pancreatic ductal dilatation. Reported history of pancreatic carcinoma. Miguel Stringer MD on August 04, 2017 at 23:01 Board Certified Radiologist. This report was verified electronically.
[2017-08-05] VITALS: BP 95/53; PULSE 80; RESP 19; TEMP 98.6; O2SAT 96
[2017-08-05 04:00] VITALS: BP 110/54; PULSE 81; RESP 18; TEMP 98.2; O2SAT 97
[2017-08-05] MEDS: PIPERACIL-TAZO 4.5 GM PREMIX 100 ML IV SCH ×4 (05:20→23:02)
[2017-08-05] MEDS: SODIUM CHLORIDE 0.9% 10 ML VIAL IRRIGATION SCH ×5 (05:22→22:00)
[2017-08-05 06:56] LABS: HEMATOCRIT 35.4 % (39.0-51.0); HEMOGLOBIN 11.9 GM/DL (13.0-17.0); MEAN CELL VOLUME 88.4 FL (80.0-100.0); MEAN CORPUSCULAR HEMOGLOBIN 29.7 PG (27.0-34.0); MEAN CORPUSCULAR HGB CONC 33.6 % (32.0-36.0); MEAN PLATELET VOLUME 7.5 FL (7.0-11.0); PLATELET COUNT 245 TH/MM3 (150-450); RED BLOOD COUNT 4.01 MIL/MM3 (4.50-5.90); RED CELL DISTRIBUTION WIDTH 14.8 % (11.6-17.2); WHITE BLOOD COUNT 16.6 TH/MM3 (4.0-11.0)
[2017-08-05 07:25] LABS: BICARBONATE 21.8 MEQ/L (21.0-32.0); CALCIUM 8.4 MG/DL (8.5-10.1); CREATININE 0.9 MG/DL (0.60-1.30); MAGNESIUM 2.1 MG/DL (1.5-2.5)
[2017-08-05 08:00] VITALS: BP 108/56; PULSE 92; RESP 18; TEMP 98.2; O2SAT 97
[2017-08-05] MEDS: LEVOFLOXACIN 750 MG TAB PO SCH (09:34)
[2017-08-05] MEDS: PANTOPRAZOLE SOD 40 MG DELAYED RELEASE TAB PO SCH (09:34)
[2017-08-05] MEDS: MEGESTROL ACETATE 40 MG TAB PO SCH ×2 (09:34→23:04)
[2017-08-05] MEDS: LACTOBACILLUS ACIDOPHILUS TAB PO SCH ×2 (09:34→23:03)
[2017-08-05] MEDS: MULTIVITAMIN TAB PO SCH (09:34)
[2017-08-05] MEDS: MULTIVITAMIN-OPHTHALMIC 1 TAB PO SCH (09:34)
[2017-08-05] MEDS: busPIRone HCL 5 MG TAB PO SCH ×2 (09:35→23:03)
[2017-08-05] MEDS: predniSONE 10 MG TAB PO SCH (09:35)
[2017-08-05] MEDS: SODIUM CHLORIDE 0.9% FLUSH 10 ML FLUSH IV FLUSH SCH ×2 (09:35→23:04)
[2017-08-05] MEDS: BUDESONIDE-FORMOTEROL 160/4.5 MCG INHALER INH SCH ×2 (09:36→21:00)
[2017-08-05 12:00] VITALS: BP 95/52; PULSE 99; RESP 20; TEMP 97.7; O2SAT 97
--- NOTE | 2017-08-05 12:38 | RADRPT ---
EXAM DATE/TIME: 08/05/2017 12:30 [facility] COMPARISON: CT ABDOMEN W CONTRAST, August 04, 2017, 22:07. CT ASSISTED ABSCESS DRAIN, July 21, 2017, 15:14. INDICATIONS : Evaluate for liver abscess drainage. The patient does not have a finding on the CT suitable for percutaneous drainage. The tiny collection in the lateral segment of the left lobe of the liver is comparable in size to an adjacent collection which already has an indwelling drainage catheter which is not draining any fluid. Scott Stevens MD on August 05, 2017 at 12:33 Board Certified Radiologist. This report was verified electronically.
--- NOTE | 2017-08-05 13:56 | HHI.PR ---
Subjective Remarks F/u liver abscess. Patient doing well tolerated EUS yesterday. Discussed with IR, the patient does not have a finding on the CT suitable for percutaneous drainage. The tiny collection in the lateral segment of the left lobe of the liver is comparable in size to an adjacent collection which already has an indwelling drainage catheter which is not draining any fluid. Dr. Stevens will remove present catheter. Discussed with infectious disease and GI, patient is cleared for discharge with outpatient follow-up for repeat CT and discussion of biopsy results from EUS Objective Vitals Vital Signs Date Time Temp Pulse Resp B/P (MAP) Pulse Ox O2 Delivery O2 Flow Rate FiO2 08/05/17 12:00 97.7 99 20 95/52 (66) 97 08/05/17 08:00 98.2 92 18 108/56 (73) 97 08/05/17 04:00 98.2 81 18 110/54 (72) 97 08/05/17 00:00 98.6 80 19 95/53 (67) 96 08/04/17 20:00 98.6 89 20 107/54 (71) 99 08/04/17 16:00 98.1 84 20 103/55 (71) 97 I/O 08/04/17 08/04/17 08/04/17 08/05/17 08/05/17 08/05/17 07:00 15:00 23:00 07:00 15:00 23:00 Intake Total 500 ml 340 ml 100 ml Output Total 10 ml 800 ml Balance -10 ml 500 ml -460 ml 100 ml Intake Oral 240 ml IV Total 100 ml 100 ml 100 ml Other 400 ml Output Urine Total 800 ml Drainage Total 10 ml 0 ml # Voids 2 2 1 # Bowel Movements 1 1 Result Diagram: 08/05/17 0549 08/05/17 0549 Imaging Last Impressions Abdomen CT 08/04/17 0000 Signed Impressions: Service Date/Time: Friday, August 04, 2017 22:07 - CONCLUSION: 1. Interval resolution of previous pleural effusions from July 26. 2. Placement of a drainage catheter into the right side of a multiloculated abscess in the left lobe of the liver. Loculated air and fluid to the left of the catheter measuring 3.4 x 2.2 cm may not be currently drained. 3. Extensive pneumobilia with biliary stent present. Ill-defined mass in the pancreatic head with marked pancreatic ductal dilatation. Reported history of pancreatic carcinoma. Miguel Stringer MD Abscess Drainage CT 07/29/17 1236 Signed Impressions: Service Date/Time: Saturday, July 29, 2017 13:59 - CONCLUSION: Uncomplicated CT guided drainage with placement of 10 Sami locking pigtail drain. Sunil Miller MD Abdomen/Pelvis CT 07/25/17 0000 Signed Impressions: Service Date/Time: Wednesday, July 26, 2017 01:41 - CONCLUSION: 1. Abnormal low density area laterally of the left hepatic lobe continues to evolve, slightly larger over the past several days and new since June, presumably a fluid collection and potentially an abscess. A catheter was placed recently but it is no longer present. 2. A fluid collection is developing along the posterior liver dome and is of concern for a possible subdiaphragmatic abscess, roughly 2.6 x 5.0 x 1.8 cm. 3. Vague low density lesion inferiorly of the right hepatic lobe not significantly changed. 4. Small bilateral pleural effusions have developed. There is also increasing dependent consolidation of the right lung base. 5. Pancreatic head mass with biliary stent again noted. 6. 3.7 cm infrarenal abdominal aortic aneurysm unchanged. Scott Paredes MD Chest X-Ray 07/21/17 0000 Signed Impressions: Service Date/Time: Friday, July 21, 2017 10:53 - CONCLUSION: 1. ETT in good position. NGT in good position. Right IJ central line in the SVC. 2. No pneumothorax or acute abnormality. Amos Capone MD Objective Remarks GENERAL: This is a frail 72 years old male CARDIOVASCULAR: Regular rate and rhythm without murmurs, gallops, or rubs. RESPIRATORY: Fair air entry. No wheezes, rales, or rhonchi. GASTROINTESTINAL: Abdomen soft, non-tender, nondistended. Normal active bowel sounds, liver abscess drain in place MUSCULOSKELETAL: Extremities without clubbing, cyanosis, or edema. NEURO: Alert & Oriented x4 to person, place, time, situation. Moves all ext x4 Procedures C/L, abscess drainage, EUS with FNA A/P Problem List: (1) Liver abscess ICD Code: K75.0 - Abscess of liver (2) Pancreatic mass ICD Code: K86.9 - Disease of pancreas, unspecified Assessment and Plan Pancreatic mass 3 cm with elevated CA-19-9 obstruction of the pancreatic duct. Status post EUS with FNA. Follow-up biopsy result Liver mass/abscess 6.8 cm, status post CT-guided biopsy on 07/15, negative for neoplasm s/p CT-guided drainage of liver abscess x 2. Last cx with [facility] dw ID, significance not clear. Repeat culture NGTD. Discussed with IR, the patient does not have a finding on the repeat CT 08/04/17 suitable for percutaneous drainage. The tiny collection in the lateral segment of the left lobe of the liver is comparable in size to an adjacent collection which already has an indwelling drainage catheter which is not draining any fluid. Dr. Stevens will remove present catheter. Discussed with infectious disease and GI, patient is cleared for discharge with outpatient follow-up for repeat abdominal CT and discussion of biopsy results from EUS Klebsiella bacteremia Continue abx (piperacillin/tazobactam and Levaquin) Monitor for signs of infections(fever and WBC). BC 07/20: GNR, Kleb pneumonia, Follow up on BC from 07/22- NGTD Wound/abscess 07/21 cx: Kleb pneumonia 07/29 [facility] pansensitive rpt cx negative today nasal washing is negative for influenza on 07/20 . ID is following- Dr. Franco. Tobaccoism COPD exacerbation. Resolved Continue with oxygen and maintain sats above 92%. Incentive spirometry while awake Budesonide/formoterol 160/4.5 2 puffs twice daily Albuterol/ipratropium aerosols every 4 hours with albuterol aerosols every 2 hours as needed dyspnea Extubated 07/23 Continue to wean steroids Normocytic anemia Thrombocytopenia History of prostate cancer Leukocytosis likely from steroid Monitor CBC. Oncology is following- Dr. Gomez Pancreatic mass nondiagnostic GI prophylaxis-on pantoprazole, and DVT prophylaxis with SCDs. Consider pharmacological prophylaxis after EUS Discharge Planning Patient cleared for discharge awaiting antibiotic recommendations from infectious disease Austin Little MD Aug 05, 2017 13:56
[2017-08-05] MEDS ORDERED: Budeson-Formot 160-4.5 Mcg Inh INH (14:05)
[2017-08-05] MEDS ORDERED: PRED10 PO (14:05)
[2017-08-05] MEDS ORDERED: LACT PO (14:05)
--- NOTE | 2017-08-05 14:05 | HHI.DCPOC ---
Discharge Care Plan Diagnosis: (1) Pancreatic mass (2) Liver abscess Your Health Problems Are: Difficulty with ADL Exercise Tolerance Goals to Promote Your Health * To prevent worsening of your condition and complications * To maintain your health at the optimal level Directions to Meet Your Goals Take your medications as prescribed Follow your dietary instruction Follow activity as directed Keep your appointments as scheduled Take your immunizations and boosters as scheduled If your symptoms worsen call your PCP, if no PCP go to Urgent Care Center or Emergency Room Smoking is Dangerous to Your Health. Avoid second hand smoke Call the 24-hour hour crisis hotline for domestic abuse at Austin Little MD Aug 05, 2017 14:05
[2017-08-05] MEDS ORDERED: MISCMIS81 (14:09)
--- NOTE | 2017-08-05 14:40 | HHI.DS ---
Discharge Summary Admission Date Jul 20, 2017 at 17:53 Discharge Date: Aug 06, 2017 Admitting Diagnosis fever, suspected abscess from liver biopsy, metastatic pancreatic ca (1) Liver abscess ICD Code: K75.0 - Abscess of liver Diagnosis: Principal (2) Pancreatic mass ICD Code: K86.9 - Disease of pancreas, unspecified Diagnosis: Principal Procedures C/L, abscess drainage, EUS with FNA Brief History - From Admission 72-year-old male with a past medical history significant for prostate cancer and anxiety with newly diagnosed pancreatic mass with corresponding liver mass concerning for metastatic disease presents to the emergency department for evaluation of abdominal pain/fever. Patient is status post liver biopsy done on Thursday. The patient reports that his abdominal pain began yesterday morning and it is severe in nature in the epigastric region of his abdomen. He reports a fever to 101.7 earlier today. He also reports subjective fever/chills. Denies chest pain or shortness of breath. Endorses nausea. Denies emesis. No cough. No lateralizing signs/symptoms. CBC/BMP: 08/05/17 0549 08/05/17 0549 Significant Findings Laboratory Tests Test 08/03/17 05:06 08/05/17 05:49 White Blood Count 13.8 TH/MM3 (4.0-11.0) 16.6 TH/MM3 (4.0-11.0) Red Blood Count 3.84 MIL/MM3 (4.50-5.90) 4.01 MIL/MM3 (4.50-5.90) Hemoglobin 11.3 GM/DL (13.0-17.0) 11.9 GM/DL (13.0-17.0) Hematocrit 33.7 % (39.0-51.0) 35.4 % (39.0-51.0) Total Protein 6.0 GM/DL (6.4-8.2) Albumin 2.1 GM/DL (3.4-5.0) Random Glucose 119 MG/DL (74-106) Calcium Level 8.4 MG/DL (8.5-10.1) Estimat Glomerular Filtration Rate 82 ML/MIN (>89) Imaging Last Impressions Abdomen CT 08/04/17 0000 Signed Impressions: Service Date/Time: Friday, August 04, 2017 22:07 - CONCLUSION: 1. Interval resolution of previous pleural effusions from July 26. 2. Placement of a drainage catheter into the right side of a multiloculated abscess in the left lobe of the liver. Loculated air and fluid to the left of the catheter measuring 3.4 x 2.2 cm may not be currently drained. 3. Extensive pneumobilia with biliary stent present. Ill-defined mass in the pancreatic head with marked pancreatic ductal dilatation. Reported history of pancreatic carcinoma. Miguel Stringer MD Abscess Drainage CT 07/29/17 1236 Signed Impressions: Service Date/Time: Saturday, July 29, 2017 13:59 - CONCLUSION: Uncomplicated CT guided drainage with placement of 10 [place] locking pigtail drain. uSnil Miller MD Abdomen/Pelvis CT 07/25/17 0000 Signed Impressions: Service Date/Time: Wednesday, July 26, 2017 01:41 - CONCLUSION: 1. Abnormal low density area laterally of the left hepatic lobe continues to evolve, slightly larger over the past several days and new since June, presumably a fluid collection and potentially an abscess. A catheter was placed recently but it is no longer present. 2. A fluid collection is developing along the posterior liver dome and is of concern for a possible subdiaphragmatic abscess, roughly 2.6 x 5.0 x 1.8 cm. 3. Vague low density lesion inferiorly of the right hepatic lobe not significantly changed. 4. Small bilateral pleural effusions have developed. There is also increasing dependent consolidation of the right lung base. 5. Pancreatic head mass with biliary stent again noted. 6. 3.7 cm infrarenal abdominal aortic aneurysm unchanged. Scott Paredes MD Chest X-Ray 07/21/17 0000 Signed Impressions: Service Date/Time: Friday, July 21, 2017 10:53 - CONCLUSION: 1. ETT in good position. NGT in good position. Right IJ central line in the SVC. 2. No pneumothorax or acute abnormality. Amos Capone MD PE at Discharge GENERAL: This is a frail 72 years old male CARDIOVASCULAR: Regular rate and rhythm without murmurs, gallops, or rubs. RESPIRATORY: Fair air entry. No wheezes, rales, or rhonchi. GASTROINTESTINAL: Abdomen soft, non-tender, nondistended. Normal active bowel sounds, liver abscess drain in place MUSCULOSKELETAL: Extremities without clubbing, cyanosis, or edema. NEURO: Alert & Oriented x4 to person, place, time, situation. Moves all ext x4 Hospital Course Pancreatic mass 3 cm with elevated CA-19-9 obstruction of the pancreatic duct. Status post EUS with FNA. Follow-up biopsy result Liver mass/abscess 6.8 cm, status post CT-guided biopsy on 07/15, negative for neoplasm s/p CT-guided drainage of liver abscess x 2. Last cx with [facility] dw ID, significance not clear. Repeat culture NGTD. Discussed with IR, the patient does not have a finding on the repeat CT 08/04/17 suitable for percutaneous drainage. The tiny collection in the lateral segment of the left lobe of the liver is comparable in size to an adjacent collection which already has an indwelling drainage catheter which is not draining any fluid and has been removed. Discussed with infectious disease and GI, patient is cleared for discharge with outpatient follow-up for repeat abdominal CT and discussion of biopsy results from EUS Klebsiella bacteremia Continue abx (piperacillin/tazobactam and Levaquin) Monitor for signs of infections(fever and WBC). BC 07/20: GNR, Kleb pneumonia, Follow up on BC from 07/22- NGTD Wound/abscess 07/21 cx: Kleb pneumonia 07/29 [facility] pansensitive rpt cx negative today nasal washing is negative for influenza on 07/20 . ID is following- Dr. Franco recommends IV rocephin til 08/31/17 via PICC. Tobaccoism COPD exacerbation. Resolved Continue with oxygen and maintain sats above 92%. Incentive spirometry while awake Budesonide/formoterol 160/4.5 2 puffs twice daily Albuterol/ipratropium aerosols every 4 hours with albuterol aerosols every 2 hours as needed dyspnea Extubated 07/23 Continue to wean steroids Normocytic anemia Thrombocytopenia History of prostate cancer Leukocytosis likely from steroid Monitor CBC. Oncology is following- Dr. Gomez Pancreatic mass nondiagnostic Hyperglycemia on steroids. A1c 6.2 GI prophylaxis-on pantoprazole, and DVT prophylaxis with SCDs. Pt Condition on Discharge: Stable Discharge Disposition: Discharge Home Discharge Time: > 30 minutes Discharge Instructions DIET: Follow Instructions for: As Tolerated, No Restrictions Speech Therapy-Diet Recommends: Regular Activities you can perform: Regular-No Restrictions Activities to Avoid: Driving Follow up Referrals: Gastroenterology - 1 Week PCP Follow-up - 2-3 Days New Medications: Oxygen (O2) (Oxygen (O2)) Device LITER KEYON.CANULA CONTINUOUS for Prevent Hypoxemia, #2 Oxygen Concentrator Portable Gaseous 2 L/min via Nasal Canula Continuous For 99 months Rollator Ultra-Light (Rollator Ultra-Light) 1 Mis Mis EA .XX DIRECTED, #1 Lactobacillus Acidophilus (Acidophilus/l-Sporogenes) 35 Million Cell-25 Million Cell Tab 1 TAB PO Q12HR for Bowel Management, #30 TAB Prednisone (Prednisone) 10 Mg Tab 10 MG PO DAILY for Control Inflammation, #2 TAB [Budeson-Formot 160-4.5 Mcg Inh] () 60 PUFF AERO 2 PUFF INH Q12HR for Breathing Treatment, #1 INHALER Continued Medications: Buspirone (Buspirone) 5 Mg Tab 5 MG PO BID for Anxiety, TAB 0 Refills Megestrol (Megestrol) 20 Mg Tab 20 MG PO BID, TAB 0 Refills Mirtazapine (Mirtazapine) 45 Mg Tab 45 MG PO HS for Depression Control, #30 TAB 0 Refills Multiple Vitamins W/ Minerals (Preservision-Lutein) 1 Cap 1 CAP PO DAILY for Nutritional Supplement, CAP 0 Refills Austin Little MD Aug 05, 2017 14:40
[2017-08-05 16:00] VITALS: BP 96/56; PULSE 92; RESP 20; TEMP 97.2; O2SAT 97
--- NOTE | 2017-08-05 16:02 | HHI.GIFU ---
Subjective Remarks Resting in the bed Denies any acute abdominal pain, no nausea no vomiting Still has mid abdominal drain in, but states previous doctor said it could be discontinued (Malissa Aguilera) Objective Vitals I&O Vital Signs Date Time Temp Pulse Resp B/P (MAP) Pulse Ox O2 Delivery O2 Flow Rate FiO2 08/05/17 12:00 97.7 99 20 95/52 (66) 97 08/05/17 08:00 98.2 92 18 108/56 (73) 97 08/05/17 04:00 98.2 81 18 110/54 (72) 97 08/05/17 00:00 98.6 80 19 95/53 (67) 96 08/04/17 20:00 98.6 89 20 107/54 (71) 99 08/04/17 16:00 98.1 84 20 103/55 (71) 97 I/O 08/04/17 08/04/17 08/04/17 08/05/17 08/05/17 08/05/17 07:00 15:00 23:00 07:00 15:00 23:00 Intake Total 500 ml 340 ml 100 ml Output Total 10 ml 800 ml Balance -10 ml 500 ml -460 ml 100 ml Intake Oral 240 ml IV Total 100 ml 100 ml 100 ml Other 400 ml Output Urine Total 800 ml Drainage Total 10 ml 0 ml # Voids 2 2 1 # Bowel Movements 1 1 Laboratory Laboratory Tests Test 08/05/17 05:49 White Blood Count 16.6 Red Blood Count 4.01 Hemoglobin 11.9 Hematocrit 35.4 Mean Corpuscular Volume 88.4 Mean Corpuscular Hemoglobin 29.7 Mean Corpuscular Hemoglobin Concent 33.6 Red Cell Distribution Width 14.8 Platelet Count 245 Mean Platelet Volume 7.5 Blood Urea Nitrogen 18 Creatinine 0.90 Random Glucose 119 Calcium Level 8.4 Magnesium Level 2.1 Sodium Level 137 Potassium Level 3.8 Chloride Level 104 Carbon Dioxide Level 21.8 Anion Gap 11 Estimat Glomerular Filtration Rate 82 Date/Time Source Procedure Growth Status 07/22/17 14:30 Blood Peripheral Aerobic Blood Culture - Final NO GROWTH IN 5 DAYS Complete 07/22/17 14:30 Blood Peripheral Anaerobic Blood Culture - Final NO GROWTH IN 5 DAYS Complete 07/20/17 14:42 Nasal Washing Influenza Types A,B Antigen (ION) - Final NEGATIVE FOR FLU A AND B ANTIGEN.... Complete 08/01/17 13:45 Wound Abdomen Gram Stain - Final Complete 08/01/17 13:45 Wound Abdomen Wound Culture - Final NO GROWTH IN 72 HRS.--AEROBICALLY OR ... Complete Imaging Last Impressions Abdomen CT 08/04/17 0000 Signed Impressions: Service Date/Time: Friday, August 04, 2017 22:07 - CONCLUSION: 1. Interval resolution of previous pleural effusions from July 26. 2. Placement of a drainage catheter into the right side of a multiloculated abscess in the left lobe of the liver. Loculated air and fluid to the left of the catheter measuring 3.4 x 2.2 cm may not be currently drained. 3. Extensive pneumobilia with biliary stent present. Ill-defined mass in the pancreatic head with marked pancreatic ductal dilatation. Reported history of pancreatic carcinoma. Miguel Stringer MD Abscess Drainage CT 07/29/17 1236 Signed Impressions: Service Date/Time: Saturday, July 29, 2017 13:59 - CONCLUSION: Uncomplicated CT guided drainage with placement of 10 Ur[place] locking pigtail drain. Sunil Miller MD Abdomen/Pelvis CT 07/25/17 0000 Signed Impressions: Service Date/Time: Wednesday, July 26, 2017 01:41 - CONCLUSION: 1. Abnormal low density area laterally of the left hepatic lobe continues to evolve, slightly larger over the past several days and new since June, presumably a fluid collection and potentially an abscess. A catheter was placed recently but it is no longer present. 2. A fluid collection is developing along the posterior liver dome and is of concern for a possible subdiaphragmatic abscess, roughly 2.6 x 5.0 x 1.8 cm. 3. Vague low density lesion inferiorly of the right hepatic lobe not significantly changed. 4. Small bilateral pleural effusions have developed. There is also increasing dependent consolidation of the right lung base. 5. Pancreatic head mass with biliary stent again noted. 6. 3.7 cm infrarenal abdominal aortic aneurysm unchanged. Scott Paredes MD Chest X-Ray 07/21/17 0000 Signed Impressions: Service Date/Time: Friday, July 21, 2017 10:53 - CONCLUSION: 1. ETT in good position. NGT in good position. Right IJ central line in the SVC. 2. No pneumothorax or acute abnormality. Amos Bozorgmanesh, MD Physical Exam HEENT normocephalic; atraumatic; no jaundice. Thin body build CHEST: CTA no audible rhonchi or wheezing CARDIAC: RRR ABDOMEN: Soft, abdomen round, Edgar during dressing clean dry and intact; bowel sounds are present in all four quadrants. EXTREMITIES: No clubbing, cyanosis, or edema. SKIN: Normal; no rash; no jaundice. Pale NEWS ANALYST: awake and alert (Malissa Aguilera) Assessment and Plan Plan ASSESSMENT - pancreatic mass - EUS 05/2017 FNA path poss mucinous neoplasm. GI consulted for poss EUS. CA 19-[address] 07/20/17 suggestive infectious porcess liver, 3 cm pancreatic mass with obstruction pancreatic duct, CBD stent CT 07/26/17 showed evolving liver fluid collection, subdiaphragmati cabscess, pancreatic head mass with biliary stent - liver abscess -s/p drainage and drain placement by IR 07/29/17. WBC WNL. 07/31/17 WBC up today. ID following. c/o abd pain. temp 99 08/01/17, afebrile today, or alert answering simple questions. Mid abdominal drainage system clean dry and intact. Left upper quadrant pain with light palpation continues. No nausea vomiting, 08/02/17 doing well today. some drain site pain. 08/03/17 doing well today except he says his drain is clogged, wont drain or flush. LFTs WNL. WBC elevated but less than yesterday 08/05/2017, patient states previous physician came by and stated drain can be removed. 08/04/[address] showed interval resolution of previous pleural effusions multi loculated abscess left lobe of the liver. Biliary stent present ill-defined mass on the pancreatic head and marked pancreatic ductal dilation reported history of pancreatic carcinoma. PLAN - Diet regular as tolerated - PPI -Cytology biopsies pending - continue abx per ID - supportive care No further interventions from GI at the moment. Biopsies pending. Please reconsult if needed pt seen by myself and Dr Hart and myself and this note is on her behalf (Malissa Aguilera) Physician Comments seen, examined agree with above ok to dc home on antibiotics repeat ct abdomen in 4 weeks (Lisa Hart MD) Malissa Aguilera Aug 05, 2017 16:01 Lisa Hart MD Aug 05, 2017 16:59
--- NOTE | 2017-08-05 16:36 | HHI.FF ---
Infusion Therapy Location of Infusion Therapy: Home [facility] IV Infusion Order Patient Information Patient Weight 61.6 kg Diagnosis: (1) Liver abscess Coded Allergies: No Known Allergies (Verified Allergy, Unknown, 07/15/17) Administer Medication Ceftriaxone 2 grams IV q 24 hours Stop Treatment: Aug 31, 2017 Additional Information Venous access: PICC Line Additional Instructions [x] Peripheral flush and dressing changes per protocol [x] Implanted port and central pipeline technician: * Implanted port: 10 ml Normal Saline followed by 5 ml Heparin 100 units/ml Heparin flush after each use and monthly to maintain. [] May leave port accessed during therapy. [] May leave peripheral site accessed for duration of therapy. [x] If patient has SOB or respiratory distress, check oxygen saturation. If less than 90% or clinical signs of respiratory distress, administer oxygen at 2 L/min. via nasal cannula and notify physician. [x] Anaphylaxis/Reaction orders: * Stop infusion. * Keep IV line open with saline flush. * Notify physician. * Monitor vital signs every 15 minutes until symptoms resolve. * Check Oxygen saturation; Oxygen at 2 L/min. via nasal cannula if less than 90% or clinical signs of respiratory distress. * Administer diphenhydramine (Benadryl) 25 mg IV STAT, (unless patient has received as pre-med). May repeat once, if necessary. * Solu-Cortef 250 mg IVP over 30-60 seconds, use 100 mg vials for each dissolution. * Epinephrine (1mg/1 ml) 0.3 mg subcutaneously or IVP now with any signs of respiratory distress. * Check with physician for new additional pre-med orders if patient is re- challenged or re-treated. [x] May remove PICC line when treatment complete, after confirming with Physician. [x] If the patient is admitted to the hospital, the ED, or transferred via [facility] , complete transfer form including medication reconciliation order sheet. Laboratory Tests Weekly Labs: BMP, LFT's (Hepatic function test) Additional Information Fax lab results to Dr. Franco [phone] Roger Franco MD Aug 05, 2017 16:36
--- NOTE | 2017-08-05 16:45 | HHI.IDPN ---
Note Infectious Disease Note Patient is without complaints. He denies fever or chills. Afebrile. Drainage catheter into the abdomen fluid collection has been discontinued. Culture of the liver fluid drainage repeated on 08/01 has no growth. His appetite is good. Normal bowel movements. PAST MEDICAL HISTORY: 1. COPD. 2. Anxiety. 3. Prostate cancer. 4. Pancreatic mass newly diagnosed. 5. Liver lesion, metastasis versus abscess. 6. History of TURP. ALLERGIES: NO KNOWN DRUG ALLERGIES. ANTIBIOTICS: Piperacillin/tazobactam. Levaquin. Current Medications Medications (Trade) Dose Ordered Sig/Sreedhar Route PRN Reason Start Time Stop Time Status Last Admin Dose Admin Sodium Chloride (NS Flush) 2 ml UNSCH PRN IV FLUSH FLUSH AFTER USING IV ACCESS 07/20/17 18:30 08/02/17 05:40 Sodium Chloride (NS Flush) 2 ml BID IV FLUSH 07/20/17 21:00 08/05/17 09:35 Ondansetron HCl (Zofran Inj) 4 mg Q6H PRN IVP NAUSEA OR VOMITING 07/20/17 18:30 07/20/17 20:28 Naloxone HCl (Narcan Inj) 0.4 mg UNSCH PRN IV PUSH SEE LABEL COMMENTS 07/20/17 18:30 Magnesium Hydroxide (Milk Of Magnesia Liq) 30 ml Q12H PRN PO Mild constipation 07/20/17 18:30 07/23/17 02:57 Sennosides (Senokot) 17.2 mg Q12H PRN PO Moderate constipation 07/20/17 18:30 Bisacodyl (Dulcolax Supp) 10 mg DAILY PRN RECTAL SEVERE CONSITIPATION 07/20/17 18:30 Lactulose (Lactulose Liq) 30 ml DAILY PRN PO SEVERE CONSITIPATION 07/20/17 18:30 07/23/17 02:57 Budesonide/ Formoterol Fumarate (Symbicort 160-4.5 Mcg Inh) 2 puff Q12HR INH 07/21/17 09:15 08/05/17 09:36 Sodium Chloride (NS Inj) 10 ml BID IRRIGATION 07/21/17 21:00 08/05/17 09:00 Albuterol Sulfate (Albuterol Neb) 2.5 mg Q2HR NEB PRN NEB dyspnea 07/25/17 06:45 Pantoprazole Sodium (Protonix) 40 mg DAILY PO 07/25/17 09:00 08/05/17 09:34 Buspirone HCl (Buspar) 5 mg BID PO 07/25/17 09:00 08/05/17 09:35 Megestrol Acetate (Megace) 20 mg BID PO 07/25/17 09:00 08/05/17 09:34 Mirtazapine (Remeron) 45 mg HS PO 07/25/17 21:00 08/04/17 21:29 Vit C/Vit E/Zinc/ Copper/Lutein (Ocuvite) 1 tab DAILY PO 07/25/17 09:00 08/05/17 09:34 Acetaminophen (Tylenol) 650 mg Q6H PRN PO TEMP > 100.4 07/25/17 07:00 08/04/17 21:29 Multivitamins (Theragran) 1 tab DAILY PO 07/25/17 10:45 08/05/17 09:34 Piperacillin Sod/ Tazobactam Sod 100 ml @ 200 mls/hr Q6H IV 07/26/17 16:00 08/05/17 09:38 Sodium Chloride (NS Inj) 10 ml Q8HR IRRIGATION 07/29/17 22:00 08/05/17 14:00 Levofloxacin (Levaquin) 750 mg DAILY PO 07/30/17 17:00 08/05/17 09:34 Lactobacillus Acidophilus (Lactinex) 1 tab Q12HR PO 07/30/17 21:00 08/05/17 09:34 Prednisone (Deltasone) 10 mg DAILY PO 08/05/17 09:00 08/05/17 09:35 Lactated Ringer's 1,000 ml @ 30 mls/hr Q24H PRN IV SEE LABEL COMMENTS 08/04/17 02:30 08/07/17 02:29 Sodium Chloride 500 ml @ 30 mls/hr [id number] PRN IV SEE LABEL COMMENTS 08/04/17 02:30 08/07/17 02:29 Metoprolol Tartrate (Lopressor) 25 mg STATEMENT SERVICES REPRESENTATIVE PRN PO SEE LABEL COMMENTS 08/04/17 02:30 08/07/17 02:29 Povidone Iodine (Betadine 5% Antisepsis Kit) 1 applic STATEMENT SERVICES REPRESENTATIVE PRN EACH NARE SEE LABEL COMMENTS 08/04/17 02:30 08/07/17 02:29 Chlorhexidine Gluconate (Chlorhexidine 2% Cloth) 3 pack STATEMENT SERVICES REPRESENTATIVE PRN TOPICAL SEE LABEL COMMENTS 08/04/17 02:30 08/07/17 02:29 Insulin Human Regular (NovoLIN R INJ) See Protocol Table ... STATEMENT SERVICES REPRESENTATIVE PRN SQ SEE PROTOCOL TABLE 08/04/17 02:30 08/07/17 02:29 SOCIAL HISTORY: Unable to obtain. Medical chart review reports no tobacco, no alcohol, and no illicit drugs. OBJECTIVE: Vital Signs Date Time Temp Pulse Resp B/P (MAP) Pulse Ox O2 Delivery O2 Flow Rate FiO2 08/05/17 12:00 97.7 99 20 95/52 (66) 97 08/05/17 08:00 98.2 92 18 108/56 (73) 97 08/05/17 04:00 98.2 81 18 110/54 (72) 97 08/05/17 00:00 98.6 80 19 95/53 (67) 96 08/04/17 20:00 98.6 89 20 107/54 (71) 99 Laboratory Tests Test 08/05/17 05:49 White Blood Count 16.6 TH/MM3 Red Blood Count 4.01 MIL/MM3 Hemoglobin 11.9 GM/DL Hematocrit 35.4 % Mean Corpuscular Volume 88.4 FL Mean Corpuscular Hemoglobin 29.7 PG Mean Corpuscular Hemoglobin Concent 33.6 % Red Cell Distribution Width 14.8 % Platelet Count 245 TH/MM3 Mean Platelet Volume 7.5 FL Laboratory Tests Test 08/05/17 05:49 Blood Urea Nitrogen 18 MG/DL Creatinine 0.90 MG/DL Random Glucose 119 MG/DL Calcium Level 8.4 MG/DL Magnesium Level 2.1 MG/DL Sodium Level 137 MEQ/L Potassium Level 3.8 MEQ/L Chloride Level 104 MEQ/L Carbon Dioxide Level 21.8 MEQ/L Anion Gap 11 MEQ/L Estimat Glomerular Filtration Rate 82 ML/MIN IMAGING: Abdomen CT 08/04/17 0000 Signed Impressions: Service Date/Time: Friday, August 04, 2017 22:07 - CONCLUSION: 1. Interval resolution of previous pleural effusions from July 26. 2. Placement of a drainage catheter into the right side of a multiloculated abscess in the left lobe of the liver. Loculated air and fluid to the left of the catheter measuring 3.4 x 2.2 cm may not be currently drained. 3. Extensive pneumobilia with biliary stent present. Ill-defined mass in the pancreatic head with marked pancreatic ductal dilatation. Reported history of pancreatic carcinoma. Miguel Stringer MD Abscess Drainage CT 07/29/17 1236 Signed Impressions: Service Date/Time: Saturday, July 29, 2017 13:59 - CONCLUSION: Uncomplicated CT guided drainage with placement of 10 Slovenian locking pigtail drain. Sunil Miller MD Chest X-Ray 07/21/17 0000 Signed Impressions: Service Date/Time: Friday, July 21, 2017 10:53 - CONCLUSION: 1. ETT in good position. NGT in good position. Right IJ central line in the SVC. 2. No pneumothorax or acute abnormality. Amos Capone MD Abdomen/Pelvis CT 07/20/17 1426 Signed Impressions: Service Date/Time: Thursday, July 20, 2017 15:30 - CONCLUSION: 1. Interval appearance of a 6.8 cm low-density lesion involving the left lobe of the liver. Scattered vague areas of decreased density within the right lobe. This is concerning for an infectious process that is yet to liquefy. 2. Approximate 3 cm pancreatic head mass with obstruction of the pancreatic duct. Stent within the common bile duct is patent. 3. Pneumobilia. 4. Right basilar atelectasis. Andre Jones Jr., MD PHYSICAL EXAM: GENERAL: Alert and awake. No acute distress. HEENT: The head is atraumatic. Extraocular movements cannot be fully assessed. Pupils reactive to light. No icterus. Oral mucosa is moist. NECK: No adenopathy or swelling. LUNGS: Clear breath sounds. HEART: Normal S1 and S2. No murmurs, rubs or gallops audible. ABDOMEN: Bowel sounds present, soft, nontender. EXTREMITIES: No cyanosis, clubbing or edema. SKIN: No rash. NEURO: No gross focal finding. PSYCH: Calm and cooperative. IMPRESSION: 1. Septic shock due to Klebsiella. Resolved. The patient was hypotensive, febrile with acute respiratory failure and also positive blood cultures. 2. Liver abscess due to Klebsiella. New drainage catheter placed 07/29. Repeat culture has gram-negative raimrez from drainage. 3. Acute respiratory failure. Extubated. 4. Pancreatic mass. 5. Elevated liver function tests. Liver function test improved. 6. Leukocytosis secondary to infection. Resolved. Appears clinically stable. RECOMMENDATIONS: 1. Stop piperacillin/tazobactam. 2. Stop Levaquin PO. 3. Continue Lactinex. 4. Discharge on intravenous ceftriaxone 2 g daily until August 31. Labs ordered. 5. PICC catheter ordered for IV antibiotics. 6. Case management to arrange antibiotics. Patient can be discharged when the PICC line is placed and IV antibiotics are arranged home. Roger Franco MD Aug 05, 2017 16:45
[2017-08-05] MEDS ORDERED: OXYGENDME NAS.CANULA (16:59)
[2017-08-05 18:19] LABS: HEMOGLOBIN A1C 6.2 % (4.3-6.0)
[2017-08-05] MEDS: MIRTAZAPINE 15 MG TAB PO SCH (23:06)
[2017-08-06] VITALS: BP 112/57; PULSE 84; RESP 18; TEMP 96.2; O2SAT 94
[2017-08-06 04:00] VITALS: BP 114/62; PULSE 84; RESP 18; TEMP 96.4; O2SAT 96
[2017-08-06] MEDS: PIPERACIL-TAZO 4.5 GM PREMIX 100 ML IV SCH ×3 (04:23→16:00)
[2017-08-06] MEDS: SODIUM CHLORIDE 0.9% 10 ML VIAL IRRIGATION SCH ×3 (06:00→14:00)
--- NOTE | 2017-08-06 07:12 | HHI.FF ---
Face to Face Verification Diagnosis: (1) Liver abscess (2) Pancreatic mass Home Health Nursing Order: Medical education Signs/symptoms of disease process Medication education-adverse effect Nursing assessment with vital signs IV medication administration I have seen patient Heber Pérez on 08/06/17. My clinical findings support the need for the requested home health care services because: Patient has SOB Deconditioned w/ increased weakness I certify that my clinical findings support that this patient is homebound because: Unsafe to leave home unassisted Austin Little MD Aug 06, 2017 07:12
[2017-08-06 07:56] LABS: BASOPHIL # 0.1 TH/MM3 (0-0.2); BASOPHIL % 0.4 % (0.0-2.0); EOSINOPHIL # 0.4 TH/MM3 (0-0.4); EOSINOPHIL % 3.1 % (0.0-4.0); HEMATOCRIT 33.1 % (39.0-51.0); HEMOGLOBIN 11.1 GM/DL (13.0-17.0); LYMPHOCYTE # 1.4 TH/MM3 (1.0-4.8); MEAN CELL VOLUME 88.1 FL (80.0-100.0); MEAN CORPUSCULAR HEMOGLOBIN 29.6 PG (27.0-34.0); MEAN CORPUSCULAR HGB CONC 33.6 % (32.0-36.0); MONO % 6.5 % (0.0-8.0); MONOCYTE # 0.9 TH/MM3 (0-0.9); PLATELET COUNT 253 TH/MM3 (150-450); RED BLOOD COUNT 3.76 MIL/MM3 (4.50-5.90); RED CELL DISTRIBUTION WIDTH 14.9 % (11.6-17.2); WHITE BLOOD COUNT 13.8 TH/MM3 (4.0-11.0)
--- NOTE | 2017-08-06 07:58 | HHI.PR ---
Subjective Remarks Follow-up liver abscess and pancreatic mass. He is doing okay. Discussed with nursing, patient stable for discharge pending arrangement of oxygen, Rollator and home health care for IV antibiotic and PICC line care Objective Vitals Vital Signs Date Time Temp Pulse Resp B/P (MAP) Pulse Ox O2 Delivery O2 Flow Rate FiO2 08/06/17 04:00 96.4 84 18 114/62 (79) 96 08/06/17 00:00 96.2 84 18 112/57 (75) 94 08/05/17 17:00 4.00 08/05/17 16:00 97.2 92 20 96/56 (69) 97 08/05/17 12:00 97.7 99 20 95/52 (66) 97 08/05/17 08:00 98.2 92 18 108/56 (73) 97 I/O 08/05/17 08/05/17 08/05/17 08/06/17 08/06/17 08/06/17 07:00 15:00 23:00 07:00 15:00 23:00 Intake Total 340 ml 100 ml 960 ml 450 ml Output Total 800 ml 600 ml Balance -460 ml 100 ml 960 ml -150 ml Intake Oral 240 ml 960 ml 450 ml IV Total 100 ml 100 ml Output Urine Total 800 ml 600 ml Drainage Total 0 ml # Voids 1 2 2 # Bowel Movements 2 Result Diagram: 08/06/17 0618 08/05/17 0549 Imaging Last Impressions Abdomen CT 08/04/17 0000 Signed Impressions: Service Date/Time: Friday, August 04, 2017 22:07 - CONCLUSION: 1. Interval resolution of previous pleural effusions from July 26. 2. Placement of a drainage catheter into the right side of a multiloculated abscess in the left lobe of the liver. Loculated air and fluid to the left of the catheter measuring 3.4 x 2.2 cm may not be currently drained. 3. Extensive pneumobilia with biliary stent present. Ill-defined mass in the pancreatic head with marked pancreatic ductal dilatation. Reported history of pancreatic carcinoma. Miguel Stringer MD Abscess Drainage CT 07/29/17 1236 Signed Impressions: Service Date/Time: Saturday, July 29, 2017 13:59 - CONCLUSION: Uncomplicated CT guided drainage with placement of 10 Mongolian locking pigtail drain. Sunil Miller MD Abdomen/Pelvis CT 07/25/17 0000 Signed Impressions: Service Date/Time: Wednesday, July 26, 2017 01:41 - CONCLUSION: 1. Abnormal low density area laterally of the left hepatic lobe continues to evolve, slightly larger over the past several days and new since June, presumably a fluid collection and potentially an abscess. A catheter was placed recently but it is no longer present. 2. A fluid collection is developing along the posterior liver dome and is of concern for a possible subdiaphragmatic abscess, roughly 2.6 x 5.0 x 1.8 cm. 3. Vague low density lesion inferiorly of the right hepatic lobe not significantly changed. 4. Small bilateral pleural effusions have developed. There is also increasing dependent consolidation of the right lung base. 5. Pancreatic head mass with biliary stent again noted. 6. 3.7 cm infrarenal abdominal aortic aneurysm unchanged. Scott Paredes MD Chest X-Ray 07/21/17 0000 Signed Impressions: Service Date/Time: Friday, July 21, 2017 10:53 - CONCLUSION: 1. ETT in good position. NGT in good position. Right IJ central line in the SVC. 2. No pneumothorax or acute abnormality. Amos Capone MD Objective Remarks GENERAL: This is a frail 72 years old male CARDIOVASCULAR: Regular rate and rhythm without murmurs, gallops, or rubs. RESPIRATORY: Fair air entry. No wheezes, rales, or rhonchi. GASTROINTESTINAL: Abdomen soft, non-tender, nondistended. Normal active bowel sounds, liver abscess drain in place MUSCULOSKELETAL: Extremities without clubbing, cyanosis, or edema. NEURO: Alert & Oriented x4 to person, place, time, situation. Moves all ext x4 Procedures C/L, abscess drainage, EUS with FNA and PICC A/P Problem List: (1) Liver abscess ICD Code: K75.0 - Abscess of liver (2) Pancreatic mass ICD Code: K86.9 - Disease of pancreas, unspecified Assessment and Plan Pancreatic mass 3 cm with elevated CA-19-9 obstruction of the pancreatic duct. Status post EUS with FNA. Follow-up biopsy result Liver mass/abscess 6.8 cm, status post CT-guided biopsy on 07/15, negative for neoplasm s/p CT-guided drainage of liver abscess x 2. Last cx with [facility] dw ID, significance not clear. Repeat culture NGTD. Discussed with IR, the patient does not have a finding on the repeat CT 08/04/17 suitable for percutaneous drainage. The tiny collection in the lateral segment of the left lobe of the liver is comparable in size to an adjacent collection which already has an indwelling drainage catheter which is not draining any fluid and has been removed. Discussed with infectious disease and GI, patient is cleared for discharge with outpatient follow-up for repeat abdominal CT and discussion of biopsy results from EUS Klebsiella bacteremia Continue abx (piperacillin/tazobactam and Levaquin) Monitor for signs of infections(fever and WBC). BC 07/20: GNR, Kleb pneumonia, Follow up on BC from 07/22- NGTD Wound/abscess 07/21 cx: Kleb pneumonia 07/29 [facility] pansensitive rpt cx negative today nasal washing is negative for influenza on 07/20 . ID is following- Dr. Franco recommends IV rocephin til 08/31/17 via PICC. Tobaccoism COPD exacerbation. Resolved Continue with oxygen and maintain sats above 92%. Incentive spirometry while awake Budesonide/formoterol 160/4.5 2 puffs twice daily Albuterol/ipratropium aerosols every 4 hours with albuterol aerosols every 2 hours as needed dyspnea Extubated 07/23 Continue to wean steroids Normocytic anemia Thrombocytopenia History of prostate cancer Leukocytosis likely from steroid Monitor CBC. Oncology is following- Dr. Gomez Pancreatic mass nondiagnostic Hyperglycemia on steroids. A1c 6.2 GI prophylaxis-on pantoprazole, and DVT prophylaxis with SCDs. Discharge Planning Patient cleared for discharge Austin Little MD Aug 06, 2017 07:58
[2017-08-06 08:00] VITALS: BP 98/63; PULSE 85; RESP 20; TEMP 96.5; O2SAT 99
[2017-08-06 08:21] LABS: BICARBONATE 21.7 MEQ/L (21.0-32.0); CREATININE 0.9 MG/DL (0.60-1.30); MAGNESIUM 2.1 MG/DL (1.5-2.5)
[2017-08-06] MEDS: BUDESONIDE-FORMOTEROL 160/4.5 MCG INHALER INH SCH (09:00)
[2017-08-06] MEDS: MULTIVITAMIN-OPHTHALMIC 1 TAB PO SCH (11:07)
[2017-08-06] MEDS: predniSONE 10 MG TAB PO SCH (11:07)
[2017-08-06] MEDS: LACTOBACILLUS ACIDOPHILUS TAB PO SCH (11:07)
[2017-08-06] MEDS: MEGESTROL ACETATE 40 MG TAB PO SCH (11:08)
[2017-08-06] MEDS: busPIRone HCL 5 MG TAB PO SCH (11:08)
[2017-08-06] MEDS: LEVOFLOXACIN 750 MG TAB PO SCH (11:08)
[2017-08-06] MEDS: MULTIVITAMIN TAB PO SCH (11:08)
[2017-08-06] MEDS: SODIUM CHLORIDE 0.9% FLUSH 10 ML FLUSH IV FLUSH SCH (11:09)
[2017-08-06] MEDS: PANTOPRAZOLE SOD 40 MG DELAYED RELEASE TAB PO SCH (11:10)
[2017-08-06 12:00] VITALS: BP 104/57; PULSE 84; RESP 20; TEMP 96.6; O2SAT 98
[2017-08-06 16:00] VITALS: BP 106/57; PULSE 88; RESP 20; TEMP 96.9; O2SAT 98
== END 2017-08-07 18:30 | disposition home health service (06) | DRG 871 ==
LOC: NEPE 13:14 → NEDA 17:53 → HCIN 21:23 → N03A 07-21 08:54 → N03B 07-25 10:49 → HOCA 08-05 12:45
PROVIDERS: ADMIT Hospitalist; ATTEND Hospitalist
PROC: 0F9230Z Drainage of Left Lobe Liver with Drainage Device, Percutaneous Approach (ICD-10-PCS; principal; 2017-07-21)
PROC: 5A1945Z Respiratory Ventilation, 24-96 Consecutive Hours (ICD-10-PCS; 2017-07-21)
PROC: 02HV33Z Insertion of Infusion Device into Superior Vena Cava, Percutaneous Approach (ICD-10-PCS; 2017-07-21)
PROC: 0BH17EZ Insertion of Endotracheal Airway into Trachea, Via Natural or Artificial Opening (ICD-10-PCS; 2017-07-21)
PROC: 0F9230Z Drainage of Left Lobe Liver with Drainage Device, Percutaneous Approach (ICD-10-PCS; 2017-07-29)
PROC: 0FBG8ZX Excision of Pancreas, Via Natural or Artificial Opening Endoscopic, Diagnostic (ICD-10-PCS; 2017-08-04)
DX: A41.59 Other Gram-negative sepsis (principal); J96.01 Acute respiratory failure with hypoxia; R65.21 Severe sepsis with septic shock; E43 Unspecified severe protein-calorie malnutrition; N17.9 Acute kidney failure, unspecified; C25.0 Malignant neoplasm of head of pancreas; J90 Pleural effusion, not elsewhere classified; K75.0 Abscess of liver; C78.7 Secondary malignant neoplasm of liver and intrahepatic bile duct; E88.09 Other disorders of plasma-protein metabolism, not elsewhere classified; K83.1 Obstruction of bile duct; E87.2 Acidosis; J44.1 Chronic obstructive pulmonary disease with (acute) exacerbation; F41.9 Anxiety disorder, unspecified; F32.9 Major depressive disorder, single episode, unspecified; R74.0 Nonspecific elevation of levels of transaminase and lactic acid dehydrogenase [LDH]; R73.9 Hyperglycemia, unspecified; F17.200 Nicotine dependence, unspecified, uncomplicated; B96.1 Klebsiella pneumoniae [K. pneumoniae] as the cause of diseases classified elsewhere; D64.9 Anemia, unspecified; D69.6 Thrombocytopenia, unspecified; Z68.20 Body mass index [BMI] 20.0-20.9, adult; Z78.1 Physical restraint status; Z79.899 Other long term (current) drug therapy; Z90.79 Acquired absence of other genital organ(s); Z85.46 Personal history of malignant neoplasm of prostate; T38.0X5A Adverse effect of glucocorticoids and synthetic analogues, initial encounter
CPT/HCPCS: 31500; 36556; 36569; 36600; 43242; 71045; 71046; 74160; 74177; 75989; 76937; 80048; 80053; 80076; 80202; 81001; 82140; 82150; 82247; 82248; 82805; 82948; 83036; 83605; 83690; 83735; 84100; 84132; 85025; 85027; 85384; 85610; 85730; 86301; 87040; 87070; 87077; 87186; 87205; 87804; 88112; 88173; 88305; 93005; 94002; 94003; 94150; 94618; 94640; 94664; 96360; 96361; C1729; C1769; J1644; J1720; J1940; J1956; J2060; J2250; J2370; J2405; J2543; J2930; J3010; J3370; J3475; J3480; J7030; J7050; J7512; Q9963; Q9967

== ENCOUNTER 2017-09-23 06:05 | Day surgery (SDC) | payer OTHER ==
[2017-09-23] MEDS: SODIUM CHLORIDE 0.9% 1000 ML IV (07:15)
[2017-09-23] MEDS: SODIUM CHLOR 0.9% 1000 ML INJ 1,000 ML IV (07:15)
[2017-09-23 07:30] LABS: AUTOMATED NEUTROPHIL # 6.4 TH/MM3 (1.8-7.7); BASOPHIL % 0.4 % (0.0-2.0); EOSINOPHIL % 9.4 % (0.0-4.0); HEMATOCRIT 40.1 % (39.0-51.0); HEMO FLAGS DIFF FINAL; HEMOGLOBIN 13.4 GM/DL (13.0-17.0); LYMPH % 15.5 % (9.0-44.0); LYMPHOCYTE # 1.6 TH/MM3 (1.0-4.8); MEAN CELL VOLUME 87.8 FL (80.0-100.0); MEAN CORPUSCULAR HEMOGLOBIN 29.4 PG (27.0-34.0); MEAN CORPUSCULAR HGB CONC 33.5 % (32.0-36.0); MEAN PLATELET VOLUME 7.9 FL (7.0-11.0); MONO % 11.7 % (0.0-8.0); MONOCYTE # 1.2 TH/MM3 (0-0.9); PLATELET COUNT 231 TH/MM3 (150-450); RED BLOOD COUNT 4.56 MIL/MM3 (4.50-5.90); RED CELL DISTRIBUTION WIDTH 15.3 % (11.6-17.2); WHITE BLOOD COUNT 10.2 TH/MM3 (4.0-11.0)
[2017-09-23 07:33] LABS: APTT (PATIENT) 24.1 SEC (24.3-30.1); INTERNATIONAL NORMALIZED RATIO 0.9 RATIO; PROTHROMBIN TIME - PATIENT 9.6 SEC (9.8-11.6)
[2017-09-23] MEDS: CHLORHEXIDINE GLUCONATE 2 % 1 PACK (2 CLOTHS) TOPICAL (07:33)
[2017-09-23] MEDS: VANCOMYCIN 1000 MG/NS 250 ML - implanted port/tunneled catheter IV (07:33)
[2017-09-23] MEDS: POVIDONE IODINE 5% (ANTISEPSIS KIT) 4 APPLICATIONS EACH NARE (07:33)
[2017-09-23] MEDS: ceFAZolin 2 GM PREMIX 50 ML - implanted port/tunneled catheter insertion IV (07:33)
[2017-09-23] MEDS ORDERED: MIDAZOLAM HCL 2 MG/2 ML VIAL (07:51)
[2017-09-23] MEDS ORDERED: fentaNYL CITRATE 250 MCG/5 ML AMP (07:51)
[2017-09-23] MEDS: LIDOCAINE 1%/EPINEPHrine 1:100,000 SOLN 30 ML VIAL (08:30)
[2017-09-23] MEDS ORDERED: SODIUM CHLORIDE 0.9% FLUSH 10 ML FLUSH IVF (09:00)
== END 2017-09-23 12:42 | disposition home or self-care (01) ==
LOC: HROP 06:05 → HRIP 06:06 → HROP 12:42
DX: K75.0 Abscess of liver (principal); C25.9 Malignant neoplasm of pancreas, unspecified; J44.9 Chronic obstructive pulmonary disease, unspecified; Z85.46 Personal history of malignant neoplasm of prostate; Z01.818 Encounter for other preprocedural examination
CPT/HCPCS: 36561; 76937; 77001; 85025; 85610; 85730; 99152; 99153

== ENCOUNTER 2017-10-14 22:52 | Inpatient (IN) | payer OTHER, MEDICARE ==
[~2017-10-14] VITALS: Ht 175.3 cm; Wt 63.2 kg
[~2017-10-14 22:52] MED LIST changes: +ALBU6.7H INH; +Budeson-Formot 160-4.5 Mcg Inh INH; -MEGE20TA PO; +MISCMIS81; -MULT1TAB41; +OXYGENDME NAS.CANULA; -PRESCAP6 PO; +TIOT12.9 INH
[2017-10-14 22:53] VITALS: BP 127/59; PULSE 100; RESP 20; TEMP 98.3; O2SAT 95
[2017-10-14 23:14] VITALS: BP 126/58; PULSE 90; RESP 18; O2SAT 96; O2SAT 98
[2017-10-14] MEDS ORDERED: ENSUPOW (23:14)
[2017-10-14] MEDS ORDERED: SODIUM CHLORID 0.9% 500 ML INJ 500 ML IV ONE (23:15)
--- NOTE | 2017-10-14 23:15 | PD ---
HPI Chief Complaint: Fever Time Seen by Provider: 23:07 Travel History International Travel<30 days: No Contact w/Intl Traveler<30days: No Traveled to known affect area: No History of Present Illness HPI 72-year-old male with history of pancreatic cancer, received his third round of chemotherapy yesterday, here for evaluation of fever. Fever started about 2 hours prior to arrival in the emergency department. He has taken a dose of Tylenol at home and is afebrile upon arrival. He does have a rash to his bilateral forearms which he states is from chemotherapy. He has a slight productive cough of yellowish sputum. No vomiting or diarrhea. No abdominal pain. No urinary symptoms. PFSH Past Medical History Anxiety: Yes Cancer: Yes (PROSTATE - PT STATES "FROM [employer]" pancreatic) Cardiovascular Problems: No High Cholesterol: Yes Diabetes: No Endocrine: No Gastrointestinal Disorders: No Genitourinary: No Hepatitis: No Hiatal Hernia: No Hypertension: No Immune Disorder: No Musculoskeletal: No Neurologic: No Psychiatric: No Reproductive: No Respiratory: Yes (COPD) Thyroid Disease: No Influenza Vaccination: Yes Past Surgical History Abdominal Surgery: Yes (liver biopsy) AICD: No Cardiac Surgery: No Cholecystectomy: Yes Ear Surgery: No Endocrine Surgery: No Eye Surgery: No Genitourinary Surgery: Yes (PROSTATECTOMY) Gynecologic Surgery: No Joint Replacement: No Neurologic Surgery: Yes Oral Surgery: No Pacemaker: No Thoracic Surgery: No Other Surgery: Yes Social History Alcohol Use: No Tobacco Use: No Substance Use: No Allergies-Medications (Allergen,Severity, Reaction): Coded Allergies: No Known Allergies (Verified Allergy, Unknown, 10/14/17) Reported Meds & Prescriptions Reported Meds & Active Scripts Active Oxygen (O2) Device Liter KEYON.CANULA CONTINUOUS Oxygen Concentrator Portable Gaseous 2 L/min via Nasal Canula Continuous For 99 months Rollator Ultra-Light (Device) 1 Mis Mis Ea .XX DIRECTED [Budeson-Formot 160-4.5 Mcg Inh] 60 PUFF Aero 2 Puff INH Q12HR Reported Ensure (Nutritional Supplements) 1 Pow Pow Spiriva Respimat Inh (Tiotropium Inh) 2.5 Mcg/Act Aero 2 Puff INH DAILY 2.5 mcg = 1 inhalation Proventil Hfa 6.7 GM Inh (Albuterol Sulfate) 90 Mcg/Act Aer 1 Puff INH Q4H PRN Mirtazapine 45 Mg Tab 45 Mg PO HS Buspirone (Buspirone HCl) 5 Mg Tab 5 Mg PO BID Review of Systems Except as stated in HPI: all other systems reviewed are Neg Physical Exam Narrative GENERAL: Well-developed, well-nourished, awake, alert, no apparent distress. SKIN: Focused skin assessment warm/dry. Blanching/erythematous/maculopapular rash to bilateral arms HEAD: Atraumatic. Normocephalic. EYES: Pupils equal and round. No scleral icterus. No injection or drainage. ENT: Mucous membranes pink and moist. NECK: Trachea midline. No JVD. CARDIOVASCULAR: Regular rate and rhythm. No murmur appreciated. RESPIRATORY: No accessory muscle use. Clear to auscultation. Breath sounds equal bilaterally. GASTROINTESTINAL: Abdomen soft, non-tender, nondistended. MUSCULOSKELETAL: No obvious deformities. No clubbing. No cyanosis. No edema. NEUROLOGICAL: Awake and alert. No obvious cranial nerve deficits. Motor grossly within normal limits. Normal speech. PSYCHIATRIC: Appropriate mood and affect; insight and judgment normal. Data Data Last Documented VS Vital Signs Date Time Temp Pulse Resp B/P (MAP) Pulse Ox O2 Delivery O2 Flow Rate FiO2 10/14/17 23:14 90 18 126/58 (80) 96 Room Air 10/14/17 22:53 98.3 Orders Orders Sepsis Workup Initiated (10/14/17 ) Complete Blood Count With Diff (10/14/17 23:12) Comprehensive Metabolic Panel (10/14/17 23:12) Prothrombin Time / Inr (Pt) (10/14/17 23:12) Act Partial Throm Time (Ptt) (10/14/17 23:12) Lactic Acid Sepsis Protocol (10/14/17 23:12) Urinalysis - C+S If Indicated (10/14/17 23:12) Influenzae A/B Antigen (10/14/17 23:12) Blood Culture (10/14/17 23:12) Chest, Single Ap (10/14/17 23:12) Ecg Monitoring (10/14/17 23:12) Iv Access Insert/Monitor (10/14/17 23:12) Oximetry (10/14/17 23:12) Sodium Chlorid 0.9% 500 Ml Inj (Ns 500 M (5/30/18 23:15) Cefepime Inj (Maxipime Inj) (10/15/17 00:15) Labs Laboratory Tests Test 10/14/17 23:29 White Blood Count 2.3 TH/MM3 Red Blood Count 3.27 MIL/MM3 Hemoglobin 9.7 GM/DL Hematocrit 27.8 % Mean Corpuscular Volume 85.1 FL Mean Corpuscular Hemoglobin 29.6 PG Mean Corpuscular Hemoglobin Concent 34.8 % Red Cell Distribution Width 14.3 % Platelet Count 103 TH/MM3 Mean Platelet Volume 8.6 FL Neutrophils (%) (Auto) 61.8 % Lymphocytes (%) (Auto) 33.6 % Monocytes (%) (Auto) 1.7 % Eosinophils (%) (Auto) 2.1 % Basophils (%) (Auto) 0.8 % Neutrophils # (Auto) 1.4 TH/MM3 Lymphocytes # (Auto) 0.8 TH/MM3 Monocytes # (Auto) 0.0 TH/MM3 Eosinophils # (Auto) 0.0 TH/MM3 Basophils # (Auto) 0.0 TH/MM3 CBC Comment DIFF FINAL Differential Comment Prothrombin Time 10.4 SEC Prothromb Time International Ratio 1.0 RATIO Activated Partial Thromboplast Time 23.5 SEC Blood Urea Nitrogen 17 MG/DL Creatinine 0.77 MG/DL Random Glucose 104 MG/DL Total Protein 6.3 GM/DL Albumin 2.9 GM/DL Calcium Level 8.2 MG/DL Alkaline Phosphatase 86 U/L Aspartate Amino Transf (AST/SGOT) 41 U/L Alanine Aminotransferase (ALT/SGPT) 55 U/L Total Bilirubin 0.4 MG/DL Sodium Level 137 MEQ/L Potassium Level 3.4 MEQ/L Chloride Level 106 MEQ/L Carbon Dioxide Level 20.8 MEQ/L Anion Gap 10 MEQ/L Estimat Glomerular Filtration Rate 99 ML/MIN Lactic Acid Level 1.2 mmol/L [facility] Medical Decision Making Medical Screen Exam Complete: Yes Emergency Medical Condition: Yes Differential Diagnosis Neutropenic fever, pneumonia, viral illness, UTI, bacteremia Narrative Course Vital signs reviewed. The patient's oral temperature is 98.3F. He did take Tylenol prior to arrival. CBC: WBC 2.3, hemoglobin 9.7, hematocrit 27.8, platelets 103. CMP is essentially unremarkable. Lactic acid is 1.2. UA: Chest x-ray: No acute cardiopulmonary disease. Influenza is negative. I discussed the case with oncologist Dr. Jo who recommends starting the patient on cefepime and admitting for neutropenic fever. The patient and the patient's family were made aware of findings and plan. Case discussed with hospitalist Dr. Velásquez who will admit the patient to the hospitalist service. Diagnosis Primary Impression: Neutropenic fever Admitting Information Admitting Physician Requests: Admit Thiago Benedict MD October 14, 2017 23:15
[2017-10-14 23:44] LABS: AUTOMATED NEUTROPHIL # 1.4 TH/MM3 (1.8-7.7); BASOPHIL % 0.8 % (0.0-2.0); EOSINOPHIL % 2.1 % (0.0-4.0); HEMATOCRIT 27.8 % (39.0-51.0); HEMOGLOBIN 9.7 GM/DL (13.0-17.0); LYMPH % 33.6 % (9.0-44.0); LYMPHOCYTE # 0.8 TH/MM3 (1.0-4.8); MEAN CELL VOLUME 85.1 FL (80.0-100.0); MEAN CORPUSCULAR HEMOGLOBIN 29.6 PG (27.0-34.0); MEAN CORPUSCULAR HGB CONC 34.8 % (32.0-36.0); MEAN PLATELET VOLUME 8.6 FL (7.0-11.0); MONO % 1.7 % (0.0-8.0); NEUT % 61.8 % (16.0-70.0); PLATELET COUNT 103 TH/MM3 (150-450); RED BLOOD COUNT 3.27 MIL/MM3 (4.50-5.90); RED CELL DISTRIBUTION WIDTH 14.3 % (11.6-17.2); WHITE BLOOD COUNT 2.3 TH/MM3 (4.0-11.0)
[2017-10-14 23:51] LABS: PROTHROMBIN TIME - PATIENT 10.4 SEC (9.8-11.6)
[2017-10-15] VITALS (11 sets, daily range): BP systolic 104–129; BP diastolic 52–66; PULSE 87–110; RESP 16–22; TEMP 97.8–100; O2SAT 96–100
[2017-10-15 00:03] LABS: ALBUMIN 2.9 GM/DL (3.4-5.0); AST (GOT) 41 U/L (15-37); BICARBONATE 20.8 MEQ/L (21.0-32.0); BLOOD UREA NITROGEN 17 MG/DL (7-18); CALCIUM 8.2 MG/DL (8.5-10.1); CHLORIDE 106 MEQ/L (98-107); CREATININE 0.77 MG/DL (0.60-1.30); GLOMERULAR FILTRATION RATE 99 ML/MIN (>89); GLUCOSE,RANDOM 104 MG/DL (74-106); SODIUM (NA) 137 MEQ/L (136-145)
--- NOTE | 2017-10-15 00:04 | RADRPT ---
EXAM DATE: 10/14/2017 11:57 PM EDT AGE/SEX: 72 years / Male INDICATIONS: Fever. CLINICAL DATA: This is the patient's initial encounter. Patient reports that signs and symptoms have been present for 1 day and indicates a pain score of 0/10. MEDICAL/SURGICAL HISTORY: Chronic obstructive pulmonary disease. Carcinoma, pancreas. . Infuse -a-port [place]PAR[place] [facility] [place]. . FINDINGS: The lungs are clear without infiltrate, nodule, or mass. There is no appreciable pleural effusion for technique. Right IJ Uakaxm-d-Icgs is present with tip overlapping the right atrium witho ut definite pneumothorax. Heart and mediastinum are unremarkable. CONCLUSION: No acute cardiopulmonary disease. Electronically signed by: Amor Lopez MD 10/15/2017 12:03 AM EDT
[2017-10-15 00:05] LABS: ALT (GPT) 55 U/L (12-78)
[2017-10-15 00:07] LABS: ALKALINE PHOSPHATASE 86 U/L (45-117); TOTAL BILIRUBIN ADULT 0.4 MG/DL (0.2-1.0); TOTAL PROTEIN 6.3 GM/DL (6.4-8.2)
[2017-10-15] MEDS ORDERED: CEFEPIME INJ 1,000 MG in SODIUM CHLORIDE 0.9% INJ 100 ML IV ONE (00:15)
[2017-10-15] MEDS ORDERED: SENNOSIDES 8.6 MG TAB PO PRN (02:00)
[2017-10-15] MEDS ORDERED: LACTULOSE SYRUP 20 GM/30 ML CUP PO PRN (02:00)
[2017-10-15] MEDS ORDERED: SODIUM CHLORIDE 0.9% FLUSH 10 ML FLUSH IV FLUSH PRN (02:00)
[2017-10-15] MEDS ORDERED: BISACODYL 10 MG SUPP RECTAL PRN (02:00)
[2017-10-15] MEDS ORDERED: MAGNESIUM HYDROXIDE SUSP 30 ML CUP PO PRN (02:00)
[2017-10-15] MEDS ORDERED: POTASSIUM CHLORIDE 10 MEQ CONTROLLED RELEASE TAB PO ONE (02:00)
[2017-10-15] MEDS ORDERED: NALOXONE HCL 0.4 MG/ML AMP IV PUSH PRN (02:00)
[2017-10-15] MEDS: SODIUM CHLOR 0.9% 1000 ML INJ 1,000 ML IV SCH ×2 (02:07→17:38)
[2017-10-15 02:10] LABS: BILIRUBIN, URINE NEG (NEG); BLOOD, URINE NEG (NEG); GLUCOSE,URINE NEG (NEG); KETONE, URINE NEG (NEG); MUCUS URINE FEW /lpf (OCC); NITRITE,URINE NEG (NEG); URINE COLOR LIGHT-YELLOW (YELLW/STRAW); URINE LEUKOCYTE ESTERASE NEG (NEG)
[2017-10-15] MEDS ORDERED: RESP: ALBUTEROL 2.5 MG/IPRATROPIUM 0.5 MG NEB (PRN) NEB (04:30)
--- NOTE | 2017-10-15 04:34 | HHI.HP ---
HPI Service [facility] Primary Care Physician Cb Hogan MD Admission Diagnosis Neutropenic fever Diagnoses: Travel History International Travel<30 Days: No Contact w/Intl Traveler <30 Da: No Traveled to Known Affected Are: No History of Present Illness 72-year-old male with a past medical history significant for adenocarcinoma of the pancreas, COPD and depression presents to the emergency department for the evaluation of a fever. The patient is currently undergoing chemotherapy, completing his third course of chemo on Thursday. He reports that his temperature at home was 100 or 101. The patient's son called his oncologist office who recommended further evaluation in the emergency department and treatment with IV antibiotics. The patient also endorses a productive cough. He reports chest pain on exertion that is his baseline. He denies abdominal pain. No nausea/vomiting/diarrhea. No lateralizing signs/symptoms. Review of Systems Except as stated in HPI: all other systems reviewed are Neg Past Family Social History Past Medical History adenocarcinoma of the pancreas, COPD and depression Past Surgical History Prostatectomy Cholecystectomy Port placement Reported Medications Reported Meds & Active Scripts Active Oxygen (O2) Device Liter KEYON.CANULA CONTINUOUS Oxygen Concentrator Portable Gaseous 2 L/min via Nasal Canula Continuous For 99 months Rollator Ultra-Light (Device) 1 Mis Mis Ea .XX DIRECTED [Budeson-Formot 160-4.5 Mcg Inh] 60 PUFF Aero 2 Puff INH Q12HR Reported Ensure (Nutritional Supplements) 1 Pow Pow Spiriva Respimat Inh (Tiotropium Inh) 2.5 Mcg/Act Aero 2 Puff INH DAILY 2.5 mcg = 1 inhalation Proventil Hfa 6.7 GM Inh (Albuterol Sulfate) 90 Mcg/Act Aer 1 Puff INH Q4H PRN Mirtazapine 45 Mg Tab 45 Mg PO HS Buspirone (Buspirone HCl) 5 Mg Tab 5 Mg PO BID Allergies: Coded Allergies: No Known Allergies (Verified Allergy, Unknown, 10/14/17) Family History Negative for CAD/DM Social History Denies alcohol, tobacco and illicit drugs Physical Exam Vital Signs Vital Signs Date Time Temp Pulse Resp B/P (MAP) Pulse Ox O2 Delivery O2 Flow Rate FiO2 10/15/17 02:47 89 10/15/17 02:45 98.4 91 16 129/66 (87) 99 10/15/17 02:23 10/14/17 23:14 90 18 126/58 (80) 96 Room Air 10/14/17 23:14 98 Room Air 10/14/17 22:53 98.3 100 20 127/59 (81) 95 Physical Exam GENERAL: male lying in bed SKIN: Macular rash covering all 4 extremities HEAD: Atraumatic. Normocephalic. No temporal or scalp tenderness. EYES: Pupils equal round and reactive. Extraocular motions intact. No scleral icterus. No injection or drainage. ENT: Nose without bleeding, purulent drainage or septal hematoma. Throat without erythema, tonsillar hypertrophy or exudate. Uvula midline. Airway patent. NECK: Trachea midline. No JVD or lymphadenopathy. Supple, nontender, no meningeal signs. CARDIOVASCULAR: Regular rate and rhythm without murmurs, gallops, or rubs. RESPIRATORY: Clear to auscultation. Breath sounds equal bilaterally. No wheezes , rales, or rhonchi. GASTROINTESTINAL: Abdomen soft, non-tender, nondistended. No hepato-splenomegaly , or palpable masses. No guarding. MUSCULOSKELETAL: Extremities without clubbing, cyanosis, or edema. No joint tenderness, effusion, or edema noted. No calf tenderness. NEUROLOGICAL: Awake and alert. Cranial nerves II through XII intact. Motor and sensory grossly within normal limits. Normal speech. Laboratory Laboratory Tests Test 10/14/17 23:29 10/15/17 01:25 White Blood Count 2.3 Red Blood Count 3.27 Hemoglobin 9.7 Hematocrit 27.8 Mean Corpuscular Volume 85.1 Mean Corpuscular Hemoglobin 29.6 Mean Corpuscular Hemoglobin Concent 34.8 Red Cell Distribution Width 14.3 Platelet Count 103 Mean Platelet Volume 8.6 Neutrophils (%) (Auto) 61.8 Lymphocytes (%) (Auto) 33.6 Monocytes (%) (Auto) 1.7 Eosinophils (%) (Auto) 2.1 Basophils (%) (Auto) 0.8 Neutrophils # (Auto) 1.4 Lymphocytes # (Auto) 0.8 Monocytes # (Auto) 0.0 Eosinophils # (Auto) 0.0 Basophils # (Auto) 0.0 CBC Comment DIFF FINAL Differential Comment Prothrombin Time 10.4 Prothromb Time International Ratio 1.0 Activated Partial Thromboplast Time 23.5 Blood Urea Nitrogen 17 Creatinine 0.77 Random Glucose 104 Total Protein 6.3 Albumin 2.9 Calcium Level 8.2 Alkaline Phosphatase 86 Aspartate Amino Transf (AST/SGOT) 41 Alanine Aminotransferase (ALT/SGPT) 55 Total Bilirubin 0.4 Sodium Level 137 Potassium Level 3.4 Chloride Level 106 Carbon Dioxide Level 20.8 Anion Gap 10 Estimat Glomerular Filtration Rate 99 Lactic Acid Level 1.2 Urine Color LIGHT-YELLOW Urine Turbidity CLEAR Urine pH 6.[address] [place] 1.003 Urine Protein NEG Urine Glucose (UA) NEG Urine Ketones NEG Urine Occult Blood NEG Urine Nitrite NEG Urine Bilirubin NEG Urine Urobilinogen LESS THAN 2.0 Urine Leukocyte Esterase NEG Urine Mucus FEW Microscopic Urinalysis Comment CULT NOT INDICATED Date/Time Source Procedure Growth Status 10/14/17 23:29 Blood Peripheral Aerobic Blood Culture Pending Received 10/14/17 23:29 Blood Peripheral Anaerobic Blood Culture Pending Received 10/14/17 23:21 Nasal Washing Influenza Types A,B Antigen (ION) - Final NEGATIVE FOR FLU A AND B ANTIGEN.... Complete Result Diagram: 10/14/17232810/14/172328 Caprini VTE Risk Assessment Caprini VTE Risk Assessment: Mod/High Risk (score >= 2) Caprini Risk Assessment Model Point Value = 1 Point Value = 2 Point Value = 3 Point Value = 5 Age 41-60 Minor surgery BMI > 25 kg/m2 Swollen legs Varicose veins or History of unexplained or recurrent spontaneous Oral contraceptives or hormone replacement Sepsis (< 1 month) Serious lung disease, including pneumonia (< 1 month) Abnormal pulmonary function Acute myocardial infarction Congestive heart failure (< 1 month) History of inflammatory bowel disease Medical patient at bed rest Age 61-74 Arthroscopic surgery Major open surgery (> 45 min) Laparoscopic surgery (> 45 min) Malignancy Confined to bed (> 72 hours) Immobilizing plaster cast Central venous access Age >= 75 History of VTE Family history of VTE Factor V Leiden Prothrombin [id number] Lupus anticoagulant Anticardiolipin antibodies Elevated serum homocysteine Heparin-induced thrombocytopenia Other congenital or acquired thrombophilia Stroke (< 1 month) Elective arthroplasty Hip, pelvis, or leg fracture Acute spinal cord injury (< 1 month) Prophylaxis Regimen Total Risk Factor Score Risk Level Prophylaxis Regimen 0-1 Low Early ambulation 2 Moderate Order ONE of the following: *Sequential Compression Device (SCD) *Heparin 5000 units SQ BID 3-4 Higher Order ONE of the following medications: *Heparin 5000 units SQ TID *Enoxaparin/Lovenox 40 mg SQ daily (WT < 150 kg, CrCl > 30 mL/min) *Enoxaparin/Lovenox 30 mg SQ daily (WT < 150 kg, CrCl > 10-29 mL/min) *Enoxaparin/Lovenox 30 mg SQ BID (WT < 150 kg, CrCl > 30 mL/min) AND/OR *Sequential Compression Device (SCD) 5 or more Highest Order ONE of the following medications: *Heparin 5000 units SQ TID (Preferred with Epidurals) *Enoxaparin/Lovenox 40 mg SQ daily (WT < 150 kg, CrCl > 30 mL/min) *Enoxaparin/Lovenox 30 mg SQ daily (WT < 150 kg, CrCl > 10-29 mL/min) *Enoxaparin/Lovenox 30 mg SQ BID (WT < 150 kg, CrCl > 30 mL/min) AND *Sequential Compression Device (SCD) Assessment and Plan Assessment and Plan Assessment/plan: 1. Neutropenic fever Patient took Tylenol at home, has been afebrile since arriving to the hospital Reports his temperature at home was 100 or 101 Last chemotherapy Thursday Chest x-ray, UA negative Blood cultures pending Flu negative Cefepime Medical oncology consulted, appreciate recommendations 2. Pancreatic adenocarcinoma Appreciate recommendations from medical oncology 3. COPD Continue home Symbicort and Spiriva Duo nebs as needed 4. Depression Continue home BuSpar and mirtazapine FEN Regular diet Electrolytes: Status post p.o. potassium, follow BMP NS at 100 cc/hour Lovenox Physician Certification 2 Midnight Certification Type: Admission for Inpatient Services Order for Inpatient Services The services are ordered in accordance with Medicare regulations or non- Medicare payer requirements, as applicable. In the case of services not specified as inpatient-only, they are appropriately provided as inpatient services in accordance with the 2-midnight benchmark. Estimated LOS (days): 2 2 days is the estimated time the patient will need to remain in the hospital, assuming treatment plan goals are met and no additional complications. Post-Hospital Plan: Not yet determined Bertha Velásquez MD October 15, 2017 04:34
[2017-10-15] MEDS: CEFEPIME INJ 2,000 MG in SODIUM CHLORIDE 0.9% INJ 100 ML IV SCH ×3 (05:34→20:19)
[2017-10-15] MEDS: BUDESONIDE-FORMOTEROL 160/4.5 MCG INHALER INH SCH ×2 (09:00→20:20)
[2017-10-15] MEDS: SODIUM CHLORIDE 0.9% FLUSH 10 ML FLUSH IV FLUSH SCH ×2 (09:00→20:26)
[2017-10-15] MEDS: busPIRone HCL 5 MG TAB PO SCH ×2 (09:06→20:19)
[2017-10-15] MEDS: ENOXAPARIN SODIUM 40 MG/0.4 ML SYRINGE SQ SCH (09:06)
[2017-10-15 09:09] LABS: AUTOMATED NEUTROPHIL # 1.2 TH/MM3 (1.8-7.7); BASOPHIL % 0.7 % (0.0-2.0); EOSINOPHIL # 0.1 TH/MM3 (0-0.4); EOSINOPHIL % 4.7 % (0.0-4.0); HEMATOCRIT 29.2 % (39.0-51.0); LYMPH % 31.6 % (9.0-44.0); LYMPHOCYTE # 0.6 TH/MM3 (1.0-4.8); MEAN CELL VOLUME 85.3 FL (80.0-100.0); MEAN CORPUSCULAR HEMOGLOBIN 29.3 PG (27.0-34.0); MEAN CORPUSCULAR HGB CONC 34.3 % (32.0-36.0); MEAN PLATELET VOLUME 8.6 FL (7.0-11.0); MONO % 1.1 % (0.0-8.0); NEUT % 61.9 % (16.0-70.0); PLATELET COUNT 103 TH/MM3 (150-450); RED BLOOD COUNT 3.42 MIL/MM3 (4.50-5.90); RED CELL DISTRIBUTION WIDTH 14.3 % (11.6-17.2); WHITE BLOOD COUNT 1.9 TH/MM3 (4.0-11.0)
[2017-10-15 09:26] LABS: ALBUMIN 2.8 GM/DL (3.4-5.0); ALT (GPT) 54 U/L (12-78); AST (GOT) 40 U/L (15-37); BICARBONATE 18.4 MEQ/L (21.0-32.0); CHLORIDE 109 MEQ/L (98-107); CREATININE 0.73 MG/DL (0.60-1.30); GLOMERULAR FILTRATION RATE 105 ML/MIN (>89); GLUCOSE,RANDOM 93 MG/DL (74-106); SODIUM (NA) 138 MEQ/L (136-145)
[2017-10-15] MEDS ORDERED: VANCOMYCIN INJ 1,000 MG in SODIUM CHLOR 0.9% 250 ML INJ 250 ML IV ONE (09:30)
[2017-10-15 09:33] LABS: ALKALINE PHOSPHATASE 85 U/L (45-117); BLOOD UREA NITROGEN 12 MG/DL (7-18); TOTAL BILIRUBIN ADULT 0.8 MG/DL (0.2-1.0); TOTAL PROTEIN 6.2 GM/DL (6.4-8.2)
[2017-10-15 10:20] LABS: BANDS 18 % (0-6); LYMPHOCYTES 34 % (9-44); NEUTROPHIL # MANUAL DIFF 1.1 TH/MM3 (1.8-7.7); POLYS (SEG NEUTROPHILS) 42 % (16-70)
--- NOTE | 2017-10-15 11:53 | HHI.PR ---
Subjective Remarks 72-year-old male with a past medical history significant for adenocarcinoma of the pancreas, COPD and depression presents to the emergency department for the evaluation of a fever. The patient is currently undergoing chemotherapy, completing his third course of chemo on Thursday. He reports that his temperature at home was 100 or 101. The patient's son called his oncologist office who recommended further evaluation in the emergency department and treatment with IV antibiotics. The patient also endorses a productive cough. He reports chest pain on exertion that is his baseline. He denies abdominal pain. No nausea/vomiting/diarrhea. No lateralizing signs/symptoms. STATES HE HAS SOME SORE THROAT AND SOME IRRITATION IN THROAT POSSIBLY EARLY THRUSH DW RN AND PT AND FAMILY AND CM CONTINUE SAME AM LABS MAYBE A BORDERLINE FEVER EARLIER TODAY ONLY 100 Objective Vitals Vital Signs Date Time Temp Pulse Resp B/P (MAP) Pulse Ox O2 Delivery O2 Flow Rate FiO2 10/15/17 10:40 102 10/15/17 08:09 99 10/15/17 08:00 100.0 97 20 121/62 (81) 98 10/15/17 05:31 99.2 99 16 112/65 (81) 98 10/15/17 04:00 87 10/15/17 02:47 89 10/15/17 02:45 98.4 91 16 129/66 (87) 99 10/15/17 02:23 10/14/17 23:14 90 18 126/58 (80) 96 Room Air 10/14/17 23:14 98 Room Air 10/14/17 22:53 98.3 100 20 127/59 (81) 95 I/O 10/14/17 10/14/17 10/14/17 10/15/17 10/15/17 10/15/17 07:00 15:00 23:00 07:00 15:00 23:00 Intake Total 1300 ml Output Total 550 ml Balance 750 ml Intake Oral 200 ml IV Total 1100 ml Output Urine Total 550 ml # Bowel Movements 0 Result Diagram: 10/15/17 0852 10/15/17 0852 Other Results Laboratory Tests Test 10/14/17 23:29 10/15/17 01:25 10/15/17 08:52 White Blood Count 2.3 TH/MM3 1.9 TH/MM3 Red Blood Count 3.27 MIL/MM3 3.42 MIL/MM3 Hemoglobin 9.7 GM/DL 10.0 GM/DL Hematocrit 27.8 % 29.2 % Mean Corpuscular Volume 85.1 FL 85.3 FL Mean Corpuscular Hemoglobin 29.6 PG 29.3 PG Mean Corpuscular Hemoglobin Concent 34.8 % 34.3 % Red Cell Distribution Width 14.3 % 14.3 % Platelet Count 103 TH/MM3 103 TH/MM3 Mean Platelet Volume 8.6 FL 8.6 FL Neutrophils (%) (Auto) 61.8 % 61.9 % Lymphocytes (%) (Auto) 33.6 % 31.6 % Monocytes (%) (Auto) 1.7 % 1.1 % Eosinophils (%) (Auto) 2.1 % 4.7 % Basophils (%) (Auto) 0.8 % 0.7 % Neutrophils # (Auto) 1.4 TH/MM3 1.2 TH/MM3 Lymphocytes # (Auto) 0.8 TH/MM3 0.6 TH/MM3 Monocytes # (Auto) 0.0 TH/MM3 0.0 TH/MM3 Eosinophils # (Auto) 0.0 TH/MM3 0.1 TH/MM3 Basophils # (Auto) 0.0 TH/MM3 0.0 TH/MM3 CBC Comment DIFF FINAL AUTO DIFF Differential Comment FINAL DIFF MANUAL Prothrombin Time 10.4 SEC Prothromb Time International Ratio 1.0 RATIO Activated Partial Thromboplast Time 23.5 SEC Blood Urea Nitrogen 17 MG/DL 12 MG/DL Creatinine 0.77 MG/DL 0.73 MG/DL Random Glucose 104 MG/DL 93 MG/DL Total Protein 6.3 GM/DL 6.2 GM/DL Albumin 2.9 GM/DL 2.8 GM/DL Calcium Level 8.2 MG/DL 8.0 MG/DL Alkaline Phosphatase 86 U/L 85 U/L Aspartate Amino Transf (AST/SGOT) 41 U/L 40 U/L Alanine Aminotransferase (ALT/SGPT) 55 U/L 54 U/L Total Bilirubin 0.4 MG/DL 0.8 MG/DL Sodium Level 137 MEQ/L 138 MEQ/L Potassium Level 3.4 MEQ/L 3.8 MEQ/L Chloride Level 106 MEQ/L 109 MEQ/L Carbon Dioxide Level 20.8 MEQ/L 18.4 MEQ/L Anion Gap 10 MEQ/L 11 MEQ/L Estimat Glomerular Filtration Rate 99 ML/MIN 105 ML/MIN Lactic Acid Level 1.2 mmol/L Urine Color LIGHT-YELLOW Urine Turbidity CLEAR Urine pH 6.0 Urine Specific [place] 1.003 Urine Protein NEG mg/dL Urine Glucose (UA) NEG mg/dL Urine Ketones NEG mg/dL Urine Occult Blood NEG Urine Nitrite NEG Urine Bilirubin NEG Urine Urobilinogen LESS THAN 2.0 MG/DL Urine Leukocyte Esterase NEG Urine Mucus FEW /lpf Microscopic Urinalysis Comment CULT NOT INDICATED Differential Total Cells Counted 100 Neutrophils % (Manual) 42 % Band Neutrophils % 18 % Lymphocytes % 34 % Eosinophils % 6 % Neutrophils # (Manual) 1.1 TH/MM3 Atypical Lymphocytes % Platelet Estimate LOW Platelet Morphology Comment NORMAL Red Cell Morphology Comment NORMAL Imaging Last Impressions Chest X-Ray 10/14/17 2312 Signed Impressions: CONCLUSION: No acute cardiopulmonary disease. Objective Remarks GENERAL: male lying in bed SKIN: Macular rash covering all 4 extremities HEAD: Atraumatic. Normocephalic. No temporal or scalp tenderness. EYES: Pupils equal round and reactive. Extraocular motions intact. No scleral icterus. No injection or drainage. ENT: Nose without bleeding, purulent drainage or septal hematoma. Throat without erythema, tonsillar hypertrophy or exudate. Uvula midline. Airway patent. NECK: Trachea midline. No JVD or lymphadenopathy. Supple, nontender, no meningeal signs. CARDIOVASCULAR: Regular rate and rhythm without murmurs, gallops, or rubs. RESPIRATORY: Clear to auscultation. Breath sounds equal bilaterally. No wheezes , rales, or rhonchi. GASTROINTESTINAL: Abdomen soft, non-tender, nondistended. No hepato-splenomegaly , or palpable masses. No guarding. MUSCULOSKELETAL: Extremities without clubbing, cyanosis, or edema. No joint tenderness, effusion, or edema noted. No calf tenderness. NEUROLOGICAL: Awake and alert. Cranial nerves II through XII intact. Motor and sensory grossly within normal limits. Normal speech. Insight and judgment is good Mood and behaviors appropriate Medications and IVs Current Medications Sodium Chloride 500 ml @ 500 mls/hr BOLUS ONCE IV Last administered on at 23:33; Start 10/14/17 at 23:15; Stop 10/15/17 at 00:14; Status DC Cefepime HCl 1000 mg/Sodium Chloride 100 ml @ 200 mls/hr ONCE ONCE IV Last administered on 10/15/17at 00:21; Start 10/15/17 at 00:15; Stop 10/15/17 at 00:44 ; Status DC Cefepime HCl 2000 mg/Sodium Chloride 100 ml @ 200 mls/hr Q8H IV Last administered on 10/15/17at 05:34; Start 10/15/17 at 04:00 Sodium Chloride 1,000 ml @ 100 mls/hr Q10H IV Last administered on 10/15/17at 02:07; Start 10/15/17 at 02:00 Sodium Chloride (NS Flush) 2 ml UNSCH PRN IV FLUSH FLUSH AFTER USING IV ACCESS ; Start 10/15/17 at 02:00 Sodium Chloride (NS Flush) 2 ml BID IV FLUSH ; Start 10/15/17 at 09:00 Acetaminophen (Tylenol) 650 mg Q4H PRN PO TEMP > 100.4; Start 10/15/17 at 02:00 Ondansetron HCl (Zofran Odt) 4 mg Q6H PRN PO N/V; Start 10/15/17 at 02:15 Enoxaparin Sodium (Lovenox Inj) 40 mg Q24H SQ Last administered on 10/15/17at 09 :06; Start 10/15/17 at 09:00 Naloxone HCl (Narcan Inj) 0.4 mg UNSCH PRN IV PUSH SEE LABEL COMMENTS; Start at 02:00 Magnesium Hydroxide (Milk Of Magnesia Liq) 30 ml Q12H PRN PO Mild constipation ; Start 10/15/17 at 02:00 Sennosides (Senokot) 17.2 mg Q12H PRN PO Moderate constipation; Start 10/15/17 at 02:00 Bisacodyl (Dulcolax Supp) 10 mg DAILY PRN RECTAL SEVERE CONSITIPATION; Start at 02:00 Lactulose (Lactulose Liq) 30 ml DAILY PRN PO SEVERE CONSITIPATION; Start at 02:00 Potassium Chloride (KCl) 30 meq ONCE ONCE PO Last administered on 10/15/17at 02 :07; Start 10/15/17 at 02:00; Stop 10/15/17 at 02:02; Status DC Buspirone HCl (Buspar) 5 mg BID PO Last administered on 10/15/17at 09:06; Start 10/15/17 at 09:00 Mirtazapine (Remeron) 45 mg HS PO ; Start 10/15/17 at 21:00 Patient Own Medication PT OWN MED: (Tiotrop... DAILY INH ; Start 10/15/17 at 09: 00 Budesonide/ Formoterol Fumarate (Symbicort 160-4.5 Mcg Inh) 2 puff BID INH ; Start 10/15/17 at 09:00 Albuterol/ Ipratropium (Duoneb Neb) 1 ampule Q4HR NEB PRN NEB SOB/Wheezing; Start 10/15/17 at 04:30 Vancomycin HCl 1000 mg/Sodium Chloride 250 ml @ 250 mls/hr ONCE ONCE IV Last administered on 10/15/17at 10:38; Start 10/15/17 at 09:30; Stop 10/15/17 at 10:29 ; Status DC A/P Assessment and Plan 1. Neutropenic fever Patient took Tylenol at home, has been afebrile since arriving to the hospital Reports his temperature at home was 100 or 101 Last chemotherapy Thursday Chest x-ray, UA negative Blood cultures pending Flu negative Cefepime Medical oncology consulted, appreciate recommendations 2. Pancreatic adenocarcinoma Appreciate recommendations from medical oncology 3. COPD Continue home Symbicort and Spiriva Duo nebs as needed 4. Depression Continue home BuSpar and mirtazapine 5. THRUSH- NYSTATIN SWISH AND SWALLOW AM LABS FEN Regular diet Electrolytes: Status post p.o. potassium, follow BMP NS at 100 cc/hour Lovenox Discharge Planning PENDING IMPROVEMENT Vimal Brady DO October 15, 2017 11:53
[2017-10-15] MEDS: NYSTATIN SUSP 500,000 U/5 ML CUP SWISH-SWAL SCH ×3 (14:55→20:26)
[2017-10-15] MEDS: MIRTAZAPINE 15 MG TAB PO SCH (20:19)
[2017-10-15] MEDS: NYSTAT/DIPHENHY/LIDO MOUTHWASH (Adult) 120ML SWISH-SWAL SCH (21:30)
[2017-10-15] MEDS ORDERED: FILGRASTIM 480 MCG/1.6 ML VIAL SQ ONE (22:00)
--- NOTE | 2017-10-15 22:39 | MB ---
cc: Del Gomez MD DATE: 10/15/2017 REASON FOR CONSULTATION: Patient with a history of unresectable pancreatic adenocarcinoma, who presents to the emergency room with fevers. HISTORY OF PRESENT ILLNESS: This is a 72-year-old male who has a diagnosis of poorly differentiated adenocarcinoma of the pancreas which is locally advanced and unresectable. He also has biliary stent placement. He had presented with obstructive jaundice. The patient was not a candidate for surgery due to unresectable disease. The patient was also not very keen to have surgical evaluation. He is currently receiving neoadjuvant chemotherapy treatment with Abraxane and Gemzar. He is receiving Gemzar at a 10% dose reduction to account for his age. The patient received his most recent treatment last Thursday. Yesterday, he developed a fever of around 100.5. He called the on-call service and he was told to present to the emergency department. Upon admission, the patient was found to have leukopenia with a white blood cell count of 2.3. His neutrophil count was around 1400. He was admitted to the hospital. On admission, the patient was afebrile with a temperature of 98.3. He did have a low-grade fever this morning with a temperature of 100. He has not been hypotensive. His oxygen saturations are in the high 90s. The patient was started on IV antibiotics on admission. He is currently on IV cefepime. Blood cultures are pending. There is no growth thus far. He was also checked for influenza screen, which was negative. Currently, the patient is sitting up in the chair, he is eating his lunch. He is afebrile. He denies any pain. No cough, congestion. No chills. He has a macular rash on his left arm, which is bright red. He states that the rash appeared approximately 1 week ago. REVIEW OF SYSTEMS: A comprehensive review of system was completed which is negative except as described in the HPI. PAST MEDICAL HISTORY: Unresectable pancreatic adenocarcinoma, COPD, depression. PAST SURGICAL HISTORY: Prostatectomy, cholecystectomy, drainage of liver abscess, endoscopic ultrasound of the pancreatic lesion, port placement. FAMILY HISTORY: Was reviewed and is noncontributory to this admission. SOCIAL HISTORY: He does not smoke cigarettes. He does not drink alcohol. No illicit drug use. He is retired. He used to be in the . He has good social/family support. MEDICATIONS: Remeron 45 mg p.o. at bedtime, nystatin 5 mg q.i.d. swish and swallow, Lovenox 40 mg subcutaneous 24 hours, BuSpar 5 mg p.o. b.i.d., Symbicort 2 puffs b.i.d., Inh, DuoNebs p.r.n., cefepime 2 grams IV every 8 hours, Zofran 4 mg p.o. q. 6 hours p.r.n., Tylenol 650 p.o. q. 4 hours p.r.n., Milk of Magnesia 30 mL p.o. q. 12 hours p.r.n., Senokot 17.2 p.o. q. 12 hours p.r.n., Dulcolax 10 mg p.r.n., lactulose p.r.n. ALLERGIES: NO KNOWN DRUG ALLERGIES. PHYSICAL EXAMINATION: VITAL SIGNS: Blood pressure is 108/52, pulse is 100, temperature is 98.3, O2 saturations are in the high 90s. GENERAL: Cachectic, thin male in no apparent distress. HEENT: Pupils are equal, round, reactive to light, EOMI, no thrush, no lesion. NECK: Supple. No JVD, no bruits, no lymphadenopathy. CHEST: Clear to auscultation bilaterally. CARDIOVASCULAR: S1, S2. Regular rate and rhythm. ABDOMEN: Soft, nontender, nondistended. Bowel sounds are present. EXTREMITIES: Without any edema, erythema, cyanosis. SKIN: Left arm with macular rash which is bright red. It extends from the upper arm all the way down to the forearm to the wrist. NEUROLOGIC: No focal deficits. PSYCHIATRIC: Mood and affect is appropriate. IMAGING: A chest x-ray was reviewed, no acute cardiopulmonary disease. ASSESSMENT AND PLAN: This is a 72-year-old male with a diagnosis of unresectable locally advanced, poorly differentiated pancreatic adenocarcinoma, who is currently being treated with neoadjuvant chemotherapy consisting of Gemzar and Abraxane. He presents to the emergency department with fever. 1. Fever in the setting of leukopenia. He does not have absolute neutropenia. His ANC is around 1200. I agree with IV cefepime for now. We will follow blood cultures. Clinically, he is doing well. He is not hypotensive. There is no other evidence of any infection. If his blood cultures remain negative and he continues to be medically stable, he can be discharged home tomorrow with an additional 5-day course of oral Levaquin 500 mg daily. 2. Rash on the left arm. This appears to be a drug rash. We will continue to monitor. The patient does not endorse any pruritus. 3. History of unresectable pancreatic adenocarcinoma. He will receive further treatment outpatient. 4. Mild leukopenia. I will give him an injection of Neupogen today. 5. Normocytic anemia secondary to chemotherapy and underlying cancer. We will continue to monitor. 6. Mild thrombocytopenia with platelet count 103,000, secondary to chemotherapy. We will continue to monitor. 7. Oral mucositis. Magic mouthwash t.i.d. after meals. Thank you for allowing me to participate in the care of this patient. I will continue to follow this patient along. MD LONNIE Esteves/AKUA , 09:24 PM , 10:38 PM
[2017-10-15] MEDS: ACETAMINOPHEN 325 MG TAB PO PRN (23:45)
[2017-10-16] VITALS (12 sets, daily range): BP systolic 123–130; BP diastolic 58–75; PULSE 88–106; RESP 18–22; TEMP 98.5–100.9; O2SAT 92–100
[2017-10-16] MEDS: SODIUM CHLOR 0.9% 1000 ML INJ 1,000 ML IV SCH ×2 (04:18→18:00)
[2017-10-16] MEDS: CEFEPIME INJ 2,000 MG in SODIUM CHLORIDE 0.9% INJ 100 ML IV SCH ×3 (04:18→20:21)
[2017-10-16 05:03] LABS: HEMOGLOBIN 9.6 GM/DL (13.0-17.0); MEAN CELL VOLUME 86.2 FL (80.0-100.0); MEAN CORPUSCULAR HEMOGLOBIN 29.7 PG (27.0-34.0); MEAN CORPUSCULAR HGB CONC 34.5 % (32.0-36.0); MEAN PLATELET VOLUME 8.9 FL (7.0-11.0); PLATELET COUNT 127 TH/MM3 (150-450); RED BLOOD COUNT 3.25 MIL/MM3 (4.50-5.90); RED CELL DISTRIBUTION WIDTH 14.3 % (11.6-17.2); WHITE BLOOD COUNT 1.1 TH/MM3 (4.0-11.0)
[2017-10-16 05:13] LABS: ALBUMIN 2.5 GM/DL (3.4-5.0); AST (GOT) 31 U/L (15-37); BLOOD UREA NITROGEN 11 MG/DL (7-18); CHLORIDE 110 MEQ/L (98-107); CREATININE 0.78 MG/DL (0.60-1.30); GLOMERULAR FILTRATION RATE 97 ML/MIN (>89); GLUCOSE,RANDOM 120 MG/DL (74-106); SODIUM (NA) 141 MEQ/L (136-145)
[2017-10-16 05:14] LABS: ALT (GPT) 51 U/L (12-78); PHOSPHORUS 2.2 MG/DL (2.5-4.9)
[2017-10-16 05:22] LABS: ALKALINE PHOSPHATASE 80 U/L (45-117); FREE T4 1.12 NG/DL (0.76-1.46); TOTAL BILIRUBIN ADULT 0.7 MG/DL (0.2-1.0)
[2017-10-16] MEDS: SODIUM CHLORIDE 0.9% FLUSH 10 ML FLUSH IV FLUSH SCH ×2 (07:31→20:24)
[2017-10-16 08:18] LABS: BANDS 6 % (0-6); LYMPHOCYTES 49 % (9-44); NEUTROPHIL # MANUAL DIFF 0.4 TH/MM3 (1.8-7.7); POLYS (SEG NEUTROPHILS) 27 % (16-70)
[2017-10-16 08:19] LABS: OVALOCYTES 1+ (NORMAL)
[2017-10-16] MEDS: BUDESONIDE-FORMOTEROL 160/4.5 MCG INHALER INH SCH ×2 (08:44→20:20)
[2017-10-16] MEDS: busPIRone HCL 5 MG TAB PO SCH ×2 (08:44→20:20)
[2017-10-16] MEDS: NYSTATIN SUSP 500,000 U/5 ML CUP SWISH-SWAL SCH ×4 (08:44→20:21)
[2017-10-16] MEDS: ENOXAPARIN SODIUM 40 MG/0.4 ML SYRINGE SQ SCH (08:45)
[2017-10-16] MEDS: NYSTAT/DIPHENHY/LIDO MOUTHWASH (Adult) 120ML SWISH-SWAL SCH ×4 (08:45→20:24)
[2017-10-16] MEDS: ONDANSETRON ODT 4 MG TAB PO PRN (08:49)
[2017-10-16] MEDS: PT OWN (Tiotropium Inh (Spiriva Respimat Inh) INH SCH ×2 (08:51→08:54)
--- NOTE | 2017-10-16 10:25 | HHI.PR ---
Subjective Remarks 72-year-old male with a past medical history significant for adenocarcinoma of the pancreas, COPD and depression presents to the emergency department for the evaluation of a fever. The patient is currently undergoing chemotherapy, completing his third course of chemo on Thursday. He reports that his temperature at home was 100 or 101. The patient's son called his oncologist office who recommended further evaluation in the emergency department and treatment with IV antibiotics. The patient also endorses a productive cough. He reports chest pain on exertion that is his baseline. He denies abdominal pain. No nausea/vomiting/diarrhea. No lateralizing signs/symptoms. STATES HE HAS SOME SORE THROAT AND SOME IRRITATION IN THROAT POSSIBLY EARLY THRUSH DW RN AND PT AND FAMILY AND CM CONTINUE SAME AM LABS MAYBE A BORDERLINE FEVER EARLIER TODAY ONLY 100 6-1 NOT CLEARED FOR DC YET DW RN AND PT AND CM AND ONCOLOGY AM LABS STILL IN NEUTROPENIC PRECAUTIONS INCREASE ACTIVITY Objective Vitals Vital Signs Date Time Temp Pulse Resp B/P (MAP) Pulse Ox O2 Delivery O2 Flow Rate FiO2 10/16/17 08:00 98.6 88 20 130/75 (93) 94 10/16/17 07:00 89 10/16/17 04:33 98.5 93 20 123/66 (85) 97 10/16/17 04:00 89 10/16/17 00:00 94 10/16/17 00:00 100.9 100 22 127/58 (81) 96 10/15/17 20:09 99.6 96 22 126/52 (76) 96 10/15/17 20:00 88 10/15/17 16:00 97.8 110 20 104/63 (77) 100 10/15/17 12:00 98.3 105 18 108/52 (70) 98 10/15/17 10:40 102 I/O 10/15/17 10/15/17 10/15/17 10/16/17 10/16/17 10/16/17 07:00 15:00 23:00 07:00 15:00 23:00 Intake Total 1300 ml 1700 ml 580 ml Output Total 550 ml 850 ml Balance 750 ml 1700 ml -270 ml Intake Oral 200 ml 600 ml 480 ml IV Total 1100 ml 1100 ml 100 ml Output Urine Total 550 ml 850 ml # Voids 3 # Bowel Movements 0 3 Result Diagram: 10/16/17 0420 10/16/17 0420 Other Results Laboratory Tests Test 10/14/17 23:29 10/15/17 01:25 10/15/17 08:52 10/16/17 04:20 White Blood Count 2.3 TH/MM3 1.9 TH/MM3 1.1 TH/MM3 Red Blood Count 3.27 MIL/MM3 3.42 MIL/MM3 3.25 MIL/MM3 Hemoglobin 9.7 GM/DL 10.0 GM/DL 9.6 GM/DL Hematocrit 27.8 % 29.2 % 28.0 % Mean Corpuscular Volume 85.1 FL 85.3 FL 86.2 FL Mean Corpuscular Hemoglobin 29.6 PG 29.3 PG 29.7 PG Mean Corpuscular Hemoglobin Concent 34.8 % 34.3 % 34.5 % Red Cell Distribution Width 14.3 % 14.3 % 14.3 % Platelet Count 103 TH/MM3 103 TH/MM3 127 TH/MM3 Mean Platelet Volume 8.6 FL 8.6 FL 8.9 FL Neutrophils (%) (Auto) 61.8 % 61.9 % Lymphocytes (%) (Auto) 33.6 % 31.6 % Monocytes (%) (Auto) 1.7 % 1.1 % Eosinophils (%) (Auto) 2.1 % 4.7 % Basophils (%) (Auto) 0.8 % 0.7 % Neutrophils # (Auto) 1.4 TH/MM3 1.2 TH/MM3 Lymphocytes # (Auto) 0.8 TH/MM3 0.6 TH/MM3 Monocytes # (Auto) 0.0 TH/MM3 0.0 TH/MM3 Eosinophils # (Auto) 0.0 TH/MM3 0.1 TH/MM3 Basophils # (Auto) 0.0 TH/MM3 0.0 TH/MM3 CBC Comment DIFF FINAL AUTO DIFF AUTO DIFF Differential Comment FINAL DIFF MANUAL FINAL DIFF MANUAL Prothrombin Time 10.4 SEC Prothromb Time International Ratio 1.0 RATIO Activated Partial Thromboplast Time 23.5 SEC Blood Urea Nitrogen 17 MG/DL 12 MG/DL 11 MG/DL Creatinine 0.77 MG/DL 0.73 MG/DL 0.78 MG/DL Random Glucose 104 MG/DL 93 MG/DL 120 MG/DL Total Protein 6.3 GM/DL 6.2 GM/DL 6.0 GM/DL Albumin 2.9 GM/DL 2.8 GM/DL 2.5 GM/DL Calcium Level 8.2 MG/DL 8.0 MG/DL 8.0 MG/DL Alkaline Phosphatase 86 U/L 85 U/L 80 U/L Aspartate Amino Transf (AST/SGOT) 41 U/L 40 U/L 31 U/L Alanine Aminotransferase (ALT/SGPT) 55 U/L 54 U/L 51 U/L Total Bilirubin 0.4 MG/DL 0.8 MG/DL 0.7 MG/DL Sodium Level 137 MEQ/L 138 MEQ/L 141 MEQ/L Potassium Level 3.4 MEQ/L 3.8 MEQ/L 3.9 MEQ/L Chloride Level 106 MEQ/L 109 MEQ/L 110 MEQ/L Carbon Dioxide Level 20.8 MEQ/L 18.4 MEQ/L 21.0 MEQ/L Anion Gap 10 MEQ/L 11 MEQ/L 10 MEQ/L Estimat Glomerular Filtration Rate 99 ML/MIN 105 ML/MIN 97 ML/MIN Lactic Acid Level 1.2 mmol/L Urine Color LIGHT-YELLOW Urine Turbidity CLEAR Urine pH 6.0 Urine Specific [place] 1.003 Urine Protein NEG mg/dL Urine Glucose (UA) NEG mg/dL Urine Ketones NEG mg/dL Urine Occult Blood NEG Urine Nitrite NEG Urine Bilirubin NEG Urine Urobilinogen LESS THAN 2.0 MG/DL Urine Leukocyte Esterase NEG Urine Mucus FEW /lpf Microscopic Urinalysis Comment CULT NOT INDICATED Differential Total Cells Counted 100 100 Neutrophils % (Manual) 42 % 27 % Band Neutrophils % 18 % 6 % Lymphocytes % 34 % 49 % Eosinophils % 6 % 18 % Neutrophils # (Manual) 1.1 TH/MM3 0.4 TH/MM3 Atypical Lymphocytes % Platelet Estimate LOW LOW Platelet Morphology Comment NORMAL ENLARGED Red Cell Morphology Comment NORMAL Ovalocytes 1+ Phosphorus Level 2.2 MG/DL Magnesium Level 2.0 MG/DL Free Thyroxine 1.12 NG/DL Thyroid Stimulating Hormone 3rd Gen 0.378 uIU/ML Test 10/16/17 08:30 Imaging Last Impressions Chest X-Ray 10/14/17 8799 Signed Impressions: CONCLUSION: No acute cardiopulmonary disease. Objective Remarks GENERAL: male lying in bed SKIN: Macular rash covering all 4 extremities HEAD: Atraumatic. Normocephalic. No temporal or scalp tenderness. EYES: Pupils equal round and reactive. Extraocular motions intact. No scleral icterus. No injection or drainage. ENT: Nose without bleeding, purulent drainage or septal hematoma. Throat without erythema, tonsillar hypertrophy or exudate. Uvula midline. Airway patent. NECK: Trachea midline. No JVD or lymphadenopathy. Supple, nontender, no meningeal signs. CARDIOVASCULAR: Regular rate and rhythm without murmurs, gallops, or rubs. RESPIRATORY: Clear to auscultation. Breath sounds equal bilaterally. No wheezes , rales, or rhonchi. GASTROINTESTINAL: Abdomen soft, non-tender, nondistended. No hepato-splenomegaly , or palpable masses. No guarding. MUSCULOSKELETAL: Extremities without clubbing, cyanosis, or edema. No joint tenderness, effusion, or edema noted. No calf tenderness. NEUROLOGICAL: Awake and alert. Cranial nerves II through XII intact. Motor and sensory grossly within normal limits. Normal speech. Insight and judgment is good Mood and behaviors appropriate Procedures NONE Medications and IVs Current Medications Sodium Chloride 500 ml @ 500 mls/hr BOLUS ONCE IV Last administered on at 23:33; Start 10/14/17 at 23:15; Stop 10/15/17 at 00:14; Status DC Cefepime HCl 1000 mg/Sodium Chloride 100 ml @ 200 mls/hr ONCE ONCE IV Last administered on 10/15/17at 00:21; Start 10/15/17 at 00:15; Stop 10/15/17 at 00:44 ; Status DC Cefepime HCl 2000 mg/Sodium Chloride 100 ml @ 200 mls/hr Q8H IV Last administered on 10/16/17at 04:18; Start 10/15/17 at 04:00 Sodium Chloride 1,000 ml @ 100 mls/hr Q10H IV Last administered on 10/16/17at 04 :18; Start 10/15/17 at 02:00 Sodium Chloride (NS Flush) 2 ml UNSCH PRN IV FLUSH FLUSH AFTER USING IV ACCESS ; Start 10/15/17 at 02:00 Sodium Chloride (NS Flush) 2 ml BID IV FLUSH ; Start 10/15/17 at 09:00 Acetaminophen (Tylenol) 650 mg Q4H PRN PO TEMP > 100.4 Last administered on at 23:45; Start 10/15/17 at 02:00 Ondansetron HCl (Zofran Odt) 4 mg Q6H PRN PO N/V Last administered on at 08:49; Start 10/15/17 at 02:15 Enoxaparin Sodium (Lovenox Inj) 40 mg Q24H SQ Last administered on 10/16/17at 08: 45; Start 10/15/17 at 09:00 Naloxone HCl (Narcan Inj) 0.4 mg UNSCH PRN IV PUSH SEE LABEL COMMENTS; Start at 02:00 Magnesium Hydroxide (Milk Of Magnesia Liq) 30 ml Q12H PRN PO Mild constipation ; Start 10/15/17 at 02:00 Sennosides (Senokot) 17.2 mg Q12H PRN PO Moderate constipation; Start 10/15/17 at 02:00 Bisacodyl (Dulcolax Supp) 10 mg DAILY PRN RECTAL SEVERE CONSITIPATION; Start at 02:00 Lactulose (Lactulose Liq) 30 ml DAILY PRN PO SEVERE CONSITIPATION; Start at 02:00 Potassium Chloride (KCl) 30 meq ONCE ONCE PO Last administered on 10/15/17at 02 :07; Start 10/15/17 at 02:00; Stop 10/15/17 at 02:02; Status DC Buspirone HCl (Buspar) 5 mg BID PO Last administered on 10/16/17at 08:44; Start 10/15/17 at 09:00 Mirtazapine (Remeron) 45 mg HS PO Last administered on 10/15/17at 20:19; Start 10/15/17 at 21:00 Patient Own Medication PT OWN MED: (Tiotrop... DAILY INH ; Start 10/15/17 at 09: 00 Budesonide/ Formoterol Fumarate (Symbicort 160-4.5 Mcg Inh) 2 puff BID INH Last administered on 10/16/17at 08:44; Start 10/15/17 at 09:00 Albuterol/ Ipratropium (Duoneb Neb) 1 ampule Q4HR NEB PRN NEB SOB/Wheezing; Start 10/15/17 at 04:30 Vancomycin HCl 1000 mg/Sodium Chloride 250 ml @ 250 mls/hr ONCE ONCE IV Last administered on 10/15/17at 10:38; Start 10/15/17 at 09:30; Stop 10/15/17 at 10:29 ; Status DC Nystatin (Mycostatin Liq) 5 ml QID SWISH-SWAL Last administered on 10/16/17at 08 :44; Start 10/15/17 at 13:00 Multi-Ingredient Mouthwash/Gargle (Magic Mouthwash Adult Liq) 10 ml QID SWISH- SWAL Last administered on 10/16/17at 08:45; Start 10/15/17 at 21:30 Filgrastim (Neupogen Inj) 480 mcg ONCE ONCE SQ Last administered on 10/15/17at 23:46; Start 10/15/17 at 22:00; Stop 10/15/17 at 22:01; Status DC Filgrastim (Neupogen Inj) 480 mcg DAILY@14 SQ ; Start 10/16/17 at 14:00 A/P Assessment and Plan 1. Neutropenic fever Patient took Tylenol at home, has been afebrile since arriving to the hospital Reports his temperature at home was 100 or 101 Last chemotherapy Thursday Chest x-ray, UA negative Blood cultures pending Flu negative Cefepime Medical oncology consulted, appreciate recommendations 2. Pancreatic adenocarcinoma Appreciate recommendations from medical oncology 3. COPD Continue home Symbicort and Spiriva Duo nebs as needed 4. Depression Continue home BuSpar and mirtazapine 5. THRUSH/MUCOSITIS- NYSTATIN SWISH AND SWALLOW Agranulocytosis secondary to cancer chemotherapy in a patient on chemotherapy and underlying pancreatic cancer w neutropenia and thrombocytopenia Other explanation of clinical findings. TREATED WITH ANTIBIOTICS AM LABS FEN Regular diet Electrolytes: Status post p.o. potassium, follow BMP NS at 100 cc/hour Lovenox Discharge Planning PENDING IMPROVEMENT Vimal Brady DO Oct 16, 2017 10:25
[2017-10-16] MEDS ORDERED: PROMETHAZINE INJ 25 MG/ML VIAL IV-CENTRAL PRN (10:45)
[2017-10-16] MEDS ORDERED: IOHEXOL 350 MG/ML 10 ML VIAL (for RAD DIAG) IVCONTRAST ONE (11:20)
--- NOTE | 2017-10-16 11:25 | RADRPT ---
EXAM DATE: 10/16/2017 11:18 AM EDT AGE/SEX: 72 years / Male INDICATIONS: Neutropenic with left lower quadrant pain. CLINICAL DATA: This is the patient's initial encounter. Patient reports that signs and symptoms have been present for 1 day and indicates a pain score of 4/10. MEDICAL/SURGICAL HISTORY: Carcinoma, pancreas. Carcinoma, prostatic. Cholecystectomy. Prostat ectomy. ORAL CONTRAST: No oral contrast ingested. RADIATION DOSE: 12.53 CTDI (mGy) COMPARISON: [facility] [place]EL[place] W [place]AST, 07/26/2017. . TECHNIQUE: Multiple contiguous axial images were obtained through the abdomen and pelvis following b olus infusion of 90 ml Omnipaque 350 (iohexol) nonionic water-soluble contrast as a single exam dos e. No oral contrast ingested. Using automated exposure control and adjustment of the mA and/or kV ac cording to patient size, the radiation dose was kept as low as reasonably achievable to obtain optima l diagnostic quality images. FINDINGS: Minimal parenchymal changes right base improved in the interval. Biliary stent in good position with air in the left hepatic bile ducts. Portal vein is patent. Liver is free of focal defects. Spleen and pancreas are unremarkable There is no free fluid or free air. There are no inflammatory changes in the abdomen Extensive vascular calcifications are present in the pelvis. There is some bowel wall thickening beginning in the mid sigmoid colon extending into the rectosigmoi d has the appearance of a colitis. This is new from the comparison study. There is no free fluid. Review of bone windows reveals only degenerative changes. CONCLUSION: 1. Evidence for bowel wall thickening suspicious for uncomplicated colitis sigmoid colon new from co mparison study. Electronically signed by: Vimal Mcdonald MD 10/16/2017 11:24 AM EDT
[2017-10-16] MEDS: VANCOMYCIN 500 MG VIAL (FOR ORAL USE ONLY) PO SCH ×3 (13:18→20:20)
[2017-10-16] MEDS: LACTOBACILLUS ACIDOPHILUS TAB PO SCH ×2 (13:18→18:38)
[2017-10-16] MEDS ORDERED: FILGRASTIM 480 MCG/1.6 ML VIAL SQ SCH (14:00)
[2017-10-16] MEDS ORDERED: SODIUM CHLORIDE 0.9% FLUSH 10 ML FLUSH IV FLUSH PRN (16:45)
[2017-10-16 16:53] LABS: HEMOGLOBIN A1C 6.5 % (4.3-6.0)
[2017-10-16] MEDS: MIRTAZAPINE 15 MG TAB PO SCH (20:20)
[2017-10-16] MEDS: FILGRASTIM 480 MCG/1.6 ML VIAL SQ SCH (23:12)
[2017-10-16] MEDS: ACETAMINOPHEN 325 MG TAB PO PRN (23:26)
[2017-10-17] VITALS (12 sets, daily range): BP systolic 112–134; BP diastolic 55–67; PULSE 66–111; RESP 15–22; TEMP 97.9–101.2; O2SAT 94–97
[2017-10-17] MEDS: ONDANSETRON ODT 4 MG TAB PO PRN ×2 (01:32→09:31)
[2017-10-17] MEDS ORDERED: PROCHLORPERAZINE INJ 10 MG/2 ML VIAL IV PUSH ONE (03:30)
[2017-10-17] MEDS: CEFEPIME INJ 2,000 MG in SODIUM CHLORIDE 0.9% INJ 100 ML IV SCH ×3 (03:45→20:35)
[2017-10-17] MEDS: PANTOPRAZOLE SODIUM 40 MG VIAL IV PUSH SCH (03:45)
[2017-10-17 04:00] LABS: AUTOMATED NEUTROPHIL # 0.7 TH/MM3 (1.8-7.7); BASOPHIL % 0.3 % (0.0-2.0); EOSINOPHIL % 1.5 % (0.0-4.0); HEMOGLOBIN 10.6 GM/DL (13.0-17.0); LYMPH % 30.7 % (9.0-44.0); LYMPHOCYTE # 0.3 TH/MM3 (1.0-4.8); MEAN CELL VOLUME 85.1 FL (80.0-100.0); MEAN CORPUSCULAR HEMOGLOBIN 29.2 PG (27.0-34.0); MEAN CORPUSCULAR HGB CONC 34.4 % (32.0-36.0); MEAN PLATELET VOLUME 8.5 FL (7.0-11.0); MONO % 2.8 % (0.0-8.0); NEUT % 64.7 % (16.0-70.0); PLATELET COUNT 194 TH/MM3 (150-450); RED BLOOD COUNT 3.64 MIL/MM3 (4.50-5.90); RED CELL DISTRIBUTION WIDTH 14.5 % (11.6-17.2)
[2017-10-17 04:26] LABS: ALBUMIN 2.4 GM/DL (3.4-5.0); ALT (GPT) 42 U/L (12-78); AST (GOT) 22 U/L (15-37); BICARBONATE 22.8 MEQ/L (21.0-32.0); BLOOD UREA NITROGEN 11 MG/DL (7-18); CALCIUM 7.9 MG/DL (8.5-10.1); CHLORIDE 106 MEQ/L (98-107); CREATININE 0.67 MG/DL (0.60-1.30); GLOMERULAR FILTRATION RATE 116 ML/MIN (>89); GLUCOSE,RANDOM 127 MG/DL (74-106); MAGNESIUM 1.9 MG/DL (1.5-2.5); PHOSPHORUS 2.4 MG/DL (2.5-4.9); SODIUM (NA) 140 MEQ/L (136-145)
[2017-10-17 04:27] LABS: ALKALINE PHOSPHATASE 77 U/L (45-117); TOTAL BILIRUBIN ADULT 0.5 MG/DL (0.2-1.0); TOTAL PROTEIN 5.9 GM/DL (6.4-8.2)
[2017-10-17 06:29] LABS: BANDS 24 % (0-6); DOHLE BODIES PRESENT (NONE SEEN); LYMPHOCYTES 20 % (9-44); METAMYELOCYTES 4 % (0-1); MONOCYTES 1 % (0-8); MYELOCYTES 1 % (0-0); NEUTROPHIL # MANUAL DIFF 0.8 TH/MM3 (1.8-7.7); POLYS (SEG NEUTROPHILS) 48 % (16-70); TOXIC VACUOLATION PRESENT (NONE SEEN)
--- NOTE | 2017-10-17 08:38 | HHI.PR ---
Subjective Remarks Pt seen and examined. Tmax 100.4 overnight and patient tachycardic. Endorses nausea and vomiting yesterday evening resolved with antiemetics. Denies abdominal pain or diarrhea. States he had a couple BMs yesterday but only had small flecks of stool, no blood. Breathing is at baseline. No CP. Objective Vital Signs Date Time Temp Pulse Resp B/P (MAP) Pulse Ox O2 Delivery O2 Flow Rate FiO2 10/17/17 07:45 98.7 94 16 128/60 (82) 95 10/17/17 04:00 92 10/17/17 03:55 98.6 94 20 134/67 (89) 95 10/17/17 00:00 103 10/17/17 00:00 100.4 111 22 126/55 (78) 94 10/16/17 21:38 93 21 10/16/17 20:16 99.6 105 125/66 (85) 92 10/16/17 20:00 101 10/16/17 15:54 99.6 106 20 130/58 (82) 96 10/16/17 15:00 97 10/16/17 12:04 88 10/16/17 11:55 98.8 91 18 127/68 (87) 100 10/16/17 09:30 21 I/O 10/16/17 10/16/17 10/16/17 10/17/17 10/17/17 10/17/17 07:00 15:00 23:00 07:00 15:00 23:00 Intake Total 580 ml 700 ml 340 ml Output Total 850 ml 500 ml Balance -270 ml 700 ml -160 ml Intake Oral 480 ml 600 ml 240 ml IV Total 100 ml 100 ml 100 ml Output Urine Total 850 ml 500 ml # Voids 4 # Bowel Movements 3 Result Diagram: 10/17/17 0348 10/17/17 0348 Imaging Abdomen/Pelvis CT 10/16/17 0000 Signed Impressions: CONCLUSION: 1. Evidence for bowel wall thickening suspicious for uncomplicated colitis sig moid colon new from comparison study. Chest X-Ray 10/14/17 4601 Signed Impressions: CONCLUSION: No acute cardiopulmonary disease. Objective Remarks GENERAL: Thin chronically ill-appearing male resting comfortably in bed in no acute distress. SKIN: Warm and dry. Erythematous macular rash over upper and lower extremities , worse on upper extremity. HEENT: AT/NC. Pupils equal and round. MMM. HEART: Tachycardic with a regular rhythm. No appreciable murmurs. LUNGS: CTAB without wheezes or crackles. ABDOMEN: +BS, soft, NT, ND. EXTREMITIES: No LE edema. NEURO: Awake and alert. Nonfocal. PSYCH: Appropriate mood and affect. A/P Problem List: (1) Fever ICD Code: R50.9 - Fever, unspecified (2) Clostridium difficile colitis ICD Code: A04.72 - Enterocolitis due to Clostridium difficile, not specified as recurrent (3) Pancytopenia ICD Code: D61.818 - Other pancytopenia (4) Pancreatic adenocarcinoma ICD Code: C25.9 - Malignant neoplasm of pancreas, unspecified Assessment and Plan 72 year old male with unresectable poorly differentiated pancreatic adenocarcinoma currently undergoing chemotherapy, COPD, and depression admitted on 10/15 for fever and found to have C. diff. 1. Fever - CXR negative - U/A negative - Negative flu - Blood cultures NG x 2 days - ANC around 1200 (not neutropenic) - Heme/onc consulted; if he continues to be medically stable can be discharged home with 5-day course of Levaquin - However, febrile overnight with Tmax 100.4 so will continue to monitor and continue IV cefepime at this time. Will consult ID for further eval - Repeat lactic acid overnight WNL though borderline at 1.9 2. C. diff PCR + - CT abdomen with evidence of bowel wall thickening suspicious for uncomplicated sigmoid colitis - Continue PO vancomycin and Lactinex - Monitor WBC since vancomycin can further worsen neutropenia - If WBC goes down tomorrow can switch to Flagyl 3. Nausea/vomiting - CT abdomen done yesterday - Antiemetics PRN - Monitor 4. Leukopenia - Secondary to chemotherapy - Heme/onc following; gave Neupogen x 1 - Monitor 5. Rash on RUE - Appears to be a drug rash - Monitor 6. Pancreatic adenocarcinoma - Currently receiving neoadjuvant chemo with Abraxane and Gemzar, last treatment 10/06 - Heme/onc following - Antiemetics PRN 7. Normocytic anemia - Secondary to chemo and malignancy - Hemodynamically stable - Monitor 8. Thrombocytopenia - Secondary to chemo - No active bleeding - Monitor 9. Oral mucositis - Magic mouthwash TID after meals 10. COPD - Continue home inhalers - Supplemental O2 PRN 11. Depression - Continue home meds 12. Diabetes mellitus - A1c 6.5 - Will consult healthcare educator for dietary intervention - To be follow as outpatient DVT prophylaxis: Lovenox Discharge Planning Possibly in next day or two pending clinical stability Johanny Liu MD Oct 17, 2017 08:38
[2017-10-17] MEDS ORDERED: ALTEPLASE RECOMBINANT 2 MG VIAL INTRACATH PRN (08:45)
[2017-10-17] MEDS: PT OWN (Tiotropium Inh (Spiriva Respimat Inh) INH SCH (09:00)
[2017-10-17] MEDS: BUDESONIDE-FORMOTEROL 160/4.5 MCG INHALER INH SCH ×2 (09:30→20:36)
[2017-10-17] MEDS: ENOXAPARIN SODIUM 40 MG/0.4 ML SYRINGE SQ SCH (09:31)
[2017-10-17] MEDS: busPIRone HCL 5 MG TAB PO SCH ×2 (09:31→20:34)
[2017-10-17] MEDS: VANCOMYCIN 500 MG VIAL (FOR ORAL USE ONLY) PO SCH ×4 (09:31→20:34)
[2017-10-17] MEDS: LACTOBACILLUS ACIDOPHILUS TAB PO SCH ×3 (09:31→17:14)
--- NOTE | 2017-10-17 10:19 | PD.ONC.PN ---
Subjective Subjective Remarks tmax 100.4 overnight. patient states he had multiple episodes of vomiting overnight. denies diarrhea. some cramping LLQ abdominal pain is persistent. Objective Data Date Time Temp Pulse Resp B/P (MAP) Pulse Ox O2 Delivery O2 Flow Rate FiO2 10/17/17 07:45 98.7 94 16 128/60 (82) 95 10/17/17 04:00 92 10/17/17 03:55 98.6 94 20 134/67 (89) 95 10/17/17 00:00 103 10/17/17 00:00 100.4 111 22 126/55 (78) 94 10/16/17 21:38 93 21 10/16/17 20:16 99.6 105 125/66 (85) 92 10/16/17 20:00 101 10/16/17 15:54 99.6 106 20 130/58 (82) 96 10/16/17 15:00 97 10/16/17 12:04 88 10/16/17 11:55 98.8 91 18 127/68 (87) 100 10/17/17 10/17/17 10/17/17 07:00 15:00 23:00 Intake Total 340 ml Output Total 500 ml Balance -160 ml Result Diagram: 10/17/17 0348 10/17/17 0348 Laboratory Results Laboratory Tests Test 10/17/17 03:48 White Blood Count 1.0 TH/MM3 Red Blood Count 3.64 MIL/MM3 Hemoglobin 10.6 GM/DL Hematocrit 31.0 % Mean Corpuscular Volume 85.1 FL Mean Corpuscular Hemoglobin 29.2 PG Mean Corpuscular Hemoglobin Concent 34.4 % Red Cell Distribution Width 14.5 % Platelet Count 194 TH/MM3 Mean Platelet Volume 8.5 FL Neutrophils (%) (Auto) 64.7 % Lymphocytes (%) (Auto) 30.7 % Monocytes (%) (Auto) 2.8 % Eosinophils (%) (Auto) 1.5 % Basophils (%) (Auto) 0.3 % Neutrophils # (Auto) 0.7 TH/MM3 Lymphocytes # (Auto) 0.3 TH/MM3 Monocytes # (Auto) 0.0 TH/MM3 Eosinophils # (Auto) 0.0 TH/MM3 Basophils # (Auto) 0.0 TH/MM3 CBC Comment AUTO DIFF Differential Total Cells Counted 100 Neutrophils % (Manual) 48 % Band Neutrophils % 24 % Lymphocytes % 20 % Monocytes % 1 % Eosinophils % 2 % Neutrophils # (Manual) 0.8 TH/MM3 Metamyelocytes 4 % Myelocytes 1 % Differential Comment FINAL DIFF MANUAL Toxic Vacuolation PRESENT Dohle Bodies PRESENT Platelet Estimate NORMAL Platelet Morphology Comment NORMAL Blood Urea Nitrogen 11 MG/DL Creatinine 0.67 MG/DL Random Glucose 127 MG/DL Total Protein 5.9 GM/DL Albumin 2.4 GM/DL Calcium Level 7.9 MG/DL Phosphorus Level 2.4 MG/DL Magnesium Level 1.9 MG/DL Alkaline Phosphatase 77 U/L Aspartate Amino Transf (AST/SGOT) 22 U/L Alanine Aminotransferase (ALT/SGPT) 42 U/L Total Bilirubin 0.5 MG/DL Sodium Level 140 MEQ/L Potassium Level 3.4 MEQ/L Chloride Level 106 MEQ/L Carbon Dioxide Level 22.8 MEQ/L Anion Gap 11 MEQ/L Estimat Glomerular Filtration Rate 116 ML/MIN Lactic Acid Level 1.9 mmol/L Culture Results Microbiology Date/Time Source Procedure Growth Status 10/14/17 23:29 Blood Peripheral Aerobic Blood Culture - Preliminary NO GROWTH IN 2 DAYS Resulted 10/14/17 23:29 Blood Peripheral Anaerobic Blood Culture - Preliminary NO GROWTH IN 2 DAYS Resulted 10/14/17 23:24 Blood Peripheral Aerobic Blood Culture - Preliminary NO GROWTH IN 2 DAYS Resulted 10/14/17 23:24 Blood Peripheral Anaerobic Blood Culture - Preliminary NO GROWTH IN 2 DAYS Resulted 10/14/17 23:21 Nasal Washing Influenza Types A,B Antigen (ION) - Final NEGATIVE FOR FLU A AND B ANTIGEN.... Complete Administered Medications Medications (Trade) Dose Ordered Sig/Sreedhar Route PRN Reason Start Time Stop Time Status Last Admin Dose Admin Cefepime HCl 2000 mg/Sodium Chloride 100 ml @ 200 mls/hr Q8H IV 10/15/17 04:00 10/17/17 03:45 Sodium Chloride 1,000 ml @ 100 mls/hr Q10H IV 10/15/17 02:00 10/16/17 18:00 Acetaminophen (Tylenol) 650 mg Q4H PRN PO TEMP > 100.4 10/15/17 02:00 10/16/17 23:26 Ondansetron HCl (Zofran Odt) 4 mg Q6H PRN PO N/V 10/15/17 02:15 10/17/17 09:31 Enoxaparin Sodium (Lovenox Inj) 40 mg Q24H SQ 10/15/17 09:00 10/17/17 09:31 Buspirone HCl (Buspar) 5 mg BID PO 10/15/17 09:00 10/17/17 09:31 Mirtazapine (Remeron) 45 mg HS PO 10/15/17 21:00 10/16/17 20:20 Budesonide/ Formoterol Fumarate (Symbicort 160-4.5 Mcg Inh) 2 puff BID INH 10/15/17 09:00 10/17/17 09:30 Nystatin (Mycostatin Liq) 5 ml QID SWISH-SWAL 10/15/17 13:00 10/16/17 20:21 Multi-Ingredient Mouthwash/Gargle (Magic Mouthwash Adult Liq) 10 ml QID SWISH-SWAL 10/15/17 21:30 10/16/17 20:24 Vancomycin HCl (VANCOMYCIN for oral use only) 500 mg QID PO 10/16/17 13:00 10/17/17 09:31 Promethazine HCl (Phenergan Inj) 25 mg Q6H PRN IV-CENTRAL NAUSEA AND VOMITING 10/16/17 10:45 10/16/17 23:11 Lactobacillus Acidophilus (Lactinex) 1 tab TID PO 10/16/17 13:00 10/17/17 09:31 Filgrastim (Neupogen Inj) 480 mcg DAILY@0000 SQ 10/17/17 00:00 10/16/17 23:12 Heparin Sodium (Porcine) (Heparin Central Flush) 250 units UNSCH PRN IV FLUSH SEE PROTOCOL TABLE 10/16/17 16:45 10/16/17 16:47 Pantoprazole Sodium (Protonix Inj) 40 mg Q24H IV PUSH 10/17/17 04:00 10/17/17 03:45 Objective Remarks GENERAL: Pleasant elderly male, sitting up in bed. He is mildly anxious but is otherwise comfortable appearing and in nad. SKIN: Warm and dry. HEAD: Normocephalic. EYES: No injection or drainage. NECK: Supple, trachea midline. CARDIOVASCULAR: tachycardic rate, regular rhythm. RESPIRATORY: Breath sounds equal bilaterally. No accessory muscle use. GASTROINTESTINAL: Abdomen soft, nondistended. very mild tenderness to LLQ of abdomen. EXTREMITIES: No cyanosis MUSCULOSKELETAL: Adequate muscle tone. NEUROLOGICAL: awake, alert. normal speech. moving all extremities. Assessment/Plan Problem List: (1) Clostridium difficile colitis ICD Codes: A04.72 - Enterocolitis due to Clostridium difficile, not specified as recurrent (2) Pancreatic adenocarcinoma ICD Codes: C25.9 - Malignant neoplasm of pancreas, unspecified (3) Neutropenic fever ICD Codes: D70.9 - Neutropenia, unspecified; R50.81 - Fever presenting with conditions classified elsewhere Status: Acute Assessment 72y/o male with pancreatic cancer admitted with neutropenic fever Plan 1. neutropenic fever: --BC no growth --continue Neupogen until WBC>5K --continue Cefepime 2. C. Diff Colitis: continue PO Vanco. thus far patient has been able to keep this down. if emesis becomes a problem can convert to IV Flagyl. 3. oral mucositis: magic mouthwash 4. Dehydration/vomiting: continue IVF, PRN zofran. Attending Statement The exam, history, and the medical decision-making described in the above note were completed with the assistance of the mid-level provider. I reviewed and agree with the findings presented. I attest that I had a [id number] encounter with the patient on the same day, and personally performed and documented my assessment and findings in the medical record C diff colitis on oral Vanco had nausea o/n-- better now prn anti-emetics IVF continue Neupogen continue cefepime oral mucositis- on magic mouth wash appetite poor trial of marinol spiked fever-- repeat blood cx, chest x-ray antibiotic coverage expanded flagyl, vanc and cefepime son present during rounds d/w Jania Painting Oct 17, 2017 10:19 Del Gomez MD Oct 17, 2017 11:39
[2017-10-17] MEDS: SODIUM CHLORIDE 0.9% FLUSH 10 ML FLUSH IV FLUSH SCH ×2 (10:47→20:36)
[2017-10-17] MEDS: NYSTAT/DIPHENHY/LIDO MOUTHWASH (Adult) 120ML SWISH-SWAL SCH ×4 (10:48→20:35)
[2017-10-17] MEDS: NYSTATIN SUSP 500,000 U/5 ML CUP SWISH-SWAL SCH ×4 (10:48→20:35)
[2017-10-17] MEDS: SODIUM CHLOR 0.9% 1000 ML INJ 1,000 ML IV SCH ×2 (12:42→21:50)
[2017-10-17] MEDS: ACETAMINOPHEN 325 MG TAB PO PRN (17:13)
--- NOTE | 2017-10-17 19:43 | RADRPT ---
EXAM DATE: 10/17/2017 7:25 PM EDT AGE/SEX: 72 years / Male INDICATIONS: Fever and granulocytopenia. CLINICAL DATA: This is the patient's subsequent encounter. Patient reports that signs and symptoms h ave been present for 1 day and indicates a pain score of 0/10. MEDICAL/SURGICAL HISTORY: . Carcinoma, pancreas. Carcinoma, prostatic. . Cholecystectomy. Pros tatectomy. COMPARISON: [facility] – [place]ST PA & LAT, 07/20/2017. . FINDINGS: The heart is stable. Scattered emphysematous changes are again noted. Right internal jugular Infuse-a -Port has its tip in the right atrium. There is no pneumothorax. No focal infiltrate is noted. No pul monary edema is noted. CONCLUSION: 1. No focal infiltrate noted. 2. Chronic emphysematous changes bilaterally. Electronically signed by: Sunil Miller MD 10/17/2017 7:41 PM EDT
[2017-10-17 19:58] LABS: AUTOMATED NEUTROPHIL # 0.7 TH/MM3 (1.8-7.7); BASOPHIL % 0.7 % (0.0-2.0); EOSINOPHIL % 3.4 % (0.0-4.0); HEMATOCRIT 28.8 % (39.0-51.0); HEMOGLOBIN 9.8 GM/DL (13.0-17.0); LYMPH % 32.1 % (9.0-44.0); LYMPHOCYTE # 0.4 TH/MM3 (1.0-4.8); MEAN CELL VOLUME 85.9 FL (80.0-100.0); MEAN CORPUSCULAR HEMOGLOBIN 29.1 PG (27.0-34.0); MEAN CORPUSCULAR HGB CONC 33.9 % (32.0-36.0); MEAN PLATELET VOLUME 8.4 FL (7.0-11.0); MONO % 6.8 % (0.0-8.0); MONOCYTE # 0.1 TH/MM3 (0-0.9); PLATELET COUNT 190 TH/MM3 (150-450); RED BLOOD COUNT 3.35 MIL/MM3 (4.50-5.90); RED CELL DISTRIBUTION WIDTH 13.7 % (11.6-17.2); WHITE BLOOD COUNT 1.2 TH/MM3 (4.0-11.0)
[2017-10-17 20:09] LABS: BILIRUBIN, URINE NEG (NEG); BLOOD, URINE NEG (NEG); GLUCOSE,URINE NEG (NEG); KETONE, URINE TRACE mg/dL (NEG); MUCUS URINE FEW /lpf (OCC); NITRITE,URINE NEG (NEG); SQUAMOUS EPITHELIAL CELL URINE 1 /hpf (0-5); URINE COLOR YELLOW (YELLW/STRAW); URINE LEUKOCYTE ESTERASE NEG (NEG)
[2017-10-17 20:15] LABS: BICARBONATE 20.1 MEQ/L (21.0-32.0); CALCIUM 8.1 MG/DL (8.5-10.1); CREATININE 0.68 MG/DL (0.60-1.30)
[2017-10-17] MEDS: MIRTAZAPINE 15 MG TAB PO SCH (20:34)
[2017-10-17] MEDS: DRONABINOL 2.5 MG CAP PO SCH (20:35)
[2017-10-17 21:05] LABS: BANDS 22 % (0-6); LYMPHOCYTES 35 % (9-44); METAMYELOCYTES 3 % (0-1); MONOCYTES 8 % (0-8); NEUTROPHIL # MANUAL DIFF 0.6 TH/MM3 (1.8-7.7); POLYS (SEG NEUTROPHILS) 24 % (16-70)
[2017-10-17 21:07] LABS: DOHLE BODIES PRESENT (NONE SEEN); OVALOCYTES 1+ (NORMAL)
[2017-10-17] MEDS: metroNIDAZOLE 500 MG INJ 100 ML IV SCH (21:49)
[2017-10-17] MEDS: VANCOMYCIN INJ 1,000 MG in SODIUM CHLOR 0.9% 250 ML INJ 250 ML IV SCH (23:08)
[2017-10-17] MEDS: FILGRASTIM 480 MCG/1.6 ML VIAL SQ SCH (23:08)
[2017-10-18] VITALS (15 sets, daily range): BP systolic 106–139; BP diastolic 45–71; PULSE 87–110; RESP 16–20; TEMP 98.1–101.5; O2SAT 92–97
[2017-10-18] MEDS: metroNIDAZOLE 500 MG INJ 100 ML IV SCH ×4 (02:40→20:57)
[2017-10-18] MEDS: ACETAMINOPHEN 325 MG TAB PO PRN ×2 (02:40→16:54)
[2017-10-18] MEDS: PANTOPRAZOLE SODIUM 40 MG VIAL IV PUSH SCH (03:36)
[2017-10-18] MEDS: CEFEPIME INJ 2,000 MG in SODIUM CHLORIDE 0.9% INJ 100 ML IV SCH ×3 (03:36→20:57)
[2017-10-18 04:02] LABS: HEMATOCRIT 25.5 % (39.0-51.0); HEMOGLOBIN 8.8 GM/DL (13.0-17.0); MEAN CELL VOLUME 86.1 FL (80.0-100.0); MEAN CORPUSCULAR HEMOGLOBIN 29.8 PG (27.0-34.0); MEAN CORPUSCULAR HGB CONC 34.6 % (32.0-36.0); PLATELET COUNT 140 TH/MM3 (150-450); RED BLOOD COUNT 2.96 MIL/MM3 (4.50-5.90); RED CELL DISTRIBUTION WIDTH 14.2 % (11.6-17.2)
[2017-10-18 04:28] LABS: AST (GOT) 20 U/L (15-37); BICARBONATE 21.3 MEQ/L (21.0-32.0); BLOOD UREA NITROGEN 11 MG/DL (7-18); CALCIUM 7.7 MG/DL (8.5-10.1); CHLORIDE 108 MEQ/L (98-107); CREATININE 0.65 MG/DL (0.60-1.30); GLOMERULAR FILTRATION RATE 120 ML/MIN (>89); GLUCOSE,RANDOM 111 MG/DL (74-106); SODIUM (NA) 140 MEQ/L (136-145)
[2017-10-18 04:29] LABS: ALT (GPT) 35 U/L (12-78)
[2017-10-18 04:31] LABS: ALKALINE PHOSPHATASE 76 U/L (45-117); TOTAL BILIRUBIN ADULT 0.4 MG/DL (0.2-1.0); TOTAL PROTEIN 5.1 GM/DL (6.4-8.2)
[2017-10-18 04:57] LABS: BANDS 13 % (0-6); LYMPHOCYTES 37 % (9-44); METAMYELOCYTES 7 % (0-1); MONOCYTES 8 % (0-8); NEUTROPHIL # MANUAL DIFF 0.5 TH/MM3 (1.8-7.7); POLYS (SEG NEUTROPHILS) 32 % (16-70)
[2017-10-18 04:58] LABS: DOHLE BODIES PRESENT (NONE SEEN); OVALOCYTES 1+ (NORMAL)
[2017-10-18] MEDS ORDERED: POTASSIUM CHLORIDE 20 MEQ CONTROLLED RELEASE TAB PO ONE (08:00)
[2017-10-18] MEDS: PT OWN (Tiotropium Inh (Spiriva Respimat Inh) INH SCH (09:00)
[2017-10-18] MEDS: SODIUM CHLORIDE 0.9% FLUSH 10 ML FLUSH IV FLUSH SCH ×2 (09:00→21:00)
--- NOTE | 2017-10-18 09:13 | PD.ONC.PN ---
Subjective Subjective Remarks Tmax 101.5 overnight. Patient states he had a hard time sleeping last night. He attributes the difficulty sleeping to having too many blankets on him. He denies vomiting overnight. he feels ready to try food again today. yesterday he didn't have much of an appetite. Objective Data Date Time Temp Pulse Resp B/P (MAP) Pulse Ox O2 Delivery O2 Flow Rate FiO2 10/18/17 08:41 93 10/18/17 07:49 99.0 100 20 107/54 (71) 95 10/18/17 04:00 98 10/18/17 03:42 99.2 99 16 107/45 (65) 92 10/18/17 02:40 101.5 110 20 139/65 (89) 96 10/18/17 00:00 98.9 94 16 123/59 (80) 97 10/18/17 00:00 95 10/17/17 20:00 92 10/17/17 20:00 97.9 92 15 112/57 (75) 96 10/17/17 19:30 98.6 10/17/17 16:45 101.2 91 18 123/64 (83) 97 10/17/17 16:00 89 10/17/17 12:44 97.9 95 18 127/58 (81) 95 10/17/17 12:20 95 21 10/17/17 12:00 93 10/18/17 10/18/17 10/18/17 07:00 15:00 23:00 Intake Total 730 ml Balance 730 ml Result Diagram: 10/18/17 0340 10/18/17 0340 Laboratory Results Laboratory Tests Test 10/17/17 19:15 10/18/17 03:40 White Blood Count 1.2 TH/MM3 1.0 TH/MM3 Red Blood Count 3.35 MIL/MM3 2.96 MIL/MM3 Hemoglobin 9.8 GM/DL 8.8 GM/DL Hematocrit 28.8 % 25.5 % Mean Corpuscular Volume 85.9 FL 86.1 FL Mean Corpuscular Hemoglobin 29.1 PG 29.8 PG Mean Corpuscular Hemoglobin Concent 33.9 % 34.6 % Red Cell Distribution Width 13.7 % 14.2 % Platelet Count 190 TH/MM3 140 TH/MM3 Mean Platelet Volume 8.4 FL 8.0 FL Neutrophils (%) (Auto) 57.0 % Lymphocytes (%) (Auto) 32.1 % Monocytes (%) (Auto) 6.8 % Eosinophils (%) (Auto) 3.4 % Basophils (%) (Auto) 0.7 % Neutrophils # (Auto) 0.7 TH/MM3 Lymphocytes # (Auto) 0.4 TH/MM3 Monocytes # (Auto) 0.1 TH/MM3 Eosinophils # (Auto) 0.0 TH/MM3 Basophils # (Auto) 0.0 TH/MM3 CBC Comment AUTO DIFF AUTO DIFF Differential Total Cells Counted 100 100 Neutrophils % (Manual) 24 % 32 % Band Neutrophils % 22 % 13 % Lymphocytes % 35 % 37 % Monocytes % 8 % 8 % Eosinophils % 8 % 3 % Neutrophils # (Manual) 0.6 TH/MM3 0.5 TH/MM3 Metamyelocytes 3 % 7 % Differential Comment FINAL DIFF MANUAL FINAL DIFF MANUAL Dohle Bodies PRESENT PRESENT Platelet Estimate NORMAL NORMAL Platelet Morphology Comment NORMAL NORMAL Ovalocytes 1+ 1+ Urine Color YELLOW Urine Turbidity CLEAR Urine pH 6.0 Urine Specific [place] 1.022 Urine Protein TRACE mg/dL Urine Glucose (UA) NEG mg/dL Urine Ketones TRACE mg/dL Urine Occult Blood NEG Urine Nitrite NEG Urine Bilirubin NEG Urine Urobilinogen LESS THAN 2.0 MG/DL Urine Leukocyte Esterase NEG Urine RBC 1 /hpf Urine WBC 4 /hpf Urine Squamous Epithelial Cells 1 /hpf Urine Mucus FEW /lpf Blood Urea Nitrogen 11 MG/DL 11 MG/DL Creatinine 0.68 MG/DL 0.65 MG/DL Random Glucose 106 MG/DL 111 MG/DL Calcium Level 8.1 MG/DL 7.7 MG/DL Sodium Level 139 MEQ/L 140 MEQ/L Potassium Level 3.6 MEQ/L 3.4 MEQ/L Chloride Level 107 MEQ/L 108 MEQ/L Carbon Dioxide Level 20.1 MEQ/L 21.3 MEQ/L Anion Gap 12 MEQ/L 11 MEQ/L Estimat Glomerular Filtration Rate 114 ML/MIN 120 ML/MIN Lactic Acid Level 2.6 mmol/L 1.5 mmol/L Total Protein 5.1 GM/DL Albumin 2.0 GM/DL Alkaline Phosphatase 76 U/L Aspartate Amino Transf (AST/SGOT) 20 U/L Alanine Aminotransferase (ALT/SGPT) 35 U/L Total Bilirubin 0.4 MG/DL Culture Results Microbiology Date/Time Source Procedure Growth Status 10/17/17 20:11 Blood Peripheral Aerobic Blood Culture Pending Received 10/17/17 20:11 Blood Peripheral Anaerobic Blood Culture Pending Received 10/17/17 17:40 Blood Line Aerobic Blood Culture Pending Received 10/17/17 17:40 Blood Line Anaerobic Blood Culture Pending Received 10/17/17 19:15 Urine Clean Catch Urine Culture Pending Received Administered Medications Medications (Trade) Dose Ordered Sig/Sreedhar Route PRN Reason Start Time Stop Time Status Last Admin Dose Admin Cefepime HCl 2000 mg/Sodium Chloride 100 ml @ 200 mls/hr Q8H IV 10/15/17 04:00 10/18/17 03:36 Sodium Chloride 1,000 ml @ 100 mls/hr Q10H IV 10/15/17 02:00 10/17/17 21:50 Sodium Chloride (NS Flush) 2 ml BID IV FLUSH 10/15/17 09:00 10/17/17 20:36 Acetaminophen (Tylenol) 650 mg Q4H PRN PO TEMP > 100.4 10/15/17 02:00 10/18/17 02:40 Ondansetron HCl (Zofran Odt) 4 mg Q6H PRN PO N/V 10/15/17 02:15 10/17/17 09:31 Enoxaparin Sodium (Lovenox Inj) 40 mg Q24H SQ 10/15/17 09:00 10/17/17 09:31 Buspirone HCl (Buspar) 5 mg BID PO 10/15/17 09:00 10/17/17 20:34 Mirtazapine (Remeron) 45 mg HS PO 10/15/17 21:00 10/17/17 20:34 Budesonide/ Formoterol Fumarate (Symbicort 160-4.5 Mcg Inh) 2 puff BID INH 10/15/17 09:00 10/17/17 20:36 Nystatin (Mycostatin Liq) 5 ml QID SWISH-SWAL 10/15/17 13:00 10/17/17 20:35 Multi-Ingredient Mouthwash/Gargle (Magic Mouthwash Adult Liq) 10 ml QID SWISH-SWAL 10/15/17 21:30 10/17/17 20:35 Promethazine HCl (Phenergan Inj) 25 mg Q6H PRN IV-CENTRAL NAUSEA AND VOMITING 10/16/17 10:45 10/16/17 23:11 Lactobacillus Acidophilus (Lactinex) 1 tab TID PO 10/16/17 13:00 10/17/17 17:14 Filgrastim (Neupogen Inj) 480 mcg DAILY@0000 SQ 10/17/17 00:00 10/17/17 23:08 Heparin Sodium (Porcine) (Heparin Central Flush) 250 units UNSCH PRN IV FLUSH SEE PROTOCOL TABLE 10/16/17 16:45 10/16/17 16:47 Pantoprazole Sodium (Protonix Inj) 40 mg Q24H IV PUSH 10/17/17 04:00 10/18/17 03:36 Dronabinol (Marinol) 2.5 mg BID@11,16 PO 10/17/17 20:15 10/17/17 20:35 Metronidazole 100 ml @ 100 mls/hr Q6H IV 10/17/17 21:00 10/18/17 02:40 Vancomycin HCl 1000 mg/Sodium Chloride 250 ml @ 250 mls/hr Q12H IV 10/17/17 22:00 10/17/17 23:08 Objective Remarks GENERAL: Pleasant elderly male, lying in bed in nad. SKIN: Warm and dry. HEAD: Normocephalic. EYES: No injection or drainage. NECK: Supple, trachea midline. CARDIOVASCULAR: tachycardic rate, regular rhythm. RESPIRATORY: anterior [place] clear. GASTROINTESTINAL: Abdomen soft, nondistended. +ttp, LLQ EXTREMITIES: No cyanosis MUSCULOSKELETAL: Adequate muscle tone. NEUROLOGICAL: awake, alert. normal speech. moving all extremities. Assessment/Plan Problem List: (1) Clostridium difficile colitis ICD Codes: A04.72 - Enterocolitis due to Clostridium difficile, not specified as recurrent (2) Pancreatic adenocarcinoma ICD Codes: C25.9 - Malignant neoplasm of pancreas, unspecified (3) Neutropenic fever ICD Codes: D70.9 - Neutropenia, unspecified; R50.81 - Fever presenting with conditions classified elsewhere Status: Acute Assessment 72y/o male with pancreatic cancer admitted with neutropenic fever Plan 1. neutropenic fever: --BC no growth, repeat blood cultures pending. --continue Neupogen until WBC>5K --continue Cefepime, Vanco and Flagyl started yesterday for new fever spike. 2. C. Diff Colitis: continue PO Vanco. 3. oral mucositis: magic mouthwash 4. supportive care: continue IVF. advance diet as tolerated. Attending Statement The exam, history, and the medical decision-making described in the above note were completed with the assistance of the mid-level provider. I reviewed and agree with the findings presented. I attest that I had a [id number] encounter with the patient on the same day, and personally performed and documented my assessment and findings in the medical record spiking fever but feels better antibiotics coverage expanded yesterday back pain EKG ordered/Troponin continue Jania Antonio Oct 18, 2017 09:13 Del Gomez MD Oct 18, 2017 11:19
[2017-10-18] MEDS: NYSTAT/DIPHENHY/LIDO MOUTHWASH (Adult) 120ML SWISH-SWAL SCH ×4 (09:15→21:03)
[2017-10-18] MEDS: ENOXAPARIN SODIUM 40 MG/0.4 ML SYRINGE SQ SCH (09:19)
[2017-10-18] MEDS: busPIRone HCL 5 MG TAB PO SCH ×2 (09:19→20:55)
[2017-10-18] MEDS: NYSTATIN SUSP 500,000 U/5 ML CUP SWISH-SWAL SCH ×4 (09:19→20:56)
[2017-10-18] MEDS: LACTOBACILLUS ACIDOPHILUS TAB PO SCH ×3 (09:20→15:26)
[2017-10-18] MEDS: BUDESONIDE-FORMOTEROL 160/4.5 MCG INHALER INH SCH ×2 (09:23→20:56)
[2017-10-18] MEDS: SODIUM CHLOR 0.9% 1000 ML INJ 1,000 ML IV SCH ×3 (10:00→23:46)
[2017-10-18] MEDS: VANCOMYCIN INJ 1,000 MG in SODIUM CHLOR 0.9% 250 ML INJ 250 ML IV SCH (11:08)
[2017-10-18] MEDS: DRONABINOL 2.5 MG CAP PO SCH ×2 (11:40→15:26)
--- NOTE | 2017-10-18 13:17 | HHI.PR ---
Subjective Remarks Pt seen and examined. Tmax 101.5 overnight. Patient reports he is generally just not feeling well. He has some mild lower abdominal cramping and has had 3 episodes of dark liquid diarrhea already today. He endorses feeling cold and having chills. Denies chest pain or shortness of breath. Objective Vital Signs Date Time Temp Pulse Resp B/P (MAP) Pulse Ox O2 Delivery O2 Flow Rate FiO2 10/18/17 12:45 87 10/18/17 11:44 98.8 87 18 113/58 (76) 97 10/18/17 08:41 93 10/18/17 07:49 99.0 100 20 107/54 (71) 95 10/18/17 04:00 98 10/18/17 03:42 99.2 99 16 107/45 (65) 92 10/18/17 02:40 101.5 110 20 139/65 (89) 96 10/18/17 00:00 98.9 94 16 123/59 (80) 97 10/18/17 00:00 95 10/17/17 20:00 92 10/17/17 20:00 97.9 92 15 112/57 (75) 96 10/17/17 19:30 98.6 10/17/17 16:45 101.2 91 18 123/64 (83) 97 10/17/17 16:00 89 I/O 10/17/17 10/17/17 10/17/17 10/18/17 10/18/17 10/18/17 07:00 15:00 23:00 07:00 15:00 23:00 Intake Total 340 ml 100 ml 2160 ml 730 ml Output Total 500 ml 200 ml Balance -160 ml 100 ml 1960 ml 730 ml Intake Oral 240 ml 960 ml 480 ml IV Total 100 ml 100 ml 1200 ml 250 ml Output Urine Total 500 ml 200 ml # Voids 3 # Bowel Movements 3 Result Diagram: 10/18/17 0340 10/18/17 0340 Imaging Chest X-Ray 10/17/17 0000 Signed Impressions: CONCLUSION: 1. No focal infiltrate noted. 2. Chronic emphysematous changes bilaterally. Abdomen/Pelvis CT 10/16/17 0000 Signed Impressions: CONCLUSION: 1. Evidence for bowel wall thickening suspicious for uncomplicated colitis sig moid colon new from comparison study. Objective Remarks GENERAL: Thin chronically ill-appearing male resting in bed in no acute distress. SKIN: Warm and dry. Erythematous macular rash over upper and lower extremities , worse on upper extremities. HEENT: AT/NC. Pupils equal and round. MMM. HEART: Tachycardic with a regular rhythm. No appreciable murmurs. LUNGS: CTAB without wheezes or crackles. ABDOMEN: Hyperactive bowel sounds, soft, nondistended, and mildly tender in the lower quadrants. EXTREMITIES: No LE edema. NEURO: Awake and alert. Nonfocal. PSYCH: Appropriate mood and affect. A/P Problem List: (1) Fever ICD Code: R50.9 - Fever, unspecified (2) Clostridium difficile colitis ICD Code: A04.72 - Enterocolitis due to Clostridium difficile, not specified as recurrent (3) Pancytopenia ICD Code: D61.818 - Other pancytopenia (4) Pancreatic adenocarcinoma ICD Code: C25.9 - Malignant neoplasm of pancreas, unspecified Assessment and Plan 72 year old male with unresectable poorly differentiated pancreatic adenocarcinoma currently undergoing chemotherapy, COPD, and depression admitted on 10/15 for fever and found to have C. diff. He continues to be spiking temperatures. 1. Neutropenic fever - Continues to spike temps with Tmax 101.5 overnight - Temp of 101.2 yesterday afternoon prompted further evaluation --> CXR negative , U/A negative, lactic acid went up to 2.6, and repeat blood cultures were drawn - Given lactic acidosis and fever antibiotic coverage was expanded to include IV Flagyl for C. diff and IV vancomycin for Gram positive coverage, and cefepime was continued - Blood cultures 5/30 NG - Repeat blood culture from 6/2 NG x 1 day - Lactic acid normalized this AM - Heme/onc following - ID consulted for further eval - Continue to monitor clinical course and temps 2. C. diff PCR + - CT abdomen with evidence of bowel wall thickening suspicious for uncomplicated sigmoid colitis - PO Vanc discontinued yesterday and changed to IV Flagyl since patient continued to have fevers - Continue Lactinex 3. Nausea/vomiting - CT abdomen 10/16 showing bowel wall thickening suspicious for uncomplicated colitis of the sigmoid colon - Treating for C. diff as above - Antiemetics PRN - Monitor - NS at 84 ml/hr 4. Leukopenia - Secondary to chemotherapy - Heme/onc following; Neupogen until WBC >5k - Monitor 5. Rash on RUE - Appears to be a drug rash - Monitor 6. Pancreatic adenocarcinoma - Currently receiving neoadjuvant chemo with Abraxane and Gemzar, last treatment 10/06 - Heme/onc following 7. Normocytic anemia - Secondary to chemo and malignancy - Hemodynamically stable - Monitor 8. Thrombocytopenia - Secondary to chemo - No active bleeding - Monitor 9. Oral mucositis - Magic mouthwash TID after meals 10. COPD - Continue home inhalers - Supplemental O2 PRN 11. Depression - Continue home meds DVT prophylaxis: Johanny Shoemaker MD Oct 18, 2017 13:17
--- NOTE | 2017-10-18 16:05 | PD.ID.CON ---
History of Present Illness Service ID Consult Requested By Dr.Tara Liu Reason for Consult Evaluation and Mment of Cdiff Colitis in patient with Neutropenic Sepsis. Primary Care Physician Cb Hogan MD Diagnoses: History of Present Illness is a 72-year-old male with past medical history significant for poorly differentiated adenocarcinoma of the pancreas which is locally advanced and unresectable per review of oncology notes. Patient had a biliary stent placement since he had presented with obstructive jaundice in the past. Patient was determined is a suitable candidate for surgery due to unresectable disease. Patient is undergoing neoadjuvant chemotherapy with Abraxane and Gemzar. Per review of oncology notes it appears that he is receiving Gemzar at 10% dose reduction to account for his age. The last dose of his chemotherapy was Thursday prior to admission. Patient started developing fevers of 100.5 so he called oncology on-call service who told him to present to the emergency department. Upon admission patient was found to have leukopenia with a WBC count of 2.3. Patient was admitted to the hospital due to neutropenic sepsis as well as C. difficile colitis. Patient was started on empiric cefepime IV, vancomycin IV, Flagyl IV as well as vancomycin oral. Blood cultures have been drawn from both port as well as peripherally and both are no growth so far. Patient reports low-grade fever Also reports diarrhea multiple times. Denies any nausea or vomiting Reports having a rash which is macular all over his body present much before his admission and he reports that this could be related his to his chemotherapy. Infectious diseases consulted for evaluation and management of C. difficile colitis in a patient with neutropenic sepsis. Review of Systems ROS Limitations: Poor Historian Constitutional: COMPLAINS OF: Fever, Chills, Change in appetite, DENIES: Diaphoretic episodes, Fatigue, Weight gain, Weight loss, Dizziness, Night Sweats Endocrine: DENIES: Heat/cold intolerance, Polydipsia, Polyuria, Polyphagia Eyes: DENIES: Blurred vision, Diplopia, Eye inflammation, Eye pain, Vision loss , Photosensitivity, Double Vision Ears, nose, mouth, throat: DENIES: Tinnitus, Hearing loss, Vertigo, Nasal discharge, Oral lesions, Throat pain, Hoarseness, Ear Pain, Running Nose, Epistaxis, Sinus Pain, Toothache, Odynophagia Respiratory: DENIES: Apneas, Cough, Snoring, Wheezing, Hemoptysis, Sputum production, Shortness of breath Cardiovascular: DENIES: Chest pain, Palpitations, Syncope, Dyspnea on Exertion , PND, Lower Extremity Edema, Orthopnea, Claudication Gastrointestinal: COMPLAINS OF: Diarrhea, DENIES: Abdominal pain, Black stools , Bloody stools, Constipation, Nausea, Vomiting, Difficulty Swallowing, Anorexia Genitourinary: DENIES: Sexual dysfunction, Urinary frequency, Urinary incontinence, Urgency, Hematuria, Dysuria, Nocturia, Penile Discharge, Testicular Pain, Testicular Swelling Musculoskeletal: DENIES: Joint pain, Muscle aches, Stiffness, Joint Swelling, Back pain, Neck pain Integumentary: COMPLAINS OF: Rash, DENIES: Abnormal pigmentation, Nail changes , Pruritus Hematologic/lymphatic: DENIES: Bruising, Lymphadenopathy Immunologic/allergic: DENIES: Eczema, Urticaria Neurologic: DENIES: Abnormal gait, Headache, Localized weakness, Paresthesias, Seizures, Speech Problems, Tremor, Poor Balance Psychiatric: DENIES: Anxiety, Confusion, Mood changes, Depression, Hallucinations, Agitation, Suicidal Ideation, Homicidal Ideation, Delusions Except as stated in HPI: all other systems reviewed are Neg Past Family Social History Allergies: Coded Allergies: No Known Allergies (Verified Allergy, Unknown, 10/14/17) Past Medical History Unresectable pancreatic adenocarcinoma Obstructive jaundice COPD Depression Past Surgical History Prostatectomy Cholecystectomy Drainage of the liver abscess ERCP the pancreatic lesion Port placement Biliary stent placement Reported Medications Reported Meds & Active Scripts Active Oxygen (O2) Device Liter KEYON.CANULA CONTINUOUS Oxygen Concentrator Portable Gaseous 2 L/min via Nasal Canula Continuous For 99 months Rollator Ultra-Light (Device) 1 Mis Mis Ea .XX DIRECTED [Budeson-Formot 160-4.5 Mcg Inh] 60 PUFF Aero 2 Puff INH Q12HR Reported Ensure (Nutritional Supplements) 1 Pow Pow Spiriva Respimat Inh (Tiotropium Inh) 2.5 Mcg/Act Aero 2 Puff INH DAILY 2.5 mcg = 1 inhalation Proventil Hfa 6.7 GM Inh (Albuterol Sulfate) 90 Mcg/Act Aer 1 Puff INH Q4H PRN Mirtazapine 45 Mg Tab 45 Mg PO HS Buspirone (Buspirone HCl) 5 Mg Tab 5 Mg PO BID Active Ordered Medications Current Medications Medications (Trade) Dose Ordered Sig/Sreedhar Route Start Time Stop Time Status Last Admin Cefepime HCl 2000 mg/Sodium Chloride 100 ml @ 200 mls/hr Q8H IV 10/15/17 04:00 10/18/17 11:41 Sodium Chloride 1,000 ml @ 100 mls/hr Q10H IV 10/15/17 02:00 10/18/17 10:00 (NS Flush) 2 ml UNSCH PRN IV FLUSH 10/15/17 02:00 (NS Flush) 2 ml BID IV FLUSH 10/15/17 09:00 10/17/17 20:36 (Tylenol) 650 mg Q4H PRN PO 10/15/17 02:00 10/18/17 02:40 (Zofran Odt) 4 mg Q6H PRN PO 10/15/17 02:15 10/17/17 09:31 (Lovenox Inj) 40 mg Q24H SQ 10/15/17 09:00 10/18/17 09:19 (Narcan Inj) 0.4 mg UNSCH PRN IV PUSH 10/15/17 02:00 (Milk Of Magnesia Liq) 30 ml Q12H PRN PO 10/15/17 02:00 (Senokot) 17.2 mg Q12H PRN PO 10/15/17 02:00 (Dulcolax Supp) 10 mg DAILY PRN RECTAL 10/15/17 02:00 (Lactulose Liq) 30 ml DAILY PRN PO 10/15/17 02:00 (Buspar) 5 mg BID PO 10/15/17 09:00 10/18/17 09:19 (Remeron) 45 mg HS PO 10/15/17 21:00 10/17/17 20:34 Patient Own Medication PT OWN MED: (Tiotrop... DAILY INH 10/15/17 09:00 10/18/17 09:00 (Symbicort 160-4.5 Mcg Inh) 2 puff BID INH 10/15/17 09:00 10/18/17 09:23 (Duoneb Neb) 1 ampule Q4HR NEB PRN NEB 10/15/17 04:30 (Mycostatin Liq) 5 ml QID SWISH-SWAL 10/15/17 13:00 10/18/17 09:19 (Magic Mouthwash Adult Liq) 10 ml QID SWISH-SWAL 10/15/17 21:30 10/18/17 09:15 (Phenergan Inj) 25 mg Q6H PRN IV-CENTRAL 10/16/17 10:45 10/16/17 23:11 (Lactinex) 1 tab TID PO 10/16/17 13:00 10/18/17 15:26 (Neupogen Inj) 480 mcg DAILY@0000 SQ 10/17/17 00:00 10/17/17 23:08 (NS Flush) 5 ml UNSCH PRN IV FLUSH 10/16/17 16:45 (Heparin Central Flush) 250 units UNSCH PRN IV FLUSH 10/16/17 16:45 10/16/17 16:47 (Heparin Central Flush) 500 units UNSCH IV FLUSH 10/16/17 16:45 (Protonix Inj) 40 mg Q24H IV PUSH 10/17/17 04:00 10/18/17 03:36 (Cathflo Activase Inj) 2 mg Q2H PRN INTRACATH 10/17/17 08:45 (Marinol) 2.5 mg BID@11,16 PO 10/17/17 20:15 10/18/17 15:26 Metronidazole 100 ml @ 100 mls/hr Q6H IV 10/17/17 21:00 10/18/17 15:28 Vancomycin HCl 1000 mg/Sodium Chloride 250 ml @ 250 mls/hr Q12H IV 10/17/17 22:00 10/18/17 11:08 Sodium Chloride 1,000 ml @ 84 mls/hr [id number] IV 10/18/17 14:00 (Dificid) 200 mg BID PO 10/18/17 21:00 10/28/17 20:59 Family History Reviewed and noncontributory to infectious disease problem. Social History He does not smoke cigarettes. He does not drink alcohol. No illicit drug use. He is retired. He used to be in the . Physical Exam Vital Signs Vital Signs Date Time Temp Pulse Resp B/P (MAP) Pulse Ox O2 Delivery O2 Flow Rate FiO2 10/18/17 13:20 87 10/18/17 12:45 87 10/18/17 11:44 98.8 87 18 113/58 (76) 97 10/18/17 08:41 93 10/18/17 07:49 99.0 100 20 107/54 (71) 95 6/3/18 04:00 98 10/18/17 03:42 99.2 99 16 107/45 (65) 92 10/18/17 02:40 101.5 110 20 139/65 (89) 96 10/18/17 00:00 98.9 94 16 123/59 (80) 97 10/18/17 00:00 95 10/17/17 20:00 92 10/17/17 20:00 97.9 92 15 112/57 (75) 96 10/17/17 19:30 98.6 10/17/17 16:45 101.2 91 18 123/64 (83) 97 Physical Exam GENERAL: This is a well-nourished, well-developed patient, in no apparent distress. SKIN: No rashes, ecchymoses or lesions. Cool and dry. HEAD: Atraumatic. Normocephalic. No temporal or scalp tenderness. EYES: Pupils equal round and reactive. Extraocular motions intact. No scleral icterus. No injection or drainage. ENT: Nose without bleeding, purulent drainage or septal hematoma. Throat without erythema, tonsillar hypertrophy or exudate. Uvula midline. Airway patent. NECK: Trachea midline. Supple, nontender, no meningeal signs. CARDIOVASCULAR: Heart sounds audible. RESPIRATORY: Clear to auscultation. Breath sounds equal bilaterally. No wheezes , rales, or rhonchi. GASTROINTESTINAL: Abdomen soft, diffuse tenderness most pronounced in the left lower quadrant. MUSCULOSKELETAL: Extremities without clubbing, cyanosis, or edema. NEUROLOGICAL: Awake and alert. Nonfocal. Normal speech Psych cooperative IV line sites with no evidence of infection Port site with no evidence of infection. Laboratory Laboratory Tests Test 10/17/17 19:15 10/18/17 03:40 10/18/17 11:00 White Blood Count 1.2 1.0 Red Blood Count 3.35 2.96 Hemoglobin 9.8 8.8 Hematocrit 28.8 25.5 Mean Corpuscular Volume 85.9 86.1 Mean Corpuscular Hemoglobin 29.1 29.8 Mean Corpuscular Hemoglobin Concent 33.9 34.6 Red Cell Distribution Width 13.7 14.2 Platelet Count 190 140 Mean Platelet Volume 8.4 8.0 Neutrophils (%) (Auto) 57.0 Lymphocytes (%) (Auto) 32.1 Monocytes (%) (Auto) 6.8 Eosinophils (%) (Auto) 3.4 Basophils (%) (Auto) 0.7 Neutrophils # (Auto) 0.7 Lymphocytes # (Auto) 0.4 Monocytes # (Auto) 0.1 Eosinophils # (Auto) 0.0 Basophils # (Auto) 0.0 CBC Comment AUTO DIFF AUTO DIFF Differential Total Cells Counted 100 100 Neutrophils % (Manual) 24 32 Band Neutrophils % 22 13 Lymphocytes % 35 37 Monocytes % 8 8 Eosinophils % 8 3 Neutrophils # (Manual) 0.6 0.5 Metamyelocytes 3 7 Differential Comment FINAL DIFF MANUAL FINAL DIFF MANUAL Dohle Bodies PRESENT PRESENT Platelet Estimate NORMAL NORMAL Platelet Morphology Comment NORMAL NORMAL Ovalocytes 1+ 1+ Urine Color YELLOW Urine Turbidity CLEAR Urine pH 6.0 Urine Specific [place] 1.022 Urine Protein TRACE Urine Glucose (UA) NEG Urine Ketones TRACE Urine Occult Blood NEG Urine Nitrite NEG Urine Bilirubin NEG Urine Urobilinogen LESS THAN 2.0 Urine Leukocyte Esterase NEG Urine RBC 1 Urine WBC 4 Urine Squamous Epithelial Cells 1 Urine Mucus FEW Blood Urea Nitrogen 11 11 Creatinine 0.68 0.65 Random Glucose 106 111 Calcium Level 8.1 7.7 Sodium Level 139 140 Potassium Level 3.6 3.4 Chloride Level 107 108 Carbon Dioxide Level 20.1 21.3 Anion Gap 12 11 Estimat Glomerular Filtration Rate 114 120 Lactic Acid Level 2.6 1.5 Total Protein 5.1 Albumin 2.0 Alkaline Phosphatase 76 Aspartate Amino Transf (AST/SGOT) 20 Alanine Aminotransferase (ALT/SGPT) 35 Total Bilirubin 0.4 Troponin I LESS THAN 0.02 Date/Time Source Procedure Growth Status 10/17/17 20:11 Blood Peripheral Aerobic Blood Culture - Preliminary NO GROWTH IN 1 DAY Resulted 10/17/17 20:11 Blood Peripheral Anaerobic Blood Culture - Preliminary NO GROWTH IN 1 DAY Resulted 10/14/17 23:21 Nasal Washing Influenza Types A,B Antigen (ION) - Final NEGATIVE FOR FLU A AND B ANTIGEN.... Complete 10/17/17 19:15 Urine Clean Catch Urine Culture - Preliminary RESULTS PENDING Resulted Result Diagram: 10/18/17 0340 10/18/17 0340 Imaging Last Impressions Chest X-Ray 10/17/17 0000 Signed Impressions: CONCLUSION: 1. No focal infiltrate noted. 2. Chronic emphysematous changes bilaterally. Abdomen/Pelvis CT 6/1/18 0000 Signed Impressions: CONCLUSION: 1. Evidence for bowel wall thickening suspicious for uncomplicated colitis sig moid colon new from comparison study. Assessment and Plan Assessment and Plan Sepsis present on admission C. difficile colitis and diarrhea Neutropenic sepsis Immunocompromised host Unresectable pancreatic cancer Recs: Continue cefepime IV Continue Flagyl IV for now Continue oral Vanco Start Dificid oral Discontinue vancomycin IV there is no evidence of cellulitis or MRSA. Follow cultures Follow clinically Discussed with patient Discussed with RN Discussed with Dr. Gomez: would like to stop broad spectrum antibiotics as as neutropenia resolves as it could ppt Cdiff diarrhea. MAR reviewed. Imaging reviewed and compared CXRs with no e.o pneumonia. Maddie Womack MD Oct 18, 2017 16:05
[2017-10-18] MEDS: LORATADINE 10 MG TAB PO SCH (16:41)
--- NOTE | 2017-10-18 17:52 | EKG ---
Date Performed: 10/18/2017 Time Performed: 10:29:28 PTAGE: 72 years EKG: Sinus arrhythmia with one PAC with abberation Compared to previous tracing, sinus arrhythmi a and PACs are new Borderline ECG PREVIOUS TRACING : 08/04/2017 11.53 DOCTOR: Alex Pinedo Interpretating Date/Time 10/18/2017 17:51:02
[2017-10-18] MEDS: VANCOMYCIN 500 MG VIAL (FOR ORAL USE ONLY) PO SCH ×2 (18:00→20:56)
[2017-10-18] MEDS: MIRTAZAPINE 15 MG TAB PO SCH (20:55)
[2017-10-18] MEDS: FIDAXOMICIN 200 MG TAB PO SCH (20:56)
[2017-10-18] MEDS: FILGRASTIM 480 MCG/1.6 ML VIAL SQ SCH (23:50)
[2017-10-19] VITALS (10 sets, daily range): BP systolic 97–122; BP diastolic 55–66; PULSE 88–111; RESP 16–24; TEMP 97–99.3; O2SAT 93–96
[2017-10-19] MEDS: CEFEPIME INJ 2,000 MG in SODIUM CHLORIDE 0.9% INJ 100 ML IV SCH ×2 (03:46→12:14)
[2017-10-19] MEDS: PANTOPRAZOLE SODIUM 40 MG VIAL IV PUSH SCH (03:46)
[2017-10-19] MEDS: metroNIDAZOLE 500 MG INJ 100 ML IV SCH ×2 (03:46→09:22)
[2017-10-19] MEDS: SODIUM CHLOR 0.9% 1000 ML INJ 1,000 ML IV SCH ×3 (03:50→16:24)
[2017-10-19 06:00] LABS: HEMATOCRIT 26.5 % (39.0-51.0); MEAN CELL VOLUME 86.6 FL (80.0-100.0); MEAN CORPUSCULAR HEMOGLOBIN 29.4 PG (27.0-34.0); MEAN CORPUSCULAR HGB CONC 33.9 % (32.0-36.0); MEAN PLATELET VOLUME 8.6 FL (7.0-11.0); PLATELET COUNT 122 TH/MM3 (150-450); RED BLOOD COUNT 3.06 MIL/MM3 (4.50-5.90); RED CELL DISTRIBUTION WIDTH 14.4 % (11.6-17.2); WHITE BLOOD COUNT 4.2 TH/MM3 (4.0-11.0)
[2017-10-19 06:15] LABS: BICARBONATE 19.3 MEQ/L (21.0-32.0); CALCIUM 7.7 MG/DL (8.5-10.1); CREATININE 0.54 MG/DL (0.60-1.30)
[2017-10-19 08:09] LABS: BANDS 34 % (0-6); BASOPHILS 1 % (0-2); CORRECTED NUCLEATED RBC 1 /100 WBC (0-0); LYMPHOCYTES 17 % (9-44); METAMYELOCYTES 1 % (0-1); MONOCYTES 17 % (0-8); MYELOCYTES 1 % (0-0); NEUTROPHIL # MANUAL DIFF 2.6 TH/MM3 (1.8-7.7); NUCLEATED RED BLOOD CELL 1 (0-0); POLYS (SEG NEUTROPHILS) 26 % (16-70); PROMYELOCYTES 1 % (0-0)
[2017-10-19 08:10] LABS: DOHLE BODIES PRESENT (NONE SEEN); TOXIC GRANULATION 2+ (NORMAL); TOXIC VACUOLATION PRESENT (NONE SEEN)
[2017-10-19] MEDS: PT OWN (Tiotropium Inh (Spiriva Respimat Inh) INH SCH (09:00)
[2017-10-19] MEDS: NYSTAT/DIPHENHY/LIDO MOUTHWASH (Adult) 120ML SWISH-SWAL SCH ×4 (09:22→20:23)
[2017-10-19] MEDS: VANCOMYCIN 500 MG VIAL (FOR ORAL USE ONLY) PO SCH ×4 (09:22→20:21)
[2017-10-19] MEDS: LORATADINE 10 MG TAB PO SCH (09:22)
[2017-10-19] MEDS: ENOXAPARIN SODIUM 40 MG/0.4 ML SYRINGE SQ SCH (09:22)
[2017-10-19] MEDS: FIDAXOMICIN 200 MG TAB PO SCH ×2 (09:22→20:21)
[2017-10-19] MEDS: busPIRone HCL 5 MG TAB PO SCH ×2 (09:22→20:21)
[2017-10-19] MEDS: LACTOBACILLUS ACIDOPHILUS TAB PO SCH ×3 (09:22→17:56)
[2017-10-19] MEDS: BUDESONIDE-FORMOTEROL 160/4.5 MCG INHALER INH SCH ×2 (09:23→20:20)
[2017-10-19] MEDS: NYSTATIN SUSP 500,000 U/5 ML CUP SWISH-SWAL SCH ×4 (09:23→20:24)
[2017-10-19] MEDS: SODIUM CHLORIDE 0.9% FLUSH 10 ML FLUSH IV FLUSH SCH ×2 (09:23→20:23)
[2017-10-19] MEDS ORDERED: traMADol HCL 50 MG TAB PO PRN (11:30)
[2017-10-19] MEDS: DRONABINOL 2.5 MG CAP PO SCH ×2 (12:14→16:24)
--- NOTE | 2017-10-19 13:19 | HHI.IDPN ---
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 Patient had a biliary stent placement since he had presented with obstructive jaundice in the past. Patient was determined is a suitable candidate for surgery due to unresectable disease. Patient is undergoing neoadjuvant chemotherapy with Abraxane and Gemzar. Per review of oncology notes it appears that he is receiving Gemzar at 10% dose reduction to account for his age. The last dose of his chemotherapy was Thursday prior to admission. Patient started developing fevers of 100.5 so he called oncology on-call service who told him to present to the emergency department. Upon admission patient was found to have leukopenia with a WBC count of 2.3. Patient was admitted to the hospital due to neutropenic sepsis as well as C. difficile colitis. Patient was started on empiric cefepime IV, vancomycin IV, Flagyl IV as well as vancomycin oral. Blood cultures have been drawn from both port as well as peripherally and both are no growth so far. Patient reports low-grade fever Also reports diarrhea multiple times. Denies any nausea or vomiting Reports having a rash which is macular all over his body present much before his admission and he reports that this could be related his to his chemotherapy. Infectious diseases consulted for evaluation and management of C. difficile colitis in a patient with neutropenic sepsis. Overnight events reviewed No fevers No rash reports diarrhea x 2: still loose. Antibiotics Cefepime IV Flagyl IV vanco oral Difficid Lactobacillus Lines Line sites ok Past Medical History reviewed Allergies: Coded Allergies: No Known Allergies (Verified Allergy, Unknown, 10/14/17) Objective . Vital Signs Date Time Temp Pulse Resp B/P (MAP) Pulse Ox O2 Delivery O2 Flow Rate FiO2 10/19/17 12:12 97.7 97 18 105/55 (72) 94 10/19/17 11:00 105 10/19/17 09:16 97.4 111 18 97/55 (69) 96 10/19/17 07:00 103 10/19/17 04:00 99.3 99 16 122/63 (82) 93 10/19/17 04:00 88 10/19/17 00:00 93 10/18/17 23:45 98.7 101 18 121/71 (88) 96 10/18/17 20:47 98.1 94 16 106/56 (73) 95 10/18/17 20:00 95 10/18/17 18:26 98.6 10/18/17 16:54 100.8 94 20 126/64 (84) 92 10/18/17 16:00 98 10/18/17 13:20 87 10/19/17 10/19/17 10/20/17 15:00 23:00 07:00 Intake Total 240 ml Balance 240 ml Intake Oral 240 ml # Voids 2 # Bowel Movements 2 . Laboratory Tests Test 10/17/17 19:15 10/18/17 03:40 10/19/17 03:50 White Blood Count 1.2 TH/MM3 1.0 TH/MM3 4.2 TH/MM3 Red Blood Count 3.35 MIL/MM3 2.96 MIL/MM3 3.06 MIL/MM3 Hemoglobin 9.8 GM/DL 8.8 GM/DL 9.0 GM/DL Hematocrit 28.8 % 25.5 % 26.5 % Mean Corpuscular Volume 85.9 FL 86.1 FL 86.6 FL Mean Corpuscular Hemoglobin 29.1 PG 29.8 PG 29.4 PG Mean Corpuscular Hemoglobin Concent 33.9 % 34.6 % 33.9 % Red Cell Distribution Width 13.7 % 14.2 % 14.4 % Platelet Count 190 TH/MM3 140 TH/MM3 122 TH/MM3 Mean Platelet Volume 8.4 FL 8.0 FL 8.6 FL Neutrophils (%) (Auto) 57.0 % Lymphocytes (%) (Auto) 32.1 % Monocytes (%) (Auto) 6.8 % Eosinophils (%) (Auto) 3.4 % Basophils (%) (Auto) 0.7 % Neutrophils # (Auto) 0.7 TH/MM3 Lymphocytes # (Auto) 0.4 TH/MM3 Monocytes # (Auto) 0.1 TH/MM3 Eosinophils # (Auto) 0.0 TH/MM3 Basophils # (Auto) 0.0 TH/MM3 CBC Comment AUTO DIFF AUTO DIFF AUTO DIFF Differential Total Cells Counted 100 100 100 Neutrophils % (Manual) 24 % 32 % 26 % Band Neutrophils % 22 % 13 % 34 % Lymphocytes % 35 % 37 % 17 % Monocytes % 8 % 8 % 17 % Eosinophils % 8 % 3 % 2 % Neutrophils # (Manual) 0.6 TH/MM3 0.5 TH/MM3 2.6 TH/MM3 Metamyelocytes 3 % 7 % 1 % Differential Comment FINAL DIFF MANUAL FINAL DIFF MANUAL FINAL DIFF MANUAL Dohle Bodies PRESENT PRESENT PRESENT Platelet Estimate NORMAL NORMAL LOW Platelet Morphology Comment NORMAL NORMAL ENLARGED Ovalocytes 1+ 1+ Basophils % 1 % Myelocytes 1 % Promyelocytes 1 % Nucleated Red Blood Cells 1 /100 WBC Toxic Granulation 2+ Toxic Vacuolation PRESENT Laboratory Tests Test 10/17/17 19:15 10/18/17 03:40 10/18/17 11:00 10/19/17 03:50 Blood Urea Nitrogen 11 MG/DL 11 MG/DL 10 MG/DL Creatinine 0.68 MG/DL 0.65 MG/DL 0.54 MG/DL Random Glucose 106 MG/DL 111 MG/DL 90 MG/DL Calcium Level 8.1 MG/DL 7.7 MG/DL 7.7 MG/DL Sodium Level 139 MEQ/L 140 MEQ/L 138 MEQ/L Potassium Level 3.6 MEQ/L 3.4 MEQ/L 3.7 MEQ/L Chloride Level 107 MEQ/L 108 MEQ/L 108 MEQ/L Carbon Dioxide Level 20.1 MEQ/L 21.3 MEQ/L 19.3 MEQ/L Anion Gap 12 MEQ/L 11 MEQ/L 11 MEQ/L Estimat Glomerular Filtration Rate 114 ML/MIN 120 ML/MIN 149 ML/MIN Lactic Acid Level 2.6 mmol/L 1.5 mmol/L Total Protein 5.1 GM/DL Albumin 2.0 GM/DL Alkaline Phosphatase 76 U/L Aspartate Amino Transf (AST/SGOT) 20 U/L Alanine Aminotransferase (ALT/SGPT) 35 U/L Total Bilirubin 0.4 MG/DL Troponin I LESS THAN 0.02 NG/ML Microbiology Date/Time Source Procedure Growth Status 10/17/17 20:11 Blood Peripheral Aerobic Blood Culture - Preliminary NO GROWTH IN 2 DAYS Resulted 10/17/17 20:11 Blood Peripheral Anaerobic Blood Culture - Preliminary NO GROWTH IN 2 DAYS Resulted 10/17/17 17:40 Blood Line Aerobic Blood Culture - Preliminary NO GROWTH IN 2 DAYS Resulted 10/17/17 17:40 Blood Line Anaerobic Blood Culture - Preliminary NO GROWTH IN 2 DAYS Resulted 10/17/17 19:15 Urine Clean Catch Urine Culture - Final Lindsay Albicans Complete Imaging Last Impressions Chest X-Ray 10/17/17 0000 Signed Impressions: CONCLUSION: 1. No focal infiltrate noted. 2. Chronic emphysematous changes bilaterally. Abdomen/Pelvis CT 10/16/17 0000 Signed Impressions: CONCLUSION: 1. Evidence for bowel wall thickening suspicious for uncomplicated colitis sig moid colon new from comparison study. Physical Exam GENERAL: This is a well-nourished, well-developed patient, in no apparent distress. SKIN: No rashes, ecchymoses or lesions. Cool and dry. HEAD: Atraumatic. Normocephalic. No temporal or scalp tenderness. EYES: Pupils equal round and reactive. Extraocular motions intact. No scleral icterus. No injection or drainage. ENT: Nose without bleeding, purulent drainage or septal hematoma. Throat without erythema, tonsillar hypertrophy or exudate. Uvula midline. Airway patent. NECK: Trachea midline. Supple, nontender, no meningeal signs. CARDIOVASCULAR: Heart sounds audible. RESPIRATORY: Clear to auscultation. Breath sounds equal bilaterally. No wheezes , rales, or rhonchi. GASTROINTESTINAL: Abdomen soft, diffuse tenderness most pronounced in the left lower quadrant. MUSCULOSKELETAL: Extremities without clubbing, cyanosis, or edema. NEUROLOGICAL: Awake and alert. Nonfocal. Normal speech Psych cooperative IV line sites with no evidence of infection Port site with no evidence of infection. Assessment & Plan Remarks Sepsis present on admission C. difficile colitis and diarrhea Neutropenic sepsis Immunocompromised host Unresectable pancreatic cancer Recs: DC cefepime IV DC Flagyl IV for now Continue oral Vanco Continue Dificid oral Follow cultures Follow clinically Discussed with patient Discussed with Maddie Barillas MD Oct 19, 2017 13:19
--- NOTE | 2017-10-19 14:31 | HHI.PR ---
Subjective Remarks Follow-up for neutropenic fever, C. difficile colitis. Patient is currently doing well. Still having some diarrhea. No fever or chills overnight. Objective Vitals Vital Signs Date Time Temp Pulse Resp B/P (MAP) Pulse Ox O2 Delivery O2 Flow Rate FiO2 10/19/17 12:12 97.7 97 18 105/55 (72) 94 10/19/17 11:00 105 10/19/17 09:16 97.4 111 18 97/55 (69) 96 10/19/17 07:00 103 10/19/17 04:00 99.3 99 16 122/63 (82) 93 10/19/17 04:00 88 10/19/17 00:00 93 10/18/17 23:45 98.7 101 18 121/71 (88) 96 10/18/17 20:47 98.1 94 16 106/56 (73) 95 10/18/17 20:00 95 10/18/17 18:26 98.6 10/18/17 16:54 100.8 94 20 126/64 (84) 92 10/18/17 16:00 98 I/O 10/18/17 10/18/17 10/18/17 10/19/17 10/19/17 10/19/17 07:00 15:00 23:00 07:00 15:00 23:00 Intake Total 730 ml 250 ml 1160 ml 240 ml Balance 730 ml 250 ml 1160 ml 240 ml Intake Oral 480 ml 960 ml 240 ml IV Total 250 ml 250 ml 200 ml # Voids 3 5 2 # Bowel Movements 3 3 2 Result Diagram: 10/19/17 0350 10/19/17 0350 Imaging Last Impressions Chest X-Ray 10/17/17 0000 Signed Impressions: CONCLUSION: 1. No focal infiltrate noted. 2. Chronic emphysematous changes bilaterally. Abdomen/Pelvis CT 10/16/17 0000 Signed Impressions: CONCLUSION: 1. Evidence for bowel wall thickening suspicious for uncomplicated colitis sig moid colon new from comparison study. Objective Remarks GENERAL: Alert, oriented 3, NAD. SKIN: Warm and dry. HEAD: Normocephalic. EYES: No scleral icterus. No injection or drainage. NECK: Supple, trachea midline. No JVD or lymphadenopathy. CARDIOVASCULAR: Regular rate and rhythm without murmurs, gallops, or rubs. RESPIRATORY: Breath sounds equal bilaterally. No accessory muscle use. GASTROINTESTINAL: Abdomen soft, non-tender, nondistended. MUSCULOSKELETAL: No cyanosis, or edema. BACK: Nontender without obvious deformity. No CVA tenderness. Procedures NONE A/P Problem List: (1) Neutropenic fever ICD Code: D70.9 - Neutropenia, unspecified; R50.81 - Fever presenting with conditions classified elsewhere Status: Acute (2) Clostridium difficile colitis ICD Code: A04.72 - Enterocolitis due to Clostridium difficile, not specified as recurrent (3) Pancreatic adenocarcinoma ICD Code: C25.9 - Malignant neoplasm of pancreas, unspecified Assessment and Plan 72 year old male with unresectable poorly differentiated pancreatic adenocarcinoma currently undergoing chemotherapy, COPD, and depression admitted on 10/15 for fever and found to have C. diff. He continues to be spiking temperatures. 1. Neutropenic fever - Temp 99.3 overnight. - ID has discontinued IV cefepime and IV Flagyl. - Blood cultures 10/14 NG - Repeat blood culture from 10/17 NG - Lactic acid normalized -ID, Heme/onc following. 2. C. diff PCR + - CT abdomen with evidence of bowel wall thickening suspicious for uncomplicated sigmoid colitis - Continue p.o. vancomycin and p.o. Dificid 3. Nausea/vomiting - CT abdomen 10/16 showing bowel wall thickening suspicious for uncomplicated colitis of the sigmoid colon - Treating for C. diff as above - Antiemetics PRN - NS at 84 ml/hr 4. Leukopenia - Secondary to chemotherapy - Heme/onc following; Neupogen until WBC >5k. WBC count 4.2 today. Neutrophil count 2600. 5. Pancreatic adenocarcinoma - Currently receiving neoadjuvant chemo with Abraxane and Gemzar, last treatment 10/06 - Heme/onc following 6. Normocytic anemia - Secondary to chemo and malignancy - Hemodynamically stable 7. Thrombocytopenia - Secondary to chemo - No active bleeding 8. Oral mucositis - Magic mouthwash TID after meals 9. COPD - Continue home inhalers - Supplemental O2 PRN 10. Depression - Continue home meds DVT prophylaxis: Lovenox Racquel Woodward DO Oct 19, 2017 2:31 pm
[2017-10-19] MEDS: MIRTAZAPINE 15 MG TAB PO SCH (20:21)
[2017-10-20] VITALS (11 sets, daily range): BP systolic 100–120; BP diastolic 53–75; PULSE 95–115; RESP 18–22; TEMP 97.5–99.8; O2SAT 91–95
[2017-10-20] MEDS: FILGRASTIM 480 MCG/1.6 ML VIAL SQ SCH (00:23)
[2017-10-20] MEDS: SODIUM CHLOR 0.9% 1000 ML INJ 1,000 ML IV SCH ×3 (01:45→04:12)
[2017-10-20] MEDS: PANTOPRAZOLE SODIUM 40 MG VIAL IV PUSH SCH (04:12)
[2017-10-20 06:15] LABS: HEMATOCRIT 27.7 % (39.0-51.0); HEMOGLOBIN 9.5 GM/DL (13.0-17.0); MEAN CELL VOLUME 85.4 FL (80.0-100.0); MEAN CORPUSCULAR HEMOGLOBIN 29.2 PG (27.0-34.0); MEAN CORPUSCULAR HGB CONC 34.2 % (32.0-36.0); MEAN PLATELET VOLUME 8.1 FL (7.0-11.0); PLATELET COUNT 154 TH/MM3 (150-450); RED BLOOD COUNT 3.24 MIL/MM3 (4.50-5.90); RED CELL DISTRIBUTION WIDTH 14.8 % (11.6-17.2); WHITE BLOOD COUNT 19.7 TH/MM3 (4.0-11.0)
[2017-10-20] MEDS: ONDANSETRON ODT 4 MG TAB PO PRN (06:28)
[2017-10-20] MEDS ORDERED: SIMETHICONE 80 MG CHEWABLE TAB CHEW PRN (06:30)
[2017-10-20] MEDS: SODIUM CHLORIDE 0.9% FLUSH 10 ML FLUSH IV FLUSH SCH ×2 (09:00→20:30)
[2017-10-20] MEDS: PT OWN (Tiotropium Inh (Spiriva Respimat Inh) INH SCH (09:00)
--- NOTE | 2017-10-20 09:07 | HHI.PR ---
Subjective Remarks Follow up for C. Diff, Neutropenic fever. Patient is currently doing well. However, he does complain of some occasional abdominal discomfort. He inquires about going home. Objective Vitals Vital Signs Date Time Temp Pulse Resp B/P (MAP) Pulse Ox O2 Delivery O2 Flow Rate FiO2 10/20/17 08:53 98.2 110 22 120/68 (85) 94 10/20/17 04:13 100 10/20/17 03:25 98.1 99 20 115/63 (80) 94 10/20/17 00:25 99.8 98 20 116/54 (74) 93 10/20/17 00:06 100 10/19/17 20:15 98.5 107 24 121/66 (84) 95 10/19/17 20:07 107 10/19/17 15:46 97.0 108 18 122/57 (78) 95 10/19/17 15:00 98 10/19/17 12:12 97.7 97 18 105/55 (72) 94 10/19/17 11:00 105 10/19/17 09:16 97.4 111 18 97/55 (69) 96 I/O 10/19/17 10/19/17 10/19/17 10/20/17 10/20/17 10/20/17 07:00 15:00 23:00 07:00 15:00 23:00 Intake Total 240 ml 1560 ml Balance 240 ml 1560 ml Intake Oral 240 ml 1560 ml # Voids 2 5 2 # Bowel Movements 2 4 Result Diagram: 10/20/17 0555 10/19/17 0350 Objective Remarks GENERAL: Alert, oriented 3, NAD. SKIN: Warm and dry. HEAD: Normocephalic. EYES: No scleral icterus. No injection or drainage. NECK: Supple, trachea midline. No JVD or lymphadenopathy. CARDIOVASCULAR: Regular rate and rhythm without murmurs, gallops, or rubs. RESPIRATORY: Breath sounds equal bilaterally. No accessory muscle use. GASTROINTESTINAL: Abdomen soft, non-tender, nondistended. MUSCULOSKELETAL: No cyanosis, or edema. BACK: Nontender without obvious deformity. No CVA tenderness. Procedures NONE A/P Problem List: (1) Neutropenic fever ICD Code: D70.9 - Neutropenia, unspecified; R50.81 - Fever presenting with conditions classified elsewhere Status: Acute (2) Clostridium difficile colitis ICD Code: A04.72 - Enterocolitis due to Clostridium difficile, not specified as recurrent (3) Pancreatic adenocarcinoma ICD Code: C25.9 - Malignant neoplasm of pancreas, unspecified Assessment and Plan 72 year old male with unresectable poorly differentiated pancreatic adenocarcinoma currently undergoing chemotherapy, COPD, and depression admitted on 10/15 for fever and found to have C. diff. He continues to be spiking temperatures. 1. Neutropenic fever - Temp 99.8 overnight. - ID has discontinued IV cefepime and IV Flagyl. - Blood cultures 10/14 NG - Repeat blood culture from 10/17 NG - Lactic acid normalized - Heme/onc following. ID signed off. 2. C. diff PCR + - CT abdomen with evidence of bowel wall thickening suspicious for uncomplicated sigmoid colitis - Continue p.o. vancomycin and p.o. Dificid. Will continue taper PO Vancomycin upon discharge. 3. Nausea/vomiting - CT abdomen 10/16 showing bowel wall thickening suspicious for uncomplicated colitis of the sigmoid colon - Treating for C. diff as above - Antiemetics PRN 4. Leukopenia - Secondary to chemotherapy - Heme/onc following; Neupogen until WBC >5k. WBC count 4.2 --> 19.7. 5. Pancreatic adenocarcinoma - Currently receiving neoadjuvant chemo with Abraxane and Gemzar, last treatment 10/06 - Heme/onc following 6. Normocytic anemia - Secondary to chemo and malignancy - Hemodynamically stable 7. Thrombocytopenia - Secondary to chemo - No active bleeding 8. Oral mucositis - Magic mouthwash TID after meals 9. COPD - Continue home inhalers - Supplemental O2 PRN 10. Deconditioning - Will consult PT again. DVT prophylaxis: Racquel Ashby DO Oct 20, 2017 09:07
[2017-10-20 09:20] LABS: BANDS 20 % (0-6); CORRECTED NUCLEATED RBC 1 /100 WBC (0-0); LYMPHOCYTES 10 % (9-44); METAMYELOCYTES 3 % (0-1); MONOCYTES 7 % (0-8); MYELOCYTES 3 % (0-0); NEUTROPHIL # MANUAL DIFF 16.2 TH/MM3 (1.8-7.7); NUCLEATED RED BLOOD CELL 1 (0-0); POLYS (SEG NEUTROPHILS) 56 % (16-70)
[2017-10-20 09:21] LABS: ACANTHOCYTES OCC (NORMAL); DOHLE BODIES PRESENT (NONE SEEN); OVALOCYTES 1+ (NORMAL); TOXIC GRANULATION 2+ (NORMAL)
[2017-10-20 09:22] LABS: KERATOCYTES OCC (NORMAL)
[2017-10-20] MEDS: EUCERIN CREAM 120 GM JAR TOPICAL SCH ×3 (10:00→21:46)
[2017-10-20] MEDS: FIDAXOMICIN 200 MG TAB PO SCH ×2 (10:12→20:24)
[2017-10-20] MEDS: busPIRone HCL 5 MG TAB PO SCH ×2 (10:13→20:24)
[2017-10-20] MEDS: LORATADINE 10 MG TAB PO SCH (10:13)
[2017-10-20] MEDS: LACTOBACILLUS ACIDOPHILUS TAB PO SCH ×3 (10:13→18:19)
[2017-10-20] MEDS: VANCOMYCIN 500 MG VIAL (FOR ORAL USE ONLY) PO SCH ×4 (10:13→20:26)
[2017-10-20] MEDS: NYSTATIN SUSP 500,000 U/5 ML CUP SWISH-SWAL SCH ×3 (10:13→18:00)
[2017-10-20] MEDS: NYSTAT/DIPHENHY/LIDO MOUTHWASH (Adult) 120ML SWISH-SWAL SCH ×3 (10:14→18:00)
[2017-10-20] MEDS: ENOXAPARIN SODIUM 40 MG/0.4 ML SYRINGE SQ SCH (10:14)
[2017-10-20] MEDS: BUDESONIDE-FORMOTEROL 160/4.5 MCG INHALER INH SCH ×2 (10:18→20:25)
[2017-10-20] MEDS: FLUCONAZOLE 100 MG TAB PO SCH (10:22)
[2017-10-20] MEDS: DRONABINOL 2.5 MG CAP PO SCH ×2 (10:22→16:07)
--- NOTE | 2017-10-20 11:05 | PD.ONC.PN ---
Subjective Subjective Remarks Tmax 99.8 overnight. Patient still having loose stools and occasional llq pain. he would like to go home, but states he doesn't want to have to come back if his symptoms worsen. Objective Data Date Time Temp Pulse Resp B/P (MAP) Pulse Ox O2 Delivery O2 Flow Rate FiO2 10/20/17 08:53 98.2 110 22 120/68 (85) 94 10/20/17 08:00 100 10/20/17 04:13 100 10/20/17 03:25 98.1 99 20 115/63 (80) 94 10/20/17 00:25 99.8 98 20 116/54 (74) 93 10/20/17 00:06 100 10/19/17 20:15 98.5 107 24 121/66 (84) 95 10/19/17 20:07 107 10/19/17 15:46 97.0 108 18 122/57 (78) 95 10/19/17 15:00 98 10/19/17 12:12 97.7 97 18 105/55 (72) 94 Result Diagram: 10/20/17 0555 10/19/17 0350 Laboratory Results Laboratory Tests Test 10/20/17 05:55 White Blood Count 19.7 TH/MM3 Red Blood Count 3.24 MIL/MM3 Hemoglobin 9.5 GM/DL Hematocrit 27.7 % Mean Corpuscular Volume 85.4 FL Mean Corpuscular Hemoglobin 29.2 PG Mean Corpuscular Hemoglobin Concent 34.2 % Red Cell Distribution Width 14.8 % Platelet Count 154 TH/MM3 Mean Platelet Volume 8.1 FL CBC Comment AUTO DIFF Differential Total Cells Counted 100 Neutrophils % (Manual) 56 % Band Neutrophils % 20 % Lymphocytes % 10 % Monocytes % 7 % Eosinophils % 1 % Neutrophils # (Manual) 16.2 TH/MM3 Metamyelocytes 3 % Myelocytes 3 % Nucleated Red Blood Cells 1 /100 WBC Differential Comment FINAL DIFF MANUAL Toxic Granulation 2+ Dohle Bodies PRESENT Platelet Estimate LOW Platelet Morphology Comment NORMAL Ovalocytes 1+ Acanthocytes OCC Keratocytes OCC Culture Results Microbiology Date/Time Source Procedure Growth Status 10/17/17 20:11 Blood Peripheral Aerobic Blood Culture - Preliminary NO GROWTH IN 2 DAYS Resulted 10/17/17 20:11 Blood Peripheral Anaerobic Blood Culture - Preliminary NO GROWTH IN 2 DAYS Resulted 10/17/17 17:40 Blood Line Aerobic Blood Culture - Preliminary NO GROWTH IN 2 DAYS Resulted 10/17/17 17:40 Blood Line Anaerobic Blood Culture - Preliminary NO GROWTH IN 2 DAYS Resulted 10/17/17 19:15 Urine Clean Catch Urine Culture - Final Lindsay Albicans Complete Administered Medications Medications (Trade) Dose Ordered Sig/Sreedhar Route PRN Reason Start Time Stop Time Status Last Admin Dose Admin Sodium Chloride 1,000 ml @ 100 mls/hr Q10H IV 10/15/17 02:00 10/19/17 03:50 Sodium Chloride (NS Flush) 2 ml BID IV FLUSH 10/15/17 09:00 10/19/17 09:23 Acetaminophen (Tylenol) 650 mg Q4H PRN PO TEMP > 100.5 10/15/17 02:00 10/18/17 16:54 Ondansetron HCl (Zofran Odt) 4 mg Q6H PRN PO N/V 10/15/17 02:15 10/20/17 06:28 Enoxaparin Sodium (Lovenox Inj) 40 mg Q24H SQ 10/15/17 09:00 10/20/17 10:14 Buspirone HCl (Buspar) 5 mg BID PO 10/15/17 09:00 10/20/17 10:13 Mirtazapine (Remeron) 45 mg HS PO 10/15/17 21:00 10/19/17 20:21 Patient Own Medication PT OWN MED: (Tiotrop... DAILY INH 10/15/17 09:00 10/18/17 09:00 Budesonide/ Formoterol Fumarate (Symbicort 160-4.5 Mcg Inh) 2 puff BID INH 10/15/17 09:00 10/20/17 10:18 Nystatin (Mycostatin Liq) 5 ml QID SWISH-SWAL 10/15/17 13:00 10/20/17 10:13 Multi-Ingredient Mouthwash/Gargle (Magic Mouthwash Adult Liq) 10 ml QID SWISH-SWAL 10/15/17 21:30 10/20/17 10:14 Promethazine HCl (Phenergan Inj) 25 mg Q6H PRN IV-CENTRAL NAUSEA AND VOMITING 10/16/17 10:45 10/16/17 23:11 Lactobacillus Acidophilus (Lactinex) 1 tab TID PO 10/16/17 13:00 6/5/18 10:13 Heparin Sodium (Porcine) (Heparin Central Flush) 250 units UNSCH PRN IV FLUSH SEE PROTOCOL TABLE 10/16/17 16:45 10/16/17 16:47 Pantoprazole Sodium (Protonix Inj) 40 mg Q24H IV PUSH 10/17/17 04:00 10/20/17 04:12 Dronabinol (Marinol) 2.5 mg BID@11,16 PO 10/17/17 20:15 10/20/17 10:22 Sodium Chloride 1,000 ml @ 84 mls/hr [id number] IV 10/18/17 14:00 10/20/17 04:12 Fidaxomicin (Dificid) 200 mg BID PO 10/18/17 21:00 10/28/17 20:59 10/20/17 10:12 Vancomycin HCl (VANCOMYCIN for oral use only) 250 mg QID PO 10/18/17 18:00 10/20/17 10:13 Loratadine (Claritin) 10 mg DAILY PO 10/18/17 16:30 10/20/17 10:13 Simethicone (Mylicon Chew) 80 mg PCHS PRN CHEW gas 10/20/17 06:30 10/20/17 06:54 Fluconazole (Diflucan) 100 mg DAILY PO 10/20/17 09:45 10/20/17 10:22 Objective Remarks GENERAL: Pleasant elderly male, sitting up in bed in [facility]. SKIN: Warm and dry. HEAD: Normocephalic. EYES: No injection or drainage. NECK: Supple, trachea midline. CARDIOVASCULAR: Regular rate and rhythm RESPIRATORY: Breath sounds equal bilaterally. No accessory muscle use. GASTROINTESTINAL: Abdomen soft, +ttp, llq, nondistended. EXTREMITIES: No cyanosis, or edema. MUSCULOSKELETAL: Adequate muscle tone. NEUROLOGICAL: No obvious focal deficit. Awake, alert, and oriented x3. Assessment/Plan Problem List: (1) Clostridium difficile colitis ICD Codes: A04.72 - Enterocolitis due to Clostridium difficile, not specified as recurrent (2) Pancreatic adenocarcinoma ICD Codes: C25.9 - Malignant neoplasm of pancreas, unspecified Assessment 72y/o male with pancreatic cancer with c. diff colitis. Plan 1. C. Diff Colitis: continue PO Vanco + dificid 2. Abdominal pain: continue supportive care with IVF, PRN pain meds. expect symptoms to improve with improvement of colitis. 3. pancreatic adenocarcinoma: will plan further treatment outpatient. Attending Statement The exam, history, and the medical decision-making described in the above note were completed with the assistance of the mid-level provider. I reviewed and agree with the findings presented. I attest that I had a [id number] encounter with the patient on the same day, and personally performed and documented my assessment and findings in the medical record Still having loose stools Not ready to be discharged home appreciate ID recs neutrophils recovered stop Neupogen supportive care Jania Jefferson Oct 20, 2017 11:05 Del Gomez MD Oct 20, 2017 21:56
--- NOTE | 2017-10-20 12:31 | HHI.IDPN ---
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 Patient had a biliary stent placement since he had presented with obstructive jaundice in the past. Patient was determined is a suitable candidate for surgery due to unresectable disease. Patient is undergoing neoadjuvant chemotherapy with Abraxane and Gemzar. Per review of oncology notes it appears that he is receiving Gemzar at 10% dose reduction to account for his age. The last dose of his chemotherapy was Thursday prior to admission. Patient started developing fevers of 100.5 so he called oncology on-call service who told him to present to the emergency department. Upon admission patient was found to have leukopenia with a WBC count of 2.3. Patient was admitted to the hospital due to neutropenic sepsis as well as C. difficile colitis. Patient was started on empiric cefepime IV, vancomycin IV, Flagyl IV as well as vancomycin oral. Blood cultures have been drawn from both port as well as peripherally and both are no growth so far. Patient reports low-grade fever Also reports diarrhea multiple times. Denies any nausea or vomiting Reports having a rash which is macular all over his body present much before his admission and he reports that this could be related his to his chemotherapy. Infectious diseases consulted for evaluation and management of C. difficile colitis in a patient with neutropenic sepsis. Overnight events reviewed No fevers No rash reports diarrhea x 2: more formed today. No abdominal pain. No N/V Son in the room Antibiotics vanco oral Difficid Lactobacillus Lines Line sites ok Past Medical History reviewed Allergies: Coded Allergies: No Known Allergies (Verified Allergy, Unknown, 10/14/17) Objective . Vital Signs Date Time Temp Pulse Resp B/P (MAP) Pulse Ox O2 Delivery O2 Flow Rate FiO2 10/20/17 08:53 98.2 110 22 120/68 (85) 94 10/20/17 08:00 100 10/20/17 04:13 100 10/20/17 03:25 98.1 99 20 115/63 (80) 94 10/20/17 00:25 99.8 98 20 116/54 (74) 93 10/20/17 00:06 100 10/19/17 20:15 98.5 107 24 121/66 (84) 95 10/19/17 20:07 107 10/19/17 15:46 97.0 108 18 122/57 (78) 95 10/19/17 15:00 98 . Laboratory Tests Test 10/19/17 03:50 10/20/17 05:55 White Blood Count 4.2 TH/MM3 19.7 TH/MM3 Red Blood Count 3.06 MIL/MM3 3.24 MIL/MM3 Hemoglobin 9.0 GM/DL 9.5 GM/DL Hematocrit 26.5 % 27.7 % Mean Corpuscular Volume 86.6 FL 85.4 FL Mean Corpuscular Hemoglobin 29.4 PG 29.2 PG Mean Corpuscular Hemoglobin Concent 33.9 % 34.2 % Red Cell Distribution Width 14.4 % 14.8 % Platelet Count 122 TH/MM3 154 TH/MM3 Mean Platelet Volume 8.6 FL 8.1 FL CBC Comment AUTO DIFF AUTO DIFF Differential Total Cells Counted 100 100 Neutrophils % (Manual) 26 % 56 % Band Neutrophils % 34 % 20 % Lymphocytes % 17 % 10 % Monocytes % 17 % 7 % Eosinophils % 2 % 1 % Basophils % 1 % Neutrophils # (Manual) 2.6 TH/MM3 16.2 TH/MM3 Metamyelocytes 1 % 3 % Myelocytes 1 % 3 % Promyelocytes 1 % Nucleated Red Blood Cells 1 /100 WBC 1 /100 WBC Differential Comment FINAL DIFF MANUAL FINAL DIFF MANUAL Toxic Granulation 2+ 2+ Toxic Vacuolation PRESENT Dohle Bodies PRESENT PRESENT Platelet Estimate LOW LOW Platelet Morphology Comment ENLARGED NORMAL Ovalocytes 1+ Acanthocytes OCC Keratocytes OCC Laboratory Tests Test 10/19/17 03:50 Blood Urea Nitrogen 10 MG/DL Creatinine 0.54 MG/DL Random Glucose 90 MG/DL Calcium Level 7.7 MG/DL Sodium Level 138 MEQ/L Potassium Level 3.7 MEQ/L Chloride Level 108 MEQ/L Carbon Dioxide Level 19.3 MEQ/L Anion Gap 11 MEQ/L Estimat Glomerular Filtration Rate 149 ML/MIN Microbiology Date/Time Source Procedure Growth Status 10/17/17 20:11 Blood Peripheral Aerobic Blood Culture - Preliminary NO GROWTH IN 3 DAYS Resulted 10/17/17 20:11 Blood Peripheral Anaerobic Blood Culture - Preliminary NO GROWTH IN 3 DAYS Resulted 10/17/17 17:40 Blood Line Aerobic Blood Culture - Preliminary NO GROWTH IN 3 DAYS Resulted 10/17/17 17:40 Blood Line Anaerobic Blood Culture - Preliminary NO GROWTH IN 3 DAYS Resulted 10/17/17 19:15 Urine Clean Catch Urine Culture - Final Lindsay Albicans Complete Imaging Last Impressions Chest X-Ray 10/17/17 0000 Signed Impressions: CONCLUSION: 1. No focal infiltrate noted. 2. Chronic emphysematous changes bilaterally. Abdomen/Pelvis CT 10/16/17 0000 Signed Impressions: CONCLUSION: 1. Evidence for bowel wall thickening suspicious for uncomplicated colitis sig moid colon new from comparison study. Physical Exam GENERAL: This is a well-nourished, well-developed patient, in no apparent distress. SKIN: No rashes, ecchymoses or lesions. Cool and dry. HEAD: Atraumatic. Normocephalic. No temporal or scalp tenderness. EYES: Pupils equal round and reactive. Extraocular motions intact. No scleral icterus. No injection or drainage. ENT: Nose without bleeding, purulent drainage or septal hematoma. Throat without erythema, tonsillar hypertrophy or exudate. Uvula midline. Airway patent. NECK: Trachea midline. Supple, nontender, no meningeal signs. CARDIOVASCULAR: Heart sounds audible. RESPIRATORY: Clear to auscultation. Breath sounds equal bilaterally. No wheezes , rales, or rhonchi. GASTROINTESTINAL: Abdomen soft, diffuse tenderness most pronounced in the left lower quadrant. MUSCULOSKELETAL: Extremities without clubbing, cyanosis, or edema. NEUROLOGICAL: Awake and alert. Nonfocal. Normal speech Psych cooperative IV line sites with no evidence of infection Port site with no evidence of infection. Assessment & Plan Remarks Sepsis present on admission C. difficile colitis and diarrhea Neutropenic sepsis Immunocompromised host Unresectable pancreatic cancer Recs: Continue Dificid oral while in hospital. Continue oral Vanco recommend a 1 month course especially since patient may have another session of chemotherapy next week. Vanco 250 mg po qid for 10 days then Vanco 250 mg po tid for 10 days then Vanco 125 mg po bid for 10 days then Vanco 125 mg po daily for 10 days then stop. Continue Lactobacillus while in hospital. would not recommend lactobacillus during neutropenic phases as mucositis can lead to lactobacillus bacteremia. Continue Diflucan for 10 days. Follow clinically. Will sign off please call back if any change in clinical condition or questions. I will be OOT from 10/21/2017 to 11/02/2017. I will be back in town 11/03/2017. Maddie Womack MD Oct 20, 2017 12:31
[2017-10-20] MEDS: MIRTAZAPINE 15 MG TAB PO SCH (20:24)
[2017-10-21] VITALS (12 sets, daily range): BP systolic 101–128; BP diastolic 49–64; PULSE 89–107; RESP 17–20; TEMP 98.1–99.2; O2SAT 90–94
[2017-10-21] MEDS: EUCERIN CREAM 120 GM JAR TOPICAL SCH ×5 (04:00→22:00)
[2017-10-21] MEDS: PANTOPRAZOLE SODIUM 40 MG VIAL IV PUSH SCH (04:10)
[2017-10-21 04:52] LABS: HEMATOCRIT 25.2 % (39.0-51.0); HEMOGLOBIN 8.6 GM/DL (13.0-17.0); MEAN CELL VOLUME 85.7 FL (80.0-100.0); MEAN CORPUSCULAR HEMOGLOBIN 29.2 PG (27.0-34.0); MEAN CORPUSCULAR HGB CONC 34.1 % (32.0-36.0); MEAN PLATELET VOLUME 8.7 FL (7.0-11.0); PLATELET COUNT 166 TH/MM3 (150-450); RED BLOOD COUNT 2.94 MIL/MM3 (4.50-5.90); RED CELL DISTRIBUTION WIDTH 15.2 % (11.6-17.2); WHITE BLOOD COUNT 26.8 TH/MM3 (4.0-11.0)
[2017-10-21 08:01] LABS: BANDS 22 % (0-6); CORRECTED NUCLEATED RBC 2 /100 WBC (0-0); LYMPHOCYTES 6 % (9-44); METAMYELOCYTES 1 % (0-1); MONOCYTES 11 % (0-8); MYELOCYTES 3 % (0-0); NUCLEATED RED BLOOD CELL 2 (0-0); POLYS (SEG NEUTROPHILS) 56 % (16-70)
[2017-10-21 08:02] LABS: ACANTHOCYTES OCC (NORMAL); KERATOCYTES OCC (NORMAL); OVALOCYTES 1+ (NORMAL); TOXIC GRANULATION 2+ (NORMAL)
[2017-10-21 08:03] LABS: DOHLE BODIES PRESENT (NONE SEEN)
--- NOTE | 2017-10-21 08:17 | HHI.PR ---
Subjective Remarks Follow up for C. Diff, Neutropenic fever. Patient is doing well, resting in bed. On room air. No acute concerns - denies any CP, SOB, fever, chills. No abdominal pain. He had a small BM today. Tolerating diet well. Wants to go home. Objective Vitals Vital Signs Date Time Temp Pulse Resp B/P (MAP) Pulse Ox O2 Delivery O2 Flow Rate FiO2 10/21/17 04:15 99.2 95 20 106/53 (70) 91 10/21/17 04:00 98 10/21/17 00:04 97 10/21/17 00:03 98.3 98 20 109/52 (71) 92 10/20/17 20:17 98.8 108 20 113/55 (74) 91 10/20/17 20:08 115 10/20/17 16:16 98.8 104 22 116/62 (80) 93 10/20/17 12:00 97.5 96 20 100/53 (69) 93 10/20/17 08:53 98.2 110 22 120/68 (85) 94 I/O 10/20/17 10/20/17 10/20/17 10/21/17 10/21/17 10/21/17 07:00 15:00 23:00 07:00 15:00 23:00 Intake Total 1223 ml Balance 1223 ml Intake Oral 240 ml IV Total 983 ml # Voids 2 Result Diagram: 10/21/17 0421 10/19/17 0350 Imaging Last Impressions Chest X-Ray 10/17/17 0000 Signed Impressions: CONCLUSION: 1. No focal infiltrate noted. 2. Chronic emphysematous changes bilaterally. Abdomen/Pelvis CT 10/16/17 0000 Signed Impressions: CONCLUSION: 1. Evidence for bowel wall thickening suspicious for uncomplicated colitis sig moid colon new from comparison study. Objective Remarks GENERAL: Alert, oriented 3, NAD. SKIN: Warm and dry. HEAD: Normocephalic. EYES: No scleral icterus. No injection or drainage. NECK: Supple, trachea midline. No JVD or lymphadenopathy. CARDIOVASCULAR: Regular rate and rhythm without murmurs, gallops, or rubs. RESPIRATORY: Breath sounds equal bilaterally. No accessory muscle use. GASTROINTESTINAL: Abdomen soft, non-tender, nondistended. MUSCULOSKELETAL: No cyanosis, or edema. BACK: Nontender without obvious deformity. No CVA tenderness. Procedures NONE A/P Problem List: (1) Neutropenic fever ICD Code: D70.9 - Neutropenia, unspecified; R50.81 - Fever presenting with conditions classified elsewhere Status: Acute (2) Clostridium difficile colitis ICD Code: A04.72 - Enterocolitis due to Clostridium difficile, not specified as recurrent (3) Pancreatic adenocarcinoma ICD Code: C25.9 - Malignant neoplasm of pancreas, unspecified Assessment and Plan 72 year old male with unresectable poorly differentiated pancreatic adenocarcinoma currently undergoing chemotherapy, COPD, and depression admitted on 10/15 for fever and found to have C. diff. He continues to be spiking temperatures. 1. Neutropenic fever - Temp 99.8 overnight. - ID has discontinued IV cefepime and IV Flagyl. - Blood cultures 10/14 NG - Repeat blood culture from 10/17 NG - Lactic acid normalized - Heme/onc following. ID signed off. 2. C. diff PCR + - CT abdomen with evidence of bowel wall thickening suspicious for uncomplicated sigmoid colitis - Continue p.o. vancomycin and p.o. Dificid. Will continue taper PO Vancomycin upon discharge. 3. Nausea/vomiting - CT abdomen 10/16 showing bowel wall thickening suspicious for uncomplicated colitis of the sigmoid colon - Treating for C. diff as above - Antiemetics PRN 4. Leukopenia - Secondary to chemotherapy - Heme/onc following; Neupogen until WBC >5k. WBC count 4.2 --> 19.7. 5. Pancreatic adenocarcinoma - Currently receiving neoadjuvant chemo with Abraxane and Gemzar, last treatment 10/06 - Heme/onc following 6. Normocytic anemia - Secondary to chemo and malignancy - Hemodynamically stable 7. Thrombocytopenia - Secondary to chemo - No active bleeding 8. Oral mucositis - Magic mouthwash TID after meals 9. COPD - Continue home inhalers - Supplemental O2 PRN 10. Deconditioning - Will consult PT again. DVT prophylaxis: Racquel Ashby DO Oct 21, 2017 8:17 am
[2017-10-21] MEDS: ENOXAPARIN SODIUM 40 MG/0.4 ML SYRINGE SQ SCH (08:24)
[2017-10-21] MEDS: FIDAXOMICIN 200 MG TAB PO SCH ×3 (08:24→23:00)
[2017-10-21] MEDS: VANCOMYCIN 500 MG VIAL (FOR ORAL USE ONLY) PO SCH ×4 (08:24→21:00)
[2017-10-21] MEDS: LACTOBACILLUS ACIDOPHILUS TAB PO SCH ×3 (08:25→17:36)
[2017-10-21] MEDS: busPIRone HCL 5 MG TAB PO SCH ×3 (08:25→22:57)
[2017-10-21] MEDS: SODIUM CHLORIDE 0.9% FLUSH 10 ML FLUSH IV FLUSH SCH ×2 (08:25→23:00)
[2017-10-21] MEDS: LORATADINE 10 MG TAB PO SCH (08:25)
[2017-10-21] MEDS: PT OWN (Tiotropium Inh (Spiriva Respimat Inh) INH SCH (08:25)
[2017-10-21] MEDS: BUDESONIDE-FORMOTEROL 160/4.5 MCG INHALER INH SCH ×3 (08:25→22:59)
[2017-10-21] MEDS: FLUCONAZOLE 100 MG TAB PO SCH (08:25)
--- NOTE | 2017-10-21 11:02 | PD.ONC.PN ---
Subjective Subjective Remarks Afebrile Patient reports he feels like his appetite is improving Had one bowel movement this morning however he states it was not diarrhea Feels ready to go home Inquiring about immunotherapy Objective Data Date Time Temp Pulse Resp B/P (MAP) Pulse Ox O2 Delivery O2 Flow Rate FiO2 10/21/17 08:00 98.4 92 17 107/49 (68) 90 10/21/17 08:00 92 10/21/17 04:15 99.2 95 20 106/53 (70) 91 10/21/17 04:00 98 10/21/17 00:04 97 10/21/17 00:03 98.3 98 20 109/52 (71) 92 10/20/17 20:17 98.8 108 20 113/55 (74) 91 10/20/17 20:08 115 10/20/17 16:16 98.8 104 22 116/62 (80) 93 10/20/17 12:00 97.5 96 20 100/53 (69) 93 Result Diagram: 10/21/17 0421 10/19/17 0350 Laboratory Results Laboratory Tests Test 10/21/17 04:21 White Blood Count 26.8 TH/MM3 Red Blood Count 2.94 MIL/MM3 Hemoglobin 8.6 GM/DL Hematocrit 25.2 % Mean Corpuscular Volume 85.7 FL Mean Corpuscular Hemoglobin 29.2 PG Mean Corpuscular Hemoglobin Concent 34.1 % Red Cell Distribution Width 15.2 % Platelet Count 166 TH/MM3 Mean Platelet Volume 8.7 FL CBC Comment AUTO DIFF Differential Total Cells Counted 100 Neutrophils % (Manual) 56 % Band Neutrophils % 22 % Lymphocytes % 6 % Monocytes % 11 % Eosinophils % 1 % Neutrophils # (Manual) 22.0 TH/MM3 Metamyelocytes 1 % Myelocytes 3 % Nucleated Red Blood Cells 2 /100 WBC Differential Comment FINAL DIFF MANUAL Toxic Granulation 2+ Dohle Bodies PRESENT Platelet Estimate NORMAL Platelet Morphology Comment NORMAL Ovalocytes 1+ Acanthocytes OCC Keratocytes OCC Administered Medications Medications (Trade) Dose Ordered Sig/Sreedhar Route PRN Reason Start Time Stop Time Status Last Admin Dose Admin Sodium Chloride (NS Flush) 2 ml BID IV FLUSH 10/15/17 09:00 10/20/17 20:30 Acetaminophen (Tylenol) 650 mg Q4H PRN PO TEMP > 100.5 5/31/18 02:00 10/18/17 16:54 Ondansetron HCl (Zofran Odt) 4 mg Q6H PRN PO N/V 10/15/17 02:15 10/20/17 06:28 Enoxaparin Sodium (Lovenox Inj) 40 mg Q24H SQ 10/15/17 09:00 10/21/17 08:24 Buspirone HCl (Buspar) 5 mg BID PO 10/15/17 09:00 10/21/17 08:25 Mirtazapine (Remeron) 45 mg HS PO 10/15/17 21:00 10/20/17 20:24 Patient Own Medication PT OWN MED: (Tiotrop... DAILY INH 10/15/17 09:00 10/18/17 09:00 Budesonide/ Formoterol Fumarate (Symbicort 160-4.5 Mcg Inh) 2 puff BID INH 10/15/17 09:00 10/21/17 08:25 Promethazine HCl (Phenergan Inj) 25 mg Q6H PRN IV-CENTRAL NAUSEA AND VOMITING 10/16/17 10:45 10/16/17 23:11 Lactobacillus Acidophilus (Lactinex) 1 tab TID PO 10/16/17 13:00 10/21/17 08:25 Heparin Sodium (Porcine) (Heparin Central Flush) 250 units UNSCH PRN IV FLUSH SEE PROTOCOL TABLE 10/16/17 16:45 10/16/17 16:47 Pantoprazole Sodium (Protonix Inj) 40 mg Q24H IV PUSH 10/17/17 04:00 10/21/17 04:10 Dronabinol (Marinol) 2.5 mg BID@11,16 PO 10/17/17 20:15 10/20/17 16:07 Fidaxomicin (Dificid) 200 mg BID PO 10/18/17 21:00 10/28/17 20:59 10/21/17 08:24 Vancomycin HCl (VANCOMYCIN for oral use only) 250 mg QID PO 10/18/17 18:00 10/21/17 08:24 Loratadine (Claritin) 10 mg DAILY PO 10/18/17 16:30 10/21/17 08:25 Simethicone (Mylicon Chew) 80 mg PCHS PRN CHEW gas 10/20/17 06:30 10/20/17 06:54 Multi-Ingredient Ointment (Eucerin Cream) 1 applic Q6H TOPICAL 10/20/17 10:00 10/20/17 21:46 Fluconazole (Diflucan) 100 mg DAILY PO 10/20/17 09:45 10/21/17 08:25 Objective Remarks GENERAL: Fatigued older male resting in bed in no obvious distress SKIN: Warm and dry. HEAD: Normocephalic. EYES: No scleral icterus. No injection or drainage. NECK: Supple, trachea midline. No JVD or lymphadenopathy. CARDIOVASCULAR: Regular rate and rhythm without murmurs. RESPIRATORY: Breath sounds equal bilaterally. No accessory muscle use. GASTROINTESTINAL: Abdomen soft, non-tender, nondistended. EXTREMITIES: No cyanosis, or edema. MUSCULOSKELETAL: Adequate muscle tone. NEUROLOGICAL: No obvious focal deficit. Awake, alert, and oriented x3. Assessment/Plan Problem List: (1) Clostridium difficile colitis ICD Codes: A04.72 - Enterocolitis due to Clostridium difficile, not specified as recurrent (2) Pancreatic adenocarcinoma ICD Codes: C25.9 - Malignant neoplasm of pancreas, unspecified Assessment 72y/o male with pancreatic cancer with c. diff colitis. Plan 1. Patient clear for discharge from oncology standpoint. He will need to continue the vancomycin and Dificid outpatient. 2. I have instructed him to increase his fluid intake once discharged 3. Pancreatic adenocarcinoma: Patient has follow-up with Dr. Gomez on October 27 at 9 AM. He was encouraged to keep this appointment. Attending Statement The exam, history, and the medical decision-making described in the above note were completed with the assistance of the mid-level provider. I reviewed and agree with the findings presented. I attest that I had a [id number] encounter with the patient on the same day, and personally performed and documented my assessment and findings in the medical record doing better wants to go home soon developed atrial flutter earlier/on Metoprol/now NSR further close monitoring until medically stable Noemi Muir Oct 21, 2017 11:02 Del Gomez MD Oct 21, 2017 21:23
[2017-10-21] MEDS: DRONABINOL 2.5 MG CAP PO SCH ×2 (11:11→16:36)
[2017-10-21] MEDS ORDERED: VANC125C3 PO (12:21)
[2017-10-21] MEDS ORDERED: DIFL100T PO (12:21)
[2017-10-21] MEDS ORDERED: VANC250C2 PO (12:21)
[2017-10-21] MEDS ORDERED: DRON2.5 PO (13:17)
--- NOTE | 2017-10-21 14:10 | HHI.DS ---
Discharge Summary Admission Date October 15, 2017 at 12:25 am Discharge Date: Oct 21, 2017 Admitting Diagnosis Neutropenic fever (1) Neutropenic fever ICD Code: D70.9 - Neutropenia, unspecified; R50.81 - Fever presenting with conditions classified elsewhere Status: Acute (2) Clostridium difficile colitis ICD Code: A04.72 - Enterocolitis due to Clostridium difficile, not specified as recurrent (3) Pancreatic adenocarcinoma ICD Code: C25.9 - Malignant neoplasm of pancreas, unspecified Procedures NONE Brief History - From Admission 72-year-old male with a past medical history significant for adenocarcinoma of the pancreas, COPD and depression presents to the emergency department for the evaluation of a fever. The patient is currently undergoing chemotherapy, completing his third course of chemo on Thursday. He reports that his temperature at home was 100 or 101. The patient's son called his oncologist office who recommended further evaluation in the emergency department and treatment with IV antibiotics. The patient also endorses a productive cough. He reports chest pain on exertion that is his baseline. He denies abdominal pain. No nausea/vomiting/diarrhea. No lateralizing signs/symptoms. CBC/BMP: 10/21/17 0421 10/19/17 0350 Significant Findings Laboratory Tests Test 10/19/17 03:50 10/20/17 05:55 10/21/17 04:21 Red Blood Count 3.06 MIL/MM3 (4.50-5.90) 3.24 MIL/MM3 (4.50-5.90) 2.94 MIL/MM3 (4.50-5.90) Hemoglobin 9.0 GM/DL (13.0-17.0) 9.5 GM/DL (13.0-17.0) 8.6 GM/DL (13.0-17.0) Hematocrit 26.5 % (39.0-51.0) 27.7 % (39.0-51.0) 25.2 % (39.0-51.0) Platelet Count 122 TH/MM3 (150-450) Band Neutrophils % 34 % (0-6) 20 % (0-6) 22 % (0-6) Monocytes % 17 % (0-8) 11 % (0-8) Myelocytes 1 % (0-0) 3 % (0-0) 3 % (0-0) Promyelocytes 1 % (0-0) Nucleated Red Blood Cells 1 /100 WBC (0-0) 1 /100 WBC (0-0) 2 /100 WBC (0-0) Toxic Granulation 2+ (NORMAL) 2+ (NORMAL) 2+ (NORMAL) Toxic Vacuolation PRESENT (NONE SEEN) Dohle Bodies PRESENT (NONE SEEN) PRESENT (NONE SEEN) PRESENT (NONE SEEN) Platelet Estimate LOW (NORMAL) LOW (NORMAL) Platelet Morphology Comment ENLARGED (NORMAL) Creatinine 0.54 MG/DL (0.60-1.30) Calcium Level 7.7 MG/DL (8.5-10.1) Chloride Level 108 MEQ/L (98-107) Carbon Dioxide Level 19.3 MEQ/L (21.0-32.0) White Blood Count 19.7 TH/MM3 (4.0-11.0) 26.8 TH/MM3 (4.0-11.0) Neutrophils # (Manual) 16.2 TH/MM3 (1.8-7.7) 22.0 TH/MM3 (1.8-7.7) Metamyelocytes 3 % (0-1) Ovalocytes 1+ (NORMAL) 1+ (NORMAL) Lymphocytes % 6 % (9-44) PE at Discharge GENERAL: Alert, oriented 3, NAD. SKIN: Warm and dry. HEAD: Normocephalic. EYES: No scleral icterus. No injection or drainage. NECK: Supple, trachea midline. No JVD or lymphadenopathy. CARDIOVASCULAR: Regular rate and rhythm without murmurs, gallops, or rubs. RESPIRATORY: Breath sounds equal bilaterally. No accessory muscle use. GASTROINTESTINAL: Abdomen soft, non-tender, nondistended. MUSCULOSKELETAL: No cyanosis, or edema. BACK: Nontender without obvious deformity. No CVA tenderness. Pt update on day of discharge Follow up for C. Diff, Neutropenic fever. Patient is doing well, resting in bed. On room air. No acute concerns - denies any CP, SOB, fever, chills. No abdominal pain. He had a small BM today. Tolerating diet well. Wants to go home. Hospital Course 2 year old male with unresectable poorly differentiated pancreatic adenocarcinoma currently undergoing chemotherapy, COPD, and depression admitted on 10/15 for fever and found to have C. diff. He continues to be spiking temperatures. 1. Neutropenic fever Sepsis due to C. Diff Colitis. - Temp 99.8 overnight. - ID has discontinued IV cefepime and IV Flagyl. - Blood cultures 10/14 NG - Repeat blood culture from 10/17 NG - Lactic acid normalized - Heme/onc following. ID signed off. 2. C. diff PCR + - CT abdomen with evidence of bowel wall thickening suspicious for uncomplicated sigmoid colitis - Continue p.o. vancomycin and p.o. Dificid. Will continue taper PO Vancomycin upon discharge. 3. Nausea/vomiting - CT abdomen 10/16 showing bowel wall thickening suspicious for uncomplicated colitis of the sigmoid colon - Treating for C. diff as above - Antiemetics PRN 4. Leukopenia - Secondary to chemotherapy - Heme/onc following; Neupogen until WBC >5k. WBC count 4.2 --> 19.7. 5. Pancreatic adenocarcinoma - Currently receiving neoadjuvant chemo with Abraxane and Gemzar, last treatment 10/06 - Heme/onc following 6. Normocytic anemia - Secondary to chemo and malignancy - Hemodynamically stable 7. Thrombocytopenia - Secondary to chemo - No active bleeding 8. Oral mucositis - Magic mouthwash TID after meals 9. COPD - Continue home inhalers - Supplemental O2 PRN 10. Atrial flutter - Metoprolol 25mg Q12hrs. Aspirin for anticoagulation. [id number] score 1 DVT prophylaxis: Lovenox Pt Condition on Discharge: Good Discharge Disposition: Discharge Home Discharge Time: > 30 minutes Discharge Instructions DIET: Follow Instructions for: As Tolerated, No Restrictions Activities you can perform: Regular-No Restrictions Follow up Referrals: Oncology/Hematology - 10/27/17 with Del Gomez MD PCP Follow-up - 1 Week New Medications: Vancomycin (Vancomycin) 125 Mg Cap 125 MG PO QID for Infection for 20 Days, #30 CAP 0 Refills After finishing 250mg dosing, Do the following: Take 125mg Twice a day for 10 days THEN Take 125mg Daily for 10 days then STOP. Vancomycin (Vancomycin) 250 Mg Cap 250 MG PO QID for Infection for 20 Days, #70 CAP 0 Refills STARTING 10/21/2017 Take 250mg 4 times a day for 10 days THEN Take 250mg 3 times a day for 10 days Dronabinol (Marinol) 2.5 Mg Cap 2.5 MG PO BID@11,16 for appetite, #60 CAP 3 Refills Fluconazole (Diflucan) 100 Mg Tab 100 MG PO DAILY for Infection, #10 TAB Continued Medications: Albuterol 6.7 GM Inh (Proventil Hfa 6.7 GM Inh) 90 Mcg/Act Aer 1 PUFF INH Q4H PRN for SHORTNESS OF BREATH, #1 INHALER 0 Refills Buspirone (Buspirone) 5 Mg Tab 5 MG PO BID for Anxiety, TAB 0 Refills Mirtazapine (Mirtazapine) 45 Mg Tab 45 MG PO HS for Depression Control, #30 TAB 0 Refills Nutritional Supplements (Ensure) 1 Pow Pow Tiotropium Inh (Spiriva Respimat Inh) 2.5 Mcg/Act Aero 2 PUFF INH DAILY for COPD, #1 INHALER 0 Refills 2.5 mcg = 1 inhalation [Budeson-Formot 160-4.5 Mcg Inh] () 60 PUFF AERO 2 PUFF INH Q12HR for Breathing Treatment, #1 INHALER Racquel Woodward DO Oct 21, 2017 14:10
[2017-10-21] MEDS: METOPROLOL TARTRATE 25 MG TAB PO SCH ×4 (15:00→22:57)
--- NOTE | 2017-10-21 17:35 | HHI.PR ---
Subjective Remarks Follow up for C. Diff, Neutropenic fever. Patient is doing well, resting in bed. On room air. No acute concerns - denies any CP, SOB, fever, chills. No abdominal pain. He had a small BM today. Tolerating diet well. Wants to go home. We wanted to discharge patient home today. However, his tachycardia prompted an EKG which shows atrial flutter. Objective Vitals Vital Signs Date Time Temp Pulse Resp B/P (MAP) Pulse Ox O2 Delivery O2 Flow Rate FiO2 10/21/17 16:32 105 10/21/17 16:09 98.4 107 18 128/64 (85) 93 10/21/17 15:25 98.1 107 18 101/54 (70) 93 10/21/17 12:21 100 10/21/17 11:20 98.1 102 18 120/57 (78) 94 10/21/17 08:00 98.4 92 17 107/49 (68) 90 10/21/17 08:00 92 10/21/17 04:15 99.2 95 20 106/53 (70) 91 10/21/17 04:00 98 10/21/17 00:04 97 10/21/17 00:03 98.3 98 20 109/52 (71) 92 10/20/17 20:17 98.8 108 20 113/55 (74) 91 10/20/17 20:08 115 I/O 10/20/17 10/20/17 10/20/17 10/21/17 10/21/17 10/21/17 07:00 15:00 23:00 07:00 15:00 23:00 Intake Total 1223 ml Balance 1223 ml Intake Oral 240 ml IV Total 983 ml # Voids 2 Result Diagram: 10/21/17 0421 10/19/17 0350 Imaging Last Impressions Chest X-Ray 10/17/17 0000 Signed Impressions: CONCLUSION: 1. No focal infiltrate noted. 2. Chronic emphysematous changes bilaterally. Abdomen/Pelvis CT 10/16/17 0000 Signed Impressions: CONCLUSION: 1. Evidence for bowel wall thickening suspicious for uncomplicated colitis sig moid colon new from comparison study. Objective Remarks GENERAL: Alert, oriented 3, NAD. SKIN: Warm and dry. HEAD: Normocephalic. EYES: No scleral icterus. No injection or drainage. NECK: Supple, trachea midline. No JVD or lymphadenopathy. CARDIOVASCULAR: Regular rate and rhythm without murmurs, gallops, or rubs. RESPIRATORY: Breath sounds equal bilaterally. No accessory muscle use. GASTROINTESTINAL: Abdomen soft, non-tender, nondistended. MUSCULOSKELETAL: No cyanosis, or edema. BACK: Nontender without obvious deformity. No CVA tenderness. Procedures NONE A/P Problem List: (1) Neutropenic fever ICD Code: D70.9 - Neutropenia, unspecified; R50.81 - Fever presenting with conditions classified elsewhere Status: Acute (2) Clostridium difficile colitis ICD Code: A04.72 - Enterocolitis due to Clostridium difficile, not specified as recurrent (3) Pancreatic adenocarcinoma ICD Code: C25.9 - Malignant neoplasm of pancreas, unspecified Assessment and Plan 72 year old male with unresectable poorly differentiated pancreatic adenocarcinoma currently undergoing chemotherapy, COPD, and depression admitted on 10/15 for fever and found to have C. diff. He continues to be spiking temperatures. 1. Neutropenic fever - Temp 99.8 overnight. - ID has discontinued IV cefepime and IV Flagyl. - Blood cultures 10/14 NG - Repeat blood culture from 10/17 NG - Lactic acid normalized - Heme/onc following. ID signed off. 2. C. diff PCR + - CT abdomen with evidence of bowel wall thickening suspicious for uncomplicated sigmoid colitis - Continue p.o. vancomycin and p.o. Dificid. Will continue taper PO Vancomycin upon discharge. 3. Nausea/vomiting - CT abdomen 10/16 showing bowel wall thickening suspicious for uncomplicated colitis of the sigmoid colon - Treating for C. diff as above - Antiemetics PRN 4. Leukopenia - Secondary to chemotherapy - Heme/onc following; Neupogen until WBC >5k. WBC count 4.2 --> 19.7. 5. Pancreatic adenocarcinoma - Currently receiving neoadjuvant chemo with Abraxane and Gemzar, last treatment 10/06 - Heme/onc following 6. Normocytic anemia - Secondary to chemo and malignancy - Hemodynamically stable 7. Thrombocytopenia - Secondary to chemo - No active bleeding 8. Oral mucositis - Magic mouthwash TID after meals 9. COPD - Continue home inhalers - Supplemental O2 PRN 10. Atrial flutter - Will start patient on Metoprolol 25mg Q8hrs. If it proves to be difficult to control, we may consult Cardiology. DVT prophylaxis: Racquel Ashby DO Oct 21, 2017 17:35
[2017-10-21] MEDS: MIRTAZAPINE 15 MG TAB PO SCH ×2 (21:00→22:57)
[2017-10-22] VITALS (8 sets, daily range): BP systolic 99–110; BP diastolic 49–55; PULSE 76–93; RESP 18–20; TEMP 97.6–98.1; O2SAT 90–96
[2017-10-22] MEDS: EUCERIN CREAM 120 GM JAR TOPICAL SCH ×2 (04:00→09:40)
[2017-10-22] MEDS: PANTOPRAZOLE SODIUM 40 MG VIAL IV PUSH SCH (05:00)
[2017-10-22] MEDS: METOPROLOL TARTRATE 25 MG TAB PO SCH (05:01)
--- NOTE | 2017-10-22 08:55 | PD.ONC.PN ---
Subjective Subjective Remarks Afebrile overnight. patient resting in bed in nad. No complaints. denies dizziness. denies abdominal pain. wants to go home. Objective Data Date Time Temp Pulse Resp B/P (MAP) Pulse Ox O2 Delivery O2 Flow Rate FiO2 10/22/17 04:56 97.6 78 18 101/55 (70) 90 10/22/17 04:05 78 10/22/17 01:08 97.8 83 18 99/49 (66) 91 10/22/17 00:14 93 10/21/17 21:40 98.6 89 17 107/55 (72) 93 10/21/17 20:14 90 10/21/17 16:32 105 10/21/17 16:09 98.4 107 18 128/64 (85) 93 10/21/17 15:25 98.1 107 18 101/54 (70) 93 10/21/17 12:21 100 10/21/17 11:20 98.1 102 18 120/57 (78) 94 10/22/17 10/22/17 10/22/17 07:00 15:00 23:00 Intake Total 240 ml Balance 240 ml Result Diagram: 10/21/17 0421 10/19/17 0350 Administered Medications Medications (Trade) Dose Ordered Sig/Sreedhar Route PRN Reason Start Time Stop Time Status Last Admin Dose Admin Sodium Chloride (NS Flush) 2 ml BID IV FLUSH 10/15/17 09:00 10/21/17 23:00 Acetaminophen (Tylenol) 650 mg Q4H PRN PO TEMP > 100.5 10/15/17 02:00 10/18/17 16:54 Ondansetron HCl (Zofran Odt) 4 mg Q6H PRN PO N/V 10/15/17 02:15 10/20/17 06:28 Enoxaparin Sodium (Lovenox Inj) 40 mg Q24H SQ 10/15/17 09:00 10/21/17 08:24 Buspirone HCl (Buspar) 5 mg BID PO 10/15/17 09:00 10/21/17 22:57 Mirtazapine (Remeron) 45 mg HS PO 10/15/17 21:00 10/21/17 22:57 Patient Own Medication PT OWN MED: (Tiotrop... DAILY INH 10/15/17 09:00 10/18/17 09:00 Budesonide/ Formoterol Fumarate (Symbicort 160-4.5 Mcg Inh) 2 puff BID INH 10/15/17 09:00 10/21/17 22:59 Promethazine HCl (Phenergan Inj) 25 mg Q6H PRN IV-CENTRAL NAUSEA AND VOMITING 10/16/17 10:45 10/16/17 23:11 Lactobacillus Acidophilus (Lactinex) 1 tab TID PO 10/16/17 13:00 10/21/17 17:36 Heparin Sodium (Porcine) (Heparin Central Flush) 250 units UNSCH PRN IV FLUSH SEE PROTOCOL TABLE 10/16/17 16:45 10/16/17 16:47 Pantoprazole Sodium (Protonix Inj) 40 mg Q24H IV PUSH 10/17/17 04:00 10/22/17 05:00 Dronabinol (Marinol) 2.5 mg BID@11,16 PO 10/17/17 20:15 10/21/17 16:36 Fidaxomicin (Dificid) 200 mg BID PO 10/18/17 21:00 10/28/17 20:59 10/21/17 23:00 Vancomycin HCl (VANCOMYCIN for oral use only) 250 mg QID PO 10/18/17 18:00 10/21/17 17:36 Loratadine (Claritin) 10 mg DAILY PO 10/18/17 16:30 10/21/17 08:25 Simethicone (Mylicon Chew) 80 mg PCHS PRN CHEW gas 10/20/17 06:30 10/20/17 06:54 Multi-Ingredient Ointment (Eucerin Cream) 1 applic Q6H TOPICAL 10/20/17 10:00 10/22/17 04:00 Fluconazole (Diflucan) 100 mg DAILY PO 10/20/17 09:45 10/21/17 08:25 Metoprolol Tartrate (Lopressor) 25 mg Q8HR PO 10/21/17 15:00 10/22/17 05:01 Objective Remarks GENERAL: Pleasant elderly male, sitting up in bed SKIN: Warm and dry. HEAD: Normocephalic. EYES: No injection or drainage. NECK: Supple, trachea midline. CARDIOVASCULAR: +S1/S2 RESPIRATORY: Breath sounds equal bilaterally. No accessory muscle use. GASTROINTESTINAL: Abdomen soft, non-tender, nondistended. EXTREMITIES: No cyanosis NEUROLOGICAL: awake and alert. normal speech. moving extremities. Assessment/Plan Problem List: (1) Clostridium difficile colitis ICD Codes: A04.72 - Enterocolitis due to Clostridium difficile, not specified as recurrent (2) Pancreatic adenocarcinoma ICD Codes: C25.9 - Malignant neoplasm of pancreas, unspecified Assessment 72y/o male with pancreatic cancer with c. diff colitis. Plan 1. oncology clear for discharge 2. follow-up with Dr. Gomez on October 27 at 9 AM. Attending Statement The exam, history, and the medical decision-making described in the above note were completed with the assistance of the mid-level provider. I reviewed and agree with the findings presented. I attest that I had a [id number] encounter with the patient on the same day, and personally performed and documented my assessment and findings in the medical record. Jania Jefferson Oct 22, 2017 08:55 Del Gomez MD Oct 22, 2017 23:48
[2017-10-22] MEDS: VANCOMYCIN 500 MG VIAL (FOR ORAL USE ONLY) PO SCH ×2 (09:30→13:28)
[2017-10-22] MEDS: ENOXAPARIN SODIUM 40 MG/0.4 ML SYRINGE SQ SCH (09:30)
[2017-10-22] MEDS: LORATADINE 10 MG TAB PO SCH (09:30)
[2017-10-22] MEDS: FLUCONAZOLE 100 MG TAB PO SCH (09:30)
[2017-10-22] MEDS: FIDAXOMICIN 200 MG TAB PO SCH (09:31)
[2017-10-22] MEDS: LACTOBACILLUS ACIDOPHILUS TAB PO SCH ×2 (09:31→13:00)
[2017-10-22] MEDS: busPIRone HCL 5 MG TAB PO SCH (09:39)
[2017-10-22] MEDS: BUDESONIDE-FORMOTEROL 160/4.5 MCG INHALER INH SCH (09:40)
[2017-10-22] MEDS: SODIUM CHLORIDE 0.9% FLUSH 10 ML FLUSH IV FLUSH SCH (09:41)
[2017-10-22] MEDS ORDERED: METO25TA3 PO (09:50)
[2017-10-22] MEDS ORDERED: ASPI81TA23 PO (09:50)
[2017-10-22] MEDS: DRONABINOL 2.5 MG CAP PO SCH (11:00)
--- NOTE | 2017-10-22 11:23 | HHI.FF ---
Face to Face Verification Diagnosis: (1) Atrial flutter (2) Clostridium difficile colitis (3) Pancreatic adenocarcinoma (4) COPD (chronic obstructive pulmonary disease) (5) Neutropenic fever Physical Therapy Order: Evaluate and Treat, Improve ambulation, Strength and gait training Home Health Nursing Order: Medical education Signs/symptoms of disease process Medication education-adverse effect Wound care and dressing changes Nursing assessment with vital signs I have seen patient Heber Pérez on 10/22/17. My clinical findings support the need for the requested home health care services because: Ltd mobility - disease progression Deconditioned w/ increased weakness Limited ability to care for self Need for psychosocial assistance Impaired cognition/judgement High risk of falls Infection w/ risk of complications I certify that my clinical findings support that this patient is homebound because: Impaired cognitive ability/safety Unsteady gait/balance Unsafe to leave home unassisted Need for psychosocial assistance [id number] bed/chair Unable to use public transportation Racquel Woodward DO Oct 22, 2017 11:23
[2017-10-22] MEDS ORDERED: SODIUM CHLORIDE 0.9% FLUSH 10 ML FLUSH IV FLUSH PRN (12:30)
[2017-10-22] MEDS ORDERED: MAGICADU2 SWISH-SWAL (13:20)
--- NOTE | 2017-10-22 20:42 | EKG ---
Date Performed: 10/21/2017 Time Performed: 14:25:56 PTAGE: 72 years EKG: Normal SINUS [id number] Septal T wave changes are nonspecific Low QRS voltages in precordial fidel ds Since previous tracing,There has been no significant serial change. Abnormal ECG PREVIOUS TRACING : 10/18/2017 10.29 DOCTOR: Mounika Post Interpretating Date/Time 10/22/2017 20:40:46
--- NOTE | 2017-10-23 09:31 | PQ ---
Physician Query Response Document PATIENT: PALMER HUANG : 1945 ADMIT DATE: 10/15/2017 12:25 AM DISCH DATE: 10/22/2017 2:18 PM RESPONDING PROVIDER #: milan QUERY TEXT: Conflicting Documentation Clarification A single mention or documentation of multiple diagnoses for the same clinical presentation appears in the record. Please clarify the diagnosis/diagnoses. NEUTROPENIC SEPSIS Please also document if the condition is: -- Confirmed and current -- Confirmed, treated and resolved -- Ruled out -- Other, please specify Your prompt response is appreciated, please do not hesitate to contact the CDI/Coding Hotline with an y questions, comments and/or concerns you may have at [phone]. [phone]. The patient's Clinical Indicators include: PROG NOTE 10/16:Agranulocytosis secondary to cancer chemotherapy in a patient on chemotherapy and under lying pancreatic cancer w neutropenia and thrombocytopenia INFECTIOUS DZ CONSULT 10/18: (and all of his prog notes) Assessment and Plan Sepsis present on admission C. difficile colitis and diarrhea Neutropenic sepsis Immunocompromised host Unresectable pancreatic cancer DISCHARGE SUMMARY: (1) Neutropenic fever ICD Code: D70.9 - Neutropenia, unspecified; R50.81 - Fever presenting with conditions classified els ewhere Status: Acute (2) Clostridium difficile colitis ICD Code: A04.72 - Enterocolitis due to Clostridium difficile, not specified as recurrent (3) Pancreatic adenocarcinoma ICD Code: C25.9 - Malignant neoplasm of pancreas, unspecified Query created by: Maryann Manriquez on 10/23/2017 8:38 AM RESPONSE TEXT: Sepsis with neutropenia (HR 100, RR 20, WBC 2.3K initially, dropped to 1.1 with neutrophil count 400, C. Diff colitis). Electronically signed by: David Woodward DO 10/23/2017 9:27 AM
== END 2017-10-22 14:18 | disposition home health service (06) | DRG 872 ==
LOC: NEPE 22:52 → NEDA 10-15 00:25 → HCIN 10-15 02:32
PROVIDERS: ADMIT Hospitalist; ATTEND Hospitalist
DX: A41.9 Sepsis, unspecified organism (principal); R64 Cachexia; A04.72 Enterocolitis due to Clostridium difficile, not specified as recurrent; D70.1 Agranulocytosis secondary to cancer chemotherapy; C25.9 Malignant neoplasm of pancreas, unspecified; I48.92 Unspecified atrial flutter; Z99.81 Dependence on supplemental oxygen; D69.59 Other secondary thrombocytopenia; D64.81 Anemia due to antineoplastic chemotherapy; D70.3 Neutropenia due to infection; J44.9 Chronic obstructive pulmonary disease, unspecified; R50.81 Fever presenting with conditions classified elsewhere; L27.0 Generalized skin eruption due to drugs and medicaments taken internally; E78.00 Pure hypercholesterolemia, unspecified; K12.30 Oral mucositis (ulcerative), unspecified; E11.9 Type 2 diabetes mellitus without complications; E86.0 Dehydration; T45.1X5A Adverse effect of antineoplastic and immunosuppressive drugs, initial encounter; F32.9 Major depressive disorder, single episode, unspecified; F41.9 Anxiety disorder, unspecified; Z68.20 Body mass index [BMI] 20.0-20.9, adult; Z85.46 Personal history of malignant neoplasm of prostate
CPT/HCPCS: 36591; 71045; 71046; 74177; 80048; 80053; 81001; 83036; 83605; 83735; 84100; 84439; 84443; 84484; 85007; 85025; 85027; 85610; 85730; 87040; 87086; 87493; 87804; 93005; 96360; 96367; 96375; 96413; 96417; C9113; J0692; J0780; J1100; J1442; J1626; J1642; J1650; J2550; J3370; J7030; J7040; J7050; J9201; J9264; Q0167; Q9967